=== PATIENT | female | born 1990 | race Caucasian/White ===

== ENCOUNTER 2016-09-08 14:02 | Emergency (ER) | payer MEDICAID, OTHER ==
[~2016-09-08] VITALS: Ht 165.1 cm; Wt 63.5 kg
[~2016-09-08 14:02] MED LIST: AC325T PO; AGM875T PO; AZIT-21 PO; BREA1EAC5 MC; CYCL10TA9 PO; DCS100C PO; DICY20TA57 PO; HYDR-3720 PO; IBP800T PO; NAPR550T PO; PREN1TAB19 PO
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
[2016-09-08 15:15] LABS: MEAN PLATELET VOLUME 9.5 FL (7.4-10.4); RED BLOOD COUNT 4.88 10^6/uL (4.35-5.85); RED CELL DISTRIBUTION WIDTH 13.3 % (10.0-14.5)
[2016-09-08 15:17] LABS: BILIRUBIN,URINE NEGATIVE (NEGATIVE); KETONES,URINE NEGATIVE (NEGATIVE); LEUKOCYTE ESTERASE ,URINE 1+ (NEGATIVE); NITRITE,URINE NEGATIVE (NEGATIVE); PH,URINE 6 (5-9); PROTEIN,URINE 2+ (NEGATIVE); UROBILINOGEN,URINE NORMAL (NORMAL)
[2016-09-08 15:24] LABS: SQUAMOUS EPITHELIAL CELL,UR >50 /HPF; WBC,URINE 0-2 /HPF
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
[2016-09-08 15:35] LABS: ALANINE AMINOTRANSFERASE 23 U/L (0-55); ALBUMIN 4.2 G/DL (3.2-4.5); ANION GAP 9 MMOL/L (5-14); ASPARTATE AMINO TRANSFERASE 20 U/L (5-34); BILIRUBIN,DIRECT 0.2 MG/DL (0.0-0.3); BILIRUBIN,INDIRECT 0.2 MG/DL; BILIRUBIN,TOTAL 0.4 MG/DL (0.1-1.0); BLOOD UREA NITROGEN 16 MG/DL (7-18); BUN/CREATININE RATIO 21; CALCIUM 9.6 MG/DL (8.5-10.1); CARBON DIOXIDE 22 MMOL/L (21-32); CHLORIDE 108 MMOL/L (98-107); CREATININE SERUM 0.75 MG/DL (0.60-1.30); GFR ESTIMATED > 60; GLUCOSE 89 MG/DL (70-105); POTASSIUM 4.3 MMOL/L (3.6-5.0); SODIUM 139 MMOL/L (135-145); TOTAL PROTEIN 7.3 G/DL (6.4-8.2)
[2016-09-08 15:37] LABS: ALCOHOL < 10 MG/DL (<10)
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
[2016-09-08] MEDS ORDERED: ACETAMINOPHEN 500 MG TAB (TYLENOL) PO ONE (15:45)
[2016-09-08 15:55] VITALS: BP 120/84
--- OUTSIDE RECORDS SUMMARY | 2016-10-10 17:20 | XMS REPORT | Continuity of Care Document ---
Author Author Count Includes [facility] Address Unknown Phone Unavailable Allergies Active Description Code Type Severity Reaction Onset Reported/Identified Relationship to Patient Clinical Status Yes Penicillins Drug Allergy 11/25/2008 Yes Penicillins Drug Allergy N/A N/A 11/25/2008 Yes Amoxicillin Drug Allergy N/A N/A 10/04/2012 Yes Penicillins [id number] Drug Allergy Unknown N/A 10/26/2013 Medications Problems Date Dx Coded Attending Type Code Diagnosis Diagnosed By 11/25/2008 JOHN GOMEZ DO 958.3 WOUND INFECTION 11/25/2008 958.3 WOUND INFECTION 11/25/2008 958.3 WOUND INFECTION 11/25/2008 MONY SYED APRNCY N 958.3 WOUND INFECTION 11/25/2008 TANA JUAREZ APRN R 958.3 WOUND INFECTION 11/25/2008 JOANN SEWING MACHINE BOBBIN WINDER, CYRIL A 958.3 WOUND INFECTION 11/25/2008 JOANN SEWING MACHINE BOBBIN WINDER, CYRIL A 958.3 WOUND INFECTION 11/25/2008 JOANN SEWING MACHINE BOBBIN WINDER, CYRIL A 958.3 WOUND INFECTION 11/25/2008 LEONARD JUAREZ APRNIA R 958.3 WOUND INFECTION 11/25/2008 JOANN SEWING MACHINE BOBBIN WINDER, CYRIL A 958.3 WOUND INFECTION 11/25/2008 LISA CANDELARIA MD N 958.3 WOUND INFECTION 11/25/2008 JOANN SEWING MACHINE BOBBIN WINDER, CYRIL A 958.3 WOUND INFECTION 11/25/2008 JOANN PARKER, CYRIL A 958.3 WOUND INFECTION 11/25/2008 LISA CANDELARIA MD N 958.3 WOUND INFECTION 11/25/2008 LISA CANDELARIA MD 958.3 WOUND INFECTION 11/25/2008 LISA CANDELARIA MD 958.3 WOUND INFECTION 11/25/2008 LISA CANDELARIA MD 958.3 WOUND INFECTION 11/25/2008 LISA CANDELARIA MD 958.3 WOUND INFECTION 11/26/2008 JOHN GOMEZ DO K 616.10 VAGINITIS 11/26/2008 JOHN GOMEZ DO 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 11/26/2008 616.10 VAGINITIS 11/26/2008 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 11/26/2008 616.10 VAGINITIS 11/26/2008 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 11/26/2008 MONY SYED APRNCY N 616.10 VAGINITIS 11/26/2008 MONY SYED APRNCY N V74.5 visit for: screening exam bact/ spirochetal venereal disease 11/26/2008 LEONARD JUAREZ APRNIA R 616.10 VAGINITIS 11/26/2008 XU JUAREZ APRNRICIA R V74.5 visit for: screening exam bact/ spirochetal venereal disease 11/26/2008 JOANN PARKER CYRIL A 616.10 VAGINITIS 11/26/2008 JOANNCB PARKER CYRIL A V74.5 visit for: screening exam bact/ spirochetal venereal disease 11/26/2008 JOANN PARKER CYRIL A 616.10 VAGINITIS 11/26/2008 JOANN PARKER CYRIL A V74.5 visit for: screening exam bact/ spirochetal venereal disease 11/26/2008 JOANN PARKER CYRIL A 616.10 VAGINITIS 11/26/2008 JOANN PARKER CYRIL A V74.5 visit for: screening exam bact/ spirochetal venereal disease 11/26/2008 ANN PARKER TANA R 616.10 VAGINITIS 11/26/2008 XU JUAREZ APRNRICIA R V74.5 visit for: screening exam bact/ spirochetal venereal disease 11/26/2008 JOANN PARKER CYRIL A 616.10 VAGINITIS 11/26/2008 JOANN PARKER CYRIL A V74.5 visit for: screening exam bact/ spirochetal venereal disease 11/26/2008 LISA CANDELARIA MD N 616.10 VAGINITIS 11/26/2008 LISA CANDELARIA MD N 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 11/26/2008 JOANN SEWING MACHINE BOBBIN WINDER, CYRIL A 616.10 VAGINITIS 11/26/2008 JOANN SEWING MACHINE BOBBIN WINDER, CYRIL A V74.5 visit for: screening exam bact/ spirochetal venereal disease 11/26/2008 JOANN APRN, CYRIL A 616.10 VAGINITIS 11/26/2008 JOANN APRN, CYRIL A V74.5 visit for: screening exam bact/ spirochetal venereal disease 11/26/2008 LISA CANDELARIA MD N 616.10 VAGINITIS 11/26/2008 LISA CANDELARIA MD N 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 11/26/2008 LISA CANDELARIA MD N 616.10 VAGINITIS 11/26/2008 LISA CANDELARIA MD N 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 11/26/2008 LISA CANDELARIA MD N 616.10 VAGINITIS 11/26/2008 LISA CANDELARIA MD N 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 11/26/2008 LISA CANDELARIA MD N 616.10 VAGINITIS 11/26/2008 LISA CANDELARIA MD N 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 11/26/2008 LISA CANDELARIA MD N 616.10 VAGINITIS 11/26/2008 LISA CANDELARIA MD N 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 12/06/2009 GOMEZ DOJAYNEA K 599.70 HEMATURIA, UNSPECIFIED 12/06/2009 GOMEZ DOJAYNEA K 788.1 DYSURIA 12/06/2009 599.70 HEMATURIA, UNSPECIFIED 12/06/2009 788.1 DYSURIA 12/06/2009 599.70 HEMATURIA, UNSPECIFIED 12/06/2009 788.1 DYSURIA 12/06/2009 CONTRERAS CASHERO SEWING MACHINE BOBBIN WINDER, MO N 599.70 HEMATURIA, UNSPECIFIED 12/06/2009 CONTRERASBRUNO DORANTESERO SEWING MACHINE BOBBIN WINDER, [place] N 788.1 DYSURIA 12/06/2009 JUAREZ SEWING MACHINE BOBBIN WINDER, TANA R 599.70 HEMATURIA, UNSPECIFIED 12/06/2009 JUAREZ SEWING MACHINE BOBBIN WINDER, TANA R 788.1 DYSURIA 12/06/2009 JOANN SEWING MACHINE BOBBIN WINDER, CYRIL A 599.70 HEMATURIA, UNSPECIFIED 12/06/2009 JOANN SEWING MACHINE BOBBIN WINDER, CYRIL A 788.1 DYSURIA 12/06/2009 JOANN SEWING MACHINE BOBBIN WINDER, CYRIL A 599.70 HEMATURIA, UNSPECIFIED 12/06/2009 JOANN SEWING MACHINE BOBBIN WINDER, CYRIL A 788.1 DYSURIA 12/06/2009 JOANN SEWING MACHINE BOBBIN WINDER, CYRIL A 599.70 HEMATURIA, UNSPECIFIED 12/06/2009 JOANN SEWING MACHINE BOBBIN WINDER, CYRIL A 788.1 DYSURIA 12/06/2009 JUAREZ SEWING MACHINE BOBBIN WINDER, TANA R 599.70 HEMATURIA, UNSPECIFIED 12/06/2009 JUAREZ SEWING MACHINE BOBBIN WINDER, TANA R 788.1 DYSURIA 12/06/2009 JOANN SEWING MACHINE BOBBIN WINDER, CYRIL A 599.70 HEMATURIA, UNSPECIFIED 12/06/2009 JOANN SEWING MACHINE BOBBIN WINDER, CYRIL A 788.1 DYSURIA 12/06/2009 LISA CANDELARIA MD N 599.70 HEMATURIA, UNSPECIFIED 12/06/2009 LISA CANDELARIA MD N 788.1 DYSURIA 12/06/2009 JOANN SEWING MACHINE BOBBIN WINDER, CYRIL A 599.70 HEMATURIA, UNSPECIFIED 12/06/2009 JOANN SEWING MACHINE BOBBIN WINDER, CYRIL A 788.1 DYSURIA 12/06/2009 JOANN SEWING MACHINE BOBBIN WINDER, CYRIL A 599.70 HEMATURIA, UNSPECIFIED 12/06/2009 JOANN SEWING MACHINE BOBBIN WINDER, CYRIL A 788.1 DYSURIA 12/06/2009 LISA CANDELARIA MD N 599.70 HEMATURIA, UNSPECIFIED 12/06/2009 LISA CANDELARIA MD N 788.1 DYSURIA 12/06/2009 LISA CANDELARIA MD N 599.70 HEMATURIA, UNSPECIFIED 12/06/2009 LISA CANDELARIA MD N 788.1 DYSURIA 12/06/2009 LISA CANDELARIA MD N 599.70 HEMATURIA, UNSPECIFIED 12/06/2009 LISA CANDELARIA MD N 788.1 DYSURIA 12/06/2009 LISA CANDELARIA MD N 599.70 HEMATURIA, UNSPECIFIED 12/06/2009 LISA CANDELARIA MD N 788.1 DYSURIA 12/06/2009 LISA CANDELARIA MD N 599.70 HEMATURIA, UNSPECIFIED 12/06/2009 LISA CANDELARIA MD N 788.1 DYSURIA 02/10/2010 JOHN GOMEZ DO K 461.9 SINUSITIS ACUTE 02/10/2010 461.9 SINUSITIS ACUTE 02/10/2010 461.9 SINUSITIS ACUTE 02/10/2010 DIANE LEWIS SEWING MACHINE BOBBIN WINDER, MO N 461.9 SINUSITIS ACUTE 02/10/2010 TANA JUAREZ APRN R 461.9 SINUSITIS ACUTE 02/10/2010 JOANN SEWING MACHINE BOBBIN WINDER, CYRIL A 461.9 SINUSITIS ACUTE 02/10/2010 JOANN SEWING MACHINE BOBBIN WINDER, CYRIL A 461.9 SINUSITIS ACUTE 02/10/2010 JOANN SEWING MACHINE BOBBIN WINDER, CYRIL A 461.9 SINUSITIS ACUTE 02/10/2010 ANN SEWING MACHINE BOBBIN WINDERTANA Ma R 461.9 SINUSITIS ACUTE 02/10/2010 JOANN SEWING MACHINE BOBBIN WINDER, CYRIL A 461.9 SINUSITIS ACUTE 02/10/2010 LISA CANDELARIA MD N 461.9 SINUSITIS ACUTE 02/10/2010 JOANN SEWING MACHINE BOBBIN WINDER, CYRIL A 461.9 SINUSITIS ACUTE 02/10/2010 JOANN PARKER, CYRIL A 461.9 SINUSITIS ACUTE 02/10/2010 LISA CANDELARIA MD N 461.9 SINUSITIS ACUTE 02/10/2010 LISA CANDELARIA MD 461.9 SINUSITIS ACUTE 02/10/2010 LISA CANDELARIA MD N 461.9 SINUSITIS ACUTE 02/10/2010 LISA CANDELARIA MD N 461.9 SINUSITIS ACUTE 02/10/2010 LISA CANDELARIA MD N 461.9 SINUSITIS ACUTE 02/18/2010 JOHN GOMEZ DO K 112.1 CANDIDIASIS VAGINAL 02/18/2010 JOHN GOMEZ DO K 465.9 UPPER RESPIRATORY INFECTION 02/18/2010 112.1 CANDIDIASIS VAGINAL 02/18/2010 465.9 UPPER RESPIRATORY INFECTION 02/18/2010 112.1 CANDIDIASIS VAGINAL 02/18/2010 465.9 UPPER RESPIRATORY INFECTION 02/18/2010 CONTRERAS CASHERO SEWING MACHINE BOBBIN WINDER, MO N 112.1 CANDIDIASIS VAGINAL 02/18/2010 CONTRERAS CASHERO SEWING MACHINE BOBBIN WINDER, MO N 465.9 UPPER RESPIRATORY INFECTION 02/18/2010 JUAREZ SEWING MACHINE BOBBIN WINDER, TANA R 112.1 CANDIDIASIS VAGINAL 02/18/2010 JUAREZ SEWING MACHINE BOBBIN WINDER, TANA R 465.9 UPPER RESPIRATORY INFECTION 02/18/2010 JOANN SEWING MACHINE BOBBIN WINDER, CYRIL A 112.1 CANDIDIASIS VAGINAL 02/18/2010 JOANN SEWING MACHINE BOBBIN WINDER, CYRIL A 465.9 UPPER RESPIRATORY INFECTION 02/18/2010 JOANN SEWING MACHINE BOBBIN WINDER, CYRIL A 112.1 CANDIDIASIS VAGINAL 02/18/2010 JOANN SEWING MACHINE BOBBIN WINDER, CYRIL A 465.9 UPPER RESPIRATORY INFECTION 02/18/2010 JOANN SEWING MACHINE BOBBIN WINDER, CYRIL A 112.1 CANDIDIASIS VAGINAL 02/18/2010 JOANN SEWING MACHINE BOBBIN WINDER, CYRIL A 465.9 UPPER RESPIRATORY INFECTION 02/18/2010 ANN SEWING MACHINE BOBBIN WINDER, TANA R 112.1 CANDIDIASIS VAGINAL 02/18/2010 JUAREZ SEWING MACHINE BOBBIN WINDER, TANA R 465.9 UPPER RESPIRATORY INFECTION 02/18/2010 JOANN SEWING MACHINE BOBBIN WINDER, CYRIL A 112.1 CANDIDIASIS VAGINAL 02/18/2010 JOANN SEWING MACHINE BOBBIN WINDER, CYRIL A 465.9 UPPER RESPIRATORY INFECTION 02/18/2010 LISA CANDELARIA MD N 112.1 CANDIDIASIS VAGINAL 02/18/2010 LISA CANDELARIA MD N 465.9 UPPER RESPIRATORY INFECTION 02/18/2010 JOANN SEWING MACHINE BOBBIN WINDER, CYRIL A 112.1 CANDIDIASIS VAGINAL 02/18/2010 JOANN SEWING MACHINE BOBBIN WINDER, CYRIL A 465.9 UPPER RESPIRATORY INFECTION 02/18/2010 JOANN SEWING MACHINE BOBBIN WINDER, CYRIL A 112.1 CANDIDIASIS VAGINAL 02/18/2010 JOANN SEWING MACHINE BOBBIN WINDER, CYRIL A 465.9 UPPER RESPIRATORY INFECTION 02/18/2010 LISA CANDELARIA MD N 112.1 CANDIDIASIS VAGINAL 02/18/2010 LISA CANDELARIA MD N 465.9 UPPER RESPIRATORY INFECTION 02/18/2010 LISA CANDELARIA MD N 112.1 CANDIDIASIS VAGINAL 02/18/2010 LISA CANDELARIA MD N 465.9 UPPER RESPIRATORY INFECTION 02/18/2010 LISA CANDELARIA MD N 112.1 CANDIDIASIS VAGINAL 02/18/2010 LISA CANDELARIA MD N 465.9 UPPER RESPIRATORY INFECTION 02/18/2010 LISA CANDELARIA MD N 112.1 CANDIDIASIS VAGINAL 02/18/2010 LISA CANDELARIA MD N 465.9 UPPER RESPIRATORY INFECTION 02/18/2010 LISA CANDELARIA MD N 112.1 CANDIDIASIS VAGINAL 02/18/2010 LISA CANDELARIA MD N 465.9 UPPER RESPIRATORY INFECTION 03/19/2010 JOHN GOMEZ DO K 684 IMPETIGO 03/19/2010 684 IMPETIGO 03/19/2010 684 IMPETIGO 03/19/2010 MO SYED APRN N 684 IMPETIGO 03/19/2010 TANA JUAREZ APRN R 684 IMPETIGO 03/19/2010 JOANN SEWING MACHINE BOBBIN WINDER, CYRIL A 684 IMPETIGO 03/19/2010 JOANN SEWING MACHINE BOBBIN WINDER, CYRIL A 684 IMPETIGO 03/19/2010 JOANN APRN, CYRIL A 684 IMPETIGO 03/19/2010 TANA JUAREZ APRN R 684 IMPETIGO 03/19/2010 JOANN APRN, CYRIL A 684 IMPETIGO 03/19/2010 LISA CANDELARIA MD N 684 IMPETIGO 03/19/2010 JOANN SEWING MACHINE BOBBIN WINDER, CYRIL A 684 IMPETIGO 03/19/2010 JOANN APRN, CYRIL A 684 IMPETIGO 03/19/2010 LISA CANDELARIA MD N 684 IMPETIGO 03/19/2010 LISA CANDELARIA MD N 684 IMPETIGO 03/19/2010 LISA CANDELARIA MD N 684 IMPETIGO 03/19/2010 LISA CANDELARIA MD N 684 IMPETIGO 03/19/2010 LISA CANDELARIA MD N 684 IMPETIGO 05/12/2010 JOHN GOMEZ DO 787.02 NAUSEA ALONE 05/12/2010 787.02 NAUSEA ALONE 05/12/2010 787.02 NAUSEA ALONE 05/12/2010 MO SYED APRN N 787.02 NAUSEA ALONE 05/12/2010 TANA JUAREZ APRN 787.02 NAUSEA ALONE 05/12/2010 JOANN SEWING MACHINE BOBBIN WINDER, CYRIL A 787.02 NAUSEA ALONE 05/12/2010 JOANN SEWING MACHINE BOBBIN WINDER, CYRIL A 787.02 NAUSEA ALONE 05/12/2010 JOANN SEWING MACHINE BOBBIN WINDER, CYRIL A 787.02 NAUSEA ALONE 05/12/2010 TANA JUAREZ APRN R 787.02 NAUSEA ALONE 05/12/2010 JOANN SEWING MACHINE BOBBIN WINDER, CYRIL A 787.02 NAUSEA ALONE 05/12/2010 LISA CANDELARIA MD N 787.02 NAUSEA ALONE 05/12/2010 JOANN SEWING MACHINE BOBBIN WINDER, CYRIL A 787.02 NAUSEA ALONE 05/12/2010 JOANN SEWING MACHINE BOBBIN WINDER, CYRIL A 787.02 NAUSEA ALONE 05/12/2010 LISA CANDELARIA MD N 787.02 NAUSEA ALONE 05/12/2010 LISA CANDELARIA MD N 787.02 NAUSEA ALONE 05/12/2010 LISA CANDELARIA MD N 787.02 NAUSEA ALONE 05/12/2010 LISA CANDELARIA MD N 787.02 NAUSEA ALONE 05/12/2010 LISA CANDELARIA MD N 787.02 NAUSEA ALONE 08/11/2010 GOMEZ DO, JOHN K 466.0 BRONCHITIS, ACUTE 08/11/2010 466.0 BRONCHITIS, ACUTE 08/11/2010 466.0 BRONCHITIS, ACUTE 08/11/2010 MO SYED APRN N 466.0 BRONCHITIS, ACUTE 08/11/2010 TANA JUAREZ APRN R 466.0 BRONCHITIS, ACUTE 08/11/2010 JOANN SEWING MACHINE BOBBIN WINDER, CYRIL A 466.0 BRONCHITIS, ACUTE 08/11/2010 JOANN SEWING MACHINE BOBBIN WINDER, CYRIL A 466.0 BRONCHITIS, ACUTE 08/11/2010 JOANN SEWING MACHINE BOBBIN WINDER, CYRIL A 466.0 BRONCHITIS, ACUTE 08/11/2010 TANA JUAREZ APRN R 466.0 BRONCHITIS, ACUTE 08/11/2010 JOANN ELENA, CYRIL A 466.0 BRONCHITIS, ACUTE 08/11/2010 LISA CANDELARIA MD 466.0 BRONCHITIS, ACUTE 08/11/2010 JOANN SEWING MACHINE BOBBIN WINDER, CYRIL A 466.0 BRONCHITIS, ACUTE 08/11/2010 JOANN PARKER, CYRIL A 466.0 BRONCHITIS, ACUTE 08/11/2010 BARI MD, LISA N 466.0 BRONCHITIS, ACUTE 08/11/2010 BARI NARVAEZ, LISA N 466.0 BRONCHITIS, ACUTE 08/11/2010 BARI NARVAEZ, LISA N 466.0 BRONCHITIS, ACUTE 08/11/2010 BARI NARVAEZ, LISA N 466.0 BRONCHITIS, ACUTE 08/11/2010 BARI NARVAEZ, LISA N 466.0 BRONCHITIS, ACUTE 08/13/2010 GOMEZ DO, JOHN K 305.1 TOBACCO ABUSE 08/13/2010 GOMEZ DO, JOHN K 786.2 COUGH 08/13/2010 GOMEZ DO, JOHN K 787.01 NAUSEA WITH VOMITING 08/13/2010 305.1 TOBACCO ABUSE 08/13/2010 786.2 COUGH 08/13/2010 787.01 NAUSEA WITH VOMITING 08/13/2010 305.1 TOBACCO ABUSE 08/13/2010 786.2 COUGH 08/13/2010 787.01 NAUSEA WITH VOMITING 08/13/2010 CONTRERAS CASHSIMEON SEWING MACHINE BOBBIN WINDER, MO N 305.1 TOBACCO ABUSE 08/13/2010 CONTRERAS CASHSIMEON SEWING MACHINE BOBBIN WINDER, MO N 786.2 COUGH 08/13/2010 CONTRERAS CASHERO SEWING MACHINE BOBBIN WINDER, MO N 787.01 NAUSEA WITH VOMITING 08/13/2010 ANN PARKER TANA R 305.1 TOBACCO ABUSE 08/13/2010 XU JUAREZ APRNRICIA R 786.2 COUGH 08/13/2010 UX JUAREZ APRNRICIA R 787.01 NAUSEA WITH VOMITING 08/13/2010 JOANN SEWING MACHINE BOBBIN WINDER, CYRIL A 305.1 TOBACCO ABUSE 08/13/2010 JOANN SEWING MACHINE BOBBIN WINDER, CYRIL A 786.2 COUGH 08/13/2010 JOANN SEWING MACHINE BOBBIN WINDER, CYRIL A 787.01 NAUSEA WITH VOMITING 08/13/2010 JOANN SEWING MACHINE BOBBIN WINDER, CYRIL A 305.1 TOBACCO ABUSE 08/13/2010 JOANN SEWING MACHINE BOBBIN WINDER, CYRIL A 786.2 COUGH 08/13/2010 JOANN SEWING MACHINE BOBBIN WINDER, CYRIL A 787.01 NAUSEA WITH VOMITING 08/13/2010 JOANN SEWING MACHINE BOBBIN WINDER, CYRIL A 305.1 TOBACCO ABUSE 08/13/2010 JOANN SEWING MACHINE BOBBIN WINDER, CYRIL A 786.2 COUGH 08/13/2010 JOANN SEWING MACHINE BOBBIN WINDER, CYRIL A 787.01 NAUSEA WITH VOMITING 08/13/2010 ANN PARKER TANA R 305.1 TOBACCO ABUSE 08/13/2010 JUAREZ SEWING MACHINE BOBBIN WINDER, TANA R 786.2 COUGH 08/13/2010 JUAREZ SEWING MACHINE BOBBIN WINDER, TANA R 787.01 NAUSEA WITH VOMITING 08/13/2010 JOANN SEWING MACHINE BOBBIN WINDER, CYRIL A 305.1 TOBACCO ABUSE 08/13/2010 JOANN SEWING MACHINE BOBBIN WINDER, CYRIL A 786.2 COUGH 08/13/2010 [facility] SEWING MACHINE BOBBIN WINDER, CYRIL A 787.01 NAUSEA WITH VOMITING 08/13/2010 LISA CANDELARIA MD N 305.1 TOBACCO ABUSE 08/13/2010 LISA CANDELARIA MD N 786.2 COUGH 08/13/2010 LISA CANDELARIA MD N 787.01 NAUSEA WITH VOMITING 08/13/2010 [facility] SEWING MACHINE BOBBIN WINDER, CYRIL A 305.1 TOBACCO ABUSE 08/13/2010 [facility] SEWING MACHINE BOBBIN WINDER, CYRIL A 786.2 COUGH 08/13/2010 [facility] SEWING MACHINE BOBBIN WINDER, CYRIL A 787.01 NAUSEA WITH VOMITING 08/13/2010 [facility] SEWING MACHINE BOBBIN WINDER, CYRIL A 305.1 TOBACCO ABUSE 08/13/2010 [facility] SEWING MACHINE BOBBIN WINDER, CYRIL A 786.2 COUGH 08/13/2010 [facility] SEWING MACHINE BOBBIN WINDER, CYRIL A 787.01 NAUSEA WITH VOMITING 08/13/2010 LISA CANDELARIA MD N 305.1 TOBACCO ABUSE 08/13/2010 LISA CANDELARIA MD N 786.2 COUGH 08/13/2010 LISA CANDELARIA MD N 787.01 NAUSEA WITH VOMITING 08/13/2010 LISA CANDELARIA MD N 305.1 TOBACCO ABUSE 08/13/2010 LISA CANDELARIA MD N 786.2 COUGH 08/13/2010 BRIAN CANDELARIA MDY N 787.01 NAUSEA WITH VOMITING 08/13/2010 LISA CANDELARIA MD N 305.1 TOBACCO ABUSE 08/13/2010 LISA CANDELARIA MD N 786.2 COUGH 08/13/2010 LISA CANDELARIA MD N 787.01 NAUSEA WITH VOMITING 08/13/2010 LISA CANDELARIA MD N 305.1 TOBACCO ABUSE 08/13/2010 LISA CANDELARIA MD N 786.2 COUGH 08/13/2010 LISA CANDELARIA MD N 787.01 NAUSEA WITH VOMITING 08/13/2010 LISA CANDELARIA MD N 305.1 TOBACCO ABUSE 08/13/2010 LISA CANDELARIA MD 786.2 COUGH 08/13/2010 LISA CANDELARIA MD 787.01 NAUSEA WITH VOMITING 10/06/2010 JOHN GOMEZ DO V72.31 WEATHERIZATION OPERATIONS MANAGER EXAM, ROUTINE 10/06/2010 V72.31 WEATHERIZATION OPERATIONS MANAGER EXAM, ROUTINE 10/06/2010 V72.31 WEATHERIZATION OPERATIONS MANAGER EXAM, ROUTINE 10/06/2010 DIANE LEWIS SEWING MACHINE BOBBIN WINDERMONY MaCY N V72.31 WEATHERIZATION OPERATIONS MANAGER EXAM, ROUTINE 10/06/2010 ANN SEWING MACHINE BOBBIN WINDER TANA R V72.31 WEATHERIZATION OPERATIONS MANAGER EXAM, ROUTINE 10/06/2010 JOANN SEWING MACHINE BOBBIN WINDER, CYRIL A V72.31 WEATHERIZATION OPERATIONS MANAGER EXAM, ROUTINE 10/06/2010 JOANN SEWING MACHINE BOBBIN WINDER, CYRIL A V72.31 WEATHERIZATION OPERATIONS MANAGER EXAM, ROUTINE 10/06/2010 JOANN SEWING MACHINE BOBBIN WINDER, CYRIL A V72.31 WEATHERIZATION OPERATIONS MANAGER EXAM, ROUTINE 10/06/2010 ANN SEWING MACHINE BOBBIN WINDER TANA R V72.31 WEATHERIZATION OPERATIONS MANAGER EXAM, ROUTINE 10/06/2010 JOANN SEWING MACHINE BOBBIN WINDER, CYRIL A V72.31 WEATHERIZATION OPERATIONS MANAGER EXAM, ROUTINE 10/06/2010 LISA CANDELARIA MD V72.31 WEATHERIZATION OPERATIONS MANAGER EXAM, ROUTINE 10/06/2010 JOANN SEWING MACHINE BOBBIN WINDER, CYRIL A V72.31 WEATHERIZATION OPERATIONS MANAGER EXAM, ROUTINE 10/06/2010 JOANN APRN, CYRIL A V72.31 WEATHERIZATION OPERATIONS MANAGER EXAM, ROUTINE 10/06/2010 LISA CANDELARIA MD V72.31 WEATHERIZATION OPERATIONS MANAGER EXAM, ROUTINE 10/06/2010 LISA CANDELARIA MD V72.31 WEATHERIZATION OPERATIONS MANAGER EXAM, ROUTINE 10/06/2010 LISA CANDELARIA MD N V72.31 WEATHERIZATION OPERATIONS MANAGER EXAM, ROUTINE 10/06/2010 LISA CANDELARIA MD V72.31 WEATHERIZATION OPERATIONS MANAGER EXAM, ROUTINE 10/06/2010 LISA CANDELARIA MD V72.31 WEATHERIZATION OPERATIONS MANAGER EXAM, ROUTINE 10/14/2010 JOHN GOMEZ DO 462 sore throat 10/14/2010 JOHN GOMEZ DO 785.6 LYMPH NODES ENLARGEMENT 10/14/2010 462 sore throat 10/14/2010 785.6 LYMPH NODES ENLARGEMENT 10/14/2010 462 sore throat 10/14/2010 785.6 LYMPH NODES ENLARGEMENT 10/14/2010 CONTRERAS CASHERO SEWING MACHINE BOB[employer] WINDER, [place] N 462 sore throat 10/14/2010 CONTRERAS CASHERO SEWING MACHINE BOBBIN WINDER, MO N 785.6 LYMPH NODES ENLARGEMENT 10/14/2010 JUAREZ SEWING MACHINE BOBBIN WINDER, TANA R 462 sore throat 10/14/2010 JUAREZ SEWING MACHINE BOBBIN WINDER, TANA R 785.6 LYMPH NODES ENLARGEMENT 10/14/2010 JOANN SEWING MACHINE BOBBIN WINDER, CYRIL A 462 sore throat 10/14/2010 JOANN SEWING MACHINE BOBBIN WINDER, CYRIL A 785.6 LYMPH NODES ENLARGEMENT 10/14/2010 JOANN SEWING MACHINE BOBBIN WINDER, CYRIL A 462 sore throat 10/14/2010 JOANN SEWING MACHINE BOBBIN WINDER, CYRIL A 785.6 LYMPH NODES ENLARGEMENT 10/14/2010 JOANN SEWING MACHINE BOBBIN WINDER, CYRIL A 462 sore throat 10/14/2010 JOANN SEWING MACHINE BOBBIN WINDER, CYRIL A 785.6 LYMPH NODES ENLARGEMENT 10/14/2010 JUAREZ SEWING MACHINE BOBBIN WINDER, TANA R 462 sore throat 10/14/2010 JUAREZ SEWING MACHINE BOBBIN WINDER, TANA R 785.6 LYMPH NODES ENLARGEMENT 10/14/2010 JOANN SEWING MACHINE BOBBIN WINDER, CYRIL A 462 sore throat 10/14/2010 JOANN SEWING MACHINE BOBBIN WINDER, CYRIL A 785.6 LYMPH NODES ENLARGEMENT 10/14/2010 LISA CANDELARIA MD N 462 sore throat 10/14/2010 LISA CANDELARIA MD N 785.6 LYMPH NODES ENLARGEMENT 10/14/2010 JOANN SEWING MACHINE BOBBIN WINDER, CYRIL A 462 sore throat 10/14/2010 JOANN SEWING MACHINE BOBBIN WINDER, CYRIL A 785.6 LYMPH NODES ENLARGEMENT 10/14/2010 JOANN SEWING MACHINE BOBBIN WINDER, CYRIL A 462 sore throat 10/14/2010 JOANN SEWING MACHINE BOBBIN WINDER, CYRIL A 785.6 LYMPH NODES ENLARGEMENT 10/14/2010 LISA CANDELARIA MD N 462 sore throat 10/14/2010 LISA CANDELARIA MD N 785.6 LYMPH NODES ENLARGEMENT 10/14/2010 LISA CANDELARIA MD N 462 sore throat 10/14/2010 LISA CANDELARIA MD N 785.6 LYMPH NODES ENLARGEMENT 10/14/2010 LISA CANDELARIA MD N 462 sore throat 10/14/2010 LISA CANDELARIA MD N 785.6 LYMPH NODES ENLARGEMENT 10/14/2010 LISA CANDELARIA MD N 462 sore throat 10/14/2010 LISA CANDELARIA MD 785.6 LYMPH NODES ENLARGEMENT 10/14/2010 LISA CANDELARIA MD N 462 sore throat 10/14/2010 LISA CANDELARIA MD 785.6 LYMPH NODES ENLARGEMENT 11/17/2010 JOHN GOMEZ DO K 780.4 DIZZINESS AND GIDDINESS 11/17/2010 780.4 DIZZINESS AND GIDDINESS 11/17/2010 780.4 DIZZINESS AND GIDDINESS 11/17/2010 MO SYED APRN N 780.4 DIZZINESS AND GIDDINESS 11/17/2010 TANA JUAREZ APRN R 780.4 DIZZINESS AND GIDDINESS 11/17/2010 JOANN ELENA CYRIL A 780.4 DIZZINESS AND GIDDINESS 11/17/2010 JOANN APRN, CYRIL A 780.4 DIZZINESS AND GIDDINESS 11/17/2010 JOANN ELENA CYRIL A 780.4 DIZZINESS AND GIDDINESS 11/17/2010 TANA JUAREZ APRN R 780.4 DIZZINESS AND GIDDINESS 11/17/2010 JOANN APRN, CYRIL A 780.4 DIZZINESS AND GIDDINESS 11/17/2010 LISA CANDELARIA MD N 780.4 DIZZINESS AND GIDDINESS 11/17/2010 JOANN APRN, CYRIL A 780.4 DIZZINESS AND GIDDINESS 11/17/2010 JOANN APRN, CYRIL A 780.4 DIZZINESS AND GIDDINESS 11/17/2010 LISA CANDELARIA MD 780.4 DIZZINESS AND GIDDINESS 11/17/2010 LISA CANDELARIA MD 780.4 DIZZINESS AND GIDDINESS 11/17/2010 LISA CANDELARIA MD 780.4 DIZZINESS AND GIDDINESS 11/17/2010 LISA CANDELARIA MD 780.4 DIZZINESS AND GIDDINESS 11/17/2010 LISA CANDELARIA MD 780.4 DIZZINESS AND GIDDINESS 01/11/2011 JOHN GOMEZ DO 034.0 STREP THROAT 01/11/2011 034.0 STREP THROAT 01/11/2011 034.0 STREP THROAT 01/11/2011 MO SYED APRN N 034.0 STREP THROAT 01/11/2011 JUAREZ SEWING MACHINE BOBBIN WINDER, TANA R 034.0 STREP THROAT 01/11/2011 JOANN SEWING MACHINE BOBBIN WINDER, CYRIL A 034.0 STREP THROAT 01/11/2011 JOANN SEWING MACHINE BOBBIN WINDER, CYRIL A 034.0 STREP THROAT 01/11/2011 JOANN SEWING MACHINE BOBBIN WINDER, CYRIL A 034.0 STREP THROAT 01/11/2011 JUAREZ SEWING MACHINE BOBBIN WINDER, TANA R 034.0 STREP THROAT 01/11/2011 JOANN SEWING MACHINE BOBBIN WINDER, CYRIL A 034.0 STREP THROAT 01/11/2011 BARI NARVAEZ, LISA N 034.0 STREP THROAT 01/11/2011 JOANN SEWING MACHINE BOBBIN WINDER, CYRIL A 034.0 STREP THROAT 01/11/2011 JOANN SEWING MACHINE BOBBIN WINDER, CYRIL A 034.0 STREP THROAT 01/11/2011 BARI NARVAEZ, LISA N 034.0 STREP THROAT 01/11/2011 BARI NARVAEZ, LISA N 034.0 STREP THROAT 01/11/2011 BARI NARVAEZ, LISA N 034.0 STREP THROAT 01/11/2011 LISA CANDELARIA MD N 034.0 STREP THROAT 01/11/2011 BARI NARVAEZ, LISA N 034.0 STREP THROAT 05/05/2011 GOMEZ DOJOHN K 626.4 IRREGULAR MENSTRUAL CYCLE 05/05/2011 GOMEZ JOHN TORRES K V65.45 COUNSELING - STD 05/05/2011 626.4 IRREGULAR MENSTRUAL CYCLE 05/05/2011 V65.45 COUNSELING - STD 05/05/2011 626.4 IRREGULAR MENSTRUAL CYCLE 05/05/2011 V65.45 COUNSELING - STD 05/05/2011 DIANE LEWIS APRN, MO N 626.4 IRREGULAR MENSTRUAL CYCLE 05/05/2011 CONTRERAS CASHERO SEWING MACHINE BOBBIN WINDER, MO N V65.45 COUNSELING - STD 05/05/2011 JUAREZ SEWING MACHINE BOBBIN WINDER, TANA R 626.4 IRREGULAR MENSTRUAL CYCLE 05/05/2011 JUAREZ SEWING MACHINE BOBBIN WINDER, TANA R V65.45 COUNSELING - STD 05/05/2011 JOANN SEWING MACHINE BOBBIN WINDER, CYRIL A 626.4 IRREGULAR MENSTRUAL CYCLE 05/05/2011 JOANN SEWING MACHINE BOBBIN WINDER, CYRIL A V65.45 COUNSELING - STD 05/05/2011 JOANN SEWING MACHINE BOBBIN WINDER, CYRIL A 626.4 IRREGULAR MENSTRUAL CYCLE 05/05/2011 JOANN SEWING MACHINE BOBBIN WINDER, CYRIL A V65.45 COUNSELING - STD 05/05/2011 JOANN SEWING MACHINE BOBBIN WINDER, CYRIL A 626.4 IRREGULAR MENSTRUAL CYCLE 05/05/2011 JOANN SEWING MACHINE BOBBIN WINDER, CYRIL A V65.45 COUNSELING - STD 05/05/2011 JUAREZ SEWING MACHINE BOBBIN WINDER, TANA R 626.4 IRREGULAR MENSTRUAL CYCLE 05/05/2011 JUAREZ SEWING MACHINE BOBBIN WINDER, TANA R V65.45 COUNSELING - STD 05/05/2011 JOANN SEWING MACHINE BOBBIN WINDER, CYRIL A 626.4 IRREGULAR MENSTRUAL CYCLE 05/05/2011 JOANN SEWING MACHINE BOBBIN WINDER, CYRIL A V65.45 COUNSELING - STD 05/05/2011 LISA CANDELARIA MD N 626.4 IRREGULAR MENSTRUAL CYCLE 05/05/2011 LISA CANDELARIA MD N V65.45 COUNSELING - STD 05/05/2011 JOANN SEWING MACHINE BOBBIN WINDER, CYRIL A 626.4 IRREGULAR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 test strip NEGATIVE NEGATIVE Urine urobilinogen measurement by automated test strip (mass/volume) 1 mg/dL NORMAL Urine leukocyte esterase detection by dipstick 1+ NEGATIVE Automated urine sediment erythrocyte count by microscopy (number/high power field) NONE NRG Automated urine sediment leukocyte count by microscopy (number/high power field ) [HPF] NRG Bacteria detection in urine sediment by light microscopy TRACE NRG Squamous epithelial cells detection in urine sediment by light microscopy 5-10 NRG Crystals detection in urine sediment by light microscopy NONE NRG Casts detection in urine sediment by light microscopy NONE NRG Mucus detection in urine sediment by light microscopy NEGATIVE NRG Complete urinalysis with reflex to culture NO NRG Comprehensive metabolic panel - 09/19/16 16:15 Serum or plasma sodium measurement (moles/volume) 139 mmol/ L 135-145 Serum or plasma potassium measurement (moles/volume) 3.5 mmol/L 3.6-5.0 Serum or plasma chloride measurement (moles/volume) 106 mmol /L 98-107 Carbon dioxide 22 mmol/L 21-32 Serum or plasma anion gap determination (moles/volume) 11 mmol/L 5-14 Serum or plasma urea nitrogen measurement (mass/volume) 8 mg /dL 7-18 Serum or plasma creatinine measurement (mass/volume) 0.69 mg /dL 0.60-1.30 Serum or plasma urea nitrogen/creatinine mass ratio 12 NRG Serum or plasma creatinine measurement with calculation of estimated glomerular filtration rate > NRG Serum or plasma glucose measurement (mass/volume) 102 mg/dL 70-105 Serum or plasma calcium measurement (mass/volume) 9.2 mg/dL 8.5-10.1 Serum or plasma total bilirubin measurement (mass/volume) 0.6 mg/dL 0.1-1.0 Serum or plasma alkaline phosphatase measurement (enzymatic activity/volume) 82 U/L 40-136 Serum or plasma aspartate aminotransferase measurement (enzymatic activity/ volume) 16 U/L 5-34 Serum or plasma alanine aminotransferase measurement (enzymatic activity/volume ) 18 U/L 0-55 Serum or plasma protein measurement (mass/volume) 7.1 g/dL 6.4-8.2 Serum or plasma albumin measurement (mass/volume) 4.3 g/dL 3.2-4.5 Blood manual differential performed detection - 09/19/16 16:15 Blood monocytes/100 leukocytes 7 % NRG Manual blood segmented neutrophils/100 leukocytes 64 % NRG Manual blood lymphocytes/100 leukocytes 24 % NRG Manual eosinophils/100 leukocytes in nose 5 % NRG Blood erythrocyte morphology finding identification NORMAL NRG Serum or plasma choriogonadotropin measurement (units/volume) - 09/19/16 16:15 Serum or plasma choriogonadotropin measurement (units/volume) 77540 m[iU]/mL <5 Encounters ACCT No. Visit Date/Time Discharge Status Pt. Type Provider Facility Loc./Unit Complaint [id number] 08/14/2013 09:55:00 08/14/2013 23: 59:59 CLS Outpatient LISA CANDELARIA MD [id number] 08/14/2013 09:55:00 08/14/2013 23: 59:59 CLS Outpatient LISA CANDELARIA MD [id number] 07/31/2013 09:36:00 07/31/2013 23: 59:59 CLS Outpatient LISA CANDELARIA MD [id number] 07/17/2013 08:50:00 07/17/2013 23: 59:59 CLS Outpatient LISA CANDELARIA MD [id number] 05/22/2013 11:07:00 05/22/2013 23: 59:59 CLS Outpatient LISA CANDELARIA MD N [id number] 05/22/2013 11:07:00 05/22/2013 23: 59:59 CLS Outpatient LISA CANDELARIA MD N [id number] 05/17/2013 10:10:00 05/17/2013 23: 59:59 CLS Outpatient CYRIL DAVID APRN A [id number] 05/17/2013 10:10:00 05/17/2013 23: 59:59 CLS Outpatient CYRIL DAVID APRN A [id number] 04/30/2013 12:09:00 04/30/2013 23: 59:59 CLS Outpatient ANN XU PARKERMERLYN Sidhu [id number] 04/23/2013 10:51:00 04/23/2013 23: 59:59 CLS Outpatient CYRIL DAVID APRN A [id number] 04/23/2013 10:51:00 04/23/2013 23: 59:59 CLS Outpatient CYRIL DAVID APRN A [id number] 03/26/2013 11:04:00 03/26/2013 23: 59:59 CLS Outpatient CYRIL DAVID APRN A [id number] 03/26/2013 11:04:00 03/26/2013 23: 59:59 CLS Outpatient CYRIL DAVID APRN A [id number] 03/21/2013 12:26:00 03/21/2013 23: 59:59 CLS Outpatient LEONARD JUAREZ APRNJOSEFA Sidhu [id number] 03/01/2013 10:29:00 03/01/2013 23: 59:59 CLS Outpatient DIANE LEWIS APRMONY MaDINORA Ma [id number] 08/25/2012 11:45:00 08/25/2012 23: 59:59 CLS Outpatient JOHN GOMEZ DO [id number] 02/01/2013 10:13:00 Document Registration [id number] 10/04/2012 12:44:00 Document Registration
== END 2016-09-08 15:58 | disposition home or self-care (01) ==
LOC: EDUNIT# 14:02 → ER 14:04
DX: S00.03XA Contusion of scalp, initial encounter (principal); S40.272A Other superficial bite of left shoulder, initial encounter; S40.012A Contusion of left shoulder, initial encounter; D72.829 Elevated white blood cell count, unspecified; O99.331 Smoking (tobacco) complicating pregnancy, first trimester; Z3A.13 13 weeks gestation of pregnancy; Y04.0XXA Assault by unarmed brawl or fight, initial encounter; Y04.1XXA Assault by human bite, initial encounter; Y92.410 Unspecified street and highway as the place of occurrence of the external cause; Y99.8 Other external cause status
CPT/HCPCS: 36415; 76705; 76801; 80048; 80076; 80306; 80320; 81000; 84702; 84703; 85027

== ENCOUNTER 2016-09-19 15:45 | Emergency (ER) | payer MEDICAID, OTHER ==
[~2016-09-19] VITALS: Ht 165.1 cm; Wt 63.5 kg
[2016-09-19] MEDS ORDERED: PREN-98 PO (15:57)
--- NOTE | 2016-09-19 16:10 | ED Abdominal Pain ---
General Chief Complaint: -Female Stated Complaint: 14 WKS PREG/PELVIC PAIN Nursing Triage Note: c/o bilateral lower abdomen cramping and spotting x 3 days, patient reports cramping was so severe yesterday she had to call into work Sepsis Screen: No Definite Risk History of Present Illness Time Seen By Provider: 15:55 Initial Comments evaluation for generalized abdominal pain. Patient reports approximately 10-14 weeks , LMP 06/07/16. However, unsure of dates because at visit on 09/08/16 could not obtain FHT on ultrasound. She denies any abdominal trauma and no vaginal d/c or bleeding today, she had trace "pink on toilet paper, when wiping " on 09/16/16 but no blood or pink tinge on toilet paper or in toilet since. Tylenol 650 mg at 1200. Will be seeing Dr. Segundo this week for first OB appt. Taking vitamin daily. Timing/Duration: 2-3 Days Severity/Quality: Moderate Location: Generalized Abdomen Radiation: No Radiation Activities at Onset: None Modifying Factors: Improves With Analgesics, Improves With Resting Associated Symptoms: Denies Symptoms, No Back Pain, No Fever/Chills, No Fatigue , No Headache, No Heartburn, No Nausea/Vomiting, No Syncope Allergies and Home Medications Allergies Coded Allergies: Penicillins (Unverified Allergy, Unknown, 10/26/13) Home Medications Acetaminophen 325 Mg Tab, 500-1,000 MG PO C5Whpyw, (Reported) Vit37/Iron/Folic Acid 1 Each Tab.chew, 1 EACH PO, (Reported) Review of Systems Constitutional: no symptoms reported, see HPI EENTM: No Symptoms Reported, See HPI Respiratory: No Symptoms Reported, See HPI Cardiovascular: No Symptoms Reported, See HPI Gastrointestinal: See HPI, Abdominal Pain, Denies Constipated, Denies Diarrhea , Denies Difficulty Swallowing, Denies Nausea, Denies Poor Appetite, Denies Poor Fluid Intake, Denies Vomiting Genitourinary: No Symptoms Reported, See HPI Musculoskeletal: no symptoms reported, see HPI Skin: no symptoms reported, see HPI Psychiatric/Neurological: No Symptoms Reported, See HPI Endocrine: No Symptoms Reported, See HPI Hematologic/Lymphatic: No Symptoms Reported, See HPI All Other Systems Reviewed Negative Unless Noted: Yes Past Hujczms-Yveaca-Aemmev Hx Patient Social History Alcohol Use: Denies Use Recreational Drug Use: No Smoking Status: Current Everyday Smoker Type Used: Cigarettes 2nd Hand Smoke Exposure: No Recent Foreign Travel: No Contact w/Someone Who Travel: No Recent Infectious Disease Expo: No Recent Hopitalizations: No Immunizations Up To Date Tetanus Booster (TDap): Less than 5yrs Seasonal Allergies Seasonal Allergies: No Surgeries HX Surgeries: Yes Surgeries: Section Respiratory Hx Respiratory Disorders: Yes Respiratory Disorders: Asthma Cardiovascular Hx Cardiac Disorders: No Neurological Hx Neurological Disorders: No Reproductive System : Yes (LMP 06/07/16) Hx : 2 Hx Para: 1 Hx Reproductive Disorders: Yes Sexually Transmitted Disease: Yes (HPV, Chlamydia at 18-Treated) HIV/AIDS: No Female Reproductive Disorders: Menstrual Problems Genitourinary Hx Genitourinary Disorders: Yes Genitourinary Disorders: UTI-Chronic Gastrointestinal Hx Gastrointestinal Disorders: No Musculoskeletal Hx Musculoskeletal Disorders: Yes (Fractured lower Lumbar vertebrae) Musculoskeletal Disorders: Fractures Endocrine Hx Endocrine Disorders: No HEENT HX ENT Disorders: No Loss of Vision: Denies Hearing Impairment: Denies Cancer Hx Cancer: No Psychosocial Hx Psychiatric Problems: No Integumentary HX Skin/Integumentary Disorder: No Blood Transfusions Hx Blood Disorders: No Adverse Reaction to a Blood Tr: No Reviewed Nursing Assessment Reviewed/Agree w Nursing PMH: Yes Family Medical History Family Medial History: Cancer Grandparents (Maternal Grandfather-Throat Cancer Maternal Grandmother- Cervical Cancer? Vaginal Cancer?) Chest pain Grandparents (Maternal Grandfather) Family history: Arthritis Grandparents (Paternal Grandfather) Family history: Asthma Grandparents (Maternal Grandmother) Family history: Cardiovascular disease Grandparents (Maternal Grandfather) Family history: Diabetes mellitus 19 FATHER 19 MOTHER Grandparents (Paternal Grandmother) Family history: Hypertension 19 FATHER 19 MOTHER Grandparents (All Grandparents) Headache G8 SISTER (Chronic Headaches/Migraines) Hypercholesterolemia Grandparents (Maternal Grandfather) Myocardial infarction 19 FATHER Grandparents (Maternal Grandfather) Psychotic disorder 19 FATHER (Suicide attempt) Seizure disorder G8 SISTER (Had 1 seizure, never diagnosed with disorder) Stroke Grandparents (Maternal Grandfather and Grandmother) No Family History of: Abdominal aortic aneurysm [place]'s disease Alcoholism Aphasia Cancer of colon Cataract Congenital heart disease Congestive heart failure Cystic fibrosis Dementia Dysphagia Family history: Allergy Family history: Alzheimer's disease Family history: Breast disease Family history: Coronary thrombosis Family history: Gastrointestinal disease Family history: Glaucoma Family history: Osteoporosis Family history: Thyroid disorder Hearing loss Heart disease Hereditary disease History of - anemia History of - respiratory disease History of drug abuse Human immunodeficiency virus (HIV) seropositivity Infertile Kidney disease Malignant neoplasm of lung Parkinson's disease Prostate cancer Tuberculosis Visual impairment Physical Exam Vital Signs VS - Last 72 Hours, by Label 09/19/16 09/19/16 15:54 17:19 Temp 98.7 98.7 Pulse 122 115 Resp 18 18 B/P (MAP) 124/75 Pulse Ox 99 99 O2 Delivery Room Air Capillary Refill : Less Than 3 Seconds General Appearance: WD/WN, no apparent distress HEENT: PERRL/EOMI, normal ENT inspection, TMs normal Neck: non-tender, full range of motion, supple, normal inspection Respiratory: chest non-tender, lungs clear, normal breath sounds Cardiovascular: normal peripheral pulses, regular rate, rhythm, no murmur Peripheral Pulses: 2+ Carotid (R), 2+ Carotid (L), 2+ Dorsalis Pedis (R), 2+ Left Dors-Pedis (L) Gastrointestinal: normal bowel sounds, soft, No distended, No guarding, No rebound, tenderness (generalized during light palpation), No hepatomegaly, No spleenomegaly Extremities: normal range of motion, non-tender, no calf tenderness, normal capillary refill Back: normal inspection, no CVA tenderness, no vertebral tenderness Neurologic/Psychiatric: no motor/sensory deficits, alert, normal mood/affect, oriented x 3 Skin: normal color, warm/dry Progress/Results/Core Measures Results/Orders Lab Results Laboratory Tests Test 09/19/16 16:15 Range/Units White Blood Count 14.6 H 4.3-11.0 10^3/uL Red Blood Count 4.48 4.35-5.85 10^6/uL Hemoglobin 14.0 11.5-16.0 G/DL Hematocrit 40 35-52 % Mean Corpuscular Volume 90 80-99 FL Mean Corpuscular Hemoglobin 31 25-34 PG Mean Corpuscular Hemoglobin Concent 35 32-36 G/DL Red Cell Distribution Width 13.0 10.0-14.5 % Platelet Count 286 130-400 10^3/uL Mean Platelet Volume 9.4 7.4-10.4 FL Neutrophils (%) (Auto) 67 42-75 % Lymphocytes (%) (Auto) 22 12-44 % Monocytes (%) (Auto) 8 0-12 % Eosinophils (%) (Auto) 2 0-10 % Basophils (%) (Auto) 0 0-10 % Neutrophils # (Auto) 9.8 H 1.8-7.8 X 10^3 Lymphocytes # (Auto) 3.3 1.0-4.0 X 10^3 Monocytes # (Auto) 1.2 H 0.0-1.0 X 10^3 Eosinophils # (Auto) 0.3 0.0-0.3 10^3/uL Basophils # (Auto) 0.0 0.0-0.1 10^3/uL Neutrophils % (Manual) 64 % Lymphocytes % (Manual) 24 % Monocytes % (Manual) 7 % Eosinophils % (Manual) 5 % Blood Morphology Comment NORMAL Urine Color YELLOW Urine Clarity SLIGHTLY CLOUDY Urine pH 6.5 5-9 Urine Specific Morris 1.015 L 1.016-1.022 Urine Protein 2+ H NEGATIVE Urine Glucose (UA) NEGATIVE NEGATIVE Urine Ketones NEGATIVE NEGATIVE Urine Nitrite NEGATIVE NEGATIVE Urine Bilirubin NEGATIVE NEGATIVE Urine Urobilinogen 1 NORMAL MG/DL Urine Leukocyte Esterase 1+ H NEGATIVE Urine RBC (Auto) 1+ H NEGATIVE Urine RBC NONE /HPF Urine WBC 2-5 /HPF Urine Squamous Epithelial Cells 5-10 /HPF Urine Crystals NONE /LPF Urine Bacteria TRACE /HPF Urine Casts NONE /LPF Urine Mucus NEGATIVE /LPF Urine Culture Indicated NO Sodium Level 139 135-145 MMOL/L Potassium Level 3.5 L 3.6-5.0 MMOL/L Chloride Level 106 98-107 MMOL/L Carbon Dioxide Level 22 21-32 MMOL/L Anion Gap 11 5-14 MMOL/L Blood Urea Nitrogen 8 7-18 MG/DL Creatinine 0.69 0.60-1.30 MG/DL Estimat Glomerular Filtration Rate > 60 BUN/Creatinine Ratio 12 Glucose Level 102 70-105 MG/DL Calcium Level 9.2 8.5-10.1 MG/DL Total Bilirubin 0.6 0.1-1.0 MG/DL Aspartate Amino Transf (AST/SGOT) 16 5-34 U/L Alanine Aminotransferase (ALT/SGPT) 18 0-55 U/L Alkaline Phosphatase 82 40-136 U/L Total Protein 7.1 6.4-8.2 G/DL Albumin 4.3 3.2-4.5 G/DL Human Chorionic Gonadotropin, Quant 60408 H <5 MIU/ML My Orders Orders - JUVENALINÉS Ua Culture If Indicated (09/19/16 15:53) Urine Bedside (09/19/16 15:53) Cbc With Automated Diff (09/19/16 16:06) Comprehensive Metabolic Panel (09/19/16 16:06) Hcg,Quantitative (09/19/16 16:06) Manual Differential (09/19/16 16:15) Vital Signs/I&O Vital Sign - Last 12Hours 09/19/16 09/19/16 15:54 17:19 Temp 98.7 98.7 Pulse 122 115 Resp 18 18 B/P (MAP) 124/75 Pulse Ox 99 99 O2 Delivery Room Air Blood Pressure Mean: 91 Progress Note : Time: 15:55 Progress Note initial evaluation completed. Recommended labs, CBC, CMP, UA and quantitative hCG. 1650 No FHTs detected by doppler. Discussed with patient, she prefers to wait and see Dr. Segundo this week for ultrasound. 1700 discussed with patient her quantitative hCG on 09/08/16 was 1143, today it is 44,486. Discussed warning signs of when she should return to the emergency department, she agreed with the treatment plan for discharge. Departure Impression Impression: Primary Impression: Abdominal pain during in first trimester Disposition: 01 HOME, SELF-CARE Condition: Stable Departure-Patient Inst. Decision time for Depature: 17:00 Referrals: NO,LOCAL PHYSICIAN (PCP/Family) Primary Care Physician Patient Instructions: Acute Abdomen (Belly Pain), Adult (DC), - The Third Month Add. Discharge Instructions: Make appt with Dr. Segundo for early this week. Continue Daily vitamin. Continue to decrease tobacco smoking. Drink 1 glass of cranberry juice daily and eat fresh blueberries. Return to emergency department for increased abdominal pain, any vaginal discharge or bleeding, fevers, difficulty breathing or any concerns. Tylenol 650 mg every 6 hours, as needed for pain. All discharge instructions reviewed with patient and/or family. Voiced understanding. Work/School Note: Work Release Form Date Seen in the Emergency Department: Sep 19, 2016 Return to Work: Sep 21, 2016 Restrictions: Need Release from Doctor Other Restrictions Listed Below: See Dr. Segundo for full release. Copy Copies To 1: DONI SEGUNDO MD, AMY ARNP Sep 19, 2016 16:10
[2016-09-19 16:28] LABS: BILIRUBIN,URINE NEGATIVE (NEGATIVE); KETONES,URINE NEGATIVE (NEGATIVE); LEUKOCYTE ESTERASE ,URINE 1+ (NEGATIVE); NITRITE,URINE NEGATIVE (NEGATIVE); PH,URINE 6.5 (5-9); PROTEIN,URINE 2+ (NEGATIVE); UROBILINOGEN,URINE 1 MG/DL (NORMAL)
[2016-09-19 16:30] LABS: BASOPHILS % (AUTO) 0 % (0-10); EOSINOPHILS # (AUTO) 0.3 10^3/uL (0.0-0.3); EOSINOPHILS % (AUTO) 2 % (0-10); LYMPHOCYTES # (AUTO) 3.3 X 10^3 (1.0-4.0); LYMPHOCYTES % (AUTO) 22 % (12-44); MEAN CORPUSCULAR HEMOGLOBIN 31 PG (25-34); MEAN CORPUSCULAR HGB CONC 35 G/DL (32-36); MEAN CORPUSCULAR VOLUME 90 FL (80-99); MEAN PLATELET VOLUME 9.4 FL (7.4-10.4); MONOCYTES # (AUTO) 1.2 X 10^3 (0.0-1.0); MONOCYTES % (AUTO) 8 % (0-12); NEUTROPHILS # (AUTO) 9.8 X 10^3 (1.8-7.8); NEUTROPHILS % (AUTO) 67 % (42-75); PLATELET COUNT 286 10^3/uL (130-400); RED BLOOD COUNT 4.48 10^6/uL (4.35-5.85); WHITE BLOOD COUNT 14.6 10^3/uL (4.3-11.0)
[2016-09-19 16:46] LABS: ALANINE AMINOTRANSFERASE 18 U/L (0-55); ALBUMIN 4.3 G/DL (3.2-4.5); ANION GAP 11 MMOL/L (5-14); ASPARTATE AMINO TRANSFERASE 16 U/L (5-34); BILIRUBIN,TOTAL 0.6 MG/DL (0.1-1.0); BLOOD UREA NITROGEN 8 MG/DL (7-18); BUN/CREATININE RATIO 12; CALCIUM 9.2 MG/DL (8.5-10.1); CARBON DIOXIDE 22 MMOL/L (21-32); CHLORIDE 106 MMOL/L (98-107); CREATININE SERUM 0.69 MG/DL (0.60-1.30); GFR ESTIMATED > 60; GLUCOSE 102 MG/DL (70-105); POTASSIUM 3.5 MMOL/L (3.6-5.0); SODIUM 139 MMOL/L (135-145); TOTAL PROTEIN 7.1 G/DL (6.4-8.2)
[2016-09-19 17:09] LABS: EOSINOPHILS % (MANUAL) 5 %; LYMPHOCYTES % (MANUAL) 24 %; NEUTROPHILS % (MANUAL) 64 %
[2016-09-19 17:19] VITALS: BP 124/75
== END 2016-09-19 17:19 | disposition home or self-care (01) ==
LOC: EDUNIT# 15:45 → ER 15:48
DX: O26.891 Other specified pregnancy related conditions, first trimester (principal); R10.2 Pelvic and perineal pain; O99.331 Smoking (tobacco) complicating pregnancy, first trimester; F17.210 Nicotine dependence, cigarettes, uncomplicated; Z3A.14 14 weeks gestation of pregnancy
CPT/HCPCS: 36415; 80053; 81000; 84702; 84703; 85007; 85027; 99283

== ENCOUNTER 2017-01-05 20:05 | Inpatient (IN) | payer MEDICAID ==
[~2017-01-05] VITALS: Ht 152.4 cm; Wt 63.5 kg
[~2017-01-05 20:05] MED LIST changes: +PREN-98 PO
[2017-01-05] MEDS ORDERED: ONDANSETRON 4 MG/2 ML (SDV) Z0FRAN ONE (20:10)
[2017-01-05 20:11] VITALS: BP 113/75
[2017-01-05] MEDS ORDERED: fentaNYL INJECTION 100 MCG/2 ML AMP ONE ×2 (20:11→20:17)
[2017-01-05 20:18] VITALS: BP 127/95
[2017-01-05] MEDS ORDERED: BUTORPHANOL INJ 2 MG/ML (STADOL) VIAL ONE (20:18)
[2017-01-05 20:22] VITALS: BP 120/90
[2017-01-05 20:31] VITALS: BP 128/71
[2017-01-05] MEDS ORDERED: CLINDAMYCIN 900 MG/6ML (CLEOCIN) VIAL ONE (20:31)
--- NOTE | 2017-01-05 20:42 | ED Abdominal Pain ---
General Chief Complaint: -Female Stated Complaint: CSECTION DELIVERY Source of Information: Patient, EMS Exam Limitations: No Limitations History of Present Illness Time Seen By Provider: 20:14 Initial Comments Patient presents to ER by EMS with chief complaint of getting up to the bathroom this evening and started feeling pain and pressure in her vagina with the feeling of something protruding. EMS said that they scooped her up and brought her here. She states she does not use any alcohol tobacco or drugs. She is a with no prior problems with this . Her last menstrual period is July 07 or . This puts her at 25 weeks. She is having a tremendous amount of pain in her lower pelvis and vagina area. She is feeling the need to urinate and cannot. She denies any nausea fevers or chills. She states she saw Dr. Segundo for her OB in October. Allergies and Home Medications Allergies Coded Allergies: Penicillins (Unverified Allergy, Unknown, 10/26/13) Home Medications Acetaminophen 325 Mg Tab, 500-1,000 MG PO [id number], (Reported) Vit37/Iron/Folic Acid 1 Each Tab.chew, 1 EACH PO, (Reported) Review of Systems Constitutional: No chills, No diaphoresis, No fever, No weakness Respiratory: Denies Cough, Denies Shortness of Air Cardiovascular: Denies Chest Pain, Denies Edema Gastrointestinal: See HPI, Abdomen Distended, Abdominal Pain, Denies Nausea, Denies Vomiting Genitourinary: Denies Burning, Denies Discharge Musculoskeletal: No back pain, No joint pain Skin: No pruritus, No rash Psychiatric/Neurological: Denies Headache, Denies Numbness, Denies Paresthesia Past [id number] Hx Patient Social History Alcohol Use: Denies Use Recreational Drug Use: No Smoking Status: Never a Smoker Type Used: Cigarettes 2nd Hand Smoke Exposure: No Recent Hopitalizations: No Immunizations Up To Date Tetanus Booster (TDap): Less than 5yrs Seasonal Allergies Seasonal Allergies: No Surgeries HX Surgeries: Yes Surgeries: Section Respiratory Hx Respiratory Disorders: Yes Respiratory Disorders: Asthma Cardiovascular Hx Cardiac Disorders: No Neurological Hx Neurological Disorders: No Reproductive System Hx Reproductive Disorders: Yes Sexually Transmitted Disease: Yes (HPV, Chlamydia at 18-Treated) HIV/AIDS: No Female Reproductive Disorders: Menstrual Problems Genitourinary Hx Genitourinary Disorders: Yes Genitourinary Disorders: UTI-Chronic Gastrointestinal Hx Gastrointestinal Disorders: No Musculoskeletal Hx Musculoskeletal Disorders: Yes (Fractured lower Lumbar vertebrae) Musculoskeletal Disorders: Fractures Endocrine Hx Endocrine Disorders: No HEENT HX ENT Disorders: No Loss of Vision: Denies Hearing Impairment: Denies Cancer Hx Cancer: No Psychosocial Hx Psychiatric Problems: No Integumentary HX Skin/Integumentary Disorder: No Blood Transfusions Hx Blood Disorders: No Adverse Reaction to a Blood Tr: No Family Medical History Family Medial History: Cancer Grandparents (Maternal Grandfather-Throat Cancer Maternal Grandmother- Cervical Cancer? Vaginal Cancer?) Chest pain Grandparents (Maternal Grandfather) Family history: Arthritis Grandparents (Paternal Grandfather) Family history: Asthma Grandparents (Maternal Grandmother) Family history: Cardiovascular disease Grandparents (Maternal Grandfather) Family history: Diabetes mellitus 19 FATHER 19 MOTHER Grandparents (Paternal Grandmother) Family history: Hypertension 19 FATHER 19 MOTHER Grandparents (All Grandparents) Headache G8 SISTER (Chronic Headaches/Migraines) Hypercholesterolemia Grandparents (Maternal Grandfather) Myocardial infarction 19 FATHER Grandparents (Maternal Grandfather) Psychotic disorder 19 FATHER (Suicide attempt) Seizure disorder G8 SISTER (Had 1 seizure, never diagnosed with disorder) Stroke Grandparents (Maternal Grandfather and Grandmother) No Family History of: Abdominal aortic aneurysm Mckean's disease Alcoholism Aphasia Cancer of colon Cataract Congenital heart disease Congestive heart failure Cystic fibrosis Dementia Dysphagia Family history: Allergy Family history: Alzheimer's disease Family history: Breast disease Family history: Coronary thrombosis Family history: Gastrointestinal disease Family history: Glaucoma Family history: Osteoporosis Family history: Thyroid disorder Hearing loss Heart disease Hereditary disease History of - anemia History of - respiratory disease History of drug abuse Human immunodeficiency virus (HIV) seropositivity Infertile Kidney disease Malignant neoplasm of lung Parkinson's disease Prostate cancer Tuberculosis Visual impairment Physical Exam Vital Signs VS - Last 72 Hours, by Label 01/05/17 20:31 Temp 98.1 Pulse 95 Resp 24 B/P (MAP) 129/88 Pulse Ox 99 O2 Delivery Room Air Capillary Refill : General Appearance: moderate distress, thin HEENT: PERRL/EOMI, pharynx normal Respiratory: chest non-tender, lungs clear Cardiovascular: normal peripheral pulses, regular rate, rhythm, no edema Peripheral Pulses: 3+ Dorsalis Pedis (R), 3+ Left Dors-Pedis (L) Gastrointestinal: soft, tenderness (all over), other (gravid) Genital/Rectal: other (clear amniotic fluid approximately 5-6 cm diameter bulging from the vaginal os without any obvious hemorrhage.) Extremities: normal range of motion, no pedal edema, normal capillary refill Neurologic/Psychiatric: alert, oriented x 3, other (severe anxiety) Skin: normal color, warm/dry Progress/Results/Core Measures Results/Orders Lab Results Laboratory Tests Test 01/05/17 20:15 01/05/17 20:30 Range/Units White Blood Count 21.7 H 4.3-11.0 10^3/uL Red Blood Count 3.45 L 4.35-5.85 10^6/uL Hemoglobin 11.0 L 11.5-16.0 G/DL Hematocrit 31 L 35-52 % Mean Corpuscular Volume 90 80-99 FL Mean Corpuscular Hemoglobin 32 25-34 PG Mean Corpuscular Hemoglobin Concent 35 32-36 G/DL Red Cell Distribution Width 12.6 10.0-14.5 % Platelet Count 203 130-400 10^3/uL Mean Platelet Volume 9.5 7.4-10.4 FL Neutrophils (%) (Auto) 93 H 42-75 % Lymphocytes (%) (Auto) 4 L 12-44 % Monocytes (%) (Auto) 4 0-12 % Eosinophils (%) (Auto) 0 0-10 % Basophils (%) (Auto) 0 0-10 % Neutrophils # (Auto) 20.2 H 1.8-7.8 X 10^3 Lymphocytes # (Auto) 0.8 L 1.0-4.0 X 10^3 Monocytes # (Auto) 0.8 0.0-1.0 X 10^3 Eosinophils # (Auto) 0.0 0.0-0.3 10^3/uL Basophils # (Auto) 0.0 0.0-0.1 10^3/uL My Orders Orders - MARTELL GRECO Ondansetron Injection (Zofran Injectio (01/05/17 20:10) Fentanyl Injection (Sublimaze Injection (01/05/17 20:11) Fentanyl Injection (Sublimaze Injection (01/05/17 20:17) Butorphanol Injection (Stadol Injection) (01/05/17 20:18) Vital Signs/I&O Vital Sign - Last 12Hours 01/05/17 20:31 Temp 98.1 Pulse 95 Resp 24 B/P (MAP) 129/88 Pulse Ox 99 O2 Delivery Room Air Progress Note : Time: 21:02 Progress Note Patient presenting with a proximally 25 week with lower abdominal pain and bulging amniotic membrane. Were unable to Doppler ultrasound the heart tones and an ultrasound bedside was performed which showed a poorly formed breech position fetus without any overt heart motion or heart tones. The patient was not having any contractions and was not in hemodynamic distress. We explained the outcome of an intrauterine demise to the patient and then elected to take the patient upstairs as she has had a previous for vaginal delivery or at Dr. Segundo's discretion. She received 100 g of fentanyl total control her pain and anxiety given the history of IUFD. Patient was hemodynamically stable at the time of transfer the third floor. Departure Impression Impression: Primary Impression: IUFD at 20 weeks or more of gestation Disposition: ADMITTED INPATIENT Condition: Stable Decision to Admit Reason: Admit from ER (General) Decision to Admit/Date: Jan 05, 2017 Time/Decision to Admit Time: 21:05 Departure-Patient Inst. Referrals: NO,LOCAL PHYSICIAN (PCP/Family) Primary Care Physician MARTELL GRECO Jan 05, 2017 20:42
[2017-01-05] MEDS: LACTATED RINGERS 1,000 ML IV PRN ×2 (20:45→21:30)
[2017-01-05] MEDS ORDERED: CLINDAMYCIN INJECTION 900 MG in NS (IVPB) 50 ML IV ONE (20:45)
[2017-01-05 20:55] LABS: BASOPHILS % (AUTO) 0 % (0-10); EOSINOPHILS % (AUTO) 0 % (0-10); LYMPHOCYTES # (AUTO) 0.8 X 10^3 (1.0-4.0); LYMPHOCYTES % (AUTO) 4 % (12-44); MEAN CORPUSCULAR HEMOGLOBIN 32 PG (25-34); MEAN CORPUSCULAR HGB CONC 35 G/DL (32-36); MEAN CORPUSCULAR VOLUME 90 FL (80-99); MEAN PLATELET VOLUME 9.5 FL (7.4-10.4); MONOCYTES # (AUTO) 0.8 X 10^3 (0.0-1.0); MONOCYTES % (AUTO) 4 % (0-12); NEUTROPHILS # (AUTO) 20.2 X 10^3 (1.8-7.8); NEUTROPHILS % (AUTO) 93 % (42-75); PLATELET COUNT 203 10^3/uL (130-400); RED BLOOD COUNT 3.45 10^6/uL (4.35-5.85); RED CELL DISTRIBUTION WIDTH 12.6 % (10.0-14.5); WHITE BLOOD COUNT 21.7 10^3/uL (4.3-11.0)
[2017-01-05] MEDS ORDERED: FAMOTIDINE 20MG/2ML IV (PEPCID) IV ONE (21:00)
[2017-01-05] MEDS ORDERED: METOCLOPRAMIDE INJ 10 MG/2 ML (REGLAN) IV ONE (21:00)
[2017-01-05] MEDS ORDERED: CATHETER FLUSH 10 ML SYR IV PRN (21:00)
[2017-01-05] MEDS ORDERED: CITRIC ACID/SOB CIT (BICITRA) 30 ML UDC PO ONE (21:00)
[2017-01-05] MEDS ORDERED: fentaNYL INJECTION 100 MCG/2 ML AMP IVP ONE ×2 (21:15)
[2017-01-05] MEDS ORDERED: ONDANSETRON 4 MG/2 ML (SDV) Z0FRAN IVP ONE (21:15)
[2017-01-05] MEDS ORDERED: BUTORPHANOL INJ 2 MG/ML (STADOL) VIAL IV ONE (21:15)
[2017-01-05] MEDS ORDERED: OXYTOCIN/NORMAL SALINE 500 ML IV ONE (21:16)
[2017-01-05] MEDS ORDERED: LEVOFLOXACIN 500 MG/100 ML IV 100 ML ONE (21:22)
[2017-01-05 21:33] LABS: BAND NEUTROPHILS 12 %; NEUTROPHILS % (MANUAL) 80 %
[2017-01-05 21:34] LABS: BASOPHILS % (MANUAL) 0 %; EOSINOPHILS % (MANUAL) 0 %; LYMPHOCYTES % (MANUAL) 3 %
--- NOTE | 2017-01-05 21:59 | History & Physical ---
History and Physical Date Seen by Provider: Jan 05, 2017 Time Seen by Provider: 20:15 this is a 26-year-old gravid female who presented via ambulance to the emergency department in advanced labor with a bulging bag and from the vagina. EDC was uncertain. Patient was in fairly extreme pain. History was difficult to obtain secondary to the patient's incoherence. Bedside ultrasound by the emergency provider could not find heart tones. I was called emergently as I had seen this patient in the past. When I arrived she was on the ED guarding frog-leg with a bulging bag approximately 12-16 cm. There are no parts in the bag. She was writhing complaining of pain and pressure and burning in the vagina she had an IV running. The ED physician had apparently just completed the bedside ultrasound. Indicated that he was 100 percent certain that there was a demise. There was no obvious vaginal bleeding. I requested that the patient may transported to labor and delivery for management which was accomplished promptly. At labor and delivery area. The bedside ultrasound determining that the fetus was transverse head right back up the when the cervix. Vaginal exam showed a cervix 3 for similar dilated with both feet in the cervix. It wasn't fixed draining bulging bag treating from the vagina. There was somewhat of a foul odor present. Fluid appeared normal in color through the membranes. Patient continued to complain of pain. She has was given 50 g of fentanyl in the ED. By this time on the floor her pain had recurred she was given 2 mg of Stadol to good effect. Decision made to proceed with as patient's white blood cell count was elevated to 21,000 cervix was dilated only 3-4 cm. The presenting part was the feet with the fetus being transverse. It was not likely that delivery was going to be forthcoming. Patient was requesting prompt treatment of her condition with delivery. She was taken emergently to the operating room for repeat . Verbal consent was obtained prior to the operating room however patient had received narcotics prior to that being done. Her family agreed with the plan and the patient had been requesting immediate delivery. Patient was taken to the operating room and see delivery note for further information Allergies are at least to penicillin Medications are unknown History was not obtainable however I do have records on this patient my clinic and I will forward those to labor and delivery. Those records will contain past medical history, past surgical history, obstetric history, family history, and social history. Patient's exam on my arrival today relatively thin white female in no acute distress with pelvic pain and pressure with a bag bulging from the vagina. Patient was alert and oriented. By the time of my interaction with patient she had been given the micrograms of fentanyl. this patient did recognize normally from her past professional relationship. he was requesting immediate delivery and did discuss her situation. She understood that the baby was no longer alive. She agreed with proceeding with delivery under general anesthesia. Lab work is as followsLaboratory Tests 01/05/17 20:15 Laboratory Tests Test 01/05/17 20:15 01/05/17 20:30 Range/Units White Blood Count 21.7 H 4.3-11.0 10^3/uL Red Blood Count 3.45 L 4.35-5.85 10^6/uL Hemoglobin 11.0 L 11.5-16.0 G/DL Hematocrit 31 L 35-52 % Mean Corpuscular Volume 90 80-99 FL Mean Corpuscular Hemoglobin 32 25-34 PG Mean Corpuscular Hemoglobin Concent 35 32-36 G/DL Red Cell Distribution Width 12.6 10.0-14.5 % Platelet Count 203 130-400 10^3/uL Mean Platelet Volume 9.5 7.4-10.4 FL Neutrophils (%) (Auto) 93 H 42-75 % Lymphocytes (%) (Auto) 4 L 12-44 % Monocytes (%) (Auto) 4 0-12 % Eosinophils (%) (Auto) 0 0-10 % Basophils (%) (Auto) 0 0-10 % Neutrophils # (Auto) 20.2 H 1.8-7.8 X 10^3 Lymphocytes # (Auto) 0.8 L 1.0-4.0 X 10^3 Monocytes # (Auto) 0.8 0.0-1.0 X 10^3 Eosinophils # (Auto) 0.0 0.0-0.3 10^3/uL Basophils # (Auto) 0.0 0.0-0.1 10^3/uL Neutrophils % (Manual) 80 % Lymphocytes % (Manual) 3 % Monocytes % (Manual) 5 % Eosinophils % (Manual) 0 % Basophils % (Manual) 0 % Band Neutrophils 12 % Blood Morphology Comment NORMAL Urine Opiates Screen NEGATIVE NEGATIVE Urine Oxycodone Screen NEGATIVE NEGATIVE Urine Methadone Screen NEGATIVE NEGATIVE Urine Propoxyphene Screen NEGATIVE NEGATIVE Urine Barbiturates Screen NEGATIVE NEGATIVE Ur Tricyclic Antidepressants Screen NEGATIVE NEGATIVE Urine Phencyclidine Screen NEGATIVE NEGATIVE Urine Amphetamines Screen POSITIVE H NEGATIVE Urine Methamphetamines Screen NEGATIVE NEGATIVE Urine Benzodiazepines Screen NEGATIVE NEGATIVE Urine Cocaine Screen NEGATIVE NEGATIVE Urine Cannabinoids Screen NEGATIVE NEGATIVE Vital Signs Date Time Temp Pulse Resp B/P (MAP) Pulse Ox O2 Delivery O2 Flow Rate FiO2 01/05/17 20:31 75 20 128/71 Room Air 01/05/17 20:31 98.1 95 24 129/88 99 Room Air 01/05/17 20:22 77 24 120/90 99 Room Air 01/05/17 20:18 88 20 127/95 98 Room Air 01/05/17 20:11 73 24 113/75 98 Room Air assessment and plan advance of uncertain gestational age. Lipase somewhat every 26 and 30 weeks. demise on presentation. advanced labor based on bulging bag protruding outside the vagina. Footling presentation with a transverse lie. Previous . Individual lab work shows substance abuse with amphetamines in the urine. Patient was taken to the operating room for delivery. Allergies and Home Medications Allergies Coded Allergies: Penicillins (Verified Allergy, Unknown, 01/05/17) Home Medications Acetaminophen 325 Mg Tab, 500-1,000 MG PO [id number], (Reported) Vit37/Iron/Folic Acid 1 Each Tab.chew, 1 EACH PO, (Reported) DONI MERRITT MD Jan 05, 2017 9:59 pm
[2017-01-05] MEDS ORDERED: CATHETER FLUSH 10 ML SYR IV SCH (22:00)
[2017-01-05] MEDS ORDERED: OXYTOCIN/NORMAL SALINE 500 ML IV SCH (22:01)
[2017-01-05] MEDS ORDERED: D5 LR IV SOLUTION 1,000 ML IV ONE (22:09)
[2017-01-05] MEDS ORDERED: TETANUS,DIPTH,PERTUSS P/F (BOOSTRIX) 0.5 ML VIAL IM ONE (22:15)
[2017-01-05] MEDS ORDERED: MEASLES,MUMPS,RUBELLA 1 EA INJ SC ONE (22:15)
[2017-01-05] MEDS ORDERED: PROMETHAZINE INJ 25 MG/ML (PHENERGAN) AMP IM PRN (22:15)
[2017-01-05] MEDS ORDERED: BUTORPHANOL INJ 2 MG/ML (STADOL) VIAL IV PRN (22:15)
[2017-01-05] MEDS ORDERED: MEPERIDINE (DEMEROL) INJ 50 MG/ML IVP PRN (22:30)
[2017-01-05] MEDS ORDERED: ONDANSETRON 4 MG/2 ML (SDV) Z0FRAN IVP PRN (22:30)
[2017-01-05] MEDS ORDERED: morphine INJ 10 MG/ML 1ML (SYR OR VIAL) IVP PRN (22:30)
[2017-01-05] MEDS ORDERED: LEVOFLOXACIN 500 MG/100 ML IV 100 ML IV SCH (22:36)
[2017-01-05] MEDS: KETOROLAC 30 MG/ML VIAL IVP SCH (23:10)
[2017-01-06 00:15] VITALS: BP 104/68
[2017-01-06] MEDS: oxyCODONE/APAP 10/325MG (PERCOCET 10) TABLET PO PRN ×4 (01:54→23:50)
[2017-01-06 04:49] VITALS: BP 81/46
[2017-01-06] MEDS: CLINDAMYCIN INJECTION 900 MG in NS (IVPB) 50 ML IV SCH ×3 (04:51→22:26)
[2017-01-06] MEDS: KETOROLAC 30 MG/ML VIAL IVP SCH ×2 (05:56→11:12)
[2017-01-06 07:08] LABS: BASOPHILS % (AUTO) 0 % (0-10); EOSINOPHILS # (AUTO) 0.1 10^3/uL (0.0-0.3); EOSINOPHILS % (AUTO) 0 % (0-10); LYMPHOCYTES # (AUTO) 1.8 X 10^3 (1.0-4.0); LYMPHOCYTES % (AUTO) 9 % (12-44); MEAN CORPUSCULAR HEMOGLOBIN 32 PG (25-34); MEAN CORPUSCULAR HGB CONC 35 G/DL (32-36); MEAN CORPUSCULAR VOLUME 91 FL (80-99); MEAN PLATELET VOLUME 9.1 FL (7.4-10.4); MONOCYTES # (AUTO) 0.8 X 10^3 (0.0-1.0); MONOCYTES % (AUTO) 4 % (0-12); NEUTROPHILS # (AUTO) 18.2 X 10^3 (1.8-7.8); NEUTROPHILS % (AUTO) 87 % (42-75); PLATELET COUNT 193 10^3/uL (130-400); RED BLOOD COUNT 2.89 10^6/uL (4.35-5.85); RED CELL DISTRIBUTION WIDTH 12.6 % (10.0-14.5); WHITE BLOOD COUNT 20.8 10^3/uL (4.3-11.0)
--- NOTE | 2017-01-06 07:35 | Progress Note-Standard ---
Standard Progress Note Progress Notes/Assess & Plan Date Seen by Provider: Jan 06, 2017 Time Seen by Provider: 07:33 Progress/Assessment & Plan patient is without complaint. Her pain control is adequate. She denies headache, denies nausea vomiting, denies. Patient is ambulating and tolerating by mouth. Vital Signs Date Time Temp Pulse Resp B/P (MAP) Pulse Ox O2 Delivery O2 Flow Rate FiO2 01/06/17 04:49 97.4 82 14 81/46 96 Room Air 01/06/17 00:15 98.0 81 19 104/68 100 Room Air 01/05/17 20:31 75 20 128/71 Room Air 01/05/17 20:31 98.1 95 24 129/88 99 Room Air 01/05/17 20:22 77 24 120/90 99 Room Air 01/05/17 20:18 88 20 127/95 98 Room Air 01/05/17 20:11 73 24 113/75 98 Room Air I & O 01/06/17 07:00 Intake Total 2000 ml Output Total 600 ml Balance 1400 ml Vital signs are stable. Patient is afebrile. Pulse is normal. Laboratory Tests 01/05/17 20:15 01/06/17 07:00 Patient white blood cell count remains elevated. The abdomen is benign. The incision is clean dry and intact. There are bowel sounds present. Extremities show no clubbing or cyanosis. There is no Homans sign.there is minimal pretibial pitting edema. Assessment and plan postoperative day number 1 status post repeat delivery for stillbirth due to a placental abruption and transverse lie patient with previous . Patient is doing well today. She is afebrile however her white blood cell count is elevated we will continue the antibiotics. Cultures pending DONI MERRITT MD Jan 06, 2017 7:35 am
[2017-01-06] MEDS: DOCUSATE SODIUM 100 MG (COLACE) CAP PO SCH ×2 (07:39→19:18)
[2017-01-06 07:40] VITALS: BP 87/51
[2017-01-06] MEDS ORDERED: NICOTINE 21 MG (NICODERM) PATCH TD SCH (09:00)
--- NOTE | 2017-01-06 10:41 | OPERATIVE REPORT ---
PROCEDURE PHYSICIAN: DONI MERRITT DATE OF PROCEDURE: 01/05/2017 The patient was taken to the operating room urgently for demise in advanced labor with a transverse lie at unsure gestational age but well past the point of 24 weeks. The patient had had a previous . The patient was subjected to general anesthesia and under satisfactory general anesthesia, she was frog legged to allow access to the vagina due to the large bulging bag on the perineum. The patient was prepped and draped usual fashion for abdominal surgery. A repeat Pfannenstiel incision was made through the skin with a scalpel. The patient's abdomen entered in the usual manner. Bladder retractor was placed into position and a clean scalpel used to make a 4 cm hysterotomy incision transversely across the anterior low uterus. Then incision was extended bluntly and then a nonviable male was delivered via the uterine incision, weight was 415 g. The had been confirmed no heart motion prior to coming to the OR. The was mottled and cyanotic. there was no respiratory effort. There was no pulse in the umbilical cord.There was essentially no blood in the umbilical cord. was obvious and apparent that the baby had in utero. The cord was clamped and cut and infant passed to the pediatric nurse in attendance to handle the fetus on delivery. The placenta delivered intact and was floating free in the uterus with a large adherent clot, consistent with a complete placental abruption. The entire mass including the attached umbilical cord was sent to pathology for permanent section. The uterus was exteriorized, the interior wiped clean with a wet laparotomy sponge. There was a foul odor from the uterus on performing hysterotomy. Cultures were taken of the placental mass from the surfaces. The uterine incision was closed with a running suture of 2-0 Vicryl in 2 layers. The incision was essentially across the mid anterior surface of the uterus due to the size and position of the uterus. The uterus was returned to the abdominal cavity. All blood clot and debris was removed from the abdominal cavity. With sponge and needle counts correct and hemostasis assured, the anterior parietal peritoneum was closed running suture of 2-0 Vicryl. The rectus muscles were closed with that suture. The rectus fascia was closed with 2-0 Vicryl. Subcutaneous tissue with 2-0 Vicryl and the skin was stapled. Sponge and needle counts were correct on completion of the procedure. Estimated blood loss was around 600 to 800 mL. The patient tolerated the procedure well under general anesthesia and was eventually awakened uneventfully and transferred to the recovery room. The stillborn had been taken to the nursery. Apgars of course were 0 and 0. No cord bloods were obtained. Weight is pending. Job ID: [id number] Dictated Date: 01/05/2017 22:47:48 Puller Over Date: 01/06/2017 10:33:05 / nicola COOK
[2017-01-06 11:09] VITALS: BP 84/46
--- NOTE | 2017-01-06 12:41 | Anesthesia-General Post-Op ---
General Patient Condition Mental Status/LOC: Same as Preop Cardiovascular: Satisfactory Nausea/Vomiting: Absent Respiratory: Satisfactory Pain: Controlled Complications: Absent Post Op Complications Complications None Follow Up Care/Instructions Patient Instructions None needed. Anesthesia/Patient Condition Patient Condition Patient is doing well, no complaints, stable vital signs, no apparent adverse anesthesia problems. No complications reported per nursing. BRAYAN LEYVA CRNA Jan 06, 2017 12:41
[2017-01-06] MEDS: D5 LR IV SOLUTION 1,000 ML IV SCH (13:20)
--- NOTE | 2017-01-06 16:58 | Progress Note-Standard ---
Standard Progress Note Progress Notes/Assess & Plan Date Seen by Provider: Jan 06, 2017 Time Seen by Provider: 16:55 Progress/Assessment & Plan patient is without complaint. Her pain control is adequate. She denies headache, denies nausea vomiting, denies. Patient is ambulating and tolerating by mouth. Vital Signs Date Time Temp Pulse Resp B/P (MAP) Pulse Ox O2 Delivery O2 Flow Rate FiO2 01/06/17 04:49 97.4 82 14 81/46 96 Room Air 01/06/17 00:15 98.0 81 19 104/68 100 Room Air 01/05/17 20:31 75 20 128/71 Room Air 01/05/17 20:31 98.1 95 24 129/88 99 Room Air 01/05/17 20:22 77 24 120/90 99 Room Air 01/05/17 20:18 88 20 127/95 98 Room Air 01/05/17 20:11 73 24 113/75 98 Room Air I & O 01/06/17 07:00 Intake Total 2000 ml Output Total 600 ml Balance 1400 ml Vital signs are stable. Patient is afebrile. Pulse is normal. Laboratory Tests 01/05/17 20:15 01/06/17 07:00 Patient white blood cell count remains elevated. The abdomen is benign. The incision is clean dry and intact. There are bowel sounds present. Extremities show no clubbing or cyanosis. There is no Homans sign.there is minimal pretibial pitting edema. Assessment and plan postoperative day number 1 status post repeat delivery for stillbirth due to a placental abruption and transverse lie patient with previous . Patient is doing well today. She is afebrile however her white blood cell count is elevated we will continue the antibiotics. Cultures pending January 06, 2017 at 1655 p.m. Patient is sleeping comfortably and was not awakened. her family reports that she has been stable through the day. Nurse report confirms that. Vital Signs Date Time Temp Pulse Resp B/P (MAP) Pulse Ox O2 Delivery O2 Flow Rate FiO2 01/06/17 11:09 96.9 71 14 84/46 100 Room Air 01/06/17 07:40 97.6 69 14 87/51 99 Room Air 01/06/17 04:49 97.4 82 14 81/46 96 Room Air 01/06/17 00:15 98.0 81 19 104/68 100 Room Air 01/05/17 20:31 75 20 128/71 Room Air 01/05/17 20:31 98.1 95 24 129/88 99 Room Air 01/05/17 20:22 77 24 120/90 99 Room Air 01/05/17 20:18 88 20 127/95 98 Room Air 01/05/17 20:11 73 24 113/75 98 Room Air I & O 01/06/17 07:00 Intake Total 2000 ml Output Total 600 ml Balance 1400 ml Patient had remained afebrile. Her vital signs are stable and normal. Laboratory Tests Test 01/05/17 20:15 01/05/17 20:30 01/06/17 07:00 Range/Units White Blood Count 21.7 H 20.8 H 4.3-11.0 10^3/uL Red Blood Count 3.45 L 2.89 L 4.35-5.85 10^6/uL Hemoglobin 11.0 L 9.1 L 11.5-16.0 G/DL Hematocrit 31 L 26 L 35-52 % Mean Corpuscular Volume 90 91 80-99 FL Mean Corpuscular Hemoglobin 32 32 25-34 PG Mean Corpuscular Hemoglobin Concent 35 35 32-36 G/DL Red Cell Distribution Width 12.6 12.6 10.0-14.5 % Platelet Count 203 193 130-400 10^3/uL Mean Platelet Volume 9.5 9.1 7.4-10.4 FL Neutrophils (%) (Auto) 93 H 87 H 42-75 % Lymphocytes (%) (Auto) 4 L 9 L 12-44 % Monocytes (%) (Auto) 4 4 0-12 % Eosinophils (%) (Auto) 0 0 0-10 % Basophils (%) (Auto) 0 0 0-10 % Neutrophils # (Auto) 20.2 H 18.2 H 1.8-7.8 X 10^3 Lymphocytes # (Auto) 0.8 L 1.8 1.0-4.0 X 10^3 Monocytes # (Auto) 0.8 0.8 0.0-1.0 X 10^3 Eosinophils # (Auto) 0.0 0.1 0.0-0.3 10^3/uL Basophils # (Auto) 0.0 0.0 0.0-0.1 10^3/uL Neutrophils % (Manual) 80 % Lymphocytes % (Manual) 3 % Monocytes % (Manual) 5 % Eosinophils % (Manual) 0 % Basophils % (Manual) 0 % Band Neutrophils 12 % Blood Morphology Comment NORMAL Urine Opiates Screen NEGATIVE NEGATIVE Urine Oxycodone Screen NEGATIVE NEGATIVE Urine Methadone Screen NEGATIVE NEGATIVE Urine Propoxyphene Screen NEGATIVE NEGATIVE Urine Barbiturates Screen NEGATIVE NEGATIVE Ur Tricyclic Antidepressants Screen NEGATIVE NEGATIVE Urine Phencyclidine Screen NEGATIVE NEGATIVE Urine Amphetamines Screen POSITIVE H NEGATIVE Urine Methamphetamines Screen NEGATIVE NEGATIVE Urine Benzodiazepines Screen NEGATIVE NEGATIVE Urine Cocaine Screen NEGATIVE NEGATIVE Urine Cannabinoids Screen NEGATIVE NEGATIVE The culture from the placenta/ membranes has had a preliminary report of bacterial growth consistent with a strep species. Identification and antibiotics sensitivities are pending Physical exam is deferred Assessment and plan as above. Patient remains stable and afebrile. Her white count did not decrease from admission through the lab check this morning hours repeat that in the morning. We'll continue her antibiotics her white count, than as she remains afebrile we will convert her to oral antibiotics and entertain discharge home tomorrow. If she does have febrile morbidity and/or elevating white blood cell count and we will await cultures and continue her IV antibiotics before considering discharge DONI MERRITT MD Jan 06, 2017 16:58
[2017-01-06] MEDS ORDERED: IBUPROFEN 800 MG (MOTRIN) TAB PO ONE (17:26)
[2017-01-06 20:00] VITALS: BP 96/58
[2017-01-06] MEDS: IBUPROFEN 800 MG (MOTRIN) TAB PO SCH (23:50)
[2017-01-07 02:02] VITALS: BP 96/58
[2017-01-07] MEDS: D5 LR IV SOLUTION 1,000 ML IV SCH (02:06)
[2017-01-07] MEDS: CLINDAMYCIN INJECTION 900 MG in NS (IVPB) 50 ML IV SCH (05:33)
[2017-01-07] MEDS: oxyCODONE/APAP 10/325MG (PERCOCET 10) TABLET PO PRN (05:34)
[2017-01-07] MEDS: IBUPROFEN 800 MG (MOTRIN) TAB PO SCH ×2 (05:34→12:04)
--- NOTE | 2017-01-07 06:30 | Progress Note-Standard ---
Standard Progress Note Progress Notes/Assess & Plan Date Seen by Provider: Jan 07, 2017 Time Seen by Provider: 06:29 Progress/Assessment & Plan patient is without complaint. Her pain control is adequate. She denies headache, denies nausea vomiting, denies. Patient is ambulating and tolerating by mouth. Vital Signs Date Time Temp Pulse Resp B/P (MAP) Pulse Ox O2 Delivery O2 Flow Rate FiO2 01/06/17 04:49 97.4 82 14 81/46 96 Room Air 01/06/17 00:15 98.0 81 19 104/68 100 Room Air 01/05/17 20:31 75 20 128/71 Room Air 01/05/17 20:31 98.1 95 24 129/88 99 Room Air 01/05/17 20:22 77 24 120/90 99 Room Air 01/05/17 20:18 88 20 127/95 98 Room Air 01/05/17 20:11 73 24 113/75 98 Room Air I & O 01/06/17 07:00 Intake Total 2000 ml Output Total 600 ml Balance 1400 ml Vital signs are stable. Patient is afebrile. Pulse is normal. Laboratory Tests 01/05/17 20:15 01/06/17 07:00 Patient white blood cell count remains elevated. The abdomen is benign. The incision is clean dry and intact. There are bowel sounds present. Extremities show no clubbing or cyanosis. There is no Homans sign.there is minimal pretibial pitting edema. Assessment and plan postoperative day number 1 status post repeat delivery for stillbirth due to a placental abruption and transverse lie patient with previous . Patient is doing well today. She is afebrile however her white blood cell count is elevated we will continue the antibiotics. Cultures pending January 06, 2017 at 1655 p.m. Patient is sleeping comfortably and was not awakened. her family reports that she has been stable through the day. Nurse report confirms that. Vital Signs Date Time Temp Pulse Resp B/P (MAP) Pulse Ox O2 Delivery O2 Flow Rate FiO2 01/06/17 11:09 96.9 71 14 84/46 100 Room Air 01/06/17 07:40 97.6 69 14 87/51 99 Room Air 01/06/17 04:49 97.4 82 14 81/46 96 Room Air 01/06/17 00:15 98.0 81 19 104/68 100 Room Air 01/05/17 20:31 75 20 128/71 Room Air 01/05/17 20:31 98.1 95 24 129/88 99 Room Air 01/05/17 20:22 77 24 120/90 99 Room Air 01/05/17 20:18 88 20 127/95 98 Room Air 01/05/17 20:11 73 24 113/75 98 Room Air I & O 01/06/17 07:00 Intake Total 2000 ml Output Total 600 ml Balance 1400 ml Patient had remained afebrile. Her vital signs are stable and normal. Laboratory Tests Test 01/05/17 20:15 01/05/17 20:30 01/06/17 07:00 Range/Units White Blood Count 21.7 H 20.8 H 4.3-11.0 10^3/uL Red Blood Count 3.45 L 2.89 L 4.35-5.85 10^6/uL Hemoglobin 11.0 L 9.1 L 11.5-16.0 G/DL Hematocrit 31 L 26 L 35-52 % Mean Corpuscular Volume 90 91 80-99 FL Mean Corpuscular Hemoglobin 32 32 25-34 PG Mean Corpuscular Hemoglobin Concent 35 35 32-36 G/DL Red Cell Distribution Width 12.6 12.6 10.0-14.5 % Platelet Count 203 193 130-400 10^3/uL Mean Platelet Volume 9.5 9.1 7.4-10.4 FL Neutrophils (%) (Auto) 93 H 87 H 42-75 % Lymphocytes (%) (Auto) 4 L 9 L 12-44 % Monocytes (%) (Auto) 4 4 0-12 % Eosinophils (%) (Auto) 0 0 0-10 % Basophils (%) (Auto) 0 0 0-10 % Neutrophils # (Auto) 20.2 H 18.2 H 1.8-7.8 X 10^3 Lymphocytes # (Auto) 0.8 L 1.8 1.0-4.0 X 10^3 Monocytes # (Auto) 0.8 0.8 0.0-1.0 X 10^3 Eosinophils # (Auto) 0.0 0.1 0.0-0.3 10^3/uL Basophils # (Auto) 0.0 0.0 0.0-0.1 10^3/uL Neutrophils % (Manual) 80 % Lymphocytes % (Manual) 3 % Monocytes % (Manual) 5 % Eosinophils % (Manual) 0 % Basophils % (Manual) 0 % Band Neutrophils 12 % Blood Morphology Comment NORMAL Urine Opiates Screen NEGATIVE NEGATIVE Urine Oxycodone Screen NEGATIVE NEGATIVE Urine Methadone Screen NEGATIVE NEGATIVE Urine Propoxyphene Screen NEGATIVE NEGATIVE Urine Barbiturates Screen NEGATIVE NEGATIVE Ur Tricyclic Antidepressants Screen NEGATIVE NEGATIVE Urine Phencyclidine Screen NEGATIVE NEGATIVE Urine Amphetamines Screen POSITIVE H NEGATIVE Urine Methamphetamines Screen NEGATIVE NEGATIVE Urine Benzodiazepines Screen NEGATIVE NEGATIVE Urine Cocaine Screen NEGATIVE NEGATIVE Urine Cannabinoids Screen NEGATIVE NEGATIVE The culture from the placenta/ membranes has had a preliminary report of bacterial growth consistent with a strep species. Identification and antibiotics sensitivities are pending Physical exam is deferred Assessment and plan as above. Patient remains stable and afebrile. Her white count did not decrease from admission through the lab check this morning hours repeat that in the morning. We'll continue her antibiotics her white count, than as she remains afebrile we will convert her to oral antibiotics and entertain discharge home tomorrow. If she does have febrile morbidity and/or elevating white blood cell count and we will await cultures and continue her IV antibiotics before considering discharge January 07, 2017 Patient is without complaint. She is requesting discharge home. She denies chest pain, denies shortness of breath, denies nausea vomiting, denies headache. She has good pain control was tolerating by mouth well ambulating voiding well. Vital Signs Date Time Temp Pulse Resp B/P (MAP) Pulse Ox O2 Delivery O2 Flow Rate FiO2 01/07/17 02:02 98.0 62 18 96/58 100 Room Air 01/06/17 20:00 98.6 80 18 96/58 100 Room Air 01/06/17 11:09 96.9 71 14 84/46 100 Room Air 01/06/17 07:40 97.6 69 14 87/51 99 Room Air I & O 01/07/17 07:00 Intake Total 3296 ml Output Total 2100 ml Balance 1196 ml patient is afebrile. Her vital signs are stable. Fundus is firm below the umbilicus and nontender.the incision is clean dry and intact. Extremities show no clubbing cyanosis. There is no Homans sign. There is very minimal pretibial pitting edema. assessment and plan postoperative day number 2 status post repeat due to transverse Y active labor demise previous placental abruption. Plan is for discharge home with follow-up Final Diagnosis 22 week stillbirth due to placental abruption DONI MERRITT MD Jan 07, 2017 06:30
[2017-01-07] MEDS ORDERED: METR500T PO (06:35)
[2017-01-07] MEDS ORDERED: OXYC-465 PO (06:35)
[2017-01-07] MEDS ORDERED: DOCU100C37 PO (06:35)
[2017-01-07] MEDS ORDERED: IBUP-1780 PO (06:35)
[2017-01-07] MEDS ORDERED: CIPR500S3 PO (06:35)
--- NOTE | 2017-01-07 06:36 | Discharge Instructions ---
Discharge Instructions Discharge Medications New, Converted or Re-Newed RX: RX on Chart Patient Instructions Patient Instructions: as directed Return to The Hospital For: as directed Activity & Diet Discharge Diet: No Restrictions Activity as Tolerated: No Orders-Post D/C & Referrals Follow Up Appt: RTC 1 week for incision check. Call to make follow up appt. for patient in 4 weeks. Wound Care: Remove danna, apply benzoin and steri strips. Activity Per routine post instructions. Diet as tolerated Patient may shower or tub bathe as desired. Continue home meds DONI MERRITT MD Jan 07, 2017 06:36
--- NOTE | 2017-01-07 07:05 | Progress Note-Standard ---
Standard Progress Note Progress Notes/Assess & Plan Date Seen by Provider: Jan 07, 2017 Time Seen by Provider: 07:03 Progress/Assessment & Plan patient is without complaint. Her pain control is adequate. She denies headache, denies nausea vomiting, denies. Patient is ambulating and tolerating by mouth. Vital Signs Date Time Temp Pulse Resp B/P (MAP) Pulse Ox O2 Delivery O2 Flow Rate FiO2 01/06/17 04:49 97.4 82 14 81/46 96 Room Air 01/06/17 00:15 98.0 81 19 104/68 100 Room Air 01/05/17 20:31 75 20 128/71 Room Air 01/05/17 20:31 98.1 95 24 129/88 99 Room Air 01/05/17 20:22 77 24 120/90 99 Room Air 01/05/17 20:18 88 20 127/95 98 Room Air 01/05/17 20:11 73 24 113/75 98 Room Air I & O 01/06/17 07:00 Intake Total 2000 ml Output Total 600 ml Balance 1400 ml Vital signs are stable. Patient is afebrile. Pulse is normal. Laboratory Tests 01/05/17 20:15 01/06/17 07:00 Patient white blood cell count remains elevated. The abdomen is benign. The incision is clean dry and intact. There are bowel sounds present. Extremities show no clubbing or cyanosis. There is no Homans sign.there is minimal pretibial pitting edema. Assessment and plan postoperative day number 1 status post repeat delivery for stillbirth due to a placental abruption and transverse lie patient with previous . Patient is doing well today. She is afebrile however her white blood cell count is elevated we will continue the antibiotics. Cultures pending January 06, 2017 at 1655 p.m. Patient is sleeping comfortably and was not awakened. her family reports that she has been stable through the day. Nurse report confirms that. Vital Signs Date Time Temp Pulse Resp B/P (MAP) Pulse Ox O2 Delivery O2 Flow Rate FiO2 01/06/17 11:09 96.9 71 14 84/46 100 Room Air 01/06/17 07:40 97.6 69 14 87/51 99 Room Air 01/06/17 04:49 97.4 82 14 81/46 96 Room Air 01/06/17 00:15 98.0 81 19 104/68 100 Room Air 01/05/17 20:31 75 20 128/71 Room Air 01/05/17 20:31 98.1 95 24 129/88 99 Room Air 01/05/17 20:22 77 24 120/90 99 Room Air 01/05/17 20:18 88 20 127/95 98 Room Air 01/05/17 20:11 73 24 113/75 98 Room Air I & O 01/06/17 07:00 Intake Total 2000 ml Output Total 600 ml Balance 1400 ml Patient had remained afebrile. Her vital signs are stable and normal. Laboratory Tests Test 01/05/17 20:15 01/05/17 20:30 01/06/17 07:00 Range/Units White Blood Count 21.7 H 20.8 H 4.3-11.0 10^3/uL Red Blood Count 3.45 L 2.89 L 4.35-5.85 10^6/uL Hemoglobin 11.0 L 9.1 L 11.5-16.0 G/DL Hematocrit 31 L 26 L 35-52 % Mean Corpuscular Volume 90 91 80-99 FL Mean Corpuscular Hemoglobin 32 32 25-34 PG Mean Corpuscular Hemoglobin Concent 35 35 32-36 G/DL Red Cell Distribution Width 12.6 12.6 10.0-14.5 % Platelet Count 203 193 130-400 10^3/uL Mean Platelet Volume 9.5 9.1 7.4-10.4 FL Neutrophils (%) (Auto) 93 H 87 H 42-75 % Lymphocytes (%) (Auto) 4 L 9 L 12-44 % Monocytes (%) (Auto) 4 4 0-12 % Eosinophils (%) (Auto) 0 0 0-10 % Basophils (%) (Auto) 0 0 0-10 % Neutrophils # (Auto) 20.2 H 18.2 H 1.8-7.8 X 10^3 Lymphocytes # (Auto) 0.8 L 1.8 1.0-4.0 X 10^3 Monocytes # (Auto) 0.8 0.8 0.0-1.0 X 10^3 Eosinophils # (Auto) 0.0 0.1 0.0-0.3 10^3/uL Basophils # (Auto) 0.0 0.0 0.0-0.1 10^3/uL Neutrophils % (Manual) 80 % Lymphocytes % (Manual) 3 % Monocytes % (Manual) 5 % Eosinophils % (Manual) 0 % Basophils % (Manual) 0 % Band Neutrophils 12 % Blood Morphology Comment NORMAL Urine Opiates Screen NEGATIVE NEGATIVE Urine Oxycodone Screen NEGATIVE NEGATIVE Urine Methadone Screen NEGATIVE NEGATIVE Urine Propoxyphene Screen NEGATIVE NEGATIVE Urine Barbiturates Screen NEGATIVE NEGATIVE Ur Tricyclic Antidepressants Screen NEGATIVE NEGATIVE Urine Phencyclidine Screen NEGATIVE NEGATIVE Urine Amphetamines Screen POSITIVE H NEGATIVE Urine Methamphetamines Screen NEGATIVE NEGATIVE Urine Benzodiazepines Screen NEGATIVE NEGATIVE Urine Cocaine Screen NEGATIVE NEGATIVE Urine Cannabinoids Screen NEGATIVE NEGATIVE The culture from the placenta/ membranes has had a preliminary report of bacterial growth consistent with a strep species. Identification and antibiotics sensitivities are pending Physical exam is deferred Assessment and plan as above. Patient remains stable and afebrile. Her white count did not decrease from admission through the lab check this morning hours repeat that in the morning. We'll continue her antibiotics her white count, than as she remains afebrile we will convert her to oral antibiotics and entertain discharge home tomorrow. If she does have febrile morbidity and/or elevating white blood cell count and we will await cultures and continue her IV antibiotics before considering discharge January 07, 2017 Patient is without complaint. She is requesting discharge home. She denies chest pain, denies shortness of breath, denies nausea vomiting, denies headache. She has good pain control was tolerating by mouth well ambulating voiding well. Vital Signs Date Time Temp Pulse Resp B/P (MAP) Pulse Ox O2 Delivery O2 Flow Rate FiO2 01/07/17 02:02 98.0 62 18 96/58 100 Room Air 01/06/17 20:00 98.6 80 18 96/58 100 Room Air 01/06/17 11:09 96.9 71 14 84/46 100 Room Air 01/06/17 07:40 97.6 69 14 87/51 99 Room Air I & O 01/07/17 07:00 Intake Total 3296 ml Output Total 2100 ml Balance 1196 ml patient is afebrile. Her vital signs are stable. Fundus is firm below the umbilicus and nontender.the incision is clean dry and intact. Extremities show no clubbing cyanosis. There is no Homans sign. There is very minimal pretibial pitting edema. assessment and plan postoperative day number 2 status post repeat due to transverse Y active labor demise previous placental abruption. Plan is for discharge home with follow-up January 07, 2017 at 703 a.m. Patient was moved to labor and delivery for Pitocin induction. That stimulation blood pressures were 170 over the 110+ range - she did experience some visual changes. She also complained of new onset headache. Decision made to hold the Pitocin in favor of treating her blood pressure daily with hydralazine and proceeding with delivery.. And understands and agrees with that plan. There is a moving to the operating room now this delivery well followed by . Continue to monitor blood pressure treatment to maintain a safe level Assessment and plan 37 weeks gestation with severe preeclampsia. Pressure will be controlled medically and then the . DONI MERRITT MD Jan 07, 2017 7:05 am
--- NOTE | 2017-01-07 07:07 | Progress Note-Post Operative ---
Post-Operative Progess Note Surgeon (s)/Limnologist (s) Surgeon na Limnologist: na Pre-Operative Diagnosis na Post-Operative Diagnosis na Procedure & Operative Findings Date of Procedure na Procedure Performed/Findings na Anesthesia Type na Estimated Blood Loss Estimated blood loss (mL): na Specimens/Packing Specimens Removed na Packing: DONI Guerrero MD Jan 07, 2017 07:07
[2017-01-07 07:31] LABS: BASOPHILS % (AUTO) 0 % (0-10); EOSINOPHILS # (AUTO) 0.3 10^3/uL (0.0-0.3); EOSINOPHILS % (AUTO) 2 % (0-10); LYMPHOCYTES % (AUTO) 13 % (12-44); MEAN CORPUSCULAR HEMOGLOBIN 32 PG (25-34); MEAN CORPUSCULAR HGB CONC 33 G/DL (32-36); MEAN CORPUSCULAR VOLUME 95 FL (80-99); MONOCYTES # (AUTO) 0.7 X 10^3 (0.0-1.0); MONOCYTES % (AUTO) 4 % (0-12); NEUTROPHILS % (AUTO) 80 % (42-75); PLATELET COUNT 178 10^3/uL (130-400); RED BLOOD COUNT 2.89 10^6/uL (4.35-5.85); RED CELL DISTRIBUTION WIDTH 13.5 % (10.0-14.5)
[2017-01-07 08:45] VITALS: BP 85/55
[2017-01-07] MEDS: DOCUSATE SODIUM 100 MG (COLACE) CAP PO SCH (08:48)
[2017-01-07] MEDS ORDERED: metroNIDAZOLE 500 MG (FLAGYL) TAB PO SCH (09:00)
[2017-01-07 12:00] VITALS: BP 97/58
[2017-01-07] MEDS ORDERED: CIPROFLOXACIN 500 MG (CIPRO) TABLET PO SCH (12:00)
== END 2017-01-07 12:30 | disposition home or self-care (01) | DRG 766 ==
LOC: EDUNIT# 20:12 → ER 20:13 → 3RD 20:35 → LDRP 23:00
PROVIDERS: ADMIT Obstetrics & Gynecology; ATTEND Obstetrics & Gynecology
PROC: 10D00Z1 Extraction of Products of Conception, Low, Open Approach (ICD-10-PCS; principal; 2017-01-05 20:52)
DX: O45.92 Premature separation of placenta, unspecified, second trimester (principal); O34.211 Maternal care for low transverse scar from previous cesarean delivery; O64.8XX0 Obstructed labor due to other malposition and malpresentation, not applicable or unspecified; Z37.1 Single stillbirth; Z3A.22 22 weeks gestation of pregnancy
CPT/HCPCS: 36415; 80306; 85007; 85025; 85027; 86850; 86900; 86901; 87070; 87075; 87205; 90707; 90715; 96374; 96375; 99283

== ENCOUNTER 2017-11-09 00:34 | Emergency (ER) | payer SELFPAY ==
[~2017-11-09] VITALS: Ht 165.1 cm; Wt 59.0 kg
[~2017-11-09 00:34] MED LIST changes: +CIPR500S3 PO; +DOCU100C37 PO; +IBUP-1780 PO; +METR500T PO; +OXYC-465 PO
[2017-11-09] MEDS ORDERED: LIDOCAINE/EPI 2% 1:100,00 (XYLOCAINE) 20 ML VIAL ONE (00:58)
[2017-11-09] MEDS ORDERED: TRANEXAMIC ACID 100 MG/ML 10 ML INJECTION IV ONE ×2 (00:59→01:15)
[2017-11-09] MEDS ORDERED: fentaNYL INJECTION 100 MCG/2 ML AMP ONE (01:09)
[2017-11-09] MEDS ORDERED: LORazepam INJ 2 MG/ML (ATIVAN) VIAL ONE (01:10)
[2017-11-09] MEDS ORDERED: fentaNYL INJECTION 100 MCG/2 ML AMP IM ONE (01:15)
[2017-11-09] MEDS ORDERED: LORazepam INJ 2 MG/ML (ATIVAN) VIAL IM ONE (01:15)
[2017-11-09] MEDS ORDERED: LIDOCAINE/EPI 2% 1:100,00 (XYLOCAINE) 20 ML VIAL INJ ONE (01:15)
--- NOTE | 2017-11-09 01:22 | ED Integumentary General ---
General Chief Complaint: Trauma-Non Activation Stated Complaint: LACERATION ON RT BREAST Source: patient, other (friends) Exam Limitations: no limitations History of Present Illness Date Seen by Provider: Nov 09, 2017 Time Seen by Provider: 00:50 Initial Comments Patient presents to the ER with 2 of her friends by private conveyance with a chief complaint that sometime yesterday afternoon about 2 in the afternoon she was hanging a antique picture of her father's on her wall and the glass slid out and the jagged broken edge caught her above her right nipple about 1 cm cutting a large gallop Keila to her skin. She had a lot of bleeding but she applied pressure and held there for the past 6 or 7 hours for deciding it was not going to stop bleeding on its own and she had to come to the ER. She does not remember the last time she had a tetanus shot but she sure it was probably more than 5 years ago. She is having pain 10 out of 10 and she has taken 2 Tylenol and this did not help. She does not drink alcohol anymore but she still smokes. She denies any recreational drug use. She has no history of trauma and says she was not assaulted or trying to harm herself. Allergies and Home Medications Allergies Coded Allergies: Penicillins (Verified Allergy, Unknown, 01/05/17) Home Medications Ciprofloxacin 500 Mg/5 Ml Alisa.mc.rec, 500 MG PO BID Prescribed by: DONI MILES on 01/07/17634 Docusate Sodium 100 Mg Capsule, 100 MG PO BID Prescribed by: DONI MILES on 01/07/17634 Ibuprofen 800 Mg Tablet, 800 MG PO Q6H Prescribed by: DONI MILES on 01/07/17634 Metronidazole 500 Mg Tablet, 500 MG PO BID Prescribed by: DONI MILES on 01/07/17634 Oxycodone HCl/Acetaminophen 1 Each Tablet, 1-2 TAB PO Q4HR PRN for PAIN- MODERATE TO SEVERE Prescribed by: ODNI MILES on 01/07/17634 Patient Home Medication List Home Medication List Reviewed: Yes Constitutional: No chills, No diaphoresis EENTM: No hearing loss, No ear pain Respiratory: No cough, No short of breath Cardiovascular: No edema, No palpitations Gastrointestinal: No abdominal pain, No constipation, No nausea Genitourinary: No discharge, No dysuria : No LMP: Nov 05, 2017 Musculoskeletal: No back pain, No joint pain Skin: see HPI Past Vybditw-Ogegzd-Tswjla Hx Patient Social History Alcohol Use: Past History Recreational Drug Use: No Smoking Status: Current Everyday Smoker Type Used: Cigarettes 2nd Hand Smoke Exposure: No Recent Foreign Travel: No Contact w/Someone Who Travel: No Recent Hopitalizations: No Immunizations Up To Date Tetanus Booster (TDap): Less than 5yrs Seasonal Allergies Seasonal Allergies: No Past Medical History Surgeries: Yes Section Respiratory: Yes Asthma Cardiac: No Neurological: No Reproductive Disorders: Yes Female Reproductive Disorders: Menstrual Problems Sexually Transmitted Disease: Yes (HPV, Chlamydia at 18-Treated) HIV/AIDS: No UTI-Chronic Gastrointestinal: No Musculoskeletal: Yes (Fractured lower Lumbar vertebrae) Fractures Endocrine: No Loss of Vision: Denies Hearing Impairment: Denies Cancer: No Psychosocial: No Integumentary: No Blood Disorders: No Adverse Reaction/Blood Tranf: No Family Medical History Cancer Grandparents (Maternal Grandfather-Throat Cancer Maternal Grandmother- Cervical Cancer? Vaginal Cancer?) Chest pain Grandparents (Maternal Grandfather) Family history: Arthritis Grandparents (Paternal Grandfather) Family history: Asthma Grandparents (Maternal Grandmother) Family history: Cardiovascular disease Grandparents (Maternal Grandfather) Family history: Diabetes mellitus 19 FATHER 19 MOTHER Grandparents (Paternal Grandmother) Family history: Hypertension 19 FATHER 19 MOTHER Grandparents (All Grandparents) Headache G8 SISTER (Chronic Headaches/Migraines) Hypercholesterolemia Grandparents (Maternal Grandfather) Myocardial infarction 19 FATHER Grandparents (Maternal Grandfather) Psychotic disorder 19 FATHER (Suicide attempt) Seizure disorder G8 SISTER (Had 1 seizure, never diagnosed with disorder) Stroke Grandparents (Maternal Grandfather and Grandmother) No Family History of: Abdominal aortic aneurysm Columbia's disease Alcoholism Aphasia Cancer of colon Cataract Congenital heart disease Congestive heart failure Cystic fibrosis Dementia Dysphagia Family history: Allergy Family history: Alzheimer's disease Family history: Breast disease Family history: Coronary thrombosis Family history: Gastrointestinal disease Family history: Glaucoma Family history: Osteoporosis Family history: Thyroid disorder Hearing loss Heart disease Hereditary disease History of - anemia History of - respiratory disease History of drug abuse Human immunodeficiency virus (HIV) seropositivity Infertile Kidney disease Malignant neoplasm of lung Parkinson's disease Prostate cancer Tuberculosis Visual impairment Physical Exam Vital Signs Capillary Refill : General Appearance: moderate distress, thin HEENT: PERRL/EOMI, pharynx normal Neck: non-tender, full range of motion, normal inspection Cardiovascular: normal peripheral pulses, regular rate, rhythm, no edema Respiratory: no respiratory distress, no accessory muscle use Gastrointestinal: normal bowel sounds, non tender, soft Extremities: normal range of motion, non-tender, normal inspection Neurologic/Psychiatric: alert, normal mood/affect, oriented x 3 Skin: other (skin tear, rectangular laceration 1 cm above the right nipple measuring approximately 2 x 4 cm. Slow active bleeding.) Procedures/Interventions Wound Location: Trunk Other Wound Location 1 cm above the right nipple. Wound Length (cm): 6 Wound's Depth, Shape: irregular, flap, sub Q Wound Explored: no foreign body removed Irrigated w/ Saline (ccs): 200 Betadine Prep?: Yes (and chlorhexidine soap water) Anesthesia: Lidocaine w/ Epi Volume Anesthetic (ccs): 8 Wound Debrided: minimal Suture: Prolene Suture Size: 4-0 Number of Sutures: 12 Layer Closure?: 1 Sterile Dressing Applied?: Yes Progress After the patient was made comfortable with pain and anxiety medicines she was reclined into a supine position. The wound was thoroughly rinsed with chlorhexidine soap water and abraded using gauze gently. 8 cc of 2% lidocaine with epinephrine were then carefully applied just into the dermal layer of the skin surrounding the wound and avoiding the breast tissue and deeper subcutaneous tissues. There are a few lateral superficial veins there were still bleeding that stopped bleeding after a careful application of lidocaine with epinephrine was applied following aspiration that failed to withdraw any blood. 23-gauge 1 inch needle was used. When the patient was ascertained to be numb in the skin surrounding her wound the wound was then carefully explored and palpated and no foreign body, glass fragments or otherwise debris was found. Minimal debridement was necessary. The patient's wound was mostly hemostatic at this point. A light application of tranexamic acid topically was given 5 or 10 minutes to set up. The wound was now fully hemostatic. The wound was flushed with over 200 cc of chlorhexidine soap water and then Betadine was applied and allowed to sit for 5 minutes. Skin edges were then reapproximated there was a large C-shaped laceration about 5 cm long with a horizontal laceration heading back towards the axilla about 1 cm long and a triangular flap between the edge of the C-shaped laceration and the linear horizontal laceration. The tip of the flap was approximated to the open corner using a horizontal corner stitch. The curvilinear edge was then reapproximated starting from each end and working towards the middle using 4-0 Prolene doing simple interrupted sutures. Once the wound was approximated and closed the wound was cleaned thoroughly with chlorhexidine soap water and a triple antibiotic ointment was applied under a Telfa pad in the usual sterile fashion. Sterile drapes were used and sterile technique was used. The patient tolerated the procedure well and was talking throughout the entire procedure well distracted. Progress/Results/Core Measures Results/Orders My Orders Orders - MARTELL GRECO Lidocaine/Epi 2% 1:100,000 (Xylocaine/Ep (11/09/17 00:58) Tranexamic Acid Injection (Cyklokapron I (11/09/17 00:59) Fentanyl Injection (Sublimaze Injection (11/09/17 01:09) Lorazepam Injection (Ativan Injection) (11/09/17 01:10) Fentanyl Injection (Sublimaze Injection (11/09/17 01:15) Lorazepam Injection (Ativan Injection) (11/09/17 01:15) Tranexamic Acid Injection (Cyklokapron I (11/09/17 01:15) Lidocaine/Epi 2% 1:100,000 (Xylocaine/Ep (11/09/17 01:15) Dipht,Pertuss(Acell),Tet Adult (Boostrix (11/09/17 02:45) Rx-Hydrocodone/Apap 5-325 Mg (Rx-Vicodin (11/09/17 02:45) Medications Given in ED Current Medications Medications Dose Ordered Sig/Mindy Route Start Time Stop Time Status Last Admin Dose Admin Fentanyl Citrate 75 mcg ONCE ONCE IM 11/09/17 01:15 11/09/17 01:17 DC 11/09/17 01:13 75 MCG Lorazepam 1 mg ONCE ONCE IM 11/09/17 01:15 11/09/17 01:17 DC 11/09/17 01:13 1 MG Tranexamic Acid 1,000 mg ONCE ONCE IV 11/09/17 01:15 11/09/17 01:17 DC 11/09/17 01:10 1,000 MG Progress Progress Note : Time: 01:21 Progress Note The patient has refused any lab work or IVs adamantly. We have given her some Ativan and fentanyl to help with her pain and anxiety and then applied some TX say topically over the wound and direct pressure to help slow the bleeding. We have cleaned the wound with chlorhexidine soap water and when she is more under control with her pain we will start to apply some 2% lidocaine with epinephrine to the wound. Were then explored the wound clean it thoroughly soak it with Betadine and then attempted to close the wound if it does not appear that any of the ductal tissue or large arteries or veins are involved. Tetanus shot will be given before she leaves. Departure Impression Primary Impression: Laceration of right breast without foreign body Qualified Codes: S21.011A - Laceration without foreign body of right breast, initial encounter Disposition: HOME, SELF-CARE Condition: Improved Departure-Patient Inst. Decision time for Depature: 02:54 Referrals: NO,LOCAL PHYSICIAN (PCP/Family) Primary Care Physician Patient Instructions: Laceration Repair With Stitches (DC) Add. Discharge Instructions: Keep the wound clean with regular soap and water only. You can apply a thin layer of Vaseline after every cleaning and dressing of loose gauze and tape. Use ibuprofen 800 mg every 8 hours and/or the hydrocodone one tablet every 6 hours for pain control. application support intern the antibiotics and take one capsule 4 times a day for the next 3 days. If you begin to have increased redness, swelling or pain in the breast or other worrisome symptoms you should return to the doctor sooner. Otherwise plan to return to the ER in 10-14 days or to the doctor of your choice to have the sutures removed. All discharge instructions reviewed with patient and/or family. Voiced understanding. Work/School Note: Work Release Form Date Seen in the Emergency Department: Nov 09, 2017 Return to Work: Nov 10, 2017 Restrictions: No Restrictions MARTELL GRECO Nov 09, 2017 01:22
[2017-11-09] MEDS ORDERED: TETANUS,DIPTH,PERTUSS P/F (BOOSTRIX) 0.5 ML VIAL IM ONE (02:45)
[2017-11-09] MEDS ORDERED: RX-HYDROCODONE/APAP 5/325 MG #4 TAB PK PO PRN (02:45)
[2017-11-09] MEDS ORDERED: CEPHALEXIN 250 MG (KEFLEX) CAP PO ONE ×2 (02:45→02:46)
[2017-11-09] MEDS ORDERED: RX-HYDROCODONE/APAP 5/325 MG #4 TAB PK PO ONE (02:46)
[2017-11-09 02:54] VITALS: BP 130/87
[2017-11-09] MEDS ORDERED: CEPH500T PO (03:02)
[2017-11-09] MEDS ORDERED: ACHD5005 PO (03:02)
== END 2017-11-09 02:54 | disposition home or self-care (01) ==
LOC: EDUNIT# 00:34 → ER 00:38
DX: S21.011A Laceration without foreign body of right breast, initial encounter (principal); J45.909 Unspecified asthma, uncomplicated; F17.210 Nicotine dependence, cigarettes, uncomplicated; Z80.0 Family history of malignant neoplasm of digestive organs; Z80.49 Family history of malignant neoplasm of other genital organs; Z82.49 Family history of ischemic heart disease and other diseases of the circulatory system; Z23 Encounter for immunization; Z87.440 Personal history of urinary (tract) infections; Z87.59 Personal history of other complications of pregnancy, childbirth and the puerperium; Z88.0 Allergy status to penicillin; W25.XXXA Contact with sharp glass, initial encounter
CPT/HCPCS: 12002; 90471; 90715; 96372

== ENCOUNTER 2018-04-10 23:20 | Emergency (ER) | payer SELFPAY ==
[~2018-04-10] VITALS: Ht 167.6 cm; Wt 54.4 kg
[~2018-04-10 23:20] MED LIST changes: +ACHD5005 PO; +CEPH500T PO
[2018-04-10] MEDS ORDERED: AZITHROMYCIN 250 MG TAB (ZITHROMAX) PO ONE (23:45)
[2018-04-10] MEDS ORDERED: LIDOCAINE 1% INJ 20 ML 20 ML VIAL INJ ONE (23:45)
[2018-04-10] MEDS ORDERED: cefTRIAXone 1 GM/10 ML for IV (ROCEPHIN) IM ONE (23:45)
[2018-04-10 23:50] LABS: BILIRUBIN,URINE NEGATIVE (NEGATIVE); CLARITY,URINE SLIGHTLY CLOUDY; COLOR,URINE YELLOW; GLUCOSE, URINE (UA) NEGATIVE (NEGATIVE); KETONES,URINE NEGATIVE (NEGATIVE); LEUKOCYTE ESTERASE ,URINE 3+ (NEGATIVE); NITRITE,URINE NEGATIVE (NEGATIVE); PH,URINE 7 (5-9); PROTEIN,URINE NEGATIVE (NEGATIVE); UROBILINOGEN,URINE NORMAL (NORMAL)
[2018-04-10] MEDS ORDERED: DOXY100C42 PO (23:55)
[2018-04-10] MEDS ORDERED: METR500T PO (23:55)
--- NOTE | 2018-04-10 23:59 | ED GU-Female ---
General Stated Complaint: POSSIBLE EXPOSURE TO STD Source: patient History of Present Illness Date Seen by Provider: Apr 10, 2018 Time Seen by Provider: 23:34 Initial Comments PT ARRIVES VIA POV STATES SHE NEEDS TREATED FOR CHLAMYDIA STATES BOYFRIEND WAS SEEN HERE LAST NIGHT AND DX WITH CHLAMYDIA PT STATES SHE DOES NOT HAVE ANY SYMPTOMS, BUT HAS HAD BLEEDING WITH INTERCOURSE X 2 TODAY. DENIES ANY VAGINAL DISCHARGE DENIES ANY PELVIC PAIN OR PAIN WITH INTERCOURSE NO FEVER NO NAUSEA/VOMITING LMP 04/02/18. 3 DAYS EARLY. NO CONTROL PCP: CAMELIA Allergies and Home Medications Allergies Coded Allergies: Penicillins (Verified Allergy, Unknown, 01/05/17) Home Medications Cephalexin 500 Mg Tablet, 500 MG PO QID Prescribed by: MARTELL GRECO on 11/09/17 030 Ciprofloxacin 500 Mg/5 Ml Alisa.mc.rec, 500 MG PO BID Prescribed by: DONI MILES on 01/07/17634 Docusate Sodium 100 Mg Capsule, 100 MG PO BID Prescribed by: DONI MILES on 01/07/17634 Doxycycline Monohydrate 100 Mg Capsule, 100 MG PO BID Prescribed by: CLINTON SPIVEY on 04/10/18 2355 Hydrocodone Bit/Acetaminophen 1 Tab Tab, 1 EACH PO Q6H PRN for BREAKTHROUGH PAIN Prescribed by: MARTELL GRECO on 11/09/17 030 Ibuprofen 800 Mg Tablet, 800 MG PO Q6H Prescribed by: DONI MILES on 01/07/17634 Metronidazole 500 Mg Tablet, 500 MG PO BID Prescribed by: DONI MILES on 01/07/17634 Metronidazole 500 Mg Tablet, 500 MG PO QID Prescribed by: CLINTON SPIVEY on 04/10/18 2355 Oxycodone HCl/Acetaminophen 1 Each Tablet, 1-2 TAB PO Q4HR PRN for PAIN- MODERATE TO SEVERE Prescribed by: DONI MILES on 01/07/17634 Patient Home Medication List Home Medication List Reviewed: Yes Review of Systems Review of Systems Constitutional: no symptoms reported Cardiovascular: no symptoms reported Gastrointestinal: no symptoms reported Genitourinary: see HPI : No LMP: Apr 02, 2018 Musculoskeletal: no symptoms reported Skin: no symptoms reported Psychiatric/Neurological: No Symptoms Reported Endocrine: No Symptoms Reported Hematologic/Lymphatic: No Symptoms Reported Past Jgftbtt-Tfkfqk-Twxbrb Hx Patient Social History Alcohol Use: Denies Use Recreational Drug Use: No Smoking Status: Current Everyday Smoker (1 PPD) Type Used: Cigarettes 2nd Hand Smoke Exposure: No Recent Foreign Travel: No Contact w/Someone Who Travel: No Recent Hopitalizations: No Immunizations Up To Date Tetanus Booster (TDap): More than 5yrs Seasonal Allergies Seasonal Allergies: No Past Medical History Surgeries: Yes (C/S x 2) Section Respiratory: Yes (Exercise induced asthma/doesn't use inhaler) Asthma Cardiac: No Neurological: No : No Reproductive Disorders: Yes Female Reproductive Disorders: Menstrual Problems Sexually Transmitted Disease: Yes (HPV, Chlamydia at 18-Treated) HIV/AIDS: No Genitourinary: Yes UTI-Chronic Gastrointestinal: No Musculoskeletal: Yes (Fractured lower Lumbar vertebrae) Fractures Endocrine: No HEENT: No Loss of Vision: Denies Hearing Impairment: Denies Cancer: No Psychosocial: Yes ADD/ADHD Integumentary: No Blood Disorders: No Adverse Reaction/Blood Tranf: No Family Medical History Cancer Grandparents (Maternal Grandfather-Throat Cancer Maternal Grandmother- Cervical Cancer? Vaginal Cancer?) Chest pain Grandparents (Maternal Grandfather) Family history: Arthritis Grandparents (Paternal Grandfather) Family history: Asthma Grandparents (Maternal Grandmother) Family history: Cardiovascular disease Grandparents (Maternal Grandfather) Family history: Diabetes mellitus 19 FATHER 19 MOTHER Grandparents (Paternal Grandmother) Family history: Hypertension 19 FATHER 19 MOTHER Grandparents (All Grandparents) Headache G8 SISTER (Chronic Headaches/Migraines) Hypercholesterolemia Grandparents (Maternal Grandfather) Myocardial infarction 19 FATHER Grandparents (Maternal Grandfather) Psychotic disorder 19 FATHER (Suicide attempt) Seizure disorder G8 SISTER (Had 1 seizure, never diagnosed with disorder) Stroke Grandparents (Maternal Grandfather and Grandmother) No Family History of: Abdominal aortic aneurysm Douglas's disease Alcoholism Aphasia Cancer of colon Cataract Congenital heart disease Congestive heart failure Cystic fibrosis Dementia Dysphagia Family history: Allergy Family history: Alzheimer's disease Family history: Breast disease Family history: Coronary thrombosis Family history: Gastrointestinal disease Family history: Glaucoma Family history: Osteoporosis Family history: Thyroid disorder Hearing loss Heart disease Hereditary disease History of - anemia History of - respiratory disease History of drug abuse Human immunodeficiency virus (HIV) seropositivity Infertile Kidney disease Malignant neoplasm of lung Parkinson's disease Prostate cancer Tuberculosis Visual impairment Physical Exam Vital Signs Vital Signs - First Documented 04/10/18 23:32 Temp 97.4 Pulse 90 Resp 16 B/P (MAP) 124/96 (105) Pulse Ox 99 O2 Delivery Room Air Capillary Refill : Height, Weight, BMI Height: 5'5" Weight: 130lbs. oz. 58.285857wa; 28.29 BMI Method:Stated General Appearance: no apparent distress Gastrointestinal: non tender, soft Pelvic: normal external exam, no masses, discharge (PROFUSE PURULENT, VERY FOUL SMELLING DISCHARGE. ), tender w/ cervical motion; No tender adnexa; tender uterus, other (CERVIX INFLAMED AND VERY FRIABLE. ) Back: no CVA tenderness Extremities: normal inspection Neurologic/Psychiatric: canvas baster II-XII nml as tested, no motor/sensory deficits, alert, normal mood/affect, oriented x 3 Skin: normal color, warm/dry Procedures/Interventions Suture Size: 4-0 Progress/Results/Core Measures Suspected Sepsis SIRS Temperature: Pulse: Respiratory Rate: Blood Pressure / Mean: Results/Orders Lab Results Laboratory Tests Test 04/10/18 23:40 04/10/18 23:50 Range/Units Urine Color YELLOW Urine Clarity SLIGHTLY CLOUDY Urine pH 7 5-9 Urine Specific [place] 1.010 L 1.016-1.022 Urine Protein NEGATIVE NEGATIVE Urine Glucose (UA) NEGATIVE NEGATIVE Urine Ketones NEGATIVE NEGATIVE Urine Nitrite NEGATIVE NEGATIVE Urine Bilirubin NEGATIVE NEGATIVE Urine Urobilinogen NORMAL NORMAL MG/DL Urine Leukocyte Esterase 3+ H NEGATIVE Urine RBC (Auto) 1+ H NEGATIVE Urine RBC NONE /HPF Urine WBC 10-25 H /HPF Urine Squamous Epithelial Cells 10-25 H /HPF Urine Crystals NONE /LPF Urine Bacteria MODERATE H /HPF Urine Casts NONE /LPF Urine Mucus MODERATE H /LPF Urine Trichomonas MODERATE H /HPF Urine Culture Indicated YES Urine Test NEGATIVE NEGATIVE My Orders Orders - CLINTON SPIVEY DO Neisseria Gonorrhea Swab (04/10/18 23:38) Chlam Dna Probe (04/10/18 23:38) Genital Culture (04/10/18 23:38) Wet Prep (04/10/18 23:38) Leonel Prep (04/10/18 23:38) Ua Culture If Indicated (04/10/18 23:38) Azithromycin Tablet (Zithromax Tablet) (04/10/18 23:45) Ceftriaxone For Iv Use (Rocephin For I (04/10/18 23:45) Lidocaine 1% Inj 20 Ml (Xylocaine 1% Inj (04/10/18 23:45) Hcg,Qualitative Urine (04/10/18 23:56) Urine Culture (04/10/18 23:40) Medications Given in ED Current Medications Medications Dose Ordered Sig/Mindy Route Start Time Stop Time Status Last Admin Dose Admin Azithromycin 1,000 mg ONCE ONCE PO 04/10/18 23:45 04/10/18 23:46 DC 04/11/18 00:07 1,000 MG Ceftriaxone Sodium 1,000 mg ONCE ONCE IM 04/10/18 23:45 04/10/18 23:46 DC 04/11/18 00:06 1,000 MG Lidocaine HCl 2.1 ml ONCE ONCE INJ 04/10/18 23:45 04/10/18 23:46 DC 04/11/18 00:06 2.1 ML Vital Signs/I&O 04/10/18 23:32 Temp 97.4 Pulse 90 Resp 16 B/P (MAP) 124/96 (105) Pulse Ox 99 O2 Delivery Room Air Capillary Refill : Departure Impression Primary Impression: Exposure to chlamydia Additional Impressions: PID (acute pelvic inflammatory disease) Cervicitis MUCOPURULENT CERVICITIS AND VAGINITIS Urinary tract infection Trichomonal infection Disposition: HOME, SELF-CARE Condition: Stable Departure-Patient Inst. Referrals: [facility] Patient Instructions: Chlamydia (DC), STD Prevention, Screening for Sexually Transmitted Infections, Sexually-Transmitted Diseases (DC), Trichomoniasis (DC) Add. Discharge Instructions: INTERCOURSE UNTIL YOU ARE RECHECKED AND CLEARED IF YOU HAVE HAD INTERCOURSE TODAY, THEN BOYFRIEND WILL LIKELY NEED RE-TREATED, AND HE NEEDS RECHECKED IN 1 WEEK AFTER TREATMENT AND CLEARED BEFORE INTERCOURSE WELL FOLLOW UP WITH [facility] [place] [facility] IN 1 WEEK FOR RECHECK Scripts Doxycycline Monohydrate (Doxycycline Monohydrate) 100 Mg Capsule 100 MG PO BID, #20 CAP Prov: CLINTON SPIVEY DO 04/10/18 Metronidazole (Flagyl) 500 Mg Tablet 500 MG PO QID for FOR INFECTION, #40 TAB Prov: CLINTON SPIVEY DO 04/10/18 CLINTON SPIVEY DO Apr 10, 2018 23:59
[2018-04-11 00:10] LABS: BACTERIA,URINE MODERATE /HPF; TRICHOMONAS,URINE MODERATE /HPF
[2018-04-11 00:22] VITALS: BP 124/96
== END 2018-04-11 00:22 | disposition home or self-care (01) ==
LOC: EDUNIT# 23:20 → ER 23:22
DX: N73.9 Female pelvic inflammatory disease, unspecified (principal); A59.09 Other urogenital trichomoniasis; A59.01 Trichomonal vulvovaginitis; N39.0 Urinary tract infection, site not specified; F17.210 Nicotine dependence, cigarettes, uncomplicated; J45.998 Other asthma; F90.9 Attention-deficit hyperactivity disorder, unspecified type; Z98.890 Other specified postprocedural states; Z20.2 Contact with and (suspected) exposure to infections with a predominantly sexual mode of transmission
CPT/HCPCS: 36415; 81000; 84703; 87070; 87077; 87088; 87185; 87205; 87210; 87220; 87491; 87591; 96372; 99284

== ENCOUNTER 2019-04-13 13:50 | Emergency (ER) | payer SELFPAY ==
[~2019-04-13] VITALS: Ht 165 cm; Wt 63.6 kg
[~2019-04-13 13:50] MED LIST changes: +DOXY100C42 PO
[2019-04-13] MEDS ORDERED: cefTRIAXone 1,000 MG/2.86 ml vial (IM ONLY) IM SCH (14:00)
[2019-04-13] MEDS ORDERED: AZITHROMYCIN 250 MG TAB (ZITHROMAX) PO SCH (14:00)
[2019-04-13] MEDS ORDERED: LIDOCAINE 1% INJ 20 ML 20 ML VIAL INJ ONE (14:00)
--- NOTE | 2019-04-13 14:10 | ED GU-Female ---
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 [facility] STATES THAT HER SEXUAL PARTNER HAS INFORMED HER THAT HE HAS POSITIVE FOR SEVERAL THINGS. SHE IS ASYMPTOMATIC AT THIS TIME. Nursing Sepsis Screen: No Definite Risk Source: patient Exam Limitations: no limitations History of Present Illness Date Seen by Provider: Apr 13, 2019 Time Seen by Provider: 14:08 Initial Comments To ER by private vehicle with concerns about a sexual transmitted infection. Her sexual partner recently informed her that he had Trichomonas and either Chlamydia or gonorrhea, unsure which one. She states that she has no discharge no sores and no symptoms but she has had Trichomonas plus gonorrhea or chlamydia before (she cannot recall which one) and she had no symptoms at that time either. Timing/Duration: just prior to arrival Location: unknown Radiation: none Activities at Onset: none Prior Genitourinary Problems: none Sexual [employer] History: single partner Allergies and Home Medications Allergies Coded Allergies: Penicillins (Verified Allergy, Unknown, 01/05/17) Home Medications Cephalexin 500 Mg Tablet, 500 MG PO QID Prescribed by: MARTELL GRECO on 11/09/17 030 Ciprofloxacin 500 Mg/5 Ml [facility]..rec, 500 MG PO BID Prescribed by: DONI MILES on 01/07/17634 Docusate Sodium 100 Mg Capsule, 100 MG PO BID Prescribed by: DONI MILES on 01/07/17634 Doxycycline Monohydrate 100 Mg Capsule, 100 MG PO BID Prescribed by: CLINTON SPIVEY on 04/10/182354 Hydrocodone Bit/Acetaminophen 1 Tab Tab, 1 EACH PO Q6H PRN for BREAKTHROUGH PAIN Prescribed by: MARTELL GRECO on 11/09/17 0302 Ibuprofen 800 Mg Tablet, 800 MG PO Q6H Prescribed by: DONI MILES on 01/07/17634 Metronidazole 500 Mg Tablet, 500 MG PO BID Prescribed by: DONI MILES on 01/07/17634 Metronidazole 500 Mg Tablet, 500 MG PO QID Prescribed by: CLINTON SPIVEY on 04/10/182354 Oxycodone HCl/Acetaminophen 1 Each Tablet, 1-2 TAB PO Q4HR PRN for PAIN-MODERATE TO SEVERE Prescribed by: DONI MILES on 01/07/17634 Patient Home Medication List Home Medication List Reviewed: Yes (k) Review of Systems Review of Systems Constitutional: see HPI; No chills, No fever EENTM: see HPI Respiratory: no symptoms reported Cardiovascular: no symptoms reported Genitourinary: see HPI; denies burning, denies discharge, denies dysuria, denies frequency Musculoskeletal: no symptoms reported Skin: no symptoms reported Psychiatric/Neurological: No Symptoms Reported Endocrine: No Symptoms Reported Hematologic/Lymphatic: No Symptoms Reported Past Vsviicq-Dbqcnl-Tzeeti Hx Patient Social History Alcohol Use: Denies Use Recreational Drug Use: No Smoking Status: Current Everyday Smoker Type Used: Cigarettes 2nd Hand Smoke Exposure: No Recent Foreign Travel: No Contact w/Someone Who Travel: No Recent Infectious Disease Expo: No Recent Hopitalizations: No Physical Abuse: No Sexual Abuse: No Immunizations Up To Date Tetanus Booster (TDap): More than 5yrs Seasonal Allergies Seasonal Allergies: No Past Medical History Surgeries: Yes (C/S x 2) Section Respiratory: Yes (Exercise induced asthma/doesn't use inhaler) Asthma Cardiac: No Neurological: No Reproductive Disorders: Yes Female Reproductive Disorders: Menstrual Problems Sexually Transmitted Disease: Yes (HPV, Chlamydia at 18-Treated) HIV/AIDS: No Genitourinary: Yes UTI-Chronic Gastrointestinal: No Musculoskeletal: Yes (Fractured lower Lumbar vertebrae) Fractures Endocrine: No HEENT: No Loss of Vision: Denies Hearing Impairment: Denies Cancer: No Psychosocial: Yes ADD/ADHD Integumentary: No Blood Disorders: No Adverse Reaction/Blood Tranf: No Family Medical History Cancer Grandparents (Maternal Grandfather-Throat Cancer Maternal Grandmother- Cervical Cancer? Vaginal Cancer?) Chest pain Grandparents (Maternal Grandfather) Family history: Arthritis Grandparents (Paternal Grandfather) Family history: Asthma Grandparents (Maternal Grandmother) Family history: Cardiovascular disease Grandparents (Maternal Grandfather) Family history: Diabetes mellitus 19 FATHER 19 MOTHER Grandparents (Paternal Grandmother) Family history: Hypertension 19 FATHER 19 MOTHER Grandparents (All Grandparents) Headache G8 SISTER (Chronic Headaches/Migraines) Hypercholesterolemia Grandparents (Maternal Grandfather) Myocardial infarction 19 FATHER Grandparents (Maternal Grandfather) Psychotic disorder 19 FATHER (Suicide attempt) Seizure disorder G8 SISTER (Had 1 seizure, never diagnosed with disorder) Stroke Grandparents (Maternal Grandfather and Grandmother) No Family History of: Abdominal aortic aneurysm Cidra's disease Alcoholism Aphasia Cancer of colon Cataract Congenital heart disease Congestive heart failure Cystic fibrosis Dementia Dysphagia Family history: Allergy Family history: Alzheimer's disease Family history: Breast disease Family history: Coronary thrombosis Family history: Gastrointestinal disease Family history: Glaucoma Family history: Osteoporosis Family history: Thyroid disorder Hearing loss Heart disease Hereditary disease History of - anemia History of - respiratory disease History of drug abuse Human immunodeficiency virus (HIV) seropositivity Infertile Kidney disease Malignant neoplasm of lung Parkinson's disease Prostate cancer Tuberculosis Visual impairment Physical Exam Vital Signs Vital Signs - First Documented 04/13/19 13:53 Temp 36.8 Pulse 93 Resp 22 B/P (MAP) 139/100 (113) Pulse Ox 100 Capillary Refill : Less Than 3 Seconds Height, Weight, BMI Height: 5'6.00" Weight: 120lbs. oz. 54.303062oa; 23.00 BMI Method:Stated General Appearance: WD/WN, no apparent distress HEENT: PERRL/EOMI, normal ENT inspection Neck: non-tender (for what her name), full range of motion Respiratory: no respiratory distress, no accessory muscle use Gastrointestinal: normal bowel sounds, non tender, soft Pelvic: normal external exam; No discharge, No mass, No tender w/ cervical motion; other (minimal whitish discharge in the vaginal vault) Neurologic/Psychiatric: alert, normal mood/affect, oriented x 3 Skin: normal color, warm/dry Procedures/Interventions Suture Size: 4-0 Progress/Results/Core Measures Suspected Sepsis Recent Fever Within 48 Hours: No Infection Criteria Present: None New/Unexplained Altered Menta: No Sepsis Screen: No Definite Risk SIRS Temperature: Pulse: 93 Respiratory Rate: 22 Blood Pressure 139 /100 Mean: 113 Results/Orders Lab Results Laboratory Tests Test 04/13/19 14:34 Range/Units Micro Results Microbiology 04/13/19 Genital Culture, Resulted Pending 04/13/19 Wet Prep - Final, Resulted My Orders Orders - LEESA HANCOCK APRN Wet Prep (04/13/19 13:59) Neisseria Gonorrhea Swab (04/13/19 13:59) Genital Culture (04/13/19 13:59) Chlamydia Trachomatis Swab (04/13/19 13:59) Urine Bedside (04/13/19 13:59) Azithromycin Tablet (Zithromax Tablet) (04/13/19 14:00) Ceftriaxone For Im Use (Rocephin For Im (04/13/19 14:00) Lidocaine 1% Inj 20 Ml (Xylocaine 1% Inj (04/13/19 14:00) Medications Given in ED Current Medications Medications Dose Ordered Sig/Mindy Route Start Time Stop Time Status Last Admin Dose Admin Lidocaine HCl 2.1 ml ONCE ONCE INJ 04/13/19 14:00 04/13/19 14:01 DC 04/13/19 14:35 2.1 ML Vital Signs/I&O 04/13/19 13:53 Temp 36.8 Pulse 93 Resp 22 B/P (MAP) 139/100 (113) Pulse Ox 100 Capillary Refill : Less Than 3 Seconds Blood Pressure Mean: 113 POS Departure Impression Primary Impression: Exposure to STD Additional Impression: Bacterial vaginosis Disposition: HOME, SELF-CARE Condition: Stable Departure-Patient Inst. Decision time for Depature: 14:43 Referrals: NO,LOCAL PHYSICIAN (PCP/Family) Primary Care Physician Patient Instructions: Sexually-Transmitted Diseases (DC) Add. Discharge Instructions: 1. Return to ER for any concerns 2. Follow-up with your doctor next week 3. All discharge instructions reviewed with patient and/or family. Voiced unders tanding. Scripts Metronidazole (Metronidazole) 500 Mg Tablet 500 MG PO BID, #21 TAB 0 Refills Prov: LEESA HANCOCK APRN 04/13/19 LEESA HANCOCK APRN Apr 13, 2019 14:10 POS
[2019-04-13] MEDS ORDERED: METR-145 PO (15:10)
[2019-04-13 15:15] VITALS: BP 139/100
== END 2019-04-13 15:15 | disposition home or self-care (01) ==
LOC: EDUNIT# 13:50 → ER 13:51
DX: N76.0 Acute vaginitis (principal); B96.89 Other specified bacterial agents as the cause of diseases classified elsewhere; J45.909 Unspecified asthma, uncomplicated; F90.9 Attention-deficit hyperactivity disorder, unspecified type; F17.210 Nicotine dependence, cigarettes, uncomplicated; Z87.440 Personal history of urinary (tract) infections; Z20.2 Contact with and (suspected) exposure to infections with a predominantly sexual mode of transmission; Z88.0 Allergy status to penicillin; Z82.49 Family history of ischemic heart disease and other diseases of the circulatory system; Z80.8 Family history of malignant neoplasm of other organs or systems
CPT/HCPCS: 36415; 84703; 87070; 87077; 87186; 87205; 87210; 87491; 87591; 99284

== ENCOUNTER 2019-11-18 22:15 | Emergency (ER) | payer SELFPAY ==
[~2019-11-18] VITALS: Ht 165 cm; Wt 62.6 kg
[~2019-11-18 22:15] MED LIST changes: +METR-145 PO
[2019-11-18] MEDS ORDERED: NS IV 1000 ML 1,000 ML IV ONE (22:20)
--- OUTSIDE RECORDS SUMMARY | 2019-11-18 22:21 | XMS REPORT ---
Author Author Carolina Mosher Doctor Organization [facility] Address Unknown Phone Unavailable Care Team Providers Care Database Administrator Name Role Phone Migration, Doctor Unavailable Unavailable PROBLEMS Type Condition ICD9-CM Code ZOT39-HM Code Onset Dates Condition S tatus SNOMED Code Problem DTAP TEST V06.1 Active Problem Screening for malignant neoplasm of the cervix V76.2 Active 934834917 Problem Papanicolaou smear of anus w ith low grade squamous intraepithelial lesion (LGSIL) 796.73 Active [id number] 06 Problem Vomiting alone 787.03 Active 39451 0008 Problem Other malaise and fatigue 780.79 Acti ve 468014417 Problem Hordeolum externum 373.11 Active 1 313699 Problem Supervision of normal first V22.0 Active 963198908 Problem Streptococcus infection in c onditions classified elsewhere and of unspecified site, group B 041.02 Active 42 5854691 Problem Need for prophylactic vaccination and inoculation, Influen za V04.81 Active 550181243 Problem Fever, unspecified 780.60 Active 3 92808285 Problem Other disorder of menstruati on and other abnormal bleeding from female genital tract 626.8 Active 277371977 Problem Absence of menstruation 626.0 Active 13183051 Problem Maternal drug dependence, 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 184042933 ALLERGIES No Information ENCOUNTERS Encounter Location Date Diagnosis [facility] [address] [facility] [id number] [address] [place] [address] October, Cellulitis of right lower ex tremity L03.115 and Cellulitis of right external ear H60.11 [facility] [place] [address] [id number] [address] [place] [address] October, Visit for TB skin test Z11.1 [facility] [place] [address] [facility] [id number] [address] [place] [address] Sep, test positive Z32. 01 [facility] [place] [address] [id number] [address] [place] [address] Sep, Acute suppurative otitis med ia of left ear with spontaneous rupture of tympanic membrane, recurrence not specified H66.012 [facility] [address] [id number] [address] [place] [address], [place] [address] 18 Nov, 2014 [facility] [address] [id number] [address] [place] [address], [place] [address] 14 Sep, 2014 [facility] [address] [id number] [address] [place] [address] Sep, [facility] [address] [id number] [address] [place] [address] Jul, [facility] [address] [id number] [address] [place] [address] Jul, [facility] [address] [id number] [address] [place] [address] Aug, [facility] [address] [id number] [address] [place] [address] Aug, [facility] [address] [id number] [address] [place] [address] Aug, [facility] [address] [id number] [address] [place] [address] Aug, [facility] [address] [id number] [address] [place] [address] Aug, [facility] [address] [id number] [address] [place] [address] Aug, [facility] [address] [id number] [address] [place] [address] Aug, [facility] [address] [id number] [address] [place] [address] Aug, [facility] [address] [id number] [address] [place] [address] Jul, [facility] [address] [id number] [address] [place] [address], [place] [address] Jul, [facility] [address] [id number] [address] [place] [address], [place] [address] Jul, [facility] [address] [id number] [address] [place] [address], [place] [address] Jul, [facility] [address] [id number] [address] [place] [address], [place] [address] Jul, [facility] [address] [id number] [address] [place] [address], [place] [address] Jul, [facility] [address] [id number] [address] [place] [address], [place] [address] Jul, [facility] [address] [id number] [address] [place] [address], [place] [address] Jul, [facility] [address] [id number] [address] [place] [address], [place] [address] Jun, [facility] [address] [id number] [address] [place] [address], [place] [address] Jun, [facility] [address] [id number] [address] [place] [address], [place] [address] Jun, [facility] [address] [id number] [address] [place] [address], [place] [address] Jun, [facility] [address] [id number] [address] [place] [address], [place] [address] Jun, [facility] [address] [id number] [address] [place] [address], [place] [address] Jun, [facility] [address] [id number] [address] [place] [address], [place] [address] May, [facility] [address] [id number] [address] [place] [address], [place] [address] May, [facility] [address] [id number] [address] [place] [address], [place] [address] 20 May, 2013 [facility] [address] [id number] [address] [place] [address], [place] [address] 17 May, 2013 [facility] [address] [id number] [address] [place] [address], [place] [address] May, [facility] [address] [id number] [address] [place] [address], [place] [address] May, [facility] [address] [id number] [address] [place] [address], [place] [address] May, [facility] [address] [id number] [address] [place] [address], [place] [address] May, [facility] [address] [id number] [address] [place] [address], [place] [address] May, [facility] [address] [id number] [address] [place] [address], [place] [address] Apr, [facility] [address] [id number] [address] [place] [address], [place] [address] Apr, [facility] [address] [id number] [address] [place] [address], [place] [address] Apr, [facility] [address] [id number] [address] [place] [address], [place] [address] Apr, [facility] [address] [id number] [address] [place] [address], [place] [address] Apr, [facility] [address] [id number] [address] [place] [address], [place] [address] Apr, [facility] [address] [id number] [address] [place] [address], [place] [address] Apr, [facility] [address] [id number] [address] [place] [address], [place] [address] Apr, [facility] [address] [id number] [address] [place] [address], [place] [address] 18 Apr, 2013 [facility] [address] [id number] [address] [place] [address], [place] [address] Apr, [facility] [address] [id number] [address] [place] [address], [place] [address] Apr, [facility] [address] [id number] [address] [place] [address], [place] [address] Apr, [facility] [address] [id number] [address] [place] [address], [place] [address] Mar, [facility] [address] [id number] [address] [place] [address], [place] [address] 30 Mar, 2013 [facility] [address] [id number] [address] [place] [address], [place] [address] Mar, [facility] [address] [id number] [address] [place] [address], [place] [address] Mar, [facility] [address] [id number] [address] [place] [address], [place] [address] Mar, [facility] [address] [id number] [address] [place] [address], [place] [address] Mar, [facility] [address] [id number] [address] [place] [address], [place] [address] Mar, [facility] [address] [id number] [address] [place] [address], [place] [address] Mar, [facility] [address] [id number] [address] [place] [address], [place] [address] Mar, [facility] [address] [id number] [address] [place] [address], [place] [address] Mar, [facility] [address] [id number] [address] [place] [address], [place] [address] Mar, [facility] [address] [id number] [address] [place] [address], [place] [address] Mar, [facility] [address] [id number] [address] [place] [address] Feb, [facility] [address] [id number] [address] [place] [address], [place] [address] Jan, [facility] [address] [id number] [address] [place] [address], [place] [address] Jan, [facility] [address] [id number] [address] [place] [address], [place] [address] Jan, [facility] [address] [id number] [address] [place] [address], [place] [address] October, [facility] [address] [id number] [address] [place] [address], [place] [address] Aug, [facility] [address] [id number] [address] [place] [address], [place] [address] Aug, [facility] [address] [id number] [address] [place] [address], [place] [address] October, [facility] [address] [id number] [address] [place] [address], [place] [address] Jul, [facility] [address] [id number] [address] [place] [address], [place] [address] Jun, [facility] [address] [id number] [address] [place] [address], [place] [address] Jun, [facility] [address] [id number] [address] [place] [address], [place] [address] May, [facility] [address] [id number] [address] [place] [address], [place] [address] Apr, [facility] [address] [id number] [address] [place] [address], [place] [address] Dec, [facility] [address] [id number] [address] [place] [address], [place] [address] 15 Nov, 2010 [facility] [address] [id number] [address] [place] [address], [place] [address] 14 Nov, 2010 [facility] [address] [id number] [address] [place] [address] October, [facility] [place] [address] [facility] [id number] [address] [place] [address] Aug, [facility] [place] [address] [facility] [id number] [address] [place] [address] May, [facility] [place] [address] [id number] [address] [place] [address] 14 Mar, 2010 [facility] [place] [address] [id number] [address] [place] [address] 14 Mar, 2010 [facility] [place] [address] [facility] [id number] [address] [place] [address] 15 Feb, 2010 IMMUNIZATIONS No Known Immunizations SOCIAL HISTORY Never Assessed REASON FOR VISIT PLAN OF CARE VITAL SIGNS MEDICATIONS No Known Medications RESULTS No Results PROCEDURES No Known procedures INSTRUCTIONS MEDICATIONS ADMINISTERED No Known Medications MEDICAL (GENERAL) HISTORY Type Description Date Surgical History x 2 Hospitalization History childbirth
--- OUTSIDE RECORDS SUMMARY | 2019-11-18 22:21 | XMS REPORT ---
Author Author Carolina CANDELARIA [facility] Address [address] [place] [address] Care Team Providers Care [employer] Salesperson Name Role Phone BARI LISA Unavailable PROBLEMS Type Condition ICD9-CM Code TZU10-IH Code Onset Dates Condition S tatus SNOMED Code Problem DTAP TEST V06.1 Active Problem Screening for malignant neoplasm of the cervix V76.2 Active 679958411 Problem Papanicolaou smear of anus w ith low grade squamous intraepithelial lesion (LGSIL) 796.73 Active 7887928980825 06 Problem Vomiting alone 787.03 Active 65328 0008 Problem Other malaise and fatigue 780.79 Acti ve 070162182 Problem Hordeolum externum 373.11 Active 1 432659 Problem Supervision of normal first V22.0 Active 671535770 Problem Streptococcus infection in c onditions classified elsewhere and of unspecified site, group B 041.02 Active 42 3170982 Problem Need for prophylactic vaccination and inoculation, Influen za V04.81 Active 108712988 Problem Fever, unspecified 780.60 Active 3 26324209 Problem Other disorder of menstruati on and other abnormal bleeding from female genital tract 626.8 Active 012337629 Problem Absence of menstruation 626.0 Active 72894422 Problem Maternal drug dependence, 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 [id number] ALLERGIES No Information ENCOUNTERS Encounter Location Date Diagnosis [facility] [place] [id number] [place] [address] October, Visit for TB skin test Z11.1 [facility] [place] [id number] [place] [address] Sep, test positive Z32.01 [facility] [place] [address] [id number] [place] [address] Sep, Acute suppurative otitis media of left e ar with spontaneous rupture of tympanic membrane, recurrence not specified H66.012 [facility] [address] [id number] [place] [address] Nov, [facility] [address] [id number] [place] [address] Sep, [facility] [id number] [place] [address] Sep, [facility] [id number] [place] [address] Jul, [facility] [id number] [place] [address] Jul, [facility] [id number] [place] [address] Aug, [facility] [id number] [place] [address] Aug, [facility] [id number] [place] [address] Aug, [facility] [id number] [place] [address] Aug, [facility] [id number] [place] [address] Aug, [facility] [id number] [place] [address] Aug, [facility] [id number] [place] [address] Aug, [facility] [address] [id number] [place] [address] Aug, [facility] [id number] [place] [address] Jul, [facility] [id number] [place] [address] Jul, [facility] [id number] [place] [address] Jul, [facility] [address] [facility] [id number] [place] [address] Jul, [facility] [address] [id number] [place] [address] Jul, [facility] [address] [id number] [place] [address] Jul, [facility] [address] [id number] [place] [address] Jul, [facility] [address] [facility] [id number] [place] [address] Jul, [facility] [address] [id number] [place] [address] Jun, [facility] [address] [id number] [place] [address] Jun, [facility] [address] [id number] [place] [address] Jun, [facility] [address] [id number] [place] [address] 14 Jun, 2013 [facility] [address] [id number] [place] [address] Jun, [facility] [address] [id number] [place] [address] Jun, [facility] [address] [id number] [place] [address] May, [facility] [address] [id number] [place] [address] May, [facility] [address] [id number] [place] [address] May, [facility] [address] [id number] [place] [address] May, [facility] [address] [id number] [place] [address] May, [facility] [address] [id number] [place] [address] 17 May, 2013 [facility] [address] [id number] [place] [address] May, [facility] [address] [id number] [place] [address] May, [facility] [address] [id number] [place] [address] May, [facility] [address] [id number] [place] [address] Apr, [facility] [address] [id number] [place] [address] Apr, [facility] [address] [id number] [place] [address] Apr, [facility] [address] [id number] [place] [address] Apr, [facility] [id number] [place] [address] Apr, [facility] [address] [id number] [place] [address] Apr, [facility] [id number] [place] [address] Apr, [facility] [address] [id number] [place] [address] Apr, [facility] [id number] [place] [address] Apr, [facility] [address] [id number] [place] [address] Apr, [facility] [id number] [place] [address] Apr, [facility] [address] [id number] [place] [address] Apr, [facility] [address] [id number] [place] [address] Mar, [facility] [address] [facility] [id number] [place] [address] Mar, [facility] [address] [id number] [place] [address] Mar, [facility] [address] [id number] [place] [address] Mar, [facility] [address] [id number] [place] [address] Mar, [facility] [address] [id number] [place] [address] Mar, [facility] [address] [id number] [place] [address] Mar, [facility] [address] [id number] [place] [address] Mar, [facility] [address] [id number] [place] [address] Mar, [facility] [address] [id number] [place] [address] Mar, [facility] [address] [id number] [place] [address] Mar, [facility] [address] [id number] [place] [address] Mar, [facility] [address] [id number] [place] [address] Feb, [facility] [address] [id number] [place] [address] Jan, [facility] [address] [facility] [id number] [place] [address] Jan, [facility] [address] [id number] [place] [address] Jan, [facility] [address] [id number] [place] [address] October, [facility] [address] [id number] [place] [address] Aug, [facility] [place] [address] [id number] [place] [address] Aug, [facility] [place] [id number] [place] [address] October, [facility] [place] [address] [id number] [place] [address] Jul, [facility] [place] [id number] [place] [address] Jun, [facility] [place] [address] [id number] [place] [address] Jun, [facility] [place] [id number] [place] [address] May, [facility] [place] [id number] [place] [address] 30 Apr, 2011 [facility] [place] [id number] [place] [address] 16 Dec, 2010 [facility] [place] [id number] [place] [address] 15 Nov, 2010 [facility] [place] [id number] [place] [address] 14 Nov, 2010 [facility] [place] [id number] [place] [address] October, [facility] [place] [id number] [place] [address] 10 Aug, 2010 [facility] [place] [id number] [place] [address] 07 May, 2010 [facility] [place] [id number] [place] [address] 14 Mar, 2010 [facility] [place] [id number] [place] [address] 14 Mar, 2010 [facility] [place] [id number] [place] [address] 15 Feb, 2010 IMMUNIZATIONS No Known Immunizations SOCIAL HISTORY Never Assessed REASON FOR VISIT PLAN OF CARE VITAL SIGNS Height 66 in 2013-06-19 Weight 166.1 lbs 2013-06-19 Temperature 97.1 degrees Fahrenheit 2013-06-19 Heart Rate 80 bpm 2013-06-19 Respiratory Rate 18 2013-06-19 Blood pressure systolic 118 mmHg 2013-06-19 Blood pressure diastolic 64 mmHg 2013-06-19 MEDICATIONS Unknown Medications RESULTS No Results PROCEDURES Procedure Date Ordered Result Body Site URINE-NO MICRO Jun 19, 2013 INSTRUCTIONS MEDICATIONS ADMINISTERED No Known Medications
--- OUTSIDE RECORDS SUMMARY | 2019-11-18 22:21 | XMS REPORT ---
Author Author Carolina CANDELARIA [facility] Address [address] [place] [address] Care Team Providers Care Surgical Services Tech Name Role Phone BARI LISA Unavailable PROBLEMS Type Condition ICD9-CM Code FKI01-KV Code Onset Dates Condition S tatus SNOMED Code Problem DTAP TEST V06.1 Active Problem Screening for malignant neoplasm of the cervix V76.2 Active 649289319 Problem Papanicolaou smear of anus w ith low grade squamous intraepithelial lesion (LGSIL) 796.73 Active 0812886820799 06 Problem Vomiting alone 787.03 Active 55063 0008 Problem Other malaise and fatigue 780.79 Acti ve 674743867 Problem Hordeolum externum 373.11 Active 1 080665 Problem Supervision of normal first V22.0 Active 282554941 Problem Streptococcus infection in c onditions classified elsewhere and of unspecified site, group B 041.02 Active 42 5136956 Problem Need for prophylactic vaccination and inoculation, Influen za V04.81 Active 640844018 Problem Fever, unspecified 780.60 Active 3 97535537 Problem Other disorder of menstruati on and other abnormal bleeding from female genital tract 626.8 Active 554644652 Problem Absence of menstruation 626.0 Active 43200955 Problem Maternal drug dependence, 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 [id number] ALLERGIES No Information ENCOUNTERS Encounter Location Date Diagnosis [facility] [id number] [place] [address] October, Visit for TB skin test Z11.1 [facility] [id number] [place] [address] Sep, test positive Z32.01 [facility] [address] [id number] [place] [address] Sep, Acute suppurative otitis media of left e ar with spontaneous rupture of tympanic membrane, recurrence not specified H66.012 [facility] [address] [id number] [place] [address] Nov, [facility] [address] [id number] [place] [address] Sep, [facility] [id number] [place] [address] Sep, [facility] [id number] [place] [address] Jul, [facility] [id number] [place] [address] Jul, [facility] [id number] [place] [address] Aug, [facility] [id number] [place] [address] Aug, [facility] [id number] [place] [address] Aug, [facility] [id number] [place] [address] Aug, [facility] [id number] [place] [address] Aug, [facility] [id number] [place] [address] Aug, [facility] [id number] [place] [address] Aug, [facility] [address] [id number] [place] [address] Aug, [facility] [id number] [place] [address] Jul, [facility] [id number] [place] [address] Jul, [facility] [id number] [place] [address] Jul, [facility] [address] [facility] [id number] [place] [address] Jul, [facility] [address] [id number] [place] [address] Jul, [facility] [address] [id number] [place] [address] Jul, [facility] [address] [id number] [place] [address] Jul, [facility] [address] [facility] [id number] [place] [address] Jul, [facility] [address] [id number] [place] [address] Jun, [facility] [address] [id number] [place] [address] Jun, [facility] [address] [id number] [place] [address] Jun, [facility] [address] [id number] [place] [address] 14 Jun, 2013 [facility] [address] [id number] [place] [address] Jun, [facility] [address] [id number] [place] [address] Jun, [facility] [address] [id number] [place] [address] May, [facility] [address] [id number] [place] [address] May, [facility] [address] [id number] [place] [address] May, [facility] [address] [id number] [place] [address] May, [facility] [address] [id number] [place] [address] May, [facility] [address] [id number] [place] [address] 17 May, 2013 [facility] [address] [id number] [place] [address] May, [facility] [address] [id number] [place] [address] May, [facility] [address] [id number] [place] [address] May, [facility] [address] [id number] [place] [address] Apr, [facility] [address] [id number] [place] [address] Apr, [facility] [address] [id number] [place] [address] Apr, [facility] [address] [id number] [place] [address] Apr, [facility] [id number] [place] [address] Apr, [facility] [address] [id number] [place] [address] Apr, [facility] [id number] [place] [address] Apr, [facility] [address] [id number] [place] [address] Apr, [facility] [id number] [place] [address] Apr, [facility] [address] [id number] [place] [address] Apr, [facility] [id number] [place] [address] Apr, [facility] [address] [id number] [place] [address] Apr, [facility] [address] [id number] [place] [address] Mar, [facility] [address] [facility] [id number] [place] [address] Mar, [facility] [address] [id number] [place] [address] Mar, [facility] [address] [id number] [place] [address] Mar, [facility] [address] [id number] [place] [address] Mar, [facility] [address] [id number] [place] [address] Mar, [facility] [address] [id number] [place] [address] Mar, [facility] [address] [id number] [place] [address] Mar, [facility] [address] [id number] [place] [address] Mar, [facility] [address] [id number] [place] [address] Mar, [facility] [address] [id number] [place] [address] Mar, [facility] [address] [id number] [place] [address] Mar, [facility] [address] [id number] [place] [address] Feb, [facility] [address] [id number] [place] [address] Jan, [facility] [address] [facility] [id number] [place] [address] Jan, [facility] [address] [id number] [place] [address] Jan, [facility] [address] [id number] [place] [address] October, [facility] [address] [id number] [place] [address] Aug, [facility] [address] [id number] [place] [address] Aug, [facility] [id number] [place] [address] October, [facility] [address] [id number] [place] [address] Jul, [facility] [id number] [place] [address] Jun, [facility] [address] [id number] [place] [address] Jun, [facility] [id number] [place] [address] May, [facility] [id number] [place] [address] 30 Apr, 2011 [facility] [id number] [place] [address] 16 Dec, 2010 [facility] [id number] [place] [address] 15 Nov, 2010 [facility] [id number] [place] [address] 14 Nov, 2010 [facility] [id number] [place] [address] October, [facility] [id number] [place] [address] 10 Aug, 2010 [facility] [id number] [place] [address] 07 May, 2010 [facility] [id number] [place] [address] 14 Mar, 2010 [facility] [id number] [place] [address] 14 Mar, 2010 [facility] [id number] [place] [address] 15 Feb, 2010 IMMUNIZATIONS No Known Immunizations SOCIAL HISTORY Never Assessed REASON FOR VISIT PLAN OF CARE VITAL SIGNS Height 66 in 2013-07-31 Weight 183.4 lbs 2013-07-31 Temperature 97.7 degrees Fahrenheit 2013-07-31 Heart Rate 92 bpm 2013-07-31 Respiratory Rate 20 2013-07-31 Blood pressure systolic 120 mmHg 2013-07-31 Blood pressure diastolic 66 mmHg 2013-07-31 MEDICATIONS Unknown Medications RESULTS No Results PROCEDURES Procedure Date Ordered Result Body Site COMPLETE CBC W/AUTO DIFF WBC Jul 31, 2013 GLUCOSE TEST Jul 31, 2013 VENIPUNCT, ROUTINE* Jul 31, 2013 URINE-NO MICRO Jul 31, 2013 INSTRUCTIONS MEDICATIONS ADMINISTERED No Known Medications
--- OUTSIDE RECORDS SUMMARY | 2019-11-18 22:21 | XMS REPORT ---
Author Author Carolina Garcia Organization [facility] Address [address] [place] [address] Care Team Providers Care Grey Goods Tester Name Role Phone CYRIL Garcai Unavailable PROBLEMS Type Condition ICD9-CM Code DKD54-MM Code Onset Dates Condition S tatus SNOMED Code Problem DTAP TEST V06.1 Active Problem Screening for malignant neoplasm of the cervix V76.2 Active 720924897 Problem Papanicolaou smear of anus w ith low grade squamous intraepithelial lesion (LGSIL) 796.73 Active [id number] 06 Problem Vomiting alone 787.03 Active 38897 0008 Problem Other malaise and fatigue 780.79 Acti ve 796663463 Problem Hordeolum externum 373.11 Active 1 327069 Problem Supervision of normal first V22.0 Active 628514256 Problem Streptococcus infection in c onditions classified elsewhere and of unspecified site, group B 041.02 Active 42 1953835 Problem Need for prophylactic vaccination and inoculation, Influen za V04.81 Active 260352891 Problem Fever, unspecified 780.60 Active 3 74869211 Problem Other disorder of menstruati on and other abnormal bleeding from female genital tract 626.8 Active 447517053 Problem Absence of menstruation 626.0 Active 40162111 Problem Maternal drug dependence, 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 01 [facility] [address] [id number] [address] [place] [address] Sep, Acute suppurative otitis med ia of left ear with spontaneous rupture of tympanic membrane, recurrence not specified H66.012 [facility] [address] [id number] [address] [place] [address] Nov, [facility] [address] [id number] [address] [place] [address] Sep, [facility] [address] [id number] [address] [place] [address] Sep, [facility] [address] [id number] [address] [place] [phone] Jul, [facility] [address] [id number] [address] [place] [address] Jul, [facility] [address] [id number] [address] [place] [address] Aug, [facility] [address] [id number] [address] [place] [address] Aug, [facility] [address] [id number] [address] [place] [address] Aug, [facility] [address] [id number] [address] [place] [address] Aug, [facility] [address] [id number] [address] [place] [address] Aug, [facility] [address] [id number] [address] [place] [address] Aug, [facility] [address] [id number] [address] [place] [address] Aug, [facility] [address] [id number] [address] [place] [address] Aug, [facility] [address] [id number] [address] [place] [address], [place] [address] Jul, [facility] [address] [id number] [address] [place] [address], [place] [address] Jul, [facility] [address] [id number] [address] [place] [address], [place] [address] Jul, [facility] [address] [id number] [address] [place] [address], [place] [address] Jul, [facility] [address] [id number] [address] [place] [address], [place] [address] Jul, [facility] [address] [id number] [address] [place] [address], [place] [address] Jul, [facility] [address] [id number] [address] [place] [address], [place] [address] Jul, [facility] [address] [id number] [address] [place] [address], [place] [address] Jul, [facility] [address] [id number] [address] [place] [address], [place] [address] Jun, [facility] [address] [id number] [address] [place] [address], [place] [address] Jun, [facility] [address] [id number] [address] [place] [address], [place] [address] Jun, [facility] [address] [id number] [address] [place] [address], [place] [address] Jun, [facility] [address] [id number] [address] [place] [address], [place] [address] Jun, [facility] [address] [id number] [address] [place] [address], [place] [address] Jun, [facility] [address] [id number] [address] [place] [address], [place] [address] May, [facility] [address] [id number] [address] [place] [address] [place] [address] May, [facility] [address] [id number] [address] [place] [address], [place] [address] May, [facility] [address] [id number] [address] [place] [address], [place] [address] May, [facility] [address] [id number] [address] [place] [address], [place] [address] May, [facility] [address] [id number] [address] [place] [address], [place] [address] May, [facility] [address] [id number] [address] [place] [address], [place] [address] May, [facility] [address] [id number] [address] [place] [address], [place] [address] May, [facility] [address] [id number] [address] [place] [address], [place] [address] May, [facility] [address] [id number] [address] [place] [address], [place] [address] Apr, [facility] [address] [id number] [address] [place] [address], [place] [address] Apr, [facility] [address] [id number] [address] [place] [address], [place] [address] Apr, [facility] [address] [id number] [address] [place] [address], [place] [address] Apr, [facility] [address] [id number] [address] [place] [address], [place] [address] Apr, [facility] [address] [id number] [address] [place] [address], [place] [address] Apr, [facility] [address] [id number] [address] [place] [address], [place] [address] Apr, [facility] [address] [id number] [address] [place] [address], [place] [address] Apr, [facility] [address] [id number] [address] [place] [address], [place] [address] Apr, [facility] [address] [id number] [address] [place] [address], [place] [address] Apr, [facility] [address] [id number] [address] [place] [address], [place] [address] Apr, [facility] [address] [id number] [address] [place] [address], [place] [address] Apr, [facility] [address] [id number] [address] [place] [address], [place] [address] Mar, [facility] [address] [id number] [address] [place] [address], [place] [address] Mar, [facility] [address] [id number] [address] [place] [address], [place] [address] Mar, [facility] [address] [id number] [address] [place] [address], [place] [address] Mar, [facility] [address] [id number] [address] [place] [address], [place] [address] Mar, [facility] [address] [id number] [address] [place] [address], [place] [address] Mar, [facility] [address] [id number] [address] [place] [address], [place] [address] Mar, [facility] [address] [id number] [address] [place] [address], [place] [address] Mar, [facility] [address] [id number] [address] [place] [address], [place] [address] Mar, [facility] [address] [id number] [address] [place] [address], [place] [address] Mar, [facility] [address] [id number] [address] [place] [address], [place] [address] Mar, [facility] [address] [id number] [address] [place] [address], [place] [address] Mar, [facility] [address] [id number] [address] [place] [address], [place] [address] Feb, [facility] [address] [id number] [address] [place] [address], [place] [address] Jan, [facility] [address] [id number] [address] [place] [address], [place] [address] Jan, [facility] [address] [id number] [address] [place] [address], [place] [address] Jan, [facility] [address] [id number] [address] [place] [address], [place] [address] October, [facility] [address] [id number] [address] [place] [address], [place] [address] Aug, [facility] [address] [id number] [address] [place] [address], [place] [address] Aug, [facility] [address] [id number] [address] [place] [address], [place] [address] October, [facility] [address] [id number] [address] [place] [address], [place] [address] Jul, [facility] [address] [id number] [address] [place] [address], [place] [address] Jun, [facility] [address] [id number] [address] [place] [address], [place] [address] Jun, [facility] [address] [id number] [address] [place] [address], [place] [address] May, [facility] [address] [id number] [address] [place] [address], [place] [address] Apr, [facility] [address] [id number] [address] [place] [address], [place] [address] Dec, [facility] [address] [id number] [address] [place] [address], [place] [address] Nov, [facility] [address] [id number] [address] [place] [address] 14 Nov, 2010 [facility] [address] [id number] [address] [place] [address] 11 Oct, 2010 [facility] [address] [facility] [id number] [address] [place] [address] 10 Aug, 2010 [facility] [address] [facility] [id number] [address] [place] [address] 07 May, 2010 [facility] [address] [facility] [id number] [address] [place] [address] 14 Mar, 2010 [facility] [address] [facility] [id number] [address] [place] [address] 14 Mar, 2010 [facility] [address] [facility] [id number] [address] [place] [id number] 15 Feb, 2010 IMMUNIZATIONS No Known Immunizations SOCIAL HISTORY Never Assessed REASON FOR VISIT PLAN OF CARE VITAL SIGNS MEDICATIONS No Known Medications RESULTS No Results PROCEDURES No Known procedures INSTRUCTIONS MEDICATIONS ADMINISTERED No Known Medications MEDICAL (GENERAL) HISTORY Type Description Date Surgical History x 2 Hospitalization History childbirth
--- OUTSIDE RECORDS SUMMARY | 2019-11-18 22:21 | XMS REPORT ---
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 department no information no name no organization name patient visit 09-01-2012 Emergency department no information no name no organization name - patient visit 09-01-2012 10-26-2013 Evaluation and no information no name no organ ization name - management of 10-28-2013 inpatient 04-11-2018 Patient encounter no information no name no or ganization name 08-21-2013 Patient encounter no information no name no or ganization name 07-16-2013 Patient encounter no information no name no or ganization name 06-11-2013 Patient encounter no information no name no or ganization name 05-08-2019 Patient encounter no information no name no or ganization name - procedure 05-08-2019 04-13-2019 Patient encounter no information no name no or ganization name procedure 01-05-2017 Patient encounter no information no name no or ganization name - procedure 01-07-2017 09-19-2016 Patient encounter no information no name no or ganization name procedure 09-08-2016 Patient encounter no information no name no or ganization name procedure Medical Equipment The data below is from unstructured sourcesNo Medical Equipment Information available Payers Normalized Payer Value Self-pay [id number] Evaluation note Note Type Note Facility Evaluation No Assessments Information Available A scension note [facility] ([id number]) History general Narrative - Reported Note Type Note Facility History general Narrative - Reported Type Surgical x 2 History Hospitaliz childbirth ation History [facility] ([id number]) Advance Directives Directive Response Recor ded Date/Time Advance Directives No 3:54pm Organ Donor No 09/19/16 3:54pm Resuscitation Status Full Code 09/19/16 3:54pm Directive Response Recor ded Date/Time Advance Directives No 4:48pm Organ Donor No 07/07/14 4:48pm Resuscitation Status Full Code 07/07/14 4:48pm Directive Response Recor ded Date/Time Advance Directives No 11:07pm Health Care Power of Auto Bench Mechanic Yes 01/05/17 11:07pm Organ Donor No 01/05/17 11:07pm Resuscitation Status Full Code 01/05/17 11:07pm Directive Response Recor ded Date/Time Advance Directives No 12:45am Health Care Power of Auto Bench Mechanic No 11/09/17 12:45am Organ Donor No 11/09/17 12:45am Resuscitation Status Full Code 11/09/17 12:45am Directive Response Recor ded Date/Time Advance Directives No 11:32pm Health Care Power of Auto Bench Mechanic No 04/10/18 11:32pm Organ Donor No 04/10/18 11:32pm Resuscitation Status Full Code 04/10/18 11:32pm Advance Directive Response Recorded Date/Time Advance Directives No No 2018 2:05pm Health Care Power of Auto Bench Mechanic No April 13, 2019 2:05pm Organ Donor No April 13, 2019 2:05pm Resuscitation Status Full Code April 13, 2019 2:05pm Discharge Instructions No hospital discharge instruction information available.No hospital discharge instructions. Patient Instructions Physician Instructions New, Converted or Re-Newed RX: RX on Chart Patient Instructions: as directed Return to The Hospital For: as directed Discharge Diet: No Restrictions Activity as Tolerated: No Follow Up Appt: RTC 1 week for incision check. Call to make follow up appt. for patient in 4 weeks. Wound Care: Remove danna, apply benzoin and steri strips. Activity Per routine post instructions. Diet as tolerated Patient may shower or tub bathe as desired. Continue home meds Care Plan Patient Instructions:: as directed No hospital discharge instruction information available.No hospital discharge i nstruction information available. Chief Complaint and Reason for Visit Chief Complaint -Female Reason for Visit Urinary tract infec tion [id number] Cervicitis [id number] MUCOPURULENT CERVICITIS AND VAGINITIS Chief Complaint CENTER RECEPTIONIST Reason for Visit [id number] Additional Source Comments This clinical document has been generated using [employer] software that has been certified by the Office of the National Coordinator for Health Information Technology (ONC 15.99.04.3023.Diam.31.00.0.364126) and the National Committee for Emissions Technician (NCQA, as an eMeasure certified technology). FOR RECORDS PERTAINING TO PATIENTS WHO ARE OR HAVE BEEN ENROLLED IN A CHEMICAL D EPENDENCY/SUBSTANCE ABUSE PROGRAM, SOME INFORMATION MAY BE OMITTED. This clinica l summary was aggregated from multiple sources. Caution should be exercised in using it in the provision of clinical care. This summary normalizes information from multiple sources, and as a consequence, information in this document may ma terially change the coding, format and clinical context of patient data. In micheal tion, data may be omitted in some cases. CLINICAL DECISIONS SHOULD BE BASED ON T HE PRIMARY CLINICAL RECORDS. [employer] provides no warranty or guara ntee of the accuracy or completeness of information in this document.The followi ng information is based on time limited clinical information UNRECOGNIZED CONTENT PROVIDED BELOW FOR UNRECOGNIZED SECTION REASON FOR VISIT [id number]-[id number]-MigEMR-Rolando
--- OUTSIDE RECORDS SUMMARY | 2019-11-18 22:21 | XMS REPORT ---
Author Author Carolina CANDELARIA [facility] Address [address] [place] [address] Care Team Providers Care Store Sales Manager Name Role Phone BARICRISTINOLISA Unavailable PROBLEMS Type Condition ICD9-CM Code [id number] Code Onset Dates Condition S tatus SNOMED Code Problem DTAP TEST V06.1 Active Problem Screening for malignant neoplasm of the cervix V76.2 Active 685268827 Problem Papanicolaou smear of anus w ith low grade squamous intraepithelial lesion (LGSIL) 796.73 Active [id number] 06 Problem Vomiting alone 787.03 Active 24104 0008 Problem Other malaise and fatigue 780.79 Acti ve 136562805 Problem Hordeolum externum 373.11 Active 1 137656 Problem Supervision of normal first V22.0 Active 703834840 Problem Streptococcus infection in c onditions classified elsewhere and of unspecified site, group B 041.02 Active 42 1491620 Problem Need for prophylactic vaccination and inoculation, Influen za V04.81 Active 640371667 Problem Fever, unspecified 780.60 Active 3 75936657 Problem Other disorder of menstruati on and other abnormal bleeding from female genital tract 626.8 Active 292449181 Problem Absence of menstruation 626.0 Active 76300032 Problem Maternal drug dependence, 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 01 [facility] [address] [facility] [id number] [address] [place] [phone] 03 Apr, 2017 Acute suppurative otitis med ia of left ear with spontaneous rupture of tympanic membrane, recurrence not specified H66.012 [facility] [address] [id number] [address] [place] [address], [place] [address] Nov, [facility] [address] [id number] [address] [place] [address], [place] [address] 14 Sep, 2014 [facility] [address] [id number] [address] [place] [address] Sep, [facility] [address] [id number] [address] [place] [phone] Jul, [facility] [address] [id number] [address] [place] [address] Jul, [facility] [address] [id number] [address] [place] [phone] Aug, [facility] [address] [id number] [address] [place] [address] Aug, [facility] [address] [id number] [address] [place] [phone] Aug, [facility] [address] [id number] [address] [place] [phone] Aug, [facility] [address] [id number] [address] [place] [phone] Aug, [facility] [address] [id number] [address] [place] [address] Aug, [facility] [address] [id number] [address] [place] [address] Aug, [facility] [address] [id number] [address] [place] [address] Aug, [facility] [address] [id number] [address] [place] [phone] Jul, [facility] [address] [id number] [address] [place] [phone] Jul, [facility] [address] [id number] [facility] [place] [address] Jul, [facility] [address] [id number] [address] [place] [address], [place] [address] Jul, [facility] [address] [id number] [address] [place] [address], [place] [address] Jul, [facility] [address] [id number] [address] [place] [address], [place] [address] Jul, [facility] [address] [id number] [address] [place] [address], [place] [address] Jul, [facility] [address] [id number] [address] [place] [address], [place] [address] Jul, [facility] [address] [id number] [address] [place] [address], [place] [address] Jun, [facility] [address] [id number] [address] [place] [address], [place] [address] Jun, [facility] [address] [id number] [address] [place] [address], [place] [address] Jun, [facility] [address] [id number] [address] [place] [address], [place] [address] Jun, [facility] [address] [id number] [address] [place] [address], [place] [address] Jun, [facility] [address] [id number] [address] [place] [address], [place] [address] Jun, [facility] [address] [id number] [address] [place] [address], [place] [address] May, [facility] [address] [id number] [address] [place] [address], [place] [address] May, [facility] [address] [id number] [address] [place] [address], [place] [address] May, [facility] [address] [id number] [address] [place] [address], [place] [address] 17 May, 2013 [facility] [address] [id number] [address] [place] [address], [place] [address] May, [facility] [address] [id number] [address] [place] [address], [place] [address] May, [facility] [address] [id number] [address] [place] [address], [place] [address] May, [facility] [address] [id number] [address] [place] [address], [place] [address] May, [facility] [address] [id number] [address] [place] [address], [place] [address] May, [facility] [address] [id number] [address] [place] [address], [place] [address] Apr, [facility] [address] [id number] [address] [place] [address], [place] [address] Apr, [facility] [address] [id number] [address] [place] [address], [place] [address] Apr, [facility] [address] [id number] [address] [place] [address], [place] [address] Apr, [facility] [address] [id number] [address] [place] [address], [place] [address] Apr, [facility] [address] [id number] [address] [place] [address], [place] [address] Apr, [facility] [address] [id number] [address] [place] [address], [place] [address] Apr, [facility] [address] [id number] [address] [place] [address], [place] [address] Apr, [facility] [address] [id number] [address] [place] [address], [place] [address] Apr, [facility] [address] [id number] [address] [place] [address], [place] [address] Apr, [facility] [address] [id number] [address] [place] [address], [place] [address] Apr, [facility] [address] [id number] [address] [place] [address], [place] [address] Apr, [facility] [address] [id number] [address] [place] [address], [place] [address] Mar, [facility] [address] [id number] [address] [place] [address], [place] [address] Mar, [facility] [address] [id number] [address] [place] [address], [place] [address] Mar, [facility] [address] [id number] [address] [place] [address], [place] [address] Mar, [facility] [address] [id number] [address] [place] [address], [place] [address] Mar, [facility] [address] [id number] [address] [place] [address] Mar, [facility] [address] [id number] [address] [place] [address], [place] [address] Mar, [facility] [address] [id number] [address] [place] [phone] Mar, [facility] [address] [id number] [address] [place] [address] Mar, [facility] [address] [id number] [address] [place] [address] Mar, [facility] [address] [id number] [address] [place] [address] Mar, [facility] [address] [id number] [address] [place] [address] Mar, [facility] [address] [id number] [address] [place] [address] Feb, [facility] [address] [id number] [address] [place] [address] Jan, [facility] [address] [id number] [address] [place] [address], [place] [address] Jan, [facility] [address] [id number] [address] [place] [address], [place] [address] Jan, [facility] [address] [id number] [address] [place] [address], [place] [address] October, [facility] [address] [id number] [address] [place] [address], [place] [address] Aug, [facility] [address] [id number] [address] [place] [address], [place] [address] Aug, [facility] [address] [id number] [address] [place] [address], [place] [address] October, [facility] [address] [id number] [address] [place] [address], [place] [address] Jul, [facility] [address] [id number] [address] [place] [address], [place] [address] Jun, [facility] [address] [id number] [address] [place] [address], [place] [address] Jun, [facility] [address] [id number] [address] [place] [address], [place] [address] May, [facility] [address] [id number] [address] [place] [address], [place] [address] Apr, [facility] [address] [id number] [address] [place] [address], [place] [address] Dec, [facility] [address] [id number] [address] [place] [address], [place] [address] Nov, [facility] [address] [id number] [address] [place] [address], [place] [address] Nov, [facility] [address] [id number] [address] [place] [address], [place] [address] October, [facility] [address] [facility] [id number] [address] [place] [address] Aug, [facility] [address] [facility] [id number] [address] [place] [address] 07 May, 2010 [facility] [address] [facility] [id number] [address] [place] [address] 14 Mar, 2010 [facility] [address] [facility] [id number] [address] [place] [address] 14 Mar, 2010 [facility] [address] [facility] [id number] [address] [place] [phone] 15 Feb, 2010 IMMUNIZATIONS No Known Immunizations SOCIAL HISTORY Never Assessed REASON FOR VISIT PLAN OF CARE VITAL SIGNS MEDICATIONS Unknown Medications RESULTS No Results PROCEDURES No Known procedures INSTRUCTIONS MEDICATIONS ADMINISTERED No Known Medications
--- OUTSIDE RECORDS SUMMARY | 2019-11-18 22:21 | XMS REPORT ---
Author Author Carolina Garcia Organization [facility] Address [address] [place] [address] Care Team Providers Care Magnetic Prospector Name Role Phone CYRIL Garcia Unavailable PROBLEMS Type Condition ICD9-CM Code QUQ10-RQ Code Onset Dates Condition S tatus SNOMED Code Problem DTAP TEST V06.1 Active Problem Screening for malignant neoplasm of the cervix V76.2 Active 233478828 Problem Papanicolaou smear of anus w ith low grade squamous intraepithelial lesion (LGSIL) 796.73 Active 8213761735632 06 Problem Vomiting alone 787.03 Active 66013 0008 Problem Other malaise and fatigue 780.79 Acti ve 044676777 Problem Hordeolum externum 373.11 Active 1 599216 Problem Supervision of normal first V22.0 Active 761902711 Problem Streptococcus infection in c onditions classified elsewhere and of unspecified site, group B 041.02 Active 42 9039244 Problem Need for prophylactic vaccination and inoculation, Influen za V04.81 Active 683977215 Problem Fever, unspecified 780.60 Active 3 84951685 Problem Other disorder of menstruati on and other abnormal bleeding from female genital tract 626.8 Active 139234791 Problem Absence of menstruation 626.0 Active 85726233 Problem Maternal drug dependence, 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 01 [facility] [address] [id number] [address] [place] [address] Sep, Acute suppurative otitis med ia of left ear with spontaneous rupture of tympanic membrane, recurrence not specified H66.012 [facility] [address] [id number] [address] [place] [address] Nov, [facility] [address] [id number] [address] [place] [address] Sep, [facility] [address] [id number] [address] [place] [address] Sep, [facility] [address] [id number] [address] [place] [address] Jul, [facility] [address] [id number] [address] [place] [address] Jul, [facility] [address] [id number] [address] [place] [address] Aug, [facility] [address] [id number] [address] [place] [address] Aug, [facility] [address] [id number] [address] [place] [address] Aug, [facility] [address] [id number] [address] [place] [address] Aug, [facility] [address] [id number] [address] [place] [address] Aug, [facility] [address] [id number] [address] [place] [address] Aug, [facility] [address] [id number] [address] [place] [address] Aug, [facility] [address] [id number] [address] [place] [address] Aug, [facility] [place] [address] [id number] [address] [place] [address], [place] [address] Jul, [facility] [address] [id number] [address] [place] [address], [place] [address] Jul, [facility] [address] [id number] [address] [place] [address], [place] [address] Jul, [facility] [address] [id number] [address] [place] [address], [place] [address] Jul, [facility] [address] [id number] [address] [place] [address], [place] [address] Jul, [facility] [address] [id number] [address] [place] [address], [place] [address] Jul, [facility] [address] [id number] [address] [place] [address], [place] [address] Jul, [facility] [address] [id number] [address] [place] [address], [place] [address] Jul, [facility] [address] [id number] [address] [place] [address], [place] [address] Jun, [facility] [address] [id number] [address] [place] [address], [place] [address] Jun, [facility] [address] [id number] [address] [place] [address], [place] [address] Jun, [facility] [address] [id number] [address] [place] [address], [place] [address] Jun, [facility] [address] [id number] [address] [place] [address], [place] [address] Jun, [facility] [address] [id number] [address] [place] [address], [place] [address] Jun, [facility] [address] [id number] [address] [place] [address], [place] [address] May, [facility] [address] [id number] [address] [place] [address] [place] [address] May, [facility] [address] [id number] [address] [place] [address], [place] [address] May, [facility] [address] [id number] [address] [place] [address], [place] [address] May, [facility] [address] [id number] [address] [place] [address], [place] [address] May, [facility] [address] [id number] [address] [place] [address], [place] [address] May, [facility] [address] [id number] [address] [place] [address], [place] [address] May, [facility] [address] [id number] [address] [place] [address], [place] [address] May, [facility] [address] [id number] [address] [place] [address], [place] [address] May, [facility] [address] [id number] [address] [place] [address], [place] [address] Apr, [facility] [address] [id number] [address] [place] [address], [place] [address] Apr, [facility] [address] [id number] [address] [place] [address], [place] [address] Apr, [facility] [address] [id number] [address] [place] [address], [place] [address] Apr, [facility] [address] [id number] [address] [place] [address], [place] [address] Apr, [facility] [address] [id number] [address] [place] [address], [place] [address] Apr, [facility] [address] [id number] [address] [place] [address], [place] [address] Apr, [facility] [address] [id number] [address] [place] [address], [place] [address] Apr, [facility] [address] [id number] [address] [place] [address], [place] [address] Apr, [facility] [address] [id number] [address] [place] [address], [place] [address] Apr, [facility] [address] [id number] [address] [place] [address], [place] [address] Apr, [facility] [address] [id number] [address] [place] [address], [place] [address] Apr, [facility] [address] [id number] [address] [place] [address], [place] [address] Mar, [facility] [address] [id number] [address] [place] [address], [place] [address] Mar, [facility] [address] [id number] [address] [place] [address], [place] [address] Mar, [facility] [address] [id number] [address] [place] [address], [place] [address] Mar, [facility] [address] [id number] [address] [place] [address], [place] [address] Mar, [facility] [address] [id number] [address] [place] [address], [place] [address] Mar, [facility] [address] [id number] [address] [place] [address], [place] [address] Mar, [facility] [address] [id number] [address] [place] [address], [place] [address] Mar, [facility] [address] [id number] [address] [place] [address], [place] [address] Mar, [facility] [address] [id number] [address] [place] [address], [place] [address] Mar, [facility] [address] [id number] [address] [place] [address], [place] [address] Mar, [facility] [address] [id number] [address] [place] [address], [place] [address] Mar, [facility] [address] [id number] [address] [place] [address], [place] [address] Feb, [facility] [address] [id number] [address] [place] [address], [place] [address] Jan, [facility] [address] [id number] [address] [place] [address], [place] [address] Jan, [facility] [address] [id number] [address] [place] [address], [place] [address] Jan, [facility] [address] [id number] [address] [place] [address], [place] [address] October, [facility] [address] [id number] [address] [place] [address], [place] [address] Aug, [facility] [address] [id number] [address] [place] [address], [place] [address] Aug, [facility] [address] [id number] [address] [place] [address], [place] [address] October, [facility] [address] [id number] [address] [place] [address], [place] [address] Jul, [facility] [address] [id number] [address] [place] [address], [place] [address] Jun, [facility] [address] [id number] [address] [place] [address], [place] [address] Jun, [facility] [address] [id number] [address] [place] [address], [place] [address] May, [facility] [address] [id number] [address] [place] [address], [place] [address] Apr, [facility] [address] [id number] [address] [place] [address], [place] [address] Dec, [facility] [address] [id number] [address] [place] [address], [place] [address] Nov, [facility] [address] [id number] [address] [place] [address] 14 Nov, 2010 [facility] [address] [id number] [address] [place] [address] 11 Oct, 2010 [facility] [address] [facility] [id number] [address] [place] [address] 10 Aug, 2010 [facility] [address] [facility] [id number] [address] [place] [address] 07 May, 2010 [facility] [address] [facility] [id number] [address] [place] [address] 14 Mar, 2010 [facility] [address] [facility] [id number] [address] [place] [address] 14 Mar, 2010 [facility] [address] [facility] [id number] [address] [place] [address] 15 Feb, 2010 IMMUNIZATIONS No Known Immunizations SOCIAL HISTORY Never Assessed REASON FOR VISIT PLAN OF CARE VITAL SIGNS MEDICATIONS No Known Medications RESULTS No Results PROCEDURES No Known procedures INSTRUCTIONS MEDICATIONS ADMINISTERED No Known Medications MEDICAL (GENERAL) HISTORY Type Description Date Surgical History x 2 Hospitalization History childbirth
--- OUTSIDE RECORDS SUMMARY | 2019-11-18 22:22 | XMS REPORT ---
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 Active 1506417631903 06 Problem Vomiting alone 787.03 Active 31243 0008 Problem Other malaise and fatigue 780.79 Acti ve 282417843 Problem Hordeolum externum 373.11 Active 1 390118 Problem Supervision of normal first V22.0 Active 721287142 Problem Streptococcus infection in c onditions classified elsewhere and of unspecified site, group B 041.02 Active 42 6582665 Problem Need for prophylactic vaccination and inoculation, Influen za V04.81 Active 417628439 Problem Fever, unspecified 780.60 Active 3 86212670 Problem Other disorder of menstruati on and other abnormal bleeding from female genital tract 626.8 Active 273228202 Problem Absence of menstruation 626.0 Active 24180900 Problem Maternal drug dependence, 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 085511402 ALLERGIES No Information ENCOUNTERS Encounter Location Date Diagnosis [facility] [id number] [place] [address] October, Visit for TB skin test Z11.1 [facility] [id number] [place] [address] Sep, test positive Z32.01 [facility] [address] [id number] [place] [address] Sep, Acute suppurative otitis media of left e ar with spontaneous rupture of tympanic membrane, recurrence not specified H66.012 [facility] [address] [id number] [place] [address] Nov, [facility] [address] [id number] [place] [address] Sep, [facility] [id number] [place] [address] Sep, [facility] [id number] [place] [address] Jul, [facility] [id number] [place] [address] Jul, [facility] [id number] [place] [address] Aug, [facility] [id number] [place] [address] Aug, [facility] [id number] [place] [address] Aug, [facility] [id number] [place] [address] Aug, [facility] [id number] [place] [address] Aug, [facility] [id number] [place] [address] Aug, [facility] [id number] [place] [address] Aug, [facility] [address] [id number] [place] [address] Aug, [facility] [id number] [place] [address] Jul, [facility] [id number] [place] [address] Jul, [facility] [id number] [place] [address] Jul, [facility] [address] [facility] [id number] [place] [address] Jul, [facility] [address] [id number] [place] [address] Jul, [facility] [address] [id number] [place] [address] Jul, [facility] [address] [id number] [place] [address] Jul, [facility] [address] [facility] [id number] [place] [address] Jul, [facility] [address] [id number] [place] [address] Jun, [facility] [address] [id number] [place] [address] Jun, [facility] [address] [id number] [place] [address] Jun, [facility] [address] [id number] [place] [address] 14 Jun, 2013 [facility] [address] [id number] [place] [address] Jun, [facility] [address] [id number] [place] [address] Jun, [facility] [address] [id number] [place] [address] May, [facility] [address] [id number] [place] [address] May, [facility] [address] [id number] [place] [address] May, [facility] [address] [id number] [place] [address] May, [facility] [address] [id number] [place] [address] May, [facility] [address] [id number] [place] [address] 17 May, 2013 [facility] [address] [id number] [place] [address] May, [facility] [address] [id number] [place] [address] May, [facility] [address] [id number] [place] [address] May, [facility] [address] [id number] [place] [address] Apr, [facility] [address] [id number] [place] [address] Apr, [facility] [address] [id number] [place] [address] Apr, [facility] [address] [id number] [place] [address] Apr, [facility] [id number] [place] [address] Apr, [facility] [address] [id number] [place] [address] Apr, [facility] [id number] [place] [address] Apr, [facility] [address] [id number] [place] [address] Apr, [facility] [id number] [place] [address] Apr, [facility] [address] [id number] [place] [address] Apr, [facility] [id number] [place] [address] Apr, [facility] [address] [id number] [place] [address] Apr, [facility] [address] [id number] [place] [address] Mar, [facility] [address] [facility] [id number] [place] [address] Mar, [facility] [address] [id number] [place] [address] Mar, [facility] [address] [id number] [place] [address] Mar, [facility] [address] [id number] [place] [address] Mar, [facility] [address] [id number] [place] [address] Mar, [facility] [address] [id number] [place] [address] Mar, [facility] [address] [id number] [place] [address] Mar, [facility] [address] [id number] [place] [address] Mar, [facility] [address] [id number] [place] [address] Mar, [facility] [address] [id number] [place] [address] Mar, [facility] [address] [id number] [place] [address] Mar, [facility] [address] [id number] [place] [address] Feb, [facility] [address] [id number] [place] [address] Jan, [facility] [address] [facility] [id number] [place] [address] Jan, [facility] [address] [id number] [place] [address] Jan, [facility] [address] [id number] [place] [address] October, [facility] [address] [id number] [place] [address] Aug, [facility] [address] [id number] [place] [address] Aug, [facility] [id number] [place] [address] October, [facility] [address] [id number] [place] [address] Jul, [facility] [id number] [place] [address] Jun, [facility] [address] [id number] [place] [address] Jun, [facility] [id number] [place] [address] May, [facility] [id number] [place] [address] 30 Apr, 2011 [facility] [id number] [place] [address] 16 Dec, 2010 [facility] [id number] [place] [address] 15 Nov, 2010 [facility] [id number] [place] [address] 14 Nov, 2010 [facility] [id number] [place] [address] October, [facility] [id number] [place] [address] 10 Aug, 2010 [facility] [id number] [place] [address] 07 May, 2010 [facility] [id number] [place] [address] 14 Mar, 2010 [facility] [id number] [place] [address] 14 Mar, 2010 [facility] [id number] [place] [address] 15 Feb, 2010 IMMUNIZATIONS No Known Immunizations SOCIAL HISTORY Never Assessed REASON FOR VISIT PLAN OF CARE VITAL SIGNS MEDICATIONS Unknown Medications RESULTS No Results PROCEDURES No Known procedures INSTRUCTIONS MEDICATIONS ADMINISTERED No Known Medications
--- OUTSIDE RECORDS SUMMARY | 2019-11-18 22:22 | XMS REPORT ---
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) 796.73 Active [id number] 06 Problem Vomiting alone 787.03 Active 42059 0008 Problem Other malaise and fatigue 780.79 Acti ve 541246773 Problem Hordeolum externum 373.11 Active 1 913713 Problem Supervision of normal first V22.0 Active 799530704 Problem Streptococcus infection in c onditions classified elsewhere and of unspecified site, group B 041.02 Active 42 2293587 Problem Need for prophylactic vaccination and inoculation, Influen za V04.81 Active 895864043 Problem Fever, unspecified 780.60 Active 3 40123016 Problem Other disorder of menstruati on and other abnormal bleeding from female genital tract 626.8 Active 696114162 Problem Absence of menstruation 626.0 Active 62936079 Problem Maternal drug dependence, 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 830846936 ALLERGIES No Information ENCOUNTERS Encounter Location Date Diagnosis [facility] [id number] [place] [address] October, Visit for TB skin test Z11.1 [facility] [id number] [place] [address] Sep, test positive Z32.01 [facility] [address] [facility] [id number] [place] [address] Sep, Acute suppurative otitis media of left e ar with spontaneous rupture of tympanic membrane, recurrence not specified H66.012 [facility] [address] [facility] [id number] [place] [address] Nov, [facility] [address] [facility] [id number] [place] [address] Sep, [facility] [id number] [place] [address] Sep, [facility] [id number] [place] [address] Jul, [facility] [id number] [place] [address] Jul, [facility] [id number] [place] [address] Aug, [facility] [id number] [place] [address] Aug, [facility] [id number] [place] [address] Aug, [facility] [id number] [place] [address] Aug, [facility] [id number] [place] [address] Aug, [facility] [id number] [place] [address] Aug, [facility] [id number] [place] [address] Aug, [facility] [address] [facility] [id number] [place] [address] Aug, [facility] [id number] [place] [address] Jul, [facility] [id number] [place] [address] Jul, [facility] [id number] [place] [address] Jul, [facility] [address] [facility] [id number] [place] [address] Jul, [facility] [address] [facility] [id number] [place] [address] Jul, [facility] [address] [facility] [id number] [place] [address] Jul, [facility] [address] [facility] [id number] [place] [address] Jul, [facility] [address] [facility] [id number] [place] [address] Jul, [facility] [address] [facility] [id number] [place] [address] Jun, [facility] [address] [facility] [id number] [place] [address] Jun, [facility] [address] [facility] [id number] [place] [address] Jun, [facility] [address] [facility] [id number] [place] [address] 14 Jun, 2013 [facility] [address] [facility] [id number] [place] [address] Jun, [facility] [address] [facility] [id number] [place] [address] Jun, [facility] [address] [facility] [id number] [place] [address] May, [facility] [address] [facility] [id number] [place] [address] May, [facility] [address] [facility] [id number] [place] [address] May, [facility] [address] [facility] [id number] [place] [address] May, [facility] [address] [facility] [id number] [place] [address] May, [facility] [address] [facility] [id number] [place] [address] 17 May, 2013 [facility] [address] [facility] [id number] [place] [address] May, [facility] [address] [facility] [id number] [place] [address] May, [facility] [address] [facility] [id number] [place] [address] May, [facility] [address] [facility] [id number] [place] [address] Apr, [facility] [address] [facility] [id number] [place] [address] Apr, [facility] [address] [facility] [id number] [place] [address] Apr, [facility] [address] [facility] [id number] [place] [address] Apr, [facility] [id number] [place] [address] Apr, [facility] [address] [id number] [place] [address] Apr, [facility] [id number] [place] [address] Apr, [facility] [address] [facility] [id number] [place] [address] Apr, [facility] [id number] [place] [address] Apr, [facility] [address] [facility] [id number] [place] [address] Apr, [facility] [id number] [place] [address] Apr, [facility] [address] [id number] [place] [address] Apr, [facility] [address] [facility] [id number] [place] [address] Mar, [facility] [address] [facility] [id number] [place] [address] Mar, [facility] [address] [facility] [id number] [place] [address] Mar, [facility] [address] [facility] [id number] [place] [address] Mar, [facility] [address] [id number] [place] [address] Mar, [facility] [address] [id number] [place] [address] Mar, [facility] [address] [id number] [place] [address] Mar, [facility] [address] [facility] [id number] [place] [address] Mar, [facility] [address] [id number] [place] [address] Mar, [facility] [address] [facility] [id number] [place] [address] Mar, [facility] [address] [id number] [place] [address] Mar, [facility] [address] [id number] [place] [address] Mar, [facility] [address] [id number] [place] [address] Feb, [facility] [address] [id number] [place] [address] Jan, [facility] [address] [facility] [id number] [place] [address] Jan, [facility] [address] [facility] [id number] [place] [address] Jan, [facility] [address] [id number] [place] [address] October, [facility] [address] [facility] [id number] [place] [address] Aug, [facility] [address] [facility] [id number] [place] [address] Aug, [facility] [id number] [place] [address] October, [facility] [address] [facility] [id number] [place] [address] Jul, [facility] [id number] [place] [address] Jun, [facility] [address] [facility] [id number] [place] [address] Jun, [facility] [id number] [place] [address] May, [facility] [id number] [place] [address] 30 Apr, 2011 [facility] [id number] [place] [address] 16 Dec, 2010 [facility] [id number] [place] [address] 15 Nov, 2010 [facility] [id number] [place] [address] 14 Nov, 2010 [facility] [id number] [place] [address] October, [facility] [id number] [place] [address] 10 Aug, 2010 [facility] [id number] [place] [address] 07 May, 2010 [facility] [id number] [place] [address] 14 Mar, 2010 [facility] [id number] [place] [address] 14 Mar, 2010 [facility] [id number] [place] [address] 15 Feb, 2010 IMMUNIZATIONS No Known Immunizations SOCIAL HISTORY Never Assessed REASON FOR VISIT PLAN OF CARE VITAL SIGNS Height 66 in 2013-07-17 Weight 179.01 lbs 2013-07-17 Temperature 97.3 degrees Fahrenheit 2013-07-17 Heart Rate 84 bpm 2013-07-17 Respiratory Rate 24 2013-07-17 Blood pressure systolic 106 mmHg 2013-07-17 Blood pressure diastolic 74 mmHg 2013-07-17 MEDICATIONS Unknown Medications RESULTS No Results PROCEDURES Procedure Date Ordered Result Body Site URINE-NO MICRO Jul 17, 2013 INSTRUCTIONS MEDICATIONS ADMINISTERED No Known Medications
--- OUTSIDE RECORDS SUMMARY | 2019-11-18 22:22 | XMS REPORT ---
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.73 Active 5208425252515 06 Problem Vomiting alone 787.03 Active 49244 0008 Problem Other malaise and fatigue 780.79 Acti ve 181164048 Problem Hordeolum externum 373.11 Active 1 138646 Problem Supervision of normal first V22.0 Active 062114319 Problem Streptococcus infection in c onditions classified elsewhere and of unspecified site, group B 041.02 Active 42 8219545 Problem Need for prophylactic vaccination and inoculation, Influen za V04.81 Active 991251557 Problem Fever, unspecified 780.60 Active 3 48760226 Problem Other disorder of menstruati on and other abnormal bleeding from female genital tract 626.8 Active 029988108 Problem Absence of menstruation 626.0 Active 01885898 Problem Maternal drug dependence, 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 01 [address] [place] [facility] [id number] [address] [place] [address] Sep, Acute suppurative otitis med ia of left ear with spontaneous rupture of tympanic membrane, recurrence not specified H66.012 [facility] [address] [id number] [address] [place] [address], [place] [address] 18 Nov, 2014 [facility] [address] [id number] [address] [place] [address], [place] [address] 14 Sep, 2014 [facility] [address] [id number] [address] [place] [address], [place] [address] Sep, [facility] [address] [id number] [address] [place] [address], [place] [address] Jul, [facility] [address] [id number] [address] [place] [address], [place] [address] Jul, [facility] [address] [id number] [address] [place] [address], [place] [address] Aug, [facility] [address] [id number] [address] [place] [address], [place] [address] Aug, [facility] [address] [id number] [address] [place] [address], [place] [address] Aug, [facility] [address] [id number] [address] [place] [address], [place] [address] Aug, [facility] [address] [id number] [address] [place] [address], [place] [address] Aug, [facility] [address] [id number] [address] [place] [address], [place] [address] Aug, [facility] [address] [id number] [address] [place] [address], [place] [address] Aug, [facility] [address] [id number] [address] [place] [address], [place] [address] Aug, [facility] [address] [id number] [address] [place] [address], [place] [address] Jul, [facility] [address] [id number] [address] [place] [address], [place] [address] Jul, [facility] [address] [id number] [address] [place] [address], [place] [address] Jul, [facility] [address] [id number] [address] [place] [address], [place] [address] Jul, [facility] [address] [id number] [address] [place] [address], [place] [address] Jul, [facility] [address] [id number] [address] [place] [address], [place] [address] Jul, [facility] [address] [id number] [address] [place] [address], [place] [address] Jul, [facility] [address] [id number] [address] [place] [address], [place] [address] Jul, [facility] [address] [id number] [address] [place] [address], [place] [address] Jun, [facility] [address] [id number] [address] [place] [address], [place] [address] Jun, [facility] [address] [id number] [address] [place] [address], [place] [address] Jun, [facility] [address] [id number] [address] [place] [address], [place] [address] Jun, [facility] [address] [id number] [address] [place] [address], [place] [address] Jun, [facility] [address] [id number] [address] [place] [address], [place] [address] Jun, [facility] [address] [id number] [address] [place] [address], [place] [address] May, [facility] [address] [id number] [address] [place] [address], [place] [address] May, [facility] [address] [id number] [address] [place] [address], [place] [address] May, [facility] [address] [id number] [address] [place] [address], [place] [address] 17 May, 2013 [facility] [address] [id number] [address] [place] [address], [place] [address] 17 May, 2013 [facility] [address] [id number] [address] [place] [address], [place] [address] May, [facility] [address] [id number] [address] [place] [address], [place] [address] May, [facility] [address] [id number] [address] [place] [address], [place] [address] May, [facility] [address] [id number] [address] [place] [address], [place] [address] May, [facility] [address] [id number] [address] [place] [address], [place] [address] Apr, [facility] [address] [id number] [address] [place] [address], [place] [address] Apr, [facility] [address] [id number] [address] [place] [address], [place] [address] Apr, [facility] [address] [id number] [address] [place] [address], [place] [address] Apr, [facility] [address] [id number] [address] [place] [address], [place] [address] Apr, [facility] [address] [id number] [address] [place] [address], [place] [address] Apr, [facility] [address] [id number] [address] [place] [address], [place] [address] Apr, [facility] [address] [id number] [address] [place] [address], [place] [address] Apr, [facility] [address] [id number] [address] [place] [address], [place] [address] Apr, [facility] [address] [id number] [address] [place] [address], [place] [address] Apr, [facility] [address] [id number] [address] [place] [address] [address] Apr, [facility] [address] [id number] [address] [place] [address], [place] [address] Apr, [facility] [address] [id number] [address] [place] [address], [place] [address] Mar, [facility] [address] [id number] [address] [place] [address], [place] [address] Mar, [facility] [address] [id number] [address] [place] [address], [place] [address] Mar, [facility] [address] [id number] [address] [place] [address], [place] [address] Mar, [facility] [address] [id number] [address] [place] [address], [place] [address] Mar, [facility] [address] [id number] [address] [place] [address], [place] [address] Mar, [facility] [address] [id number] [address] [place] [address], [place] [address] Mar, [facility] [address] [id number] [address] [place] [address], [place] [address] Mar, [facility] [address] [id number] [address] [place] [address], [place] [address] Mar, [facility] [address] [id number] [address] [place] [address] Mar, [facility] [address] [id number] [address] [place] [address] Mar, [facility] [address] [id number] [address] [place] [address], [place] [address] Mar, [facility] [address] [id number] [address] [place] [address] Feb, [facility] [address] [id number] [address] [place] [address], [place] [address] Jan, [facility] [address] [id number] [address] [place] [address], [place] [address] Jan, [facility] [address] [id number] [address] [place] [address], [place] [address] Jan, [facility] [address] [id number] [address] [place] [address], [place] [address] October, [facility] [address] [id number] [address] [place] [address], [place] [address] Aug, [facility] [address] [id number] [address] [place] [address], [place] [address] Aug, [facility] [address] [id number] [address] [place] [address], [place] [address] October, [facility] [address] [id number] [address] [place] [address], [place] [address] Jul, [facility] [address] [id number] [address] [place] [address], [place] [address] Jun, [facility] [address] [id number] [address] [place] [address], [place] [address] Jun, [facility] [address] [id number] [address] [place] [address], [place] [address] May, [facility] [address] [id number] [address] [place] [address], [place] [address] Apr, [facility] [address] [id number] [address] [place] [address], [place] [address] Dec, [facility] [address] [id number] [address] [place] [address], [place] [address] 15 Nov, 2010 [facility] [address] [id number] [address] [place] [address], [place] [id number] 14 Nov, 2010 [facility] [address] [id number] [address] [place] [address], [place] [id number] October, [facility] [address] [id number] [address] [place] [address], [place] [phone] Aug, [facility] [address] [facility] [id number] [address] [place] [id number] May, [facility] [address] [facility] [id number] [address] [place] [id number] 14 Mar, 2010 [facility] [address] [facility] [id number] [address] [place] [id number] 14 Mar, 2010 [facility] [address] [facility] [id number] [address] [place] [id number] 15 Feb, 2010 IMMUNIZATIONS No Known Immunizations SOCIAL HISTORY Never Assessed REASON FOR VISIT PLAN OF CARE VITAL SIGNS MEDICATIONS Unknown Medications RESULTS No Results PROCEDURES No Known procedures INSTRUCTIONS MEDICATIONS ADMINISTERED No Known Medications
--- OUTSIDE RECORDS SUMMARY | 2019-11-18 22:22 | XMS REPORT ---
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) 796.73 Active 1440726504630 06 Problem Vomiting alone 787.03 Active 97030 0008 Problem Other malaise and fatigue 780.79 Acti ve 481087629 Problem Hordeolum externum 373.11 Active 1 164797 Problem Supervision of normal first V22.0 Active 125941172 Problem Streptococcus infection in c onditions classified elsewhere and of unspecified site, group B 041.02 Active 42 0354627 Problem Need for prophylactic vaccination and inoculation, Influen za V04.81 Active 823169556 Problem Fever, unspecified 780.60 Active 3 84753967 Problem Other disorder of menstruati on and other abnormal bleeding from female genital tract 626.8 Active 825225689 Problem Absence of menstruation 626.0 Active 79573615 Problem Maternal drug dependence, 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 [id number] ALLERGIES No Information ENCOUNTERS Encounter Location Date Diagnosis [facility] [id number] [place] [address] October, Visit for TB skin test Z11.1 [facility] [id number] [place] [address] Sep, test positive Z32.01 [facility] [address] [id number] [place] [address] Sep, Acute suppurative otitis media of left e ar with spontaneous rupture of tympanic membrane, recurrence not specified H66.012 [facility] [address] [id number] [place] [address] Nov, [facility] [address] [id number] [place] [address] Sep, [facility] [id number] [place] [address] Sep, [facility] [id number] [place] [address] Jul, [facility] [id number] [place] [address] Jul, [facility] [id number] [place] [address] Aug, [facility] [id number] [place] [address] Aug, [facility] [id number] [place] [address] Aug, [facility] [id number] [place] [address] Aug, [facility] [id number] [place] [address] Aug, [facility] [id number] [place] [address] Aug, [facility] [id number] [place] [address] Aug, [facility] [address] [id number] [place] [address] Aug, [facility] [id number] [place] [address] Jul, [facility] [id number] [place] [address] Jul, [facility] [id number] [place] [address] Jul, [facility] [address] [facility] [id number] [place] [address] Jul, [facility] [address] [id number] [place] [address] Jul, [facility] [address] [id number] [place] [address] Jul, [facility] [address] [id number] [place] [address] Jul, [facility] [address] [facility] [id number] [place] [address] Jul, [facility] [address] [id number] [place] [address] Jun, [facility] [address] [id number] [place] [address] Jun, [facility] [address] [id number] [place] [address] Jun, [facility] [address] [id number] [place] [address] 14 Jun, 2013 [facility] [address] [id number] [place] [address] Jun, [facility] [address] [id number] [place] [address] Jun, [facility] [address] [id number] [place] [address] May, [facility] [address] [id number] [place] [address] May, [facility] [address] [id number] [place] [address] May, [facility] [address] [id number] [place] [address] May, [facility] [address] [id number] [place] [address] May, [facility] [address] [id number] [place] [address] 17 May, 2013 [facility] [address] [id number] [place] [address] May, [facility] [address] [id number] [place] [address] May, [facility] [address] [id number] [place] [address] May, [facility] [address] [id number] [place] [address] Apr, [facility] [address] [id number] [place] [address] Apr, [facility] [address] [id number] [place] [address] Apr, [facility] [address] [id number] [place] [address] Apr, [facility] [id number] [place] [address] Apr, [facility] [address] [id number] [place] [address] Apr, [facility] [id number] [place] [address] Apr, [facility] [address] [id number] [place] [address] Apr, [facility] [id number] [place] [address] Apr, [facility] [address] [id number] [place] [address] Apr, [facility] [id number] [place] [address] Apr, [facility] [address] [id number] [place] [address] Apr, [facility] [address] [id number] [place] [address] Mar, [facility] [address] [facility] [id number] [place] [address] Mar, [facility] [address] [id number] [place] [address] Mar, [facility] [address] [id number] [place] [address] Mar, [facility] [address] [id number] [place] [address] Mar, [facility] [address] [id number] [place] [address] Mar, [facility] [address] [id number] [place] [address] Mar, [facility] [address] [id number] [place] [address] Mar, [facility] [address] [id number] [place] [address] Mar, [facility] [address] [id number] [place] [address] Mar, [facility] [address] [id number] [place] [address] Mar, [facility] [address] [id number] [place] [address] Mar, [facility] [address] [id number] [place] [address] Feb, [facility] [address] [id number] [place] [address] Jan, [facility] [address] [facility] [id number] [place] [address] Jan, [facility] [address] [id number] [place] [address] Jan, [facility] [address] [id number] [place] [address] October, [facility] [address] [id number] [place] [address] Aug, [facility] [address] [id number] [place] [address] Aug, [facility] [id number] [place] [address] October, [facility] [address] [id number] [place] [address] Jul, [facility] [id number] [place] [address] Jun, [facility] [address] [id number] [place] [address] Jun, [facility] [id number] [place] [address] May, [facility] [id number] [place] [address] 30 Apr, 2011 [facility] [id number] [place] [address] 16 Dec, 2010 [facility] [id number] [place] [address] 15 Nov, 2010 [facility] [id number] [place] [address] 14 Nov, 2010 [facility] [id number] [place] [address] October, [facility] [id number] [place] [address] 10 Aug, 2010 [facility] [id number] [place] [address] 07 May, 2010 [facility] [id number] [place] [address] 14 Mar, 2010 [facility] [id number] [place] [address] 14 Mar, 2010 [facility] [id number] [place] [address] 15 Feb, 2010 IMMUNIZATIONS No Known Immunizations SOCIAL HISTORY Never Assessed REASON FOR VISIT PLAN OF CARE VITAL SIGNS MEDICATIONS Unknown Medications RESULTS No Results PROCEDURES Procedure Date Ordered Result Body Site OB US, FOLLOW-UP, PER FETUS Jul 06, 2013 INSTRUCTIONS MEDICATIONS ADMINISTERED No Known Medications
--- OUTSIDE RECORDS SUMMARY | 2019-11-18 22:22 | XMS REPORT ---
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) 796.73 Active 9199033444607 06 Problem Vomiting alone 787.03 Active 65510 0008 Problem Other malaise and fatigue 780.79 Acti ve 074651032 Problem Hordeolum externum 373.11 Active 1 314414 Problem Supervision of normal first V22.0 Active 397111787 Problem Streptococcus infection in c onditions classified elsewhere and of unspecified site, group B 041.02 Active 42 6461744 Problem Need for prophylactic vaccination and inoculation, Influen za V04.81 Active 173828480 Problem Fever, unspecified 780.60 Active 3 93839841 Problem Other disorder of menstruati on and other abnormal bleeding from female genital tract 626.8 Active 742413610 Problem Absence of menstruation 626.0 Active 96888619 Problem Maternal drug dependence, 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 [id number] [place] [address] October, Visit for TB skin test Z11.1 [facility] [id number] [place] [address] Sep, test positive Z32.01 [facility] [address] [id number] [place] [address] Sep, Acute suppurative otitis media of left e ar with spontaneous rupture of tympanic membrane, recurrence not specified H66.012 [facility] [address] [id number] [place] [address] Nov, [facility] [address] [id number] [place] [address] Sep, [facility] [id number] [place] [address] Sep, [facility] [id number] [place] [address] Jul, [facility] [id number] [place] [address] Jul, [facility] [id number] [place] [address] Aug, [facility] [id number] [place] [address] Aug, [facility] [id number] [place] [address] Aug, [facility] [id number] [place] [address] Aug, [facility] [id number] [place] [address] Aug, [facility] [id number] [place] [address] Aug, [facility] [id number] [place] [address] Aug, [facility] [address] [id number] [place] [address] Aug, [facility] [id number] [place] [address] Jul, [facility] [id number] [place] [address] Jul, [facility] [id number] [place] [address] Jul, [facility] [address] [facility] [id number] [place] [address] Jul, [facility] [address] [id number] [place] [address] Jul, [facility] [address] [id number] [place] [address] Jul, [facility] [address] [id number] [place] [address] Jul, [facility] [address] [facility] [id number] [place] [address] Jul, [facility] [address] [id number] [place] [address] Jun, [facility] [address] [id number] [place] [address] Jun, [facility] [address] [id number] [place] [address] Jun, [facility] [address] [id number] [place] [address] 14 Jun, 2013 [facility] [address] [id number] [place] [address] Jun, [facility] [address] [id number] [place] [address] Jun, [facility] [address] [id number] [place] [address] May, [facility] [address] [id number] [place] [address] May, [facility] [address] [id number] [place] [address] May, [facility] [address] [id number] [place] [address] May, [facility] [address] [id number] [place] [address] May, [facility] [address] [id number] [place] [address] 17 May, 2013 [facility] [address] [id number] [place] [address] May, [facility] [address] [id number] [place] [address] May, [facility] [address] [id number] [place] [address] May, [facility] [address] [id number] [place] [address] Apr, [facility] [address] [id number] [place] [address] Apr, [facility] [address] [id number] [place] [address] Apr, [facility] [address] [id number] [place] [address] Apr, [facility] [id number] [place] [address] Apr, [facility] [address] [id number] [place] [address] Apr, [facility] [id number] [place] [address] Apr, [facility] [address] [id number] [place] [address] Apr, [facility] [id number] [place] [address] Apr, [facility] [address] [id number] [place] [address] Apr, [facility] [id number] [place] [address] Apr, [facility] [address] [id number] [place] [address] Apr, [facility] [address] [id number] [place] [address] Mar, [facility] [address] [facility] [id number] [place] [address] Mar, [facility] [address] [id number] [place] [address] Mar, [facility] [address] [id number] [place] [address] Mar, [facility] [address] [id number] [place] [address] Mar, [facility] [address] [id number] [place] [address] Mar, [facility] [address] [id number] [place] [address] Mar, [facility] [address] [id number] [place] [address] Mar, [facility] [address] [id number] [place] [address] Mar, [facility] [address] [id number] [place] [address] Mar, [facility] [address] [id number] [place] [address] Mar, [facility] [address] [id number] [place] [address] Mar, [facility] [address] [id number] [place] [address] Feb, [facility] [address] [id number] [place] [address] Jan, [facility] [address] [facility] [id number] [place] [address] Jan, [facility] [address] [id number] [place] [address] Jan, [facility] [address] [id number] [place] [address] October, [facility] [address] [id number] [place] [address] Aug, [facility] [address] [id number] [place] [address] Aug, [facility] [id number] [place] [address] October, [facility] [address] [id number] [place] [address] Jul, [facility] [id number] [place] [address] Jun, [facility] [address] [id number] [place] [address] Jun, [facility] [id number] [place] [address] May, [facility] [id number] [place] [address] [address], [address] [facility] [id number] [place] [address] 16 Dec, 2010 [facility] [id number] [place] [address] [address] Nov, [address] [facility] [id number] [place] [address] [address] Nov, [address] [facility] [id number] [place] [address] October, [facility] [id number] [place] [address] 10 Aug, [address] [facility] [id number] [place] [address] 07 May, 2010 [facility] [id number] [place] [address] [address] Mar, [address] [facility] [id number] [place] [address] 14 Mar, 2010 [facility] [id number] [place] [address] 15 Feb, 2010 IMMUNIZATIONS No Known Immunizations SOCIAL HISTORY Never Assessed REASON FOR VISIT PLAN OF CARE VITAL SIGNS MEDICATIONS Unknown Medications RESULTS No Results PROCEDURES No Known procedures INSTRUCTIONS MEDICATIONS ADMINISTERED No Known Medications
--- OUTSIDE RECORDS SUMMARY | 2019-11-18 22:22 | XMS REPORT ---
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) 796.73 Active 1680023001237 06 Problem Vomiting alone 787.03 Active 20965 0008 Problem Other malaise and fatigue 780.79 Acti ve 910702511 Problem Hordeolum externum 373.11 Active 1 884816 Problem Supervision of normal first V22.0 Active 284961854 Problem Streptococcus infection in c onditions classified elsewhere and of unspecified site, group B 041.02 Active 42 9255679 Problem Need for prophylactic vaccination and inoculation, Influen za V04.81 Active 241876392 Problem Fever, unspecified 780.60 Active 3 67576471 Problem Other disorder of menstruati on and other abnormal bleeding from female genital tract 626.8 Active 639685129 Problem Absence of menstruation 626.0 Active 41858520 Problem Maternal drug dependence, 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 232851091 ALLERGIES No Information ENCOUNTERS Encounter Location Date Diagnosis [facility] [id number] [place] [address] October, Visit for TB skin test Z11.1 [facility] [id number] [place] [address] Sep, test positive Z32.01 [facility] [address] [id number] [place] [address] Sep, Acute suppurative otitis media of left e ar with spontaneous rupture of tympanic membrane, recurrence not specified H66.012 [facility] [address] [id number] [place] [address] Nov, [facility] [address] [id number] [place] [address] Sep, [facility] [id number] [place] [address] Sep, [facility] [id number] [place] [address] Jul, [facility] [id number] [place] [address] Jul, [facility] [id number] [place] [address] Aug, [facility] [id number] [place] [address] Aug, [facility] [id number] [place] [address] Aug, [facility] [id number] [place] [address] Aug, [facility] [id number] [place] [address] Aug, [facility] [id number] [place] [address] Aug, [facility] [id number] [place] [address] Aug, [facility] [address] [id number] [place] [address] Aug, [facility] [id number] [place] [address] Jul, [facility] [id number] [place] [address] Jul, [facility] [id number] [place] [address] Jul, [facility] [address] [facility] [id number] [place] [address] Jul, [facility] [address] [id number] [place] [address] Jul, [facility] [address] [id number] [place] [address] Jul, [facility] [address] [id number] [place] [address] Jul, [facility] [address] [facility] [id number] [place] [address] Jul, [facility] [address] [id number] [place] [address] Jun, [facility] [address] [id number] [place] [address] Jun, [facility] [address] [id number] [place] [address] Jun, [facility] [address] [id number] [place] [address] 14 Jun, 2013 [facility] [address] [id number] [place] [address] Jun, [facility] [address] [id number] [place] [address] Jun, [facility] [address] [id number] [place] [address] May, [facility] [address] [id number] [place] [address] May, [facility] [address] [id number] [place] [address] May, [facility] [address] [id number] [place] [address] May, [facility] [address] [id number] [place] [address] May, [facility] [address] [id number] [place] [address] 17 May, 2013 [facility] [address] [id number] [place] [address] May, [facility] [address] [id number] [place] [address] May, [facility] [address] [id number] [place] [address] May, [facility] [address] [id number] [place] [address] Apr, [facility] [address] [id number] [place] [address] Apr, [facility] [address] [id number] [place] [address] Apr, [facility] [address] [id number] [place] [address] Apr, [facility] [id number] [place] [address] Apr, [facility] [address] [id number] [place] [address] Apr, [facility] [id number] [place] [address] Apr, [facility] [address] [id number] [place] [address] Apr, [facility] [id number] [place] [address] Apr, [facility] [address] [id number] [place] [address] Apr, [facility] [id number] [place] [address] Apr, [facility] [address] [id number] [place] [address] Apr, [facility] [address] [id number] [place] [address] Mar, [facility] [address] [facility] [id number] [place] [address] Mar, [facility] [address] [id number] [place] [address] Mar, [facility] [address] [id number] [place] [address] Mar, [facility] [address] [id number] [place] [address] Mar, [facility] [address] [id number] [place] [address] Mar, [facility] [address] [id number] [place] [address] Mar, [facility] [address] [id number] [place] [address] Mar, [facility] [address] [id number] [place] [address] Mar, [facility] [address] [id number] [place] [address] Mar, [facility] [address] [id number] [place] [address] Mar, [facility] [address] [id number] [place] [address] Mar, [facility] [address] [id number] [place] [address] Feb, [facility] [address] [id number] [place] [address] Jan, [facility] [address] [facility] [id number] [place] [address] Jan, [facility] [address] [id number] [place] [address] Jan, [facility] [address] [id number] [place] [address] October, [facility] [address] [id number] [place] [address] Aug, [facility] [address] [id number] [place] [address] Aug, [facility] [id number] [place] [address] October, [facility] [address] [id number] [place] [address] Jul, [facility] [id number] [place] [address] Jun, [facility] [address] [id number] [place] [address] Jun, [facility] [id number] [place] [address] May, [facility] [id number] [place] [address] 30 Apr, 2011 [facility] [id number] [place] [address] 16 Dec, 2010 [facility] [id number] [place] [address] 15 Nov, 2010 [facility] [id number] [place] [address] 14 Nov, 2010 [facility] [id number] [place] [address] October, [facility] [id number] [place] [address] 10 Aug, 2010 [facility] [id number] [place] [address] 07 May, 2010 [facility] [id number] [place] [address] 14 Mar, 2010 [facility] [id number] [place] [address] 14 Mar, 2010 [facility] [id number] [place] [address] 15 Feb, 2010 IMMUNIZATIONS No Known Immunizations SOCIAL HISTORY Never Assessed REASON FOR VISIT PLAN OF CARE VITAL SIGNS Height 66 in 2013-08-14 Weight 186.49 lbs 2013-08-14 Temperature 98.4 degrees Fahrenheit 2013-08-14 Heart Rate 92 bpm 2013-08-14 Respiratory Rate 20 2013-08-14 Blood pressure systolic 104 mmHg 2013-08-14 Blood pressure diastolic 68 mmHg 2013-08-14 MEDICATIONS Unknown Medications RESULTS No Results PROCEDURES Procedure Date Ordered Result Body Site OB US, FOLLOW-UP, PER FETUS August 14, 2013 URINE-NO MICRO August 14, 2013 INSTRUCTIONS MEDICATIONS ADMINISTERED No Known Medications
--- OUTSIDE RECORDS SUMMARY | 2019-11-18 22:22 | XMS REPORT ---
Author Author Carolina CANDELARIA 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 Active 3462849137194 06 Problem Vomiting alone 787.03 Active 27666 0008 Problem Other malaise and fatigue 780.79 Acti ve 114687507 Problem Hordeolum externum 373.11 Active 1 101581 Problem Supervision of normal first V22.0 Active 214739571 Problem Streptococcus infection in c onditions classified elsewhere and of unspecified site, group B 041.02 Active 42 2002671 Problem Need for prophylactic vaccination and inoculation, Influen za V04.81 Active 063452894 Problem Fever, unspecified 780.60 Active 3 00756471 Problem Other disorder of menstruati on and other abnormal bleeding from female genital tract 626.8 Active 981868261 Problem Absence of menstruation 626.0 Active 09915319 Problem Maternal drug dependence, 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 333008803 ALLERGIES No Information ENCOUNTERS Encounter Location Date Diagnosis [facility] [id number] [place] [address] October, Visit for TB skin test Z11.1 [facility] [id number] [place] [address] Sep, test positive Z32.01 [facility] [address] [id number] [place] [address] Sep, Acute suppurative otitis media of left e ar with spontaneous rupture of tympanic membrane, recurrence not specified H66.012 [facility] [address] [id number] [place] [address] Nov, [facility] [address] [id number] [place] [address] Sep, [facility] [id number] [place] [address] Sep, [facility] [id number] [place] [address] Jul, [facility] [id number] [place] [address] Jul, [facility] [id number] [place] [address] Aug, [facility] [id number] [place] [address] Aug, [facility] [id number] [place] [address] Aug, [facility] [id number] [place] [address] Aug, [facility] [id number] [place] [address] Aug, [facility] [id number] [place] [address] Aug, [facility] [id number] [place] [address] Aug, [facility] [address] [id number] [place] [address] Aug, [facility] [id number] [place] [address] Jul, [facility] [id number] [place] [address] Jul, [facility] [id number] [place] [address] Jul, [facility] [address] [facility] [id number] [place] [address] Jul, [facility] [address] [id number] [place] [address] Jul, [facility] [address] [id number] [place] [address] Jul, [facility] [address] [id number] [place] [address] Jul, [facility] [address] [facility] [id number] [place] [address] Jul, [facility] [address] [id number] [place] [address] Jun, [facility] [address] [id number] [place] [address] Jun, [facility] [address] [id number] [place] [address] Jun, [facility] [address] [id number] [place] [address] 14 Jun, 2013 [facility] [address] [id number] [place] [address] Jun, [facility] [address] [id number] [place] [address] Jun, [facility] [address] [id number] [place] [address] May, [facility] [address] [id number] [place] [address] May, [facility] [address] [id number] [place] [address] May, [facility] [address] [id number] [place] [address] May, [facility] [address] [id number] [place] [address] May, [facility] [address] [id number] [place] [address] 17 May, 2013 [facility] [address] [id number] [place] [address] May, [facility] [address] [id number] [place] [address] May, [facility] [address] [id number] [place] [address] May, [facility] [address] [id number] [place] [address] Apr, [facility] [address] [id number] [place] [address] Apr, [facility] [address] [id number] [place] [address] Apr, [facility] [address] [id number] [place] [address] Apr, [facility] [id number] [place] [address] Apr, [facility] [address] [id number] [place] [address] Apr, [facility] [id number] [place] [address] Apr, [facility] [address] [id number] [place] [address] Apr, [facility] [id number] [place] [address] Apr, [facility] [address] [id number] [place] [address] Apr, [facility] [id number] [place] [address] Apr, [facility] [address] [id number] [place] [address] Apr, [facility] [address] [id number] [place] [address] Mar, [facility] [address] [facility] [id number] [place] [address] Mar, [facility] [address] [id number] [place] [address] Mar, [facility] [address] [id number] [place] [address] Mar, [facility] [address] [id number] [place] [address] Mar, [facility] [address] [id number] [place] [address] Mar, [facility] [address] [id number] [place] [address] Mar, [facility] [address] [id number] [place] [address] Mar, [facility] [address] [id number] [place] [address] Mar, [facility] [address] [id number] [place] [address] Mar, [facility] [address] [id number] [place] [address] Mar, [facility] [address] [id number] [place] [address] Mar, [facility] [address] [id number] [place] [address] Feb, [facility] [address] [id number] [place] [address] Jan, [facility] [address] [facility] [id number] [place] [address] Jan, [facility] [address] [id number] [place] [address] Jan, [facility] [address] [id number] [place] [address] October, [facility] [address] [id number] [place] [address] Aug, [facility] [address] [id number] [place] [address] Aug, [facility] [id number] [place] [address] October, [facility] [address] [id number] [place] [address] Jul, [facility] [id number] [place] [address] Jun, [facility] [address] [id number] [place] [address] Jun, [facility] [id number] [place] [address] May, [facility] [id number] [place] [address] 30 Apr, 2011 [facility] [id number] [place] [address] 16 Dec, 2010 [facility] [id number] [place] [address] 15 Nov, 2010 [facility] [id number] [place] [address] 14 Nov, 2010 [facility] [id number] [place] [address] October, [facility] [id number] [place] [address] 10 Aug, 2010 [facility] [address] [id number] [place] [address] 07 May, 2010 [facility] [address] [id number] [place] [address] 14 Mar, 2010 [facility] [address] [id number] [place] [address] 14 Mar, 2010 [facility] [address] [id number] [place] [address] 15 Feb, 2010 IMMUNIZATIONS No Known Immunizations SOCIAL HISTORY Never Assessed REASON FOR VISIT PLAN OF CARE VITAL SIGNS MEDICATIONS Unknown Medications RESULTS No Results PROCEDURES No Known procedures INSTRUCTIONS MEDICATIONS ADMINISTERED No Known Medications
--- OUTSIDE RECORDS SUMMARY | 2019-11-18 22:22 | XMS REPORT ---
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 Active 2708387938062 06 Problem Vomiting alone 787.03 Active 20784 0008 Problem Other malaise and fatigue 780.79 Acti ve 975939638 Problem Hordeolum externum 373.11 Active 1 518467 Problem Supervision of normal first V22.0 Active 067161915 Problem Streptococcus infection in c onditions classified elsewhere and of unspecified site, group B 041.02 Active 42 2690254 Problem Need for prophylactic vaccination and inoculation, Influen za V04.81 Active 457094678 Problem Fever, unspecified 780.60 Active 3 13806210 Problem Other disorder of menstruati on and other abnormal bleeding from female genital tract 626.8 Active 267202575 Problem Absence of menstruation 626.0 Active 76157068 Problem Maternal drug dependence, 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 [place] [address] Sep, Acute suppurative otitis media of left e ar with spontaneous rupture of tympanic membrane, recurrence not specified H66.012 [facility] [address] [id number] [place] [address] Nov, [facility] [address] [id number] [place] [address] Sep, [facility] [id number] [place] [address] Sep, [facility] [id number] [place] [address] Jul, [facility] [id number] [place] [address] Jul, [facility] [id number] [place] [address] Aug, [facility] [id number] [place] [address] Aug, [facility] [id number] [place] [address] Aug, [facility] [id number] [place] [address] Aug, [facility] [id number] [place] [address] Aug, [facility] [id number] [place] [address] Aug, [facility] [id number] [place] [address] Aug, [facility] [address] [id number] [place] [address] Aug, [facility] [id number] [place] [address] Jul, [facility] [id number] [place] [address] Jul, [facility] [id number] [place] [address] Jul, [facility] [address] [facility] [id number] [place] [address] Jul, [facility] [address] [id number] [place] [address] Jul, [facility] [address] [id number] [place] [address] Jul, [facility] [address] [id number] [place] [address] Jul, [facility] [address] [facility] [id number] [place] [address] Jul, [facility] [address] [id number] [place] [address] Jun, [facility] [address] [id number] [place] [address] Jun, [facility] [address] [id number] [place] [address] Jun, [facility] [address] [id number] [place] [address] 14 Jun, 2013 [facility] [address] [id number] [place] [address] Jun, [facility] [address] [id number] [place] [address] Jun, [facility] [address] [id number] [place] [address] May, [facility] [address] [id number] [place] [address] May, [facility] [address] [id number] [place] [address] May, [facility] [address] [id number] [place] [address] May, [facility] [address] [id number] [place] [address] May, [facility] [address] [id number] [place] [address] 17 May, 2013 [facility] [address] [id number] [place] [address] May, [facility] [address] [id number] [place] [address] May, [facility] [address] [id number] [place] [address] May, [facility] [address] [id number] [place] [address] Apr, [facility] [address] [id number] [place] [address] Apr, [facility] [address] [id number] [place] [address] Apr, [facility] [address] [id number] [place] [address] Apr, [facility] [id number] [place] [address] Apr, [facility] [address] [id number] [place] [address] Apr, [facility] [id number] [place] [address] Apr, [facility] [address] [id number] [place] [address] Apr, [facility] [id number] [place] [address] Apr, [facility] [address] [id number] [place] [address] Apr, [facility] [id number] [place] [address] Apr, [facility] [address] [id number] [place] [address] Apr, [facility] [address] [id number] [place] [address] Mar, [facility] [address] [facility] [id number] [place] [address] Mar, [facility] [address] [id number] [place] [address] Mar, [facility] [address] [id number] [place] [address] Mar, [facility] [address] [id number] [place] [address] Mar, [facility] [address] [id number] [place] [address] Mar, [facility] [address] [id number] [place] [address] Mar, [facility] [address] [id number] [place] [address] Mar, [facility] [address] [id number] [place] [address] Mar, [facility] [address] [id number] [place] [address] Mar, [facility] [address] [id number] [place] [address] Mar, [facility] [address] [id number] [place] [address] Mar, [facility] [address] [id number] [place] [address] Feb, [facility] [address] [id number] [place] [address] Jan, [facility] [address] [facility] [id number] [place] [address] Jan, [facility] [address] [id number] [place] [address] Jan, [facility] [address] [id number] [place] [address] October, [facility] [address] [id number] [place] [address] Aug, [facility] [address] [id number] [place] [address] Aug, [facility] [id number] [place] [address] October, [facility] [address] [id number] [place] [address] Jul, [facility] [id number] [place] [address] Jun, [facility] [address] [id number] [place] [address] Jun, [facility] [id number] [place] [address] May, [facility] [id number] [place] [address] 30 Apr, 2011 [facility] [id number] [place] [address] 16 Dec, 2010 [facility] [id number] [place] [address] 15 Nov, 2010 [facility] [id number] [place] [address] 14 Nov, 2010 [facility] [id number] [place] [address] October, [facility] [id number] [place] [address] 10 Aug, 2010 [facility] [id number] [place] [address] 07 May, 2010 [facility] [id number] [place] [address] 14 Mar, 2010 [facility] [id number] [place] [address] 14 Mar, 2010 [facility] [id number] [place] [address] 15 Feb, 2010 IMMUNIZATIONS No Known Immunizations SOCIAL HISTORY Never Assessed REASON FOR VISIT PLAN OF CARE VITAL SIGNS MEDICATIONS Unknown Medications RESULTS No Results PROCEDURES No Known procedures INSTRUCTIONS MEDICATIONS ADMINISTERED No Known Medications
--- OUTSIDE RECORDS SUMMARY | 2019-11-18 22:22 | XMS REPORT ---
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.73 Active 4244477315340 06 Problem Vomiting alone 787.03 Active 48634 0008 Problem Other malaise and fatigue 780.79 Acti ve 352721938 Problem Hordeolum externum 373.11 Active 1 268887 Problem Supervision of normal first V22.0 Active 526902393 Problem Streptococcus infection in c onditions classified elsewhere and of unspecified site, group B 041.02 Active 42 8440678 Problem Need for prophylactic vaccination and inoculation, Influen za V04.81 Active 674787192 Problem Fever, unspecified 780.60 Active 3 46187788 Problem Other disorder of menstruati on and other abnormal bleeding from female genital tract 626.8 Active 979443213 Problem Absence of menstruation 626.0 Active 00115233 Problem Maternal drug dependence, 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 994772482 ALLERGIES No Information ENCOUNTERS Encounter Location Date Diagnosis [facility] [id number] [place] [address] October, Visit for TB skin test Z11.1 [facility] [id number] [place] [address] Sep, test positive Z32.01 [facility] [address] [id number] [place] [address] Sep, Acute suppurative otitis media of left e ar with spontaneous rupture of tympanic membrane, recurrence not specified H66.012 [facility] [address] [id number] [place] [address] Nov, [facility] [address] [id number] [place] [address] Sep, [facility] [id number] [place] [address] Sep, [facility] [id number] [place] [address] Jul, [facility] [id number] [place] [address] Jul, [facility] [id number] [place] [address] Aug, [facility] [id number] [place] [address] Aug, [facility] [id number] [place] [address] Aug, [facility] [id number] [place] [address] Aug, [facility] [id number] [place] [address] Aug, [facility] [id number] [place] [address] Aug, [facility] [id number] [place] [address] Aug, [facility] [address] [id number] [place] [address] Aug, [facility] [id number] [place] [address] Jul, [facility] [id number] [place] [address] Jul, [facility] [id number] [place] [address] Jul, [facility] [address] [facility] [id number] [place] [address] Jul, [facility] [address] [id number] [place] [address] Jul, [facility] [address] [id number] [place] [address] Jul, [facility] [address] [id number] [place] [address] Jul, [facility] [address] [facility] [id number] [place] [address] Jul, [facility] [address] [id number] [place] [address] Jun, [facility] [address] [id number] [place] [address] Jun, [facility] [address] [id number] [place] [address] Jun, [facility] [address] [id number] [place] [address] 14 Jun, 2013 [facility] [address] [id number] [place] [address] Jun, [facility] [address] [id number] [place] [address] Jun, [facility] [address] [id number] [place] [address] May, [facility] [address] [id number] [place] [address] May, [facility] [address] [id number] [place] [address] May, [facility] [address] [id number] [place] [address] May, [facility] [address] [id number] [place] [address] May, [facility] [address] [id number] [place] [address] 17 May, 2013 [facility] [address] [id number] [place] [address] May, [facility] [address] [id number] [place] [address] May, [facility] [address] [id number] [place] [address] May, [facility] [address] [id number] [place] [address] Apr, [facility] [address] [id number] [place] [address] Apr, [facility] [address] [id number] [place] [address] Apr, [facility] [address] [id number] [place] [address] Apr, [facility] [id number] [place] [address] Apr, [facility] [address] [id number] [place] [address] Apr, [facility] [id number] [place] [address] Apr, [facility] [address] [id number] [place] [address] Apr, [facility] [id number] [place] [address] Apr, [facility] [address] [id number] [place] [address] Apr, [facility] [id number] [place] [address] Apr, [facility] [address] [id number] [place] [address] Apr, [facility] [address] [id number] [place] [address] Mar, [facility] [address] [facility] [id number] [place] [address] Mar, [facility] [address] [id number] [place] [address] Mar, [facility] [address] [id number] [place] [address] Mar, [facility] [address] [id number] [place] [address] Mar, [facility] [address] [id number] [place] [address] Mar, [facility] [address] [id number] [place] [address] Mar, [facility] [address] [id number] [place] [address] Mar, [facility] [address] [id number] [place] [address] Mar, [facility] [address] [id number] [place] [address] Mar, [facility] [address] [id number] [place] [address] Mar, [facility] [address] [id number] [place] [address] Mar, [facility] [address] [id number] [place] [address] Feb, [facility] [address] [id number] [place] [address] Jan, [facility] [address] [facility] [id number] [place] [address] Jan, [facility] [address] [id number] [place] [address] Jan, [facility] [address] [id number] [place] [address] October, [facility] [address] [id number] [place] [address] Aug, [facility] [address] [id number] [place] [address] Aug, [facility] [id number] [place] [address] October, [facility] [address] [id number] [place] [address] Jul, [facility] [id number] [place] [address] Jun, [facility] [address] [id number] [place] [address] Jun, [facility] [id number] [place] [address] May, [facility] [id number] [place] [address] 30 Apr, 2011 [facility] [id number] [place] [address] 16 Dec, 2010 [facility] [id number] [place] [address] 15 Nov, 2010 [facility] [id number] [place] [address] 14 Nov, 2010 [facility] [id number] [place] [address] October, [facility] [id number] [place] [address] 10 Aug, 2010 [facility] [id number] [place] [address] 07 May, 2010 [facility] [id number] [place] [address] 14 Mar, 2010 [facility] [id number] [place] [address] 14 Mar, 2010 [facility] [id number] [place] [address] 15 Feb, 2010 IMMUNIZATIONS No Known Immunizations SOCIAL HISTORY Never Assessed REASON FOR VISIT PLAN OF CARE VITAL SIGNS MEDICATIONS Unknown Medications RESULTS No Results PROCEDURES No Known procedures INSTRUCTIONS MEDICATIONS ADMINISTERED No Known Medications
--- OUTSIDE RECORDS SUMMARY | 2019-11-18 22:23 | XMS REPORT ---
Author Author Carolina Mosher Doctor Organization [facility] Address Unknown Phone Unavailable Care Team Providers Care Freight Rate Analyst Name Role Phone Migration, Doctor Unavailable Unavailable PROBLEMS Type Condition ICD9-CM Code ILH49-PD Code Onset Dates Condition S tatus SNOMED Code Problem DTAP TEST V06.1 Active Problem Screening for malignant neoplasm of the cervix V76.2 Active 602271606 Problem Papanicolaou smear of anus w ith low grade squamous intraepithelial lesion (LGSIL) 796.73 Active 9412676983131 06 Problem Vomiting alone 787.03 Active 96533 0008 Problem Other malaise and fatigue 780.79 Acti ve 634094327 Problem Hordeolum externum 373.11 Active 1 146732 Problem Supervision of normal first V22.0 Active 942253286 Problem Streptococcus infection in c onditions classified elsewhere and of unspecified site, group B 041.02 Active 42 9909326 Problem Need for prophylactic vaccination and inoculation, Influen za V04.81 Active 699812199 Problem Fever, unspecified 780.60 Active 3 80799172 Problem Other disorder of menstruati on and other abnormal bleeding from female genital tract 626.8 Active 504113457 Problem Absence of menstruation 626.0 Active 14299873 Problem Maternal drug dependence, 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 01 [place] [address] [facility] [id number] [address] [place] [address] Sep, Acute suppurative otitis med ia of left ear with spontaneous rupture of tympanic membrane, recurrence not specified H66.012 [facility] [address] [id number] [address] [place] [address], [place] [address] 18 Nov, 2014 [facility] [address] [id number] [address] [place] [address], [place] [address] 14 Sep, 2014 [facility] [address] [id number] [address] [place] [address], [place] [address] Sep, [facility] [address] [id number] [address] [place] [address], [place] [address] Jul, [facility] [address] [id number] [address] [place] [address], [place] [address] Jul, [facility] [address] [id number] [address] [place] [address], [place] [address] Aug, [facility] [address] [id number] [address] [place] [address], [place] [address] Aug, [facility] [address] [id number] [address] [place] [address], [place] [address] Aug, [facility] [address] [id number] [address] [place] [address], [place] [address] Aug, [facility] [address] [id number] [address] [place] [address], [place] [address] Aug, [facility] [address] [id number] [address] [place] [address], [place] [address] Aug, [facility] [address] [id number] [address] [place] [address], [place] [address] Aug, [facility] [address] [id number] [address] [place] [address], [place] [address] Aug, [facility] [address] [id number] [address] [place] [address], [place] [address] Jul, [facility] [address] [id number] [address] [place] [address], [place] [address] Jul, [facility] [address] [id number] [address] [place] [address], [place] [address] Jul, [facility] [address] [id number] [address] [place] [address], [place] [address] Jul, [facility] [address] [id number] [address] [place] [address], [place] [address] Jul, [facility] [address] [id number] [address] [place] [address], [place] [address] Jul, [facility] [address] [id number] [address] [place] [address], [place] [address] Jul, [facility] [address] [id number] [address] [place] [address], [place] [address] Jul, [facility] [address] [id number] [address] [place] [address], [place] [address] Jun, [facility] [address] [id number] [address] [place] [address], [place] [address] Jun, [facility] [address] [id number] [address] [place] [address], [place] [address] Jun, [facility] [address] [id number] [address] [place] [address], [place] [address] Jun, [facility] [address] [id number] [address] [place] [address], [place] [address] Jun, [facility] [address] [id number] [address] [place] [address], [place] [address] Jun, [facility] [address] [id number] [address] [place] [address], [place] [address] May, [facility] [address] [id number] [address] [place] [address], [place] [address] May, [facility] [address] [id number] [address] [place] [address], [place] [address] May, [facility] [address] [id number] [address] [place] [address], [place] [address] 17 May, 2013 [facility] [address] [id number] [address] [place] [address], [place] [address] 17 May, 2013 [facility] [address] [id number] [address] [place] [address], [place] [address] May, [facility] [address] [id number] [address] [place] [address], [place] [address] May, [facility] [address] [id number] [address] [place] [address], [place] [address] May, [facility] [address] [id number] [address] [place] [address], [place] [address] May, [facility] [address] [id number] [address] [place] [address], [place] [address] Apr, [facility] [address] [id number] [address] [place] [address], [place] [address] Apr, [facility] [address] [id number] [address] [place] [address], [place] [address] Apr, [facility] [address] [id number] [address] [place] [address], [place] [address] Apr, [facility] [address] [id number] [address] [place] [address], [place] [address] Apr, [facility] [address] [id number] [address] [place] [address], [place] [address] Apr, [facility] [address] [id number] [address] [place] [address], [place] [address] Apr, [facility] [address] [id number] [address] [place] [address], [place] [address] Apr, [facility] [address] [id number] [address] [place] [address], [place] [address] Apr, [facility] [address] [id number] [address] [place] [address], [place] [address] Apr, [facility] [address] [id number] [address] [place] [address] [address] Apr, [facility] [address] [id number] [address] [place] [address], [place] [address] Apr, [facility] [address] [id number] [address] [place] [address], [place] [address] Mar, [facility] [address] [id number] [address] [place] [address], [place] [address] Mar, [facility] [address] [id number] [address] [place] [address], [place] [address] Mar, [facility] [address] [id number] [address] [place] [address], [place] [address] Mar, [facility] [address] [id number] [address] [place] [address], [place] [address] Mar, [facility] [address] [id number] [address] [place] [address], [place] [address] Mar, [facility] [address] [id number] [address] [place] [address], [place] [address] Mar, [facility] [address] [id number] [address] [place] [address], [place] [address] Mar, [facility] [address] [id number] [address] [place] [address], [place] [address] Mar, [facility] [address] [id number] [address] [place] [address] Mar, [facility] [address] [id number] [address] [place] [address] Mar, [facility] [address] [id number] [address] [place] [address], [place] [address] Mar, [facility] [address] [id number] [address] [place] [address] Feb, [facility] [address] [id number] [address] [place] [address], [place] [address] Jan, [facility] [address] [id number] [address] [place] [address], [place] [address] Jan, [facility] [address] [id number] [address] [place] [address], [place] [address] Jan, [facility] [address] [id number] [address] [place] [address], [place] [address] October, [facility] [address] [id number] [address] [place] [address], [place] [address] Aug, [facility] [address] [id number] [address] [place] [address], [place] [address] Aug, [facility] [address] [id number] [address] [place] [address], [place] [address] October, [facility] [address] [id number] [address] [place] [address], [place] [address] Jul, [facility] [address] [id number] [address] [place] [address], [place] [address] Jun, [facility] [address] [id number] [address] [place] [address], [place] [address] Jun, [facility] [address] [id number] [address] [place] [address], [place] [address] May, [facility] [address] [id number] [address] [place] [address], [place] [address] Apr, [facility] [address] [id number] [address] [place] [address], [place] [address] Dec, [facility] [address] [id number] [address] [place] [address], [place] [address] 15 Nov, 2010 [facility] [address] [id number] [address] [place] [address], [place] [address] 14 Nov, 2010 [facility] [address] [id number] [address] [place] [address], [place] [address] October, [facility] [address] [id number] [address] [place] [address], [place] [address] Aug, [facility] [address] [facility] [id number] [address] [place] [address] 07 May, 2010 [facility] [address] [facility] [id number] [address] [place] [address] 14 Mar, 2010 [facility] [address] [facility] [id number] [address] [place] [address] 14 Mar, 2010 [facility] [address] [facility] [id number] [address] [place] [address] 15 Feb, 2010 IMMUNIZATIONS No Known Immunizations SOCIAL HISTORY Never Assessed REASON FOR VISIT EMR-[facility] PLAN OF CARE VITAL SIGNS MEDICATIONS Unknown Medications RESULTS No Results PROCEDURES No Known procedures INSTRUCTIONS MEDICATIONS ADMINISTERED No Known Medications
--- OUTSIDE RECORDS SUMMARY | 2019-11-18 22:23 | XMS REPORT ---
Author Author Carolina Mosher Doctor Organization [facility] Address Unknown Phone Unavailable Care Team Providers Care Mailroom Coordinator Name Role Phone Migration, Doctor Unavailable Unavailable PROBLEMS Type Condition ICD9-CM Code [id number] Code Onset Dates Condition S tatus SNOMED Code Problem DTAP TEST V06.1 Active Problem Screening for malignant neoplasm of the cervix V76.2 Active 376408156 Problem Papanicolaou smear of anus w ith low grade squamous intraepithelial lesion (LGSIL) 796.73 Active [id number] 06 Problem Vomiting alone 787.03 Active 78532 0008 Problem Other malaise and fatigue 780.79 Acti ve 036342209 Problem Hordeolum externum 373.11 Active 1 048454 Problem Supervision of normal first V22.0 Active 540559837 Problem Streptococcus infection in c onditions classified elsewhere and of unspecified site, group B 041.02 Active 42 2742035 Problem Need for prophylactic vaccination and inoculation, Influen za V04.81 Active 513148479 Problem Fever, unspecified 780.60 Active 3 51456862 Problem Other disorder of menstruati on and other abnormal bleeding from female genital tract 626.8 Active 769941596 Problem Absence of menstruation 626.0 Active 37722210 Problem Maternal drug dependence, 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 [id number] [address] [place] [address] October, Visit for TB skin test Z11.1 [facility] [address] [facility] [id number] [address] [place] [address] Sep, test positive Z32. 01 [facility] [address] [facility] [id number] [address] [place] [address] Sep, Acute suppurative otitis med ia of left ear with spontaneous rupture of tympanic membrane, recurrence not specified H66.012 [facility] [address] [id number] [address] [place] [address], [place] [address] 18 Nov, 2014 [facility] [address] [id number] [address] [place] [address], [place] [address] 14 Sep, 2014 [facility] [address] [id number] [address] [place] [address], [place] [address] Sep, [facility] [address] [id number] [address] [place] [address], [place] [address] Jul, [facility] [address] [id number] [address] [place] [address], [place] [address] Jul, [facility] [address] [id number] [address] [place] [address], [place] [address] Aug, [facility] [address] [id number] [address] [place] [address], [place] [address] Aug, [facility] [address] [id number] [address] [place] [address] Aug, [facility] [address] [id number] [address] [place] [address], [place] [address] Aug, [facility] [address] [id number] [address] [place] [address] Aug, [facility] [address] [id number] [address] [place] [address] Aug, [facility] [address] [id number] [address] [place] [address] Aug, [facility] [address] [id number] [address] [place] [address], [place] [address] Aug, [facility] [address] [id number] [address] [place] [address] Jul, [facility] [address] [id number] [address] [place] [address] Jul, [facility] [address] [id number] [address] [place] [address], [place] [address] 11 Jul, 2013 [facility] [address] [id number] [address] [place] [address], [place] [address] Jul, [facility] [address] [id number] [address] [place] [address], [place] [address] Jul, [facility] [address] [id number] [address] [place] [address], [place] [address] Jul, [facility] [address] [id number] [address] [place] [address], [place] [address] Jul, [facility] [address] [id number] [address] [place] [address], [place] [address] Jul, [facility] [address] [id number] [address] [place] [address], [place] [address] Jun, [facility] [address] [id number] [address] [place] [address], [place] [address] Jun, [facility] [address] [id number] [address] [place] [address], [place] [address] Jun, [facility] [address] [id number] [address] [place] [address], [place] [address] Jun, [facility] [address] [id number] [address] [place] [address], [place] [address] Jun, [facility] [address] [id number] [address] [place] [address], [place] [address] Jun, [facility] [address] [id number] [address] [place] [address], [place] [address] May, [facility] [address] [id number] [address] [place] [address], [place] [address] May, [facility] [address] [id number] [address] [place] [address], [place] [address] May, [facility] [address] [id number] [address] [place] [address], [place] [address] 17 May, 2013 [facility] [address] [id number] [address] [place] [address], [place] [address] 17 May, 2013 [facility] [address] [id number] [address] [place] [address], [place] [address] May, [facility] [address] [id number] [address] [place] [address], [place] [address] May, [facility] [address] [id number] [address] [place] [address], [place] [address] May, [facility] [address] [id number] [address] [place] [address], [place] [address] May, [facility] [address] [id number] [address] [place] [address], [place] [address] Apr, [facility] [address] [id number] [address] [place] [address], [place] [address] Apr, [facility] [address] [id number] [address] [place] [address], [place] [address] Apr, [facility] [address] [id number] [address] [place] [address], [place] [address] Apr, [facility] [address] [id number] [address] [place] [address], [place] [address] Apr, [facility] [address] [id number] [address] [place] [address] Apr, [facility] [address] [id number] [address] [place] [address] Apr, [facility] [address] [id number] [address] [place] [address], [place] [address] Apr, [facility] [address] [id number] [address] [place] [address] 18 Apr, 2013 [facility] [address] [id number] [address] [place] [address] Apr, [facility] [address] [id number] [address] [place] [address], [place] [address] Apr, [facility] [address] [id number] [address] [place] [address], [place] [address] Apr, [facility] [address] [id number] [address] [place] [address], [place] [address] Mar, [facility] [address] [id number] [address] [place] [address], [place] [address] Mar, [facility] [address] [id number] [address] [place] [address], [place] [address] Mar, [facility] [address] [id number] [address] [place] [address], [place] [address] Mar, [facility] [address] [id number] [address] [place] [address], [place] [address] Mar, [facility] [address] [id number] [address] [place] [address], [place] [address] Mar, [facility] [address] [id number] [address] [place] [address], [place] [address] Mar, [facility] [address] [id number] [address] [place] [address], [place] [address] Mar, [facility] [address] [id number] [address] [place] [address], [place] [address] Mar, [facility] [address] [id number] [address] [place] [address], [place] [address] Mar, [facility] [address] [id number] [address] [place] [address], [place] [address] Mar, [facility] [address] [id number] [address] [place] [address], [place] [address] Mar, [facility] [address] [id number] [address] [place] [address], [place] [address] Feb, [facility] [address] [id number] [address] [place] [address], [place] [address] Jan, [facility] [address] [id number] [address] [place] [address], [place] [address] Jan, [facility] [address] [id number] [address] [place] [address], [place] [address] Jan, [facility] [address] [id number] [address] [place] [address], [place] [address] October, [facility] [address] [id number] [address] [place] [address], [place] [address] Aug, [facility] [address] [id number] [address] [place] [address], [place] [address] Aug, [facility] [address] [id number] [address] [place] [address], [place] [address] October, [facility] [address] [id number] [address] [place] [address], [place] [address] Jul, [facility] [address] [id number] [address] [place] [address], [place] [address] Jun, [facility] [address] [id number] [address] [place] [address], [place] [address] Jun, [facility] [address] [id number] [address] [place] [address], [place] [address] May, [facility] [address] [id number] [address] [place] [address], [place] [address] Apr, [facility] [address] [id number] [address] [place] [address], [place] [address] Dec, [facility] [address] [id number] [address] [place] [address], [place] [address] Nov, [facility] [address] [id number] [address] [place] [address], [place] [address] Nov, [facility] [address] [id number] [address] [place] [address], [place] [address] October, [facility] [address] [id number] [address] [place] [address] 10 Aug, 2010 [facility] [address] [facility] [id number] [address] [place] [address] May, [facility] [address] [id number] [address] [place] [address] 14 Mar, 2010 [facility] [address] [facility] [id number] [address] [place] [address] 14 Mar, 2010 [facility] [address] [facility] [id number] [address] [place] [address] 15 Feb, 2010 IMMUNIZATIONS No Known Immunizations SOCIAL HISTORY Never Assessed REASON FOR VISIT EMR-[facility] PLAN OF CARE VITAL SIGNS MEDICATIONS Medication Instructions Dosage Frequency Start Date End Date Duration S tatus gentamicin 0.3 % 1 drop by Ophthalmic route 4 times pe r day for 7 day(s) Apr, Active Doxycycline Hyclate 100 mg 1 tablet by Oral rout e 2 times per day for 10 days October, Active Plus take 1 tablet by oral route once daily Mar, Active Azithromycin 250 mg 2 Tablet by Oral rou te on day 1 then take 1 daily for 8 days Jan, Active Tessalon Perles 100 mg 1 capsule by Oral route 3 times per day for 7 days PRN Aug, Active Macrobid 100 mg take 1 capsule (100 mg) by oral route 2 times per day with food for 7 days Mar, Active Mucinex D 60-600 mg take 1 tablet by Ora l route 2 times per day for 10 day(s) PRN Aug, Active PredniSONE 10 mg 1 tablet by Oral rou te 2 times per day for 5 days as directed- suggested dosing time 8 am and noon Jan, Active RESULTS No Results PROCEDURES No Known procedures INSTRUCTIONS MEDICATIONS ADMINISTERED No Known Medications
--- OUTSIDE RECORDS SUMMARY | 2019-11-18 22:23 | XMS REPORT ---
Author Author Carolina Mosher Doctor Organization [facility] Address Unknown Phone Unavailable Care Team Providers Care Station Gateman Name Role Phone Migration, Doctor Unavailable Unavailable PROBLEMS Type Condition ICD9-CM Code [id number] Code Onset Dates Condition S tatus SNOMED Code Problem DTAP TEST V06.1 Active Problem Screening for malignant neoplasm of the cervix V76.2 Active 145407118 Problem Papanicolaou smear of anus w ith low grade squamous intraepithelial lesion (LGSIL) 796.73 Active 8660050991369 06 Problem Vomiting alone 787.03 Active 43093 0008 Problem Other malaise and fatigue 780.79 Acti ve 163428228 Problem Hordeolum externum 373.11 Active 1 404013 Problem Supervision of normal first V22.0 Active 395391144 Problem Streptococcus infection in c onditions classified elsewhere and of unspecified site, group B 041.02 Active 42 3617110 Problem Need for prophylactic vaccination and inoculation, Influen za V04.81 Active 117737496 Problem Fever, unspecified 780.60 Active 3 94943602 Problem Other disorder of menstruati on and other abnormal bleeding from female genital tract 626.8 Active 753312577 Problem Absence of menstruation 626.0 Active 05453361 Problem Maternal drug dependence, 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 01 [place] [facility] [id number] [address] [place] [address] Sep, Acute suppurative otitis med ia of left ear with spontaneous rupture of tympanic membrane, recurrence not specified H66.012 [facility] [address] [id number] [address] [place] [address], [place] [address] 18 Nov, 2014 [facility] [address] [id number] [address] [place] [address], [place] [address] 14 Sep, 2014 [facility] [address] [id number] [address] [place] [address], [place] [address] Sep, [facility] [address] [id number] [address] [place] [address], [place] [address] Jul, [facility] [address] [id number] [address] [place] [address], [place] [address] Jul, [facility] [address] [id number] [address] [place] [address], [place] [address] Aug, [facility] [address] [id number] [address] [place] [address], [place] [address] Aug, [facility] [address] [id number] [address] [place] [address], [place] [address] Aug, [facility] [address] [id number] [address] [place] [address], [place] [address] Aug, [facility] [address] [id number] [address] [place] [address], [place] [address] Aug, [facility] [address] [id number] [address] [place] [address], [place] [address] Aug, [facility] [address] [id number] [address] [place] [address], [place] [address] Aug, [facility] [address] [id number] [address] [place] [address], [place] [address] Aug, [facility] [address] [id number] [address] [place] [address], [place] [address] Jul, [facility] [address] [id number] [address] [place] [address], [place] [address] Jul, [facility] [address] [id number] [address] [place] [address], [place] [address] Jul, [facility] [address] [id number] [address] [place] [address], [place] [address] Jul, [facility] [address] [id number] [address] [place] [address], [place] [address] Jul, [facility] [address] [id number] [address] [place] [address], [place] [address] Jul, [facility] [address] [id number] [address] [place] [address], [place] [address] Jul, [facility] [address] [id number] [address] [place] [address], [place] [address] Jul, [facility] [address] [id number] [address] [place] [address], [place] [address] Jun, [facility] [address] [id number] [address] [place] [address], [place] [address] Jun, [facility] [address] [id number] [address] [place] [address], [place] [address] Jun, [facility] [address] [id number] [address] [place] [address], [place] [address] Jun, [facility] [address] [id number] [address] [place] [address], [place] [address] Jun, [facility] [address] [id number] [address] [place] [address], [place] [address] Jun, [facility] [address] [id number] [address] [place] [address], [place] [address] May, [facility] [address] [id number] [address] [place] [address], [place] [address] May, [facility] [address] [id number] [address] [place] [address], [place] [address] May, [facility] [address] [id number] [address] [place] [address], [place] [address] 17 May, 2013 [facility] [address] [id number] [address] [place] [address], [place] [address] 17 May, 2013 [facility] [address] [id number] [address] [place] [address], [place] [address] May, [facility] [address] [id number] [address] [place] [address], [place] [address] May, [facility] [address] [id number] [address] [place] [address], [place] [address] May, [facility] [address] [id number] [address] [place] [address], [place] [address] May, [facility] [address] [id number] [address] [place] [address], [place] [address] Apr, [facility] [address] [id number] [address] [place] [address], [place] [address] Apr, [facility] [address] [id number] [address] [place] [address], [place] [address] Apr, [facility] [address] [id number] [address] [place] [address], [place] [address] Apr, [facility] [address] [id number] [address] [place] [address], [place] [address] Apr, [facility] [address] [id number] [address] [place] [address], [place] [address] Apr, [facility] [address] [id number] [address] [place] [address], [place] [address] Apr, [facility] [address] [id number] [address] [place] [address], [place] [address] Apr, [facility] [address] [id number] [address] [place] [address], [place] [address] Apr, [facility] [address] [id number] [address] [place] [address], [place] [address] Apr, [facility] [address] [id number] [address] [place] [address] [address] Apr, [facility] [address] [id number] [address] [place] [address], [place] [address] Apr, [facility] [address] [id number] [address] [place] [address], [place] [address] Mar, [facility] [address] [id number] [address] [place] [address], [place] [address] Mar, [facility] [address] [id number] [address] [place] [address], [place] [address] Mar, [facility] [address] [id number] [address] [place] [address], [place] [address] Mar, [facility] [address] [id number] [address] [place] [address], [place] [address] Mar, [facility] [address] [id number] [address] [place] [address], [place] [address] Mar, [facility] [address] [id number] [address] [place] [address], [place] [address] Mar, [facility] [address] [id number] [address] [place] [address], [place] [address] Mar, [facility] [address] [id number] [address] [place] [address], [place] [address] Mar, [facility] [address] [id number] [address] [place] [address] Mar, [facility] [address] [id number] [address] [place] [address] Mar, [facility] [address] [id number] [address] [place] [address], [place] [address] Mar, [facility] [address] [id number] [address] [place] [address] Feb, [facility] [address] [id number] [address] [place] [address], [place] [address] Jan, [facility] [address] [id number] [address] [place] [address], [place] [address] Jan, [facility] [address] [id number] [address] [place] [address], [place] [address] Jan, [facility] [address] [id number] [address] [place] [address], [place] [address] October, [facility] [address] [id number] [address] [place] [address], [place] [address] Aug, [facility] [address] [id number] [address] [place] [address], [place] [address] Aug, [facility] [address] [id number] [address] [place] [address], [place] [address] October, [facility] [address] [id number] [address] [place] [address], [place] [address] Jul, [facility] [address] [id number] [address] [place] [address], [place] [address] Jun, [facility] [address] [id number] [address] [place] [address], [place] [address] Jun, [facility] [address] [id number] [address] [place] [address], [place] [address] May, [facility] [address] [id number] [address] [place] [address], [place] [address] Apr, [facility] [address] [id number] [address] [place] [address], [place] [address] Dec, [facility] [address] [id number] [address] [place] [address], [place] [address] 15 Nov, 2010 [facility] [address] [id number] [address] [place] [address], [place] [address] 14 Nov, 2010 [facility] [address] [id number] [address] [place] [address], [place] [address] October, [facility] [address] [id number] [address] [place] [address], [place] [address] Aug, [facility] [address] [facility] [id number] [address] [place] [address] [address], [address] [facility] [address] [facility] [id number] [address] [place] [address] [address], [address] [facility] [address] [facility] [id number] [address] [place] [address] 14 Mar, 2010 [facility] [address] [facility] [id number] [address] [place] [address] 15 Feb, 2010 IMMUNIZATIONS No Known Immunizations SOCIAL HISTORY Never Assessed REASON FOR VISIT EMR[place] [place] CARE VITAL SIGNS MEDICATIONS Unknown Medications RESULTS No Results PROCEDURES No Known procedures INSTRUCTIONS MEDICATIONS ADMINISTERED No Known Medications
--- OUTSIDE RECORDS SUMMARY | 2019-11-18 22:23 | XMS REPORT ---
Author Author Carolina BAKER Organization [facility] [place] Address [address] [place] [address] Care Team Providers Care Plant Superintendent Name Role Phone MO BAKER Unavailable PROBLEMS Type Condition ICD9-CM Code [id number] Code Onset Dates Condition S tatus SNOMED Code Problem DTAP TEST V06.1 Active Problem Screening for malignant neoplasm of the cervix V76.2 Active 483350423 Problem Papanicolaou smear of anus w ith low grade squamous intraepithelial lesion (LGSIL) 796.73 Active 2008020088932 06 Problem Vomiting alone 787.03 Active 75212 0008 Problem Other malaise and fatigue 780.79 Acti ve 121186587 Problem Hordeolum externum 373.11 Active 1 154829 Problem Supervision of normal first V22.0 Active 979400499 Problem Streptococcus infection in c onditions classified elsewhere and of unspecified site, group B 041.02 Active 42 5022308 Problem Need for prophylactic vaccination and inoculation, Influen za V04.81 Active 045300141 Problem Fever, unspecified 780.60 Active 3 00465428 Problem Other disorder of menstruati on and other abnormal bleeding from female genital tract 626.8 Active 750975751 Problem Absence of menstruation 626.0 Active 57448891 Problem Maternal drug dependence, 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 [id number] [address] [place] [address] October, Visit for TB skin test Z11.1 [facility] [place] [address] [facility] [id number] [address] [place] [address] Sep, test positive Z32. 01 [facility] [place] [address] [facility] [id number] [address] [place] [address] Sep, Acute suppurative otitis med ia of left ear with spontaneous rupture of tympanic membrane, recurrence not specified H66.012 [facility] [address] [id number] [address] [place] [address], [place] [address] Nov, [facility] [address] [id number] [address] [place] [address], [place] [address] Sep, [facility] [address] [id number] [address] [place] [address], [place] [address] Sep, [facility] [address] [id number] [address] [place] [address], [place] [address] Jul, [facility] [address] [id number] [address] [place] [address], [place] [address] Jul, [facility] [address] [id number] [address] [place] [address] Aug, [facility] [address] [id number] [address] [place] [address] Aug, [facility] [address] [id number] [address] [place] [address] Aug, [facility] [address] [id number] [address] [place] [address] Aug, [facility] [address] [id number] [address] [place] [address] Aug, [facility] [address] [id number] [address] [place] [address] Aug, [facility] [address] [id number] [address] [place] [address] Aug, [facility] [address] [id number] [address] [place] [address] Aug, [facility] [address] [id number] [address] [place] [address] Jul, [facility] [address] [id number] [address] [place] [address] Jul, [facility] [address] [id number] [address] [place] [address], [place] [address] Jul, [facility] [address] [id number] [address] [place] [address], [place] [address] Jul, [facility] [address] [id number] [address] [place] [address], [place] [address] Jul, [facility] [address] [id number] [address] [place] [address], [place] [address] Jul, [facility] [address] [id number] [address] [place] [address], [place] [address] Jul, [facility] [address] [id number] [address] [place] [address], [place] [address] Jul, [facility] [address] [id number] [address] [place] [address], [place] [address] Jun, [facility] [address] [id number] [address] [place] [address], [place] [address] Jun, [facility] [address] [id number] [address] [place] [address], [place] [address] Jun, [facility] [address] [id number] [address] [place] [address], [place] [address] Jun, [facility] [address] [id number] [address] [place] [address], [place] [address] Jun, [facility] [address] [id number] [address] [place] [address], [place] [address] Jun, [facility] [address] [id number] [address] [place] [address], [place] [address] May, [facility] [address] [id number] [address] [place] [address], [place] [address] May, [facility] [address] [id number] [address] [place] [address], [place] [address] May, [facility] [address] [id number] [address] [place] [address], [place] [address] May, [facility] [address] [id number] [address] [place] [address], [place] [address] May, [facility] [address] [id number] [address] [place] [address], [place] [address] May, [facility] [address] [id number] [address] [place] [address], [place] [address] May, [facility] [address] [id number] [address] [place] [address], [place] [address] May, [facility] [address] [id number] [address] [place] [address], [place] [address] May, [facility] [address] [id number] [address] [place] [address], [place] [address] Apr, [facility] [address] [id number] [address] [place] [address], [place] [address] Apr, [facility] [address] [id number] [address] [place] [address], [place] [address] Apr, [facility] [address] [id number] [address] [place] [address], [place] [address] Apr, [facility] [address] [id number] [address] [place] [address], [place] [address] Apr, [facility] [address] [id number] [address] [place] [address], [place] [address] Apr, [facility] [address] [id number] [address] [place] [address], [place] [address] Apr, [facility] [address] [id number] [address] [place] [address], [place] [address] Apr, [facility] [address] [id number] [address] [place] [address], [place] [address] 18 Apr, 2013 [facility] [address] [id number] [address] [place] [address], [place] [address] Apr, [facility] [address] [id number] [address] [place] [address], [place] [address] Apr, [facility] [address] [id number] [address] [place] [address], [place] [address] Apr, [facility] [address] [id number] [address] [place] [address], [place] [address] Mar, [facility] [address] [id number] [address] [place] [address] 30 Mar, 2013 [facility] [address] [id number] [address] [place] [address], [place] [address] Mar, [facility] [address] [id number] [address] [place] [address] Mar, [facility] [address] [id number] [address] [place] [address], [place] [address] Mar, [facility] [address] [id number] [address] [place] [address] Mar, [facility] [address] [id number] [address] [place] [address], [place] [address] Mar, [facility] [address] [id number] [address] [place] [address], [place] [address] Mar, [facility] [address] [id number] [address] [place] [id number] Mar, [facility] [address] [id number] [address] [place] [id number] Mar, [facility] [address] [id number] [address] [place] [address], [place] [address] Mar, [facility] [address] [id number] [address] [place] [id number] Mar, [facility] [address] [id number] [address] [place] [address], [place] [address] Feb, [facility] [address] [id number] [address] [place] [address], [place] [address] Jan, [facility] [address] [id number] [address] [place] [address], [place] [address] Jan, [facility] [address] [id number] [address] [place] [address], [place] [address] Jan, [facility] [address] [id number] [address] [place] [address], [place] [address] October, [facility] [address] [id number] [address] [place] [address], [place] [address] Aug, [facility] [address] [id number] [address] [place] [address], [place] [address] Aug, [facility] [address] [id number] [address] [place] [address], [place] [address] October, [facility] [address] [id number] [address] [place] [address], [place] [address] Jul, [facility] [address] [id number] [address] [place] [address], [place] [address] Jun, [facility] [address] [id number] [address] [place] [address], [place] [address] Jun, [facility] [address] [id number] [address] [place] [address], [place] [address] May, [facility] [address] [id number] [address] [place] [address], [place] [address] Apr, [facility] [address] [id number] [address] [place] [address], [place] [address] Dec, [facility] [address] [id number] [address] [place] [address], [place] [address] Nov, [facility] [address] [id number] [address] [place] [address], [place] [address] 14 Nov, 2010 [facility] [address] [id number] [address] [place] [address], [place] [address] October, [facility] [place] [address] [facility] [id number] [address] [place] [phone] Aug, [facility] [place] [address] [facility] [id number] [address] [place] [phone] May, [facility] [place] [address] [facility] [id number] [address] [place] [id number] 14 Mar, 2010 [facility] [place] [address] [facility] [id number] [address] [place] [id number] 14 Mar, 2010 [facility] [place] [address] [facility] [id number] [address] [place] [id number] 15 Feb, 2010 IMMUNIZATIONS No Known Immunizations SOCIAL HISTORY Never Assessed REASON FOR VISIT PLAN OF CARE VITAL SIGNS MEDICATIONS Unknown Medications RESULTS No Results PROCEDURES No Known procedures INSTRUCTIONS MEDICATIONS ADMINISTERED No Known Medications
--- OUTSIDE RECORDS SUMMARY | 2019-11-18 22:23 | XMS REPORT ---
Author Author Carolina Mosher Doctor Organization [facility] Address Unknown Phone Unavailable Care Team Providers Care Business Development Analyst Name Role Phone Migration, Doctor Unavailable Unavailable PROBLEMS Type Condition ICD9-CM Code UQN39-TL Code Onset Dates Condition S tatus SNOMED Code Problem DTAP TEST V06.1 Active Problem Screening for malignant neoplasm of the cervix V76.2 Active 056126114 Problem Papanicolaou smear of anus w ith low grade squamous intraepithelial lesion (LGSIL) 796.73 Active 0287550542620 06 Problem Vomiting alone 787.03 Active 82562 0008 Problem Other malaise and fatigue 780.79 Acti ve 623735406 Problem Hordeolum externum 373.11 Active 1 911151 Problem Supervision of normal first V22.0 Active 733456740 Problem Streptococcus infection in c onditions classified elsewhere and of unspecified site, group B 041.02 Active 42 4257690 Problem Need for prophylactic vaccination and inoculation, Influen za V04.81 Active 816916767 Problem Fever, unspecified 780.60 Active 3 32439785 Problem Other disorder of menstruati on and other abnormal bleeding from female genital tract 626.8 Active 580818906 Problem Absence of menstruation 626.0 Active 80982844 Problem Maternal drug dependence, 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 01 [place] [address] [address] [facility] [id number] [address] [place] [address] Sep, Acute suppurative otitis med ia of left ear with spontaneous rupture of tympanic membrane, recurrence not specified H66.012 [facility] [address] [id number] [address] [place] [address], [place] [address] 18 Nov, 2014 [facility] [address] [id number] [address] [place] [address], [place] [address] 14 Sep, 2014 [facility] [address] [id number] [address] [place] [address], [place] [address] Sep, [facility] [address] [id number] [address] [place] [address], [place] [address] Jul, [facility] [address] [id number] [address] [place] [address], [place] [address] Jul, [facility] [address] [id number] [address] [place] [address], [place] [address] Aug, [facility] [address] [id number] [address] [place] [address], [place] [address] Aug, [facility] [address] [id number] [address] [place] [address], [place] [address] Aug, [facility] [address] [id number] [address] [place] [address], [place] [address] Aug, [facility] [address] [id number] [address] [place] [address], [place] [address] Aug, [facility] [address] [id number] [address] [place] [address], [place] [address] Aug, [facility] [address] [id number] [address] [place] [address], [place] [address] Aug, [facility] [address] [id number] [address] [place] [address], [place] [address] Aug, [facility] [address] [id number] [address] [place] [address], [place] [address] Jul, [facility] [address] [id number] [address] [place] [address], [place] [address] Jul, [facility] [address] [id number] [address] [place] [address], [place] [address] Jul, [facility] [address] [id number] [address] [place] [address], [place] [address] Jul, [facility] [address] [id number] [address] [place] [address], [place] [address] Jul, [facility] [address] [id number] [address] [place] [address], [place] [address] Jul, [facility] [address] [id number] [address] [place] [address], [place] [address] Jul, [facility] [address] [id number] [address] [place] [address], [place] [address] Jul, [facility] [address] [id number] [address] [place] [address], [place] [address] Jun, [facility] [address] [id number] [address] [place] [address], [place] [address] Jun, [facility] [address] [id number] [address] [place] [address], [place] [address] Jun, [facility] [address] [id number] [address] [place] [address], [place] [address] Jun, [facility] [address] [id number] [address] [place] [address], [place] [address] Jun, [facility] [address] [id number] [address] [place] [address], [place] [address] Jun, [facility] [address] [id number] [address] [place] [address], [place] [address] May, [facility] [address] [id number] [address] [place] [address], [place] [address] May, [facility] [address] [id number] [address] [place] [address], [place] [address] May, [facility] [address] [id number] [address] [place] [address], [place] [address] 17 May, 2013 [facility] [address] [id number] [address] [place] [address], [place] [address] 17 May, 2013 [facility] [address] [id number] [address] [place] [address], [place] [address] May, [facility] [address] [id number] [address] [place] [address], [place] [address] May, [facility] [address] [id number] [address] [place] [address], [place] [address] May, [facility] [address] [id number] [address] [place] [address], [place] [address] May, [facility] [address] [id number] [address] [place] [address], [place] [address] Apr, [facility] [address] [id number] [address] [place] [address], [place] [address] Apr, [facility] [address] [id number] [address] [place] [address], [place] [address] Apr, [facility] [address] [id number] [address] [place] [address], [place] [address] Apr, [facility] [address] [id number] [address] [place] [address], [place] [address] Apr, [facility] [address] [id number] [address] [place] [address], [place] [address] Apr, [facility] [address] [id number] [address] [place] [address], [place] [address] Apr, [facility] [address] [id number] [address] [place] [address], [place] [address] Apr, [facility] [address] [id number] [address] [place] [address], [place] [address] Apr, [facility] [address] [id number] [address] [place] [address], [place] [address] Apr, [facility] [address] [id number] [address] [place] [address] [address] Apr, [facility] [address] [id number] [address] [place] [address], [place] [address] Apr, [facility] [address] [id number] [address] [place] [address], [place] [address] Mar, [facility] [address] [id number] [address] [place] [address], [place] [address] Mar, [facility] [address] [id number] [address] [place] [address], [place] [address] Mar, [facility] [address] [id number] [address] [place] [address], [place] [address] Mar, [facility] [address] [id number] [address] [place] [address], [place] [address] Mar, [facility] [address] [id number] [address] [place] [address], [place] [address] Mar, [facility] [address] [id number] [address] [place] [address], [place] [address] Mar, [facility] [address] [id number] [address] [place] [address], [place] [address] Mar, [facility] [address] [id number] [address] [place] [address], [place] [address] Mar, [facility] [address] [id number] [address] [place] [address] Mar, [facility] [address] [id number] [address] [place] [address] Mar, [facility] [address] [id number] [address] [place] [address], [place] [address] Mar, [facility] [address] [id number] [address] [place] [address] Feb, [facility] [address] [id number] [address] [place] [address], [place] [address] Jan, [facility] [address] [id number] [address] [place] [address], [place] [address] Jan, [facility] [address] [id number] [address] [place] [address], [place] [address] Jan, [facility] [address] [id number] [address] [place] [address], [place] [address] October, [facility] [address] [id number] [address] [place] [address], [place] [address] Aug, [facility] [address] [id number] [address] [place] [address], [place] [address] Aug, [facility] [address] [id number] [address] [place] [address], [place] [address] October, [facility] [address] [id number] [address] [place] [address], [place] [address] Jul, [facility] [address] [id number] [address] [place] [address], [place] [address] Jun, [facility] [address] [id number] [address] [place] [address], [place] [address] Jun, [facility] [address] [id number] [address] [place] [address], [place] [address] May, [facility] [address] [id number] [address] [place] [address], [place] [address] Apr, [facility] [address] [id number] [address] [place] [address], [place] [address] Dec, [facility] [address] [id number] [address] [place] [address], [place] [address] 15 Nov, 2010 [facility] [address] [id number] [address] [place] [address], [place] [address] 14 Nov, 2010 [facility] [address] [id number] [address] [place] [address], [place] [address] October, [facility] [address] [id number] [address] [place] [address], [place] [address] Aug, [facility] [address] [facility] [id number] [address] [place] [address] 07 May, 2010 [facility] [address] [facility] [id number] [address] [place] [address] [address], [address] [facility] [address] [facility] [id number] [address] [place] [address] 14 Mar, 2010 [facility] [address] [facility] [id number] [address] [place] [address] 15 Feb, 2010 IMMUNIZATIONS No Known Immunizations SOCIAL HISTORY Never Assessed REASON FOR VISIT EMR-[facility] PLAN OF CARE VITAL SIGNS MEDICATIONS Unknown Medications RESULTS No Results PROCEDURES No Known procedures INSTRUCTIONS MEDICATIONS ADMINISTERED No Known Medications
--- OUTSIDE RECORDS SUMMARY | 2019-11-18 22:24 | XMS REPORT | Continuity of Care Document ---
Demographics Preferred Language Unknown Marital Status Unknown Moravian Affiliation Unknown Race Unknown Ethnic Group Unknown Author Organization Unknown Address Unknown Phone Unavailable Allergies Active Description Code Type Severity Reaction Onset Reported/Identified Relationship to Patient Clinical Status Yes Amoxicillin 1519 Drug Allergy Unknown N/A Yes PENICILLINS 476 Drug Allergy Unknown N/A Yes Penicillins Drug Allergy 11/25/2008 Yes Penicillins Drug Allergy N/A N/A 11/25/2008 Yes Amoxicillin Drug Allergy N/A N/A 10/04/2012 Yes Penicillins [id number] Drug Aller gy Unknown N/A 01/05/2017 Medications Medication Packaging Start Date St op Date Route Dosage Sig KETOROLAC 201805/09/2019 IV INTO THE VEIN 30 MG LOPEZ 1086 SODIUM CHLORIDE 0.9 % 05/08/2019 05/09/2019 IV INTO THE VEIN 1000 ML LOPEZ 1086 LEVOFLOXACIN 08/201805/09/2019 ORAL BY MOUTH 500 MG MILA ES 1086 Problems Date Dx Coded Attending Type Code Diagnosis Diagnosed By 11/25/2008 JOHN GOMEZ DO 958.3 WOUND INFECTION 11/25/2008 958.3 WOUN D INFECTION 11/25/2008 958.3 WOUN D INFECTION 11/25/2008 ANGEL SYED APRN 958.3 WOUND INFECTION 11/25/2008 TANA JUAREZ APRN R 958.3 WOUND INFECTION 11/25/2008 JOANN ADULT PROBATION OFFICER, CYRIL A 95 8.3 WOUND INFECTION 11/25/2008 JOANN ADULT PROBATION OFFICER, CYRIL A 95 8.3 WOUND INFECTION 11/25/2008 JOANN ADULT PROBATION OFFICER, CYRIL A 95 8.3 WOUND INFECTION 11/25/2008 TANA JUAREZ APRN R 958.3 WOUND INFECTION 11/25/2008 JOANN ADULT PROBATION OFFICER, CYRIL A 95 8.3 WOUND INFECTION 11/25/2008 LISA CANDELARIA MD 958 .3 WOUND INFECTION 11/25/2008 JOANN ADULT PROBATION OFFICER, CYRIL A 95 8.3 WOUND INFECTION 11/25/2008 JOANNCB PARKER, CYRIL A 95 8.3 WOUND INFECTION 11/25/2008 BARI MD, LISA N 958 .3 WOUND INFECTION 11/25/2008 LISA CANDELARIA MD N 958 .3 WOUND INFECTION 11/25/2008 LISA CANDELARIA MD N 958 .3 WOUND INFECTION 11/25/2008 LISA CANDELARIA MD N 958 .3 WOUND INFECTION 11/25/2008 LISA CANDELARIA MD N 958 .3 WOUND INFECTION 11/26/2008 GOMEZ DOJAYNEA K 616.10 VAGINITIS 11/26/2008 GOMEZ DOJOHN K 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 11/26/2008 616.10 VAG INITIS 11/26/2008 V74.5 visi t for: screening exam bact/spirochetal venereal disease 11/26/2008 616.10 VAG INITIS 11/26/2008 V74.5 visi t for: screening exam bact/spirochetal venereal disease 11/26/2008 ANGEL SYED APRN N 616.10 VAGINITIS 11/26/2008 MONY SYED APRNCY N V74.5 visit for: screening exam bact/spirochetal venereal di sease 11/26/2008 TANA JUAREZ APRN R 616.10 VAGINITIS 11/26/2008 TANA JUAREZ APRN R V74.5 visit for: screening exam bact/spirochetal venereal di sease 11/26/2008 JOANN PARKER CYRIL A 616.10 VAGINITIS 11/26/2008 CYRIL DAVID APRN A V7 4.5 visit for: screening exam bact/spirochetal venereal disease 11/26/2008 JOANN PARKER CYRIL A 616.10 VAGINITIS 11/26/2008 FRANCISCO JAVIER DAVID APRNIDI A V7 4.5 visit for: screening exam bact/spirochetal venereal disease 11/26/2008 JOANN PARKER CYRIL A 616.10 VAGINITIS 11/26/2008 CYRIL DAVID APRN A V7 4.5 visit for: screening exam bact/spirochetal venereal disease 11/26/2008 TANA JUAREZ APRN R 616.10 VAGINITIS 11/26/2008 TANA JUAREZ APRN V74.5 visit for: screening exam bact/spirochetal venereal di sease 11/26/2008 FRANCISCO JAVIER DAVID APRNIDI A 616.10 VAGINITIS 11/26/2008 FRANCISCO JAVIER DAVID APRNIDI A V7 4.5 visit for: screening exam bact/spirochetal venereal disease 11/26/2008 LISA CANDELARIA MD N 616 .10 VAGINITIS 11/26/2008 LISA CANDELARIA MD N V74 .5 visit for: screening exam bact/spirochetal venereal disease 11/26/2008 JOANN PARKER, CYRIL A 616.10 VAGINITIS 11/26/2008 CYRIL DAVID APRN A V7 4.5 visit for: screening exam bact/spirochetal venereal disease 11/26/2008 FRANCISCO JAVIER DAVID APRNIDI A 616.10 VAGINITIS 11/26/2008 CYRIL DAVID APRN A V7 4.5 visit for: screening exam bact/spirochetal venereal disease 11/26/2008 LISA CANDELARIA MD N 616 .10 VAGINITIS 11/26/2008 LISA CANDELARIA MD N V74 .5 visit for: screening exam bact/spirochetal venereal disease 11/26/2008 LISA CANDELARIA MD N 616 .10 VAGINITIS 11/26/2008 LISA CANDELARIA MD N V74 .5 visit for: screening exam bact/spirochetal venereal disease 11/26/2008 LISA CANDELARIA MD N 616 .10 VAGINITIS 11/26/2008 LISA CANDELARIA MD N V74 .5 visit for: screening exam bact/spirochetal venereal disease 11/26/2008 LISA CANDELARIA MD N 616 .10 VAGINITIS 11/26/2008 LISA CANDELARIA MD N V74 .5 visit for: screening exam bact/spirochetal venereal disease 11/26/2008 LISA CANDELARIA MD N 616 .10 VAGINITIS 11/26/2008 LISA CANDELARIA MD N V74 .5 visit for: screening exam bact/spirochetal venereal disease 12/06/2009 GOMEZ DO, JOHN K 599.70 HEMATURIA, UNSPECIFIED 12/06/2009 GOMEZ DO, JOHN K 788.1 DYSURIA 12/06/2009 599.70 HEM ATURIA, UNSPECIFIED 12/06/2009 788.1 DYSURIA 12/06/2009 599.70 HEM ATURIA, UNSPECIFIED 12/06/2009 788.1 DYSURIA 12/06/2009 CONTRERAS CASHSIMEON ADULT PROBATION OFFICER, ANGEL N 599.70 HEMATURIA, UNSPECIFIED 12/06/2009 CONTRERAS CASHERO ADULT PROBATION OFFICER, ANGEL N 788.1 DYSURIA 12/06/2009 ANN PARKER TANA R 599.70 HEMATURIA, UNSPECIFIED 12/06/2009 JUAREZ ADULT PROBATION OFFICER, TANA R 788.1 DYSURIA 12/06/2009 JOANN ADULT PROBATION OFFICER, CYRIL A 599.70 HEMATURIA, UNSPECIFIED 12/06/2009 JOANN ADULT PROBATION OFFICER, CYRIL A 78 8.1 DYSURIA 12/06/2009 JOANN ADULT PROBATION OFFICER, CYRIL A 599.70 HEMATURIA, UNSPECIFIED 12/06/2009 JOANN ADULT PROBATION OFFICER, CYRIL A 78 8.1 DYSURIA 12/06/2009 JOANN ADULT PROBATION OFFICER, CYRIL A 599.70 HEMATURIA, UNSPECIFIED 12/06/2009 JOANN ADULT PROBATION OFFICER, CYRIL A 78 8.1 DYSURIA 12/06/2009 ANN ADULT PROBATION OFFICER, TANA R 599.70 HEMATURIA, UNSPECIFIED 12/06/2009 JUAREZ ADULT PROBATION OFFICER, TANA R 788.1 DYSURIA 12/06/2009 JOANN ADULT PROBATION OFFICER, CYRIL A 599.70 HEMATURIA, UNSPECIFIED 12/06/2009 JOANN ADULT PROBATION OFFICER, CYRIL A 78 8.1 DYSURIA 12/06/2009 LISA CANDELARIA MD N 599 .70 HEMATURIA, UNSPECIFIED 12/06/2009 LISA CANDELARIA MD N 788 .1 DYSURIA 12/06/2009 JOANN ADULT PROBATION OFFICER, CYRIL A 599.70 HEMATURIA, UNSPECIFIED 12/06/2009 JOANN ADULT PROBATION OFFICER, CYRIL A 78 8.1 DYSURIA 12/06/2009 JOANN ADULT PROBATION OFFICER, CYRIL A 599.70 HEMATURIA, UNSPECIFIED 12/06/2009 JOANN ADULT PROBATION OFFICER, CYRIL A 78 8.1 DYSURIA 12/06/2009 LISA CANDELARIA MD N 599 .70 HEMATURIA, UNSPECIFIED 12/06/2009 LISA CANDELARIA MD N 788 .1 DYSURIA 12/06/2009 LISA CANDELARIA MD N 599 .70 HEMATURIA, UNSPECIFIED 12/06/2009 LISA CANDELARIA MD N 788 .1 DYSURIA 12/06/2009 LISA CANDELARIA MD N 599 .70 HEMATURIA, UNSPECIFIED 12/06/2009 LISA CANDELARIA MD N 788 .1 DYSURIA 12/06/2009 LISA CANDELARIA MD N 599 .70 HEMATURIA, UNSPECIFIED 12/06/2009 LISA CANDELARIA MD N 788 .1 DYSURIA 12/06/2009 LISA CANDELARIA MD N 599 .70 HEMATURIA, UNSPECIFIED 12/06/2009 LISA CANDELARIA MD N 788 .1 DYSURIA 02/10/2010 JOHN GOMEZ DO K 461.9 SINUSITIS ACUTE 02/10/2010 461.9 SINU SITIS ACUTE 02/10/2010 461.9 SINU SITIS ACUTE 02/10/2010 DIANE LEWIS ADULT PROBATION OFFICER, ANGEL N 461.9 SINUSITIS ACUTE 02/10/2010 TANA JUAREZ APRN R 461.9 SINUSITIS ACUTE 02/10/2010 JOANN ADULT PROBATION OFFICER, CYRIL A 46 1.9 SINUSITIS ACUTE 02/10/2010 JOANN ADULT PROBATION OFFICER, CYRIL A 46 1.9 SINUSITIS ACUTE 02/10/2010 JOANN ADULT PROBATION OFFICER, CYRIL A 46 1.9 SINUSITIS ACUTE 02/10/2010 TANA JUAREZ APRN R 461.9 SINUSITIS ACUTE 02/10/2010 JOANN ADULT PROBATION OFFICER, CYRIL A 46 1.9 SINUSITIS ACUTE 02/10/2010 LISA CANDELARIA MD N 461 .9 SINUSITIS ACUTE 02/10/2010 JOANN ADULT PROBATION OFFICER, CYRIL A 46 1.9 SINUSITIS ACUTE 02/10/2010 JOANN ADULT PROBATION OFFICER, CYRIL A 46 1.9 SINUSITIS ACUTE 02/10/2010 LISA CANDELARIA MD N 461 .9 SINUSITIS ACUTE 02/10/2010 LISA CANDELARIA MD N 461 .9 SINUSITIS ACUTE 02/10/2010 LISA CANDELARIA MD N 461 .9 SINUSITIS ACUTE 02/10/2010 LISA CANDELARIA MD N 461 .9 SINUSITIS ACUTE 02/10/2010 LISA CANDELARIA MD N 461 .9 SINUSITIS ACUTE 02/18/2010 GOMEZ DO, JOHN K 112.1 CANDIDIASIS VAGINAL 02/18/2010 GOMEZ DO, JOHN K 465.9 UPPER RESPIRATORY INFECTION 02/18/2010 112.1 CAND IDIASIS VAGINAL 02/18/2010 465.9 UPPE R RESPIRATORY INFECTION 02/18/2010 112.1 CAND IDIASIS VAGINAL 02/18/2010 465.9 UPPE R RESPIRATORY INFECTION 02/18/2010 CONTRERAS CASHSIMEON ADULT PROBATION OFFICER, ANGEL N 112.1 CANDIDIASIS VAGINAL 02/18/2010 CONTRERAS CASHERO ADULT PROBATION OFFICER, ANGEL N 465.9 UPPER RESPIRATORY INFECTION 02/18/2010 ANN PARKER TANA R 112.1 CANDIDIASIS VAGINAL 02/18/2010 ANN ADULT PROBATION OFFICER, TANA R 465.9 UPPER RESPIRATORY INFECTION 02/18/2010 JOANN ADULT PROBATION OFFICER, CYRIL A 11 2.1 CANDIDIASIS VAGINAL 02/18/2010 JOANN ADULT PROBATION OFFICER, CYRIL A 46 5.9 UPPER RESPIRATORY INFECTION 02/18/2010 JOANN ADULT PROBATION OFFICER, CYRIL A 11 2.1 CANDIDIASIS VAGINAL 02/18/2010 JOANN ADULT PROBATION OFFICER, CYRIL A 46 5.9 UPPER RESPIRATORY INFECTION 02/18/2010 JOANN ADULT PROBATION OFFICER, CYRIL A 11 2.1 CANDIDIASIS VAGINAL 02/18/2010 JOANN ADULT PROBATION OFFICER, CYRIL A 46 5.9 UPPER RESPIRATORY INFECTION 02/18/2010 ANN ADULT PROBATION OFFICER, TANA R 112.1 CANDIDIASIS VAGINAL 02/18/2010 ANN ADULT PROBATION OFFICER, TANA R 465.9 UPPER RESPIRATORY INFECTION 02/18/2010 JOANN ADULT PROBATION OFFICER, CYRIL A 11 2.1 CANDIDIASIS VAGINAL 02/18/2010 JOANN ADULT PROBATION OFFICER, CYRIL A 46 5.9 UPPER RESPIRATORY INFECTION 02/18/2010 LISA CANDELARIA MD N 112 .1 CANDIDIASIS VAGINAL 02/18/2010 LISA CANDELARIA MD N 465 .9 UPPER RESPIRATORY INFECTION 02/18/2010 JOANN ADULT PROBATION OFFICER, CYRIL A 11 2.1 CANDIDIASIS VAGINAL 02/18/2010 JOANN ADULT PROBATION OFFICER, CYRIL A 46 5.9 UPPER RESPIRATORY INFECTION 02/18/2010 JOANN ADULT PROBATION OFFICER, CYRIL A 11 2.1 CANDIDIASIS VAGINAL 02/18/2010 JOANN ADULT PROBATION OFFICER, CYRIL A 46 5.9 UPPER RESPIRATORY INFECTION 02/18/2010 BARI NARVAEZ, LISA N 112 .1 CANDIDIASIS VAGINAL 02/18/2010 BARI NARVAEZ, LISA N 465 .9 UPPER RESPIRATORY INFECTION 02/18/2010 BARI NARVAEZ, LISA N 112 .1 CANDIDIASIS VAGINAL 02/18/2010 BARI NARVAEZ, LISA N 465 .9 UPPER RESPIRATORY INFECTION 02/18/2010 BARI NARVAEZ, LISA N 112 .1 CANDIDIASIS VAGINAL 02/18/2010 BARI NARVAEZ, LISA N 465 .9 UPPER RESPIRATORY INFECTION 02/18/2010 BARI NARVAEZ, LISA N 112 .1 CANDIDIASIS VAGINAL 02/18/2010 BARI NARVAEZ, LISA N 465 .9 UPPER RESPIRATORY INFECTION 02/18/2010 BARI NARVAEZ, LISA N 112 .1 CANDIDIASIS VAGINAL 02/18/2010 BARI NARVAEZ, LISA N 465 .9 UPPER RESPIRATORY INFECTION 03/19/2010 JOHN GOMEZ DO K 684 IMPETIGO 03/19/2010 684 IMPETIGO 03/19/2010 684 IMPETIGO 03/19/2010 DIANE LEWIS ADULT PROBATION OFFICER, ANGEL N 684 IMPETIGO 03/19/2010 TANA JUAREZ APRN R 684 IMPETIGO 03/19/2010 JOANN ADULT PROBATION OFFICER, CYRIL A 68 4 IMPETIGO 03/19/2010 JOANN ADULT PROBATION OFFICER, CYRIL A 68 4 IMPETIGO 03/19/2010 JOANN ADULT PROBATION OFFICER, CYRIL A 68 4 IMPETIGO 03/19/2010 LEONARD JUAREZ APRNIA R 684 IMPETIGO 03/19/2010 JOANN ADULT PROBATION OFFICER, CYRIL A 68 4 IMPETIGO 03/19/2010 LISA CANDELARIA MD N 684 IMPETIGO 03/19/2010 JOANN ADULT PROBATION OFFICER, CYRIL A 68 4 IMPETIGO 03/19/2010 JOANN ADULT PROBATION OFFICER, CYRIL A 68 4 IMPETIGO 03/19/2010 BARI NARVAEZ, LISA N 684 IMPETIGO 03/19/2010 BARI NARVAEZ, LISA N 684 IMPETIGO 03/19/2010 BARI NARVAEZ, LISA N 684 IMPETIGO 03/19/2010 LISA CANDELARIA MD N 684 IMPETIGO 03/19/2010 LISA CANDELARIA MD N 684 IMPETIGO 05/12/2010 JOHN GOMEZ DO K 787.02 NAUSEA ALONE 05/12/2010 787.02 THOMAS SEA ALONE 05/12/2010 787.02 THOMAS SEA ALONE 05/12/2010 ANGEL SYED APRN N 787.02 NAUSEA ALONE 05/12/2010 TANA JUAREZ APRN R 787.02 NAUSEA ALONE 05/12/2010 JOANN ADULT PROBATION OFFICER, CYRIL A 787.02 NAUSEA ALONE 05/12/2010 JOANN ADULT PROBATION OFFICER, CYRIL A 787.02 NAUSEA ALONE 05/12/2010 JOANNFRANCISCO JAVIER Ma APRNIDI A 787.02 NAUSEA ALONE 05/12/2010 TANA JUAREZ APRN R 787.02 NAUSEA ALONE 05/12/2010 JOANNFRANCISCO JAVIER Ma APRNIDI A 787.02 NAUSEA ALONE 05/12/2010 LISA CANDELARIA MD N 787 .02 NAUSEA ALONE 05/12/2010 JOANNAnil PARKER CYRIL A 787.02 NAUSEA ALONE 05/12/2010 JOANN APRN, CYRIL A 787.02 NAUSEA ALONE 05/12/2010 LISA CANDELARIA MD N 787 .02 NAUSEA ALONE 05/12/2010 LISA CANDELARIA MD N 787 .02 NAUSEA ALONE 05/12/2010 LISA CANDELARIA MD N 787 .02 NAUSEA ALONE 05/12/2010 LISA CANDELARIA MD N 787 .02 NAUSEA ALONE 05/12/2010 LISA CANDELARIA MD N 787 .02 NAUSEA ALONE 08/11/2010 JOHN GOMEZ DO 466.0 BRONCHITIS, ACUTE 08/11/2010 466.0 BRON CHITIS, ACUTE 08/11/2010 466.0 BRON CHITIS, ACUTE 08/11/2010 ANGEL SYED APRN N 466.0 BRONCHITIS, ACUTE 08/11/2010 TANA JUAREZ APRN R 466.0 BRONCHITIS, ACUTE 08/11/2010 JOANN ADULT PROBATION OFFICER, CYRIL A 46 6.0 BRONCHITIS, ACUTE 08/11/2010 JOANNAnil PARKER CYRIL A 46 6.0 BRONCHITIS, ACUTE 08/11/2010 JOANN ADULT PROBATION OFFICER, CYRIL A 46 6.0 BRONCHITIS, ACUTE 08/11/2010 XU JUAREZ APRNRICIA R 466.0 BRONCHITIS, ACUTE 08/11/2010 JOANN ADULT PROBATION OFFICER, CYRIL A 46 6.0 BRONCHITIS, ACUTE 08/11/2010 BARI NARVAEZ, LISA N 466 .0 BRONCHITIS, ACUTE 08/11/2010 JOANN ADULT PROBATION OFFICER, CYRIL A 46 6.0 BRONCHITIS, ACUTE 08/11/2010 JOANN ADULT PROBATION OFFICER, CYRIL A 46 6.0 BRONCHITIS, ACUTE 08/11/2010 BARI NARVAEZ, LISA N 466 .0 BRONCHITIS, ACUTE 08/11/2010 BARI NARVAEZ, LISA N 466 .0 BRONCHITIS, ACUTE 08/11/2010 BARI NARVAEZ, LISA N 466 .0 BRONCHITIS, ACUTE 08/11/2010 BARI NARVAEZ, LISA N 466 .0 BRONCHITIS, ACUTE 08/11/2010 BARI NARVAEZ, LISA N 466 .0 BRONCHITIS, ACUTE 08/13/2010 GOMEZ DO, JOHN K 305.1 TOBACCO ABUSE 08/13/2010 GOMEZ DO JOHN K 786.2 COUGH 08/13/2010 GOMEZ DO, JOHN K 787.01 NAUSEA WITH VOMITING 08/13/2010 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 08/13/2010 786.2 COUGH 08/13/2010 787.01 THOMAS SEA WITH VOMITING 08/13/2010 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 08/13/2010 786.2 COUGH 08/13/2010 787.01 THOMAS SEA WITH VOMITING 08/13/2010 MONY SYED APRNCY N 305.1 TOBACCO ABUSE 08/13/2010 CONTRERAS JOSHUA PARKER ANGEL N 786.2 COUGH 08/13/2010 CONTRERAS CASHSIMEON PARKER, ANGEL N 787.01 NAUSEA WITH VOMITING 08/13/2010 XU JUAREZ APRNRICIA R 305.1 TOBACCO ABUSE 08/13/2010 XU JUAREZ APRNRICIA R 786.2 COUGH 08/13/2010 XU JUAREZ APRNRICIA R 787.01 NAUSEA WITH VOMITING 08/13/2010 JOANN ADULT PROBATION OFFICER, CYRIL A 30 5.1 TOBACCO ABUSE 08/13/2010 JOANN ADULT PROBATION OFFICER, CYRIL A 78 6.2 COUGH 08/13/2010 JOANN ADULT PROBATION OFFICER, CYRIL A 787.01 NAUSEA WITH VOMITING 08/13/2010 JOANN ADULT PROBATION OFFICER, CYRIL A 30 5.1 TOBACCO ABUSE 08/13/2010 JOANN ADULT PROBATION OFFICER, CYRIL A 78 6.2 COUGH 08/13/2010 JOANN ADULT PROBATION OFFICER, CYRIL A 787.01 NAUSEA WITH VOMITING 08/13/2010 JOANN ADULT PROBATION OFFICER, CYRIL A 30 5.1 TOBACCO ABUSE 08/13/2010 JOANN ADULT PROBATION OFFICER, CYRIL A 78 6.2 COUGH 08/13/2010 JOANN ADULT PROBATION OFFICER, CYRIL A 787.01 NAUSEA WITH VOMITING 08/13/2010 ANN ROSSIN, TANA R 305.1 TOBACCO ABUSE 08/13/2010 ANN ROSSIN, TANA R 786.2 COUGH 08/13/2010 ANN ROSSIN, TANA R 787.01 NAUSEA WITH VOMITING 08/13/2010 JOANN ROSSIN, CYRIL A 30 5.1 TOBACCO ABUSE 08/13/2010 JOANN ADULT PROBATION OFFICER, CYRIL A 78 6.2 COUGH 08/13/2010 JOANN ROSSIN, CYRIL A 787.01 NAUSEA WITH VOMITING 08/13/2010 LISA CANDELARIA MD N 305 .1 TOBACCO ABUSE 08/13/2010 LISA CANDELARIA MD N 786 .2 COUGH 08/13/2010 LISA CANDELARIA MD N 787 .01 NAUSEA WITH VOMITING 08/13/2010 JOANN ROSSIN, CYRIL A 30 5.1 TOBACCO ABUSE 08/13/2010 JOANN ADULT PROBATION OFFICER, CYRIL A 78 6.2 COUGH 08/13/2010 JOANN ROSSIN, CYRIL A 787.01 NAUSEA WITH VOMITING 08/13/2010 JOANN ADULT PROBATION OFFICER, CYRIL A 30 5.1 TOBACCO ABUSE 08/13/2010 JOANN ADULT PROBATION OFFICER, CYRIL A 78 6.2 COUGH 08/13/2010 JOANN ADULT PROBATION OFFICER, CYRIL A 787.01 NAUSEA WITH VOMITING 08/13/2010 LISA CANDELARIA MD N 305 .1 TOBACCO ABUSE 08/13/2010 LISA CANDELARIA MD N 786 .2 COUGH 08/13/2010 LISA CANDELARIA MD N 787 .01 NAUSEA WITH VOMITING 08/13/2010 LISA CANDELARIA MD N 305 .1 TOBACCO ABUSE 08/13/2010 LISA CANDELARIA MD N 786 .2 COUGH 08/13/2010 LISA CANDELARIA MD N 787 .01 NAUSEA WITH VOMITING 08/13/2010 LISA CANDELARIA MD N 305 .1 TOBACCO ABUSE 08/13/2010 LISA CANDELARIA MD N 786 .2 COUGH 08/13/2010 LISA CANDELARIA MD N 787 .01 NAUSEA WITH VOMITING 08/13/2010 LISA CANDELARIA MD N 305 .1 TOBACCO ABUSE 08/13/2010 LISA CANDELARIA MD N 786 .2 COUGH 08/13/2010 LISA CANDELARIA MD N 787 .01 NAUSEA WITH VOMITING 08/13/2010 LISA CANDELARIA MD N 305 .1 TOBACCO ABUSE 08/13/2010 LISA CANDELARIA MD N 786 .2 COUGH 08/13/2010 LISA CANDELARIA MD N 787 .01 NAUSEA WITH VOMITING 10/06/2010 JOHN GOMEZ DO V72.31 5TH GRADE TEACHER EXAM, ROUTINE 10/06/2010 V72.31 5TH GRADE TEACHER EXAM, ROUTINE 10/06/2010 V72.31 5TH GRADE TEACHER EXAM, ROUTINE 10/06/2010 DIANE LEWIS ADULT PROBATION OFFICER, ANGEL N V72.31 5TH GRADE TEACHER EXAM, ROUTINE 10/06/2010 ANN ADULT PROBATION OFFICER, TANA R V72.31 5TH GRADE TEACHER EXAM, ROUTINE 10/06/2010 JOANN ADULT PROBATION OFFICER, CYRIL A V72.31 5TH GRADE TEACHER EXAM, ROUTINE 10/06/2010 JOANN ADULT PROBATION OFFICER, CYRIL A V72.31 5TH GRADE TEACHER EXAM, ROUTINE 10/06/2010 JOANN ADULT PROBATION OFFICER, CYRIL A V72.31 5TH GRADE TEACHER EXAM, ROUTINE 10/06/2010 ANN ADULT PROBATION OFFICER, TANA R V72.31 5TH GRADE TEACHER EXAM, ROUTINE 10/06/2010 JOANN ADULT PROBATION OFFICER, CYRIL A V72.31 5TH GRADE TEACHER EXAM, ROUTINE 10/06/2010 LISA CANDELARIA MD N V72 .31 5TH GRADE TEACHER EXAM, ROUTINE 10/06/2010 JOANN ADULT PROBATION OFFICER, CYRIL A V72.31 5TH GRADE TEACHER EXAM, ROUTINE 10/06/2010 JOANN ADULT PROBATION OFFICER, CYRIL A V72.31 5TH GRADE TEACHER EXAM, ROUTINE 10/06/2010 LISA CANDELARIA MD V72 .31 5TH GRADE TEACHER EXAM, ROUTINE 10/06/2010 LISA CANDELARIA MD V72 .31 5TH GRADE TEACHER EXAM, ROUTINE 10/06/2010 LISA CANDELARIA MD V72 .31 5TH GRADE TEACHER EXAM, ROUTINE 10/06/2010 LISA CANDELARIA MD V72 .31 5TH GRADE TEACHER EXAM, ROUTINE 10/06/2010 LISA CANDELARIA MD V72 .31 5TH GRADE TEACHER EXAM, ROUTINE 10/14/2010 GOMEZ DOJOHN K 462 sore throat 10/14/2010 GOMEZ DOJOHN K 785.6 LYMPH NODES ENLARGEMENT 10/14/2010 462 sore t hroat 10/14/2010 785.6 LYMP H NODES ENLARGEMENT 10/14/2010 462 sore t hroat 10/14/2010 785.6 LYMP H NODES ENLARGEMENT 10/14/2010 CONTRERAS CASHERO ADULT PROBATION OFFICER, ANGEL N 462 sore throat 10/14/2010 CONTRERAS CASHERO ADULT PROBATION OFFICER, ANGEL N 785.6 LYMPH NODES ENLARGEMENT 10/14/2010 XU JUAREZ APRNRICIA R 462 sore throat 10/14/2010 XU JUAREZ APRNRICIA R 785.6 LYMPH NODES ENLARGEMENT 10/14/2010 JOANN ADULT PROBATION OFFICER, CYRIL A 46 2 sore throat 10/14/2010 JOANN ADULT PROBATION OFFICER, YCRIL A 78 5.6 LYMPH NODES ENLARGEMENT 10/14/2010 JOANN ADULT PROBATION OFFICER, CYRIL A 46 2 sore throat 10/14/2010 JOANN ADULT PROBATION OFFICER, CYRIL A 78 5.6 LYMPH NODES ENLARGEMENT 10/14/2010 JOANN ADULT PROBATION OFFICER, CYRIL A 46 2 sore throat 10/14/2010 JOANN ADULT PROBATION OFFICER, CYRIL A 78 5.6 LYMPH NODES ENLARGEMENT 10/14/2010 ANN PARKER TANA R 462 sore throat 10/14/2010 ANN ADULT PROBATION OFFICER TANA R 785.6 LYMPH NODES ENLARGEMENT 10/14/2010 JOANN ADULT PROBATION OFFICER, CYRIL A 46 2 sore throat 10/14/2010 JOANN ADULT PROBATION OFFICER, CYRIL A 78 5.6 LYMPH NODES ENLARGEMENT 10/14/2010 LISA CANDELARIA MD N 462 sore throat 10/14/2010 LISA CANDELARIA MD N 785 .6 LYMPH NODES ENLARGEMENT 10/14/2010 JOANN ADULT PROBATION OFFICER, CYRIL A 46 2 sore throat 10/14/2010 JOANN ADULT PROBATION OFFICER, CYRIL A 78 5.6 LYMPH NODES ENLARGEMENT 10/14/2010 JOANN ADULT PROBATION OFFICER, CYRIL A 46 2 sore throat 10/14/2010 JOANN ADULT PROBATION OFFICER, CYRIL A 78 5.6 LYMPH NODES ENLARGEMENT 10/14/2010 LISA CANDELARIA MD N 462 sore throat 10/14/2010 LISA CANDELARIA MD N 785 .6 LYMPH NODES ENLARGEMENT 10/14/2010 BARIHEYDI NARVAEZ LISA N 462 sore throat 10/14/2010 LISA CANDELARIA MD N 785 .6 LYMPH NODES ENLARGEMENT 10/14/2010 LISA CANDELARIA MD N 462 sore throat 10/14/2010 BARILISA SOLIZ MD N 785 .6 LYMPH NODES ENLARGEMENT 10/14/2010 LISA CANDELARIA MD N 462 sore throat 10/14/2010 LISA CANDELARIA MD N 785 .6 LYMPH NODES ENLARGEMENT 10/14/2010 LISA CANDELARIA MD N 462 sore throat 10/14/2010 LISA CANDELARIA MD N 785 .6 LYMPH NODES ENLARGEMENT 11/17/2010 PATRICIA DO, JOHN K 780.4 DIZZINESS AND GIDDINESS 11/17/2010 780.4 DIZZ INESS AND GIDDINESS 11/17/2010 780.4 DIZZ INESS AND GIDDINESS 11/17/2010 ANGEL SYED APRN N 780.4 DIZZINESS AND GIDDINESS 11/17/2010 TANA JUAREZ APRN R 780.4 DIZZINESS AND GIDDINESS 11/17/2010 JOANN ADULT [employer]OBATION OFFICER, CYRIL A 78 0.4 DIZZINESS AND GIDDINESS 11/17/2010 JOANN ADULT PROBATION OFFICER, CYRIL A 78 0.4 DIZZINESS AND GIDDINESS 11/17/2010 JOANN ADULT PROBATION OFFICER, CYRIL A 78 0.4 DIZZINESS AND GIDDINESS 11/17/2010 LEONARD JUAREZ APRNIA R 780.4 DIZZINESS AND GIDDINESS 11/17/2010 JOANN ADULT PROBATION OFFICER, CYRIL A 78 0.4 DIZZINESS AND GIDDINESS 11/17/2010 LISA CANDELARIA MD N 780 .4 DIZZINESS AND GIDDINESS 11/17/2010 JOANN ADULT PROBATION OFFICER, CYRIL A 78 0.4 DIZZINESS AND GIDDINESS 11/17/2010 JOANN ADULT PROBATION OFFICER, CYRIL A 78 0.4 DIZZINESS AND GIDDINESS 11/17/2010 LISA CANDELARIA MD 780 .4 DIZZINESS AND GIDDINESS 11/17/2010 LISA CANDELARIA MD 780 .4 DIZZINESS AND GIDDINESS 11/17/2010 LISA CANDELARIA MD 780 .4 DIZZINESS AND GIDDINESS 11/17/2010 LISA CANDELARIA MD 780 .4 DIZZINESS AND GIDDINESS 11/17/2010 LISA CANDELARIA MD 780 .4 DIZZINESS AND GIDDINESS 01/11/2011 JHON GOMEZ DO 034.0 STREP THROAT 01/11/2011 034.0 STRE P THROAT 01/11/2011 034.0 STRE P THROAT 01/11/2011 ANGEL SYED APRN N 034.0 STREP THROAT 01/11/2011 TANA JUAREZ APRN R 034.0 STREP THROAT 01/11/2011 JOANN ADULT [employer]OBATION OFFICER, CYRIL A 03 4.0 STREP THROAT 01/11/2011 JOANN ADULT PROBATION OFFICER, CYRIL A 03 4.0 STREP THROAT 01/11/2011 JOANN ADULT PROBATION OFFICER, CYRIL A 03 4.0 STREP THROAT 01/11/2011 LEONARD JUAREZ APRNIA R 034.0 STREP THROAT 01/11/2011 JOANN ADULT PROBATION OFFICER, CYRIL A 03 4.0 STREP THROAT 01/11/2011 LISA CANDELARIA MD 034 .0 STREP THROAT 01/11/2011 JOANN ADULT PROBATION OFFICER, CYRIL A 03 4.0 STREP THROAT 01/11/2011 JOANN ADULT PROBATION OFFICER, CYRIL A 03 4.0 STREP THROAT 01/11/2011 LISA CANDELARIA MD 034 .0 STREP THROAT 01/11/2011 LISA CANDELARIA MD 034 .0 STREP THROAT 01/11/2011 LISA CANDELARIA MD 034 .0 STREP THROAT 01/11/2011 LISA CANDELARIA MD 034 .0 STREP THROAT 01/11/2011 LISA CANDELARIA MD 034 .0 STREP THROAT 05/05/2011 JOHN GOMEZ DO 626.4 IRREGULAR MENSTRUAL CYCLE 05/05/2011 JOHN GOMEZ DO V65.45 COUNSELING - STD 05/05/2011 626.4 IRRE GULAR MENSTRUAL CYCLE 05/05/2011 V65.45 COU NSELING - STD 05/05/2011 626.4 IRRE GULAR MENSTRUAL CYCLE 05/05/2011 V65.45 COU NSELING - STD 05/05/2011 MONY SYED APRNCY N 626.4 IRREGULAR MENSTRUAL CYCLE 05/05/2011 DIANE LEWIS APRN, ANGEL N V65.45 COUNSELING - STD 05/05/2011 ANN PARKER, TANA R 626.4 IRREGULAR MENSTRUAL CYCLE 05/05/2011 ANN PARKER, TANA R V65.45 COUNSELING - STD 05/05/2011 JOANN ADULT PROBATION OFFICER, CYRIL A 62 6.4 IRREGULAR MENSTRUAL CYCLE 05/05/2011 JOANN ADULT PROBATION OFFICER, CYRIL A V65.45 COUNSELING - STD 05/05/2011 JOANN ADULT PROBATION OFFICER, CYRIL A 62 6.4 IRREGULAR MENSTRUAL CYCLE 05/05/2011 JOANN ADULT PROBATION OFFICER, CYRIL A V65.45 COUNSELING - STD 05/05/2011 JOANN ADULT PROBATION OFFICER, CYRIL A 62 6.4 IRREGULAR MENSTRUAL CYCLE 05/05/2011 JOANNCB ROSSIN, CYRIL A V65.45 COUNSELING - STD 05/05/2011 ANN PARKER, TANA R 626.4 IRREGULAR MENSTRUAL CYCLE 05/05/2011 ANN PARKER, TANA R V65.45 COUNSELING - STD 05/05/2011 JOANN ADULT PROBATION OFFICER, CYRIL A 62 6.4 IRREGULAR MENSTRUAL CYCLE 05/05/2011 JOANN ADULT PROBATION OFFICER, CYRIL A V65.45 COUNSELING - STD 05/05/2011 LISA CANDELARIA MD N 626 .4 IRREGULAR MENSTRUAL CYCLE 05/05/2011 LISA CANDELARIA MD N V65 .45 COUNSELING - STD 05/05/2011 JOANN ADULT PROBATION OFFICER, CYRIL A 62 6.4 IRREGULAR MENSTRUAL CYCLE 05/05/2011 JOANNCB ROSSIN, CYRIL A V65.45 COUNSELING - STD 05/05/2011 JOANNCB ROSSIN, CYRIL A 62 6.4 IRREGULAR MENSTRUAL CYCLE 05/05/2011 JOANN ADULT PROBATION OFFICER, CYRIL A V65.45 COUNSELING - STD 05/05/2011 LISA CANDELARIA MD N 626 .4 IRREGULAR MENSTRUAL CYCLE 05/05/2011 LISA CANDELARIA MD N V65 .45 COUNSELING - STD 05/05/2011 LISA CANDELARIA MD N 626 .4 IRREGULAR MENSTRUAL CYCLE 05/05/2011 LISA CANDELARIA MD N V65 .45 COUNSELING - STD 05/05/2011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 strip, semi-quantitative 2+ NEGATIVE Urine glucose detection by automated test strip NE GATIVE NEGATIVE Erythrocytes detection in urine sediment by light micr oscopy NEGATIVE NEGATIVE Urine ketones detection by automated test strip NE GATIVE NEGATIVE Urine nitrite detection by test strip NEGATIVE NEGATIVE Urine total bilirubin detection by test strip NEGA TIVE NEGATIVE Urine urobilinogen measurement by automated test strip (mass/volume) NORMAL NORMAL Urine leukocyte esterase detection by dipstick 1+ NEGATIVE Automated urine sediment erythrocyte cou nt by microscopy (number/high power field) NONE NRG Automated urine sediment leukocyte count by microscopy (number/high power field) [HPF] NRG Bacteria detection in urine sediment by light microsco py TRACE NRG Squamous epithelial cells detection in u rine sediment by light microscopy >50 NRG Crystals detection in urine sediment by light microsco py NONE NRG Casts detection in urine sediment by light microscopy NONE NRG Mucus detection in urine sediment by light microscopy NEGATIVE NRG Complete urinalysis with reflex to culture NO NRG Urine drug screening test - 09/08/16 15: 05 Urine phencyclidine detection by screening method NEGATIVE NEGATIVE Urine benzodiazepines detection by screening method NEGATIVE NEGATIVE Urine cocaine detection NEGATIVE NEGATI VE Urine amphetamines detection by screening method N EGATIVE NEGATIVE Urine methamphetamine detection by screening method NEGATIVE NEGATIVE Urine cannabinoids detection by screening method N EGATIVE NEGATIVE Urine opiates detection by screening method NEGATI VE NEGATIVE Urine barbiturates detection NEGATIVE N EGATIVE Screening urine tricyclic antidepressants detection NEGATIVE NEGATIVE Urine methadone detection by screening method NEGA TIVE NEGATIVE Urine oxycodone detection NEGATIVE NEGA TIVE Urine propoxyphene detection NEGATIVE N EGATIVE Serum or plasma choriogonadotropin (preg angel test) detection - 09/08/16 15:05 Serum or plasma choriogonadotropin ( test) de tection POSITIVE NEGATIVE Liver function panel (serum or plasma al k phos, alb, total and direct bili, total protein, ALT, AST) - 09/08/16 15:05 Serum or plasma total bilirubin measurement (mass/volu me) 0.4 mg/dL 0.1-1.0 Serum or plasma alkaline phosphatase janis surement (enzymatic activity/volume) 97 U/L 40-136 Serum or plasma aspartate aminotransfera se measurement (enzymatic activity/volume) 20 U/L 5-34 Serum or plasma alanine aminotransferase measurement (enzymatic activity/volume) 23 U/L 0-55 Serum or plasma protein measurement (mass/volume) 7.3 g/dL 6.4-8.2 Serum or plasma albumin measurement (mass/volume) 4.2 g/dL 3.2-4.5 Bilirubin direct 0.2 mg/dL 0.0-0.3 Serum or plasma indirect bilirubin measurement (mass/v olume) 0.2 mg/dL NRG Whole blood basic metabolic panel - 10/20 15:05 Serum or plasma sodium measurement (moles/volume) 139 mmol/L 135-145 Serum or plasma potassium measurement (moles/volume) 4.3 mmol/L 3.6-5.0 Serum or plasma chloride measurement (moles/volume) 108 mmol/L 98-107 Carbon dioxide 22 mmol/L 21-32 Serum or plasma anion gap determination (moles/volume) 9 mmol/L 5-14 Serum or plasma urea nitrogen measurement (mass/volume ) 16 mg/dL 7-18 Serum or plasma creatinine measurement (mass/volume) 0.75 mg/dL 0.60-1.30 Serum or plasma urea nitrogen/creatinine mass ratio 21 NRG Serum or plasma creatinine measurement w ith calculation of estimated glomerular filtration rate > NRG Serum or plasma glucose measurement (mass/volume) 89 mg/dL 70-105 Serum or plasma calcium measurement (mass/volume) 9.6 mg/dL 8.5-10.1 Serum or plasma ethanol measurement (mas s/volume) - 09/08/16 15:05 Serum or plasma ethanol measurement (mass/volume) < mg/dL <10 Serum or plasma choriogonadotropin measu rement (units/volume) - 09/08/16 15:05 Serum or plasma choriogonadotropin measurement (units/ volume) 1143 m[iU]/mL <5 Complete blood count (CBC) with automate d white blood cell (WBC) differential - 09/19/16 16:15 Blood leukocytes automated count (number/volume) 14.6 10*3/uL 4.3-11.0 Blood erythrocytes automated count (number/volume) 4.48 10*6/uL 4.35-5.85 Venous blood hemoglobin measurement (mass/volume) 14.0 g/dL 11.5-16.0 Blood hematocrit (volume fraction) 40 % 35-52 Automated erythrocyte mean corpuscular volume 90 [ foz_us] 80-99 Automated erythrocyte mean corpuscular h emoglobin (mass per erythrocyte) 31 pg 25-34 Automated erythrocyte mean corpuscular h emoglobin concentration measurement (mass/volume) 35 g/dL 32-36 Automated erythrocyte distribution width ratio 13. 0 % 10.0- 14.5 Automated blood platelet count (count/volume) 286 10*3/uL 130-400 Automated blood platelet mean volume measurement 9.4 [foz_us] 7.4-10.4 Automated blood neutrophils/100 leukocytes 67 % 42-75 Automated blood lymphocytes/100 leukocytes 22 % 12-44 Blood monocytes/100 leukocytes 8 % 0-12 Automated blood eosinophils/100 leukocytes 2 % 0-10 Automated blood basophils/100 leukocytes 0 % 0-10 Blood neutrophils automated count (number/volume) 9.8 10*3 1.8-7.8 Blood lymphocytes automated count (number/volume) 3.3 10*3 1.0-4.0 Blood monocytes automated count (number/volume) 1. 2 10*3 0.0-1.0 Automated eosinophil count 0.3 10*3/uL 0 .0-0.3 Automated blood basophil count (count/volume) 0.0 10*3/uL 0.0-0.1 Complete urinalysis with reflex to cultu re - 09/19/16 16:15 Urine color determination YELLOW NRG Urine clarity determination SLIGHTLY CLOUDY NRG Urine pH measurement by test strip 6.5 5-9 Specific gravity of urine by test strip 1.015 1.016-1.022 Urine protein assay by test strip, semi-quantitative 2+ NEGATIVE Urine glucose detection by automated test strip NE GATIVE NEGATIVE Erythrocytes detection in urine sediment by light micr oscopy 1+ NEGATIVE Urine ketones detection by automated test strip NE GATIVE NEGATIVE Urine nitrite detection by test strip NEGATIVE NEGATIVE Urine total bilirubin detection by test strip NEGA TIVE NEGATIVE Urine urobilinogen measurement by automated test strip (mass/volume) 1 mg/dL NORMAL Urine leukocyte esterase detection by dipstick 1+ NEGATIVE Automated urine sediment erythrocyte cou nt by microscopy (number/high power field) NONE NRG Automated urine sediment leukocyte count by microscopy (number/high power field) [HPF] NRG Bacteria detection in urine sediment by light microsco py TRACE NRG Squamous epithelial cells detection in u rine sediment by light microscopy 5-10 NRG Crystals detection in urine sediment by light microsco py NONE NRG Casts detection in urine sediment by light microscopy NONE NRG Mucus detection in urine sediment by light microscopy NEGATIVE NRG Complete urinalysis with reflex to culture NO NRG Comprehensive metabolic panel - 09/19/16 16:15 Serum or plasma sodium measurement (moles/volume) 139 mmol/L 135-145 Serum or plasma potassium measurement (moles/volume) 3.5 mmol/L 3.6-5.0 Serum or plasma chloride measurement (moles/volume) 106 mmol/L 98-107 Carbon dioxide 22 mmol/L 21-32 Serum or plasma anion gap determination (moles/volume) 11 mmol/L 5-14 Serum or plasma urea nitrogen measurement (mass/volume ) 8 mg/dL 7-18 Serum or plasma creatinine measurement (mass/volume) 0.69 mg/dL 0.60-1.30 Serum or plasma urea nitrogen/creatinine mass ratio 12 NRG Serum or plasma creatinine measurement w ith calculation of estimated glomerular filtration rate > NRG Serum or plasma glucose measurement (mass/volume) 102 mg/dL 70-105 Serum or plasma calcium measurement (mass/volume) 9.2 mg/dL 8.5-10.1 Serum or plasma total bilirubin measurement (mass/volu me) 0.6 mg/dL 0.1-1.0 Serum or plasma alkaline phosphatase janis surement (enzymatic activity/volume) 82 U/L 40-136 Serum or plasma aspartate aminotransfera se measurement (enzymatic activity/volume) 16 U/L 5-34 Serum or plasma alanine aminotransferase measurement (enzymatic activity/volume) 18 U/L 0-55 Serum or plasma protein measurement (mass/volume) 7.1 g/dL 6.4-8.2 Serum or plasma albumin measurement (mass/volume) 4.3 g/dL 3.2-4.5 Blood manual differential performed dete ction - 09/19/16 16:15 Blood monocytes/100 leukocytes 7 % NRG Manual blood segmented neutrophils/100 leukocytes 64 % NRG Manual blood lymphocytes/100 leukocytes 24 % NRG Manual eosinophils/100 leukocytes in nose 5 % NRG Blood erythrocyte morphology finding identification NORMAL NRG Serum or plasma choriogonadotropin measu rement (units/volume) - 09/19/16 16:15 Serum or plasma choriogonadotropin measurement (units/ volume) 34836 m[iU]/mL <5 Bacteria identification in isolate by an aerobe culture - 01/05/17 20:10 QUANTITY OF GROWTH Moderate Growth NRG Bacteria identification in isolate by anaerobe culture [id number] NRG Gram stain microscopy - 01/05/17 20:10 Gram stain microscopy Occasional gram positive brandan ci NRG Bacteria identification in wound by cult ure - 01/05/17 20:10 Bacteria identification in wound by culture [id number] NRG QUANTITY OF GROWTH Moderate Growth NRG Complete blood count (CBC) with automate d white blood cell (WBC) differential - 01/05/17 20:15 Blood leukocytes automated count (number/volume) 21.7 10*3/uL 4.3-11.0 Blood erythrocytes automated count (number/volume) 3.45 10*6/uL 4.35-5.85 Venous blood hemoglobin measurement (mass/volume) 11.0 g/dL 11.5-16.0 Blood hematocrit (volume fraction) 31 % 35-52 Automated erythrocyte mean corpuscular volume 90 [ foz_us] 80-99 Automated erythrocyte mean corpuscular h emoglobin (mass per erythrocyte) 32 pg 25-34 Automated erythrocyte mean corpuscular h emoglobin concentration measurement (mass/volume) 35 g/dL 32-36 Automated erythrocyte distribution width ratio 12. 6 % 10.0- 14.5 Automated blood platelet count (count/volume) 203 10*3/uL 130-400 Automated blood platelet mean volume measurement 9.5 [foz_us] 7.4-10.4 Automated blood neutrophils/100 leukocytes 93 % 42-75 Automated blood lymphocytes/100 leukocytes 4 % 12-44 Blood monocytes/100 leukocytes 4 % 0-12 Automated blood eosinophils/100 leukocytes 0 % 0-10 Automated blood basophils/100 leukocytes 0 % 0-10 Blood neutrophils automated count (number/volume) 20.2 10*3 1.8-7.8 Blood lymphocytes automated count (number/volume) 0.8 10*3 1.0-4.0 Blood monocytes automated count (number/volume) 0. 8 10*3 0.0-1.0 Automated eosinophil count 0.0 10*3/uL 0 .0-0.3 Automated blood basophil count (count/volume) 0.0 10*3/uL 0.0-0.1 Blood type T Indirect antibody screen pa hillary - 01/05/17 20:15 ABO+Rh group OP NRG Transfusion band number [id number] NRG Blood group antibody screen NEGATIVE NR G Blood manual differential performed dete ction - 01/05/17 20:15 Blood monocytes/100 leukocytes 5 % NRG Manual blood segmented neutrophils/100 leukocytes 80 % NRG Blood band neutrophils/100 leukocytes 12 % NRG Manual blood lymphocytes/100 leukocytes 3 % NRG Manual eosinophils/100 leukocytes in nose 0 % NRG Manual blood basophils/100 leukocytes 0 % NRG Blood erythrocyte morphology finding identification NORMAL NRG Urine drug screening test - 01/05/17 20: 30 Urine phencyclidine detection by screening method NEGATIVE NEGATIVE Urine benzodiazepines detection by screening method NEGATIVE NEGATIVE Urine cocaine detection NEGATIVE NEGATI VE Urine amphetamines detection by screening method P OSITIVE NEGATIVE Urine methamphetamine detection by screening method NEGATIVE NEGATIVE Urine cannabinoids detection by screening method N EGATIVE NEGATIVE Urine opiates detection by screening method NEGATI VE NEGATIVE Urine barbiturates detection NEGATIVE N EGATIVE Screening urine tricyclic antidepressants detection NEGATIVE NEGATIVE Urine methadone detection by screening method NEGA TIVE NEGATIVE Urine oxycodone detection NEGATIVE NEGA TIVE Urine propoxyphene detection NEGATIVE N EGATIVE Complete blood count (CBC) with automate d white blood cell (WBC) differential - 01/06/17 07:00 Blood leukocytes automated count (number/volume) 20.8 10*3/uL 4.3-11.0 Blood erythrocytes automated count (number/volume) 2.89 10*6/uL 4.35-5.85 Venous blood hemoglobin measurement (mass/volume) 9.1 g/dL 11.5-16.0 Blood hematocrit (volume fraction) 26 % 35-52 Automated erythrocyte mean corpuscular volume 91 [ foz_us] 80-99 Automated erythrocyte mean corpuscular h emoglobin (mass per erythrocyte) 32 pg 25-34 Automated erythrocyte mean corpuscular h emoglobin concentration measurement (mass/volume) 35 g/dL 32-36 Automated erythrocyte distribution width ratio 12. 6 % 10.0- 14.5 Automated blood platelet count (count/volume) 193 10*3/uL 130-400 Automated blood platelet mean volume measurement 9.1 [foz_us] 7.4-10.4 Automated blood neutrophils/100 leukocytes 87 % 42-75 Automated blood lymphocytes/100 leukocytes 9 % 12-44 Blood monocytes/100 leukocytes 4 % 0-12 Automated blood eosinophils/100 leukocytes 0 % 0-10 Automated blood basophils/100 leukocytes 0 % 0-10 Blood neutrophils automated count (number/volume) 18.2 10*3 1.8-7.8 Blood lymphocytes automated count (number/volume) 1.8 10*3 1.0-4.0 Blood monocytes automated count (number/volume) 0. 8 10*3 0.0-1.0 Automated eosinophil count 0.1 10*3/uL 0 .0-0.3 Automated blood basophil count (count/volume) 0.0 10*3/uL 0.0-0.1 Complete blood count (CBC) with automate d white blood cell (WBC) differential - 01/07/17 07:25 Blood leukocytes automated count (number/volume) 15.0 10*3/uL 4.3-11.0 Blood erythrocytes automated count (number/volume) 2.89 10*6/uL 4.35-5.85 Venous blood hemoglobin measurement (mass/volume) 9.1 g/dL 11.5-16.0 Blood hematocrit (volume fraction) 27 % 35-52 Automated erythrocyte mean corpuscular volume 95 [ foz_us] 80-99 Automated erythrocyte mean corpuscular h emoglobin (mass per erythrocyte) 32 pg 25-34 Automated erythrocyte mean corpuscular h emoglobin concentration measurement (mass/volume) 33 g/dL 32-36 Automated erythrocyte distribution width ratio 13. 5 % 10.0- 14.5 Automated blood platelet count (count/volume) 178 10*3/uL 130-400 Automated blood platelet mean volume measurement 9.0 [foz_us] 7.4-10.4 Automated blood neutrophils/100 leukocytes 80 % 42-75 Automated blood lymphocytes/100 leukocytes 13 % 12-44 Blood monocytes/100 leukocytes 4 % 0-12 Automated blood eosinophils/100 leukocytes 2 % 0-10 Automated blood basophils/100 leukocytes 0 % 0-10 Blood neutrophils automated count (number/volume) 12.0 10*3 1.8-7.8 Blood lymphocytes automated count (number/volume) 2.0 10*3 1.0-4.0 Blood monocytes automated count (number/volume) 0. 7 10*3 0.0-1.0 Automated eosinophil count 0.3 10*3/uL 0 .0-0.3 Automated blood basophil count (count/volume) 0.0 10*3/uL 0.0-0.1 Urine beta human chorionic gonadotropin (hCG) measurement - 04/10/18 23:40 Urine beta human chorionic gonadotropin (hCG) measurem ent NEGATIVE NEGATIVE Complete urinalysis with reflex to cultu re - 04/10/18 23:40 Urine color determination YELLOW NRG Urine clarity determination SLIGHTLY CLOUDY NRG Urine pH measurement by test strip 7 5-9 Specific gravity of urine by test strip 1.010 1.016-1.022 Urine protein assay by test strip, semi-quantitative NEGATIVE NEGATIVE Urine glucose detection by automated test strip NE GATIVE NEGATIVE Erythrocytes detection in urine sediment by light micr oscopy 1+ NEGATIVE Urine ketones detection by automated test strip NE GATIVE NEGATIVE Urine nitrite detection by test strip NEGATIVE NEGATIVE Urine total bilirubin detection by test strip NEGA TIVE NEGATIVE Urine urobilinogen measurement by automated test strip (mass/volume) NORMAL NORMAL Urine leukocyte esterase detection by dipstick 3+ NEGATIVE Automated urine sediment erythrocyte cou nt by microscopy (number/high power field) NONE NRG Automated urine sediment leukocyte count by microscopy (number/high power field) [HPF] NRG Bacteria detection in urine sediment by light microsco py MODERATE NRG Squamous epithelial cells detection in u rine sediment by light microscopy 10-25 NRG Crystals detection in urine sediment by light microsco py NONE NRG Casts detection in urine sediment by light microscopy NONE NRG Mucus detection in urine sediment by light microscopy MODERATE NRG Complete urinalysis with reflex to culture YES NRG Urine Trichomonas species detection by light microscop y MODERATE NRG Bacterial urine culture - 04/10/18 23:40 Bacterial urine culture SEE REPORT NRG COLONY COUNT . NRG Bacteria identification in genital speci men by aerobe culture - 04/10/18 23:50 FREE TEXT EXTERNAL BETA LACTAMASE NEGATIVE NRG QUANTITY OF GROWTH . NRG Bacteria identification in genital specimen by aerobe culture SEE REPORT NRG FREE TEXT EXTERNAL 2 RML SENT REPORT 04/14 13:06 NRG Microscopic examination by wet preparati on - 04/10/18 23:50 WET PREP RESULTS 04/11 00:19 BY Patricia BECKER Chlamydia trachomatis DNA detection by p robe and signal amplification method - 04/10/18 23:50 Chlamydia trachomatis DNA detection by p robe and target amplification method Detected Not Detected Neisseria gonorrhoeae DNA detection by p robe and signal amplification method - 04/10/18 23:50 Gonorrhea amp DNA-urine Dectected Not D etected Bacteria identification in genital speci men by aerobe culture - 04/13/19 14:34 FREE TEXT EXTERNAL SUSCEPTIBILITY REPORTED 04/15 0 9:20 NRG QUANTITY OF GROWTH Moderate NRG Bacteria identification in genital specimen by aerobe culture [id number] NRG Dirithromycin susceptibility test by dis k diffusion - 04/13/19 14:34 Gentamicin susceptibility test by minimum inhibitory c oncentration <= NRG Trimethoprim/sulfamethoxazole susceptibi lity test by minimum inhibitoryconcentration > NRG Levofloxacin susceptibility test by minimum inhibitory concentration <= NRG Ampicillin susceptibility test by minimum inhibitory c oncentration > NRG Cefazolin susceptibility test by minimum inhibitory co ncentration 2 NRG Ceftriaxone susceptibility test by minimum inhibitory concentration <= NRG Piperacillin/tazobactam susceptibility t est by minimum inhibitory concentration = NRG Ciprofloxacin susceptibility test by minimum inhibitor y concentration <= NRG Meropenem susceptibility test by minimum inhibitory co ncentration <= NRG Amoxicillin and clavulanate potassium susc SANTOS = NRG Imipenem susceptibility test by minimum inhibitory con centration <= NRG Microscopic examination by wet preparati on - 04/13/19 14:34 WET PREP RESULTS NO YEAST OBSERVED, NO TRICH OMONAS OBSERVED NRG Chlamydia trachomatis DNA detection by p robe and signal amplification method - 04/13/19 14:34 Chlamydia trachomatis DNA detection by p robe and target amplification method Not Detected Not Detected Neisseria gonorrhoeae DNA detection by p robe and signal amplification method - 04/13/19 14:34 Gonorrhea amp DNA-urine Not Detected No t Detected URINALYSIS REFLEX TO CULTURE - 05/08/19 19:39 COLOR YELLOW YELLOW CLARITY HAZY CLEAR GLUCOSE NEGATIVE mg/dL NEGATIVE BILIRUBIN NEGATIVE NEGATIVE KETONES NEGATIVE mg/dL NEGATIVE SPGRUR 1.015 1.005-1.030 PH 7.0 5.0-8.5 PROTEIN 30 mg/dL NEGATIVE UBILINOGEN 0.2 EU/dL 0.2-1.0 NITRITE NEGATIVE NEGATIVE BLOOD(HGB) LARGE NEGATIVE LEUKOCYTES SMALL NEGATIVE MICRO. WBC 5-10 /HPF 0-2 MICRO.RBC 10-20 /HPF 0-2 EPITHELIAL 0-2 /HPF 0-2 EPITH TYPE SQUAMOUS BACTERIA TRACE /HPF NONE MUCUS /LPF NONE YEAST /HPF NONE CRYSTALS /HPF NONE CRYSTAL TY CASTS /LPF NONE CAST TYPE TRICHS /HPF NONE SPERM /HPF NONE SPECIMEN VOIDED URINE Laboratory URINE CULTURE - 05/08/19 19:39 Culture Observations =<10,000 COL/ML OF MIXED JENNIFFER A Microbiology TEST BLOOD (HCG QUAL BLOOD) - 05/08/19 20:06 Laboratory CBC WITH DIFFERENTIAL - 05/08/19 20:06 WBC COUNT 10.0 Thou/cm3 4.3-11.0 RBC COUNT 4.9 Mill/cm3 4.6-6.2 HGB 14.5 g/dL 12.0-16.0 HCT 44.1 % 35.0-49.0 MCV 90.7 fL 80.0-94.0 MCH 29.8 pg 26.0-33.0 MCHC 32.9 g/dL 31.0-36.0 RDW 13.1 % 11.5-14.5 PLT COUNT 300 Thou/cm3 150-400 MPV 8.8 fL 8.5-11.9 A NEUTRO 72.3 %(77804) 47.0-76.0 A LYMPHS 16.6 %(30384) 12.0-44.0 A MONOS 7.9 %(69842) 3.1-13.6 A EOS 2.7 %(85910) 0.0-5.0 A BASO 0.3 %(65667) 0.0-1.0 IG% 0.2 % 0.0-5.0 M SEGS % (100) 47.0-76.0 M BANDS % (100) 0.0-8.0 M LYMPHS % (100) 12.0-44.0 M MONOS % (100) 3.1-13.6 M EOS % (100) 0.0-5.0 M BASO % (100) 0.0-1.0 NRBC % <= 0 META % (100) <= 0 MYELO % (100) <= 0 PROMYELO % (100) <= 0 RBC MORPH NORMAL Laboratory ABS NEUT 7.24 10^3/uL 1.60-6.10 ABS LYMPH 1.66 10^3/uL 1.20-3.70 ABS MONO 0.79 10^3/uL 0.20-0.80 ABS EO 0.27 10^3/uL 0.00-0.60 ABS BASO 0.03 10^3/uL 0.00-0.10 ABS IG 0.02 10^3/uL 0.00-1.00 COMPREHENSIVE METABOLIC PROFILE - 20:06 CREAT SR 0.72 MG/DL 0.55-1.30 GFR BLK F >60.0 ml/min/1.73m2 GFR BLK M >60.0 ml/min/1.73m2 GFR CAUC F >60.0 ml/min/1.73m2 GFR CAUC M >60.0 ml/min/1.73m2 GFRHDG ESTIMATED GLOMERULAR FILTRAT ION RATE REFERENCE INTERVAL: > 60 mL/min/1.73m2 Accurate estimation of GFR from serum creatinine requires a steady state of creatinine balance. Results greater than or equal to 60 mL/min/1.73m2 will be reported as > 60 mL/min/1.73m2 per NKDEP recommendations. BUN 16 mg/dl 9-23 GLUCOSE 94 MG/DL 70-106 CA 9.2 MG/DL 8.6-10.4 NA SR 138 MMOL/L 137-150 K BLOOD 4.0 MMOL/L 3.5-5.3 CL SER 99 MMOL/L 99-111 ECO2 32.6 MMOL/L 23.0-33.0 BILI TOT 0.46 mg/dl 0.10-1.20 PROT SR 8.5 G/DL 6.3-8.0 ALB 3.8 G/DL 3.9-4.9 ALK PHOS 104 IU/L 39-100 AST 25 IU/L 16-40 ALT 36 IU/L 12-78 Laboratory ANION GAP 6.4 mmol/L 7.0-16.0 LIPASE - 05/08/19 20:06 LIPASE 90 U/L 73-393 Laboratory CRP-QUANT - 05/08/19 20:06 CRP 4.8 MG/DL 0.0-1.0 Laboratory Encounters ACCT No. Visit Date/Time Discharge Status Pt. Type Provider Facility Loc./Unit Complaint [id number] 05/08/2019 19:25:00 Document Registration [id number] 04/13/2019 13:51:00 019 15:15:00 DIS Outpatient LEESA HANCOCK APRN [facility] ER POSSIBLE STI [id number] 04/10/2018 23:22:00 018 00:22:00 DIS Emergency CLINTON SPIVEY DO a [facility] ER POSSIBLE EXPOSURE TO ST D [id number] 11/09/2017 00:38:00 018 02:54:00 DIS Emergency MARTELL GRECO MD [facility] ER LACERATION ON RT BREAST [id number] 01/05/2017 20:35:00 017 12:30:00 DIS Inpatient DONI MERRITT MD [facility] LDRP DELIV AMY [id number] 09/19/2016 15:48:00 017 17:19:00 DIS Emergency INÉS SANFORD [facility] ER 14 WKS PREG/PELVIC PAIN [id number] 09/08/2016 14:04:00 017 15:58:00 DIS Emergency HI MCCORMICK MD [facility] ER INJ FROM ALTER ATION 13 WKS PREG [id number] 07/07/2014 16:14:00 015 18:15:00 DIS Emergency LEESA HANCOCK APRN [facility] ER ARM PAIN [id number] 10/26/2013 06:51:00 014 14:30:00 DIS Inpatient DONI MERRITT MD [facility] WS INDUCTION [id number] 08/21/2013 12:50:00 014 23:59:59 CLS Outpatient LISA CANDELARIA MD [facility] RAD F/U LARGE KIDNEY' S [id number] 07/16/2013 11:10:00 014 23:59:59 CLS Outpatient LISA CANDELARIA MD [facility] RAD F/U LARGE KIDNEYS [id number] 06/11/2013 12:57:00 014 23:59:59 CLS Outpatient LISA CANDELARIA MD [facility] RAD SCREENING ANATOMY [id number] 09/01/2012 14:04:00 Document Registration [id number] 08/14/2013 09:55:00 08/14/2013 23:59: 59 CLS Outpatient LISA CANDELARIA MD [id number] 08/14/2013 09:55:00 08/14/2013 23:59: 59 CLS Outpatient LISA CANDELARIA MD [id number] 07/31/2013 09:36:00 07/31/2013 23:59: 59 CLS Outpatient LISA CANDELARIA MD [id number] 07/17/2013 08:50:00 07/17/2013 23:59: 59 CLS Outpatient LISA CANDELARIA MD [id number] 05/22/2013 11:07:00 05/22/2013 23:59: 59 CLS Outpatient LISA CANDELARIA MD [id number] 05/22/2013 11:07:00 05/22/2013 23:59: 59 CLS Outpatient LISA CANDELARIA MD [id number] 05/17/2013 10:10:00 05/17/2013 23:59: 59 CLS Outpatient CYRIL DAVID APRN [id number] 05/17/2013 10:10:00 05/17/2013 23:59: 59 CLS Outpatient CYRIL DAVID APRN [id number] 04/30/2013 12:09:00 04/30/2013 23:59: 59 CLS Outpatient XU JUAREZ APRNMERLYN Sidhu [id number] 04/23/2013 10:51:00 04/23/2013 23:59: 59 CLS Outpatient CYRIL DAVID APRN [id number] 04/23/2013 10:51:00 04/23/2013 23:59: 59 CLS Outpatient CYRIL DAVID APRN [id number] 03/26/2013 11:04:00 03/26/2013 23:59: 59 CLS Outpatient CYRIL DAVID APRN [id number] 03/26/2013 11:04:00 03/26/2013 23:59: 59 CLS Outpatient CYRIL DAVID APRN [id number] 03/21/2013 12:26:00 03/21/2013 23:59: 59 CLS Outpatient TANA JUAREZ APRN R [id number] 03/01/2013 10:29:00 03/01/2013 23:59: 59 CLS Outpatient ANGEL SYED APRN [id number] 08/25/2012 11:45:00 08/25/2012 23:59: 59 CLS Outpatient JOHN GOMEZ DO [id number] 02/01/2013 10:13:00 Document Registration [id number] 10/04/2012 12:44:00 Document Registration
[2019-11-18 22:29] LABS: BASOPHILS % (AUTO) 0 % (0-10); EOSINOPHILS # (AUTO) 0.1 10^3/uL (0.0-0.3); EOSINOPHILS % (AUTO) 1 % (0-10); HEMATOCRIT 40 % (35-52); HEMOGLOBIN 14.1 G/DL (11.5-16.0); LYMPHOCYTES # (AUTO) 1.8 X 10^3 (1.0-4.0); LYMPHOCYTES % (AUTO) 15 % (12-44); MEAN CORPUSCULAR HEMOGLOBIN 31 PG (25-34); MEAN CORPUSCULAR HGB CONC 35 G/DL (32-36); MEAN CORPUSCULAR VOLUME 88 FL (80-99); MEAN PLATELET VOLUME 9.3 FL (7.4-10.4); MONOCYTES # (AUTO) 0.7 X 10^3 (0.0-1.0); MONOCYTES % (AUTO) 6 % (0-12); NEUTROPHILS # (AUTO) 9.2 X 10^3 (1.8-7.8); NEUTROPHILS % (AUTO) 78 % (42-75); PLATELET COUNT 251 10^3/uL (130-400); RED CELL DISTRIBUTION WIDTH 13.3 % (10.0-14.5); WHITE BLOOD COUNT 11.8 10^3/uL (4.3-11.0)
[2019-11-18] MEDS ORDERED: TETANUS,DIPTH,PERTUSS P/F (BOOSTRIX) 0.5 ML VIAL IM ONE (22:30)
[2019-11-18 22:48] LABS: ALANINE AMINOTRANSFERASE 23 U/L (0-55); ALBUMIN 4.4 GM/DL (3.2-4.5); ALKALINE PHOSPHATASE 81 U/L (40-136); BILIRUBIN,TOTAL 0.7 MG/DL (0.1-1.0); BUN/CREATININE RATIO 19; CALCIUM 9.5 MG/DL (8.5-10.1); CARBON DIOXIDE 21 MMOL/L (21-32); CHLORIDE 108 MMOL/L (98-107); CREATINE KINASE 328 U/L (29-168); CREATININE SERUM 1.02 MG/DL (0.60-1.30); GFR ESTIMATED > 60; GLUCOSE 119 MG/DL (70-105); POTASSIUM 3.6 MMOL/L (3.6-5.0); SODIUM 142 MMOL/L (135-145); TOTAL PROTEIN 7.7 GM/DL (6.4-8.2)
[2019-11-18] MEDS ORDERED: LIDOCAINE 1% INJ 20 ML 20 ML VIAL INJ ONE (23:30)
[2019-11-18 23:36] LABS: AMPHETAMINE SCREEN, URINE POSITIVE (NEGATIVE); BARBITURATE SCREEN URINE NEGATIVE (NEGATIVE); BENZODIAZEPINES SCREEN URINE NEGATIVE (NEGATIVE); CANNABINOID SCREEN, URINE NEGATIVE (NEGATIVE); COCAINE SCREEN URINE NEGATIVE (NEGATIVE); METHADONE STAT NEGATIVE (NEGATIVE); METHAMPHETAMINE SCREEN URINE S NEGATIVE (NEGATIVE); OPIATE SCREEN URINE NEGATIVE (NEGATIVE); OXYCODONE STAT NEGATIVE (NEGATIVE); PROPOXYPHENE STAT NEGATIVE (NEGATIVE); TRICYCLIC ANTIDEPRESSANTS SCRE NEGATIVE (NEGATIVE)
[2019-11-18 23:38] VITALS: BP 125/89
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
== END 2019-11-18 23:47 | disposition home or self-care (01) ==
LOC: EDUNIT# 22:15 → ER 22:17
DX: S81.812A Laceration without foreign body, left lower leg, initial encounter (principal); T74.11XA Adult physical abuse, confirmed, initial encounter; S70.02XA Contusion of left hip, initial encounter; S70.01XA Contusion of right hip, initial encounter; S80.02XA Contusion of left knee, initial encounter; S80.01XA Contusion of right knee, initial encounter; S40.012A Contusion of left shoulder, initial encounter; S40.011A Contusion of right shoulder, initial encounter; S50.02XA Contusion of left elbow, initial encounter; S50.01XA Contusion of right elbow, initial encounter; F17.210 Nicotine dependence, cigarettes, uncomplicated; R40.2142 Coma scale, eyes open, spontaneous, at arrival to emergency department; R40.2252 Coma scale, best verbal response, oriented, at arrival to emergency department; R40.2362 Coma scale, best motor response, obeys commands, at arrival to emergency department; Z80.8 Family history of malignant neoplasm of other organs or systems; Z23 Encounter for immunization; Z82.49 Family history of ischemic heart disease and other diseases of the circulatory system; Y04.0XXA Assault by unarmed brawl or fight, initial encounter; Y07.03 Male partner, perpetrator of maltreatment and neglect
CPT/HCPCS: 36415; 73090; 80053; 80306; 82550; 84703; 85025; 90715

== ENCOUNTER 2020-01-28 16:59 | Emergency (ER) | payer SELFPAY ==
[~2020-01-28] VITALS: Ht 165 cm; Wt 64.0 kg
--- NOTE | 2020-01-28 17:21 | ED GU-Female ---
General Chief Complaint: OB < 20 WEEKS Stated Complaint: 14 WKS PREG/VAG BLEEDING Source: patient Exam Limitations: no limitations History of Present Illness Date Seen by Provider: Jan 28, 2020 Time Seen by Provider: 17:17 Initial Comments To ER by private vehicle with reports of vaginal bleeding. This began just prior to arrival during intercourse she noticed a bit of blood on the sheets. She states it was a small amount. She has no abdominal pain or cramping. ab1. She is on a vitamin but has not yet established care with a physician. She believes she is about 14 weeks gestation. Timing/Duration: just prior to arrival Severity/Quality: mild Location: unknown Radiation: none Activities at Onset: none Prior Genitourinary Problems: none Allergies and Home Medications Allergies Coded Allergies: Penicillins (Verified Allergy, Unknown, 01/05/17) Home Medications Cephalexin 500 Mg Tablet, 500 MG PO QID Prescribed by: MARTELL GRECO on 11/09/17 0302 Ciprofloxacin 500 Mg/5 Ml Alisa..rec, 500 MG PO BID Prescribed by: DONI MILES on 01/07/17 06 Docusate Sodium 100 Mg Capsule, 100 MG PO BID Prescribed by: DONI MILES on 01/07/17 0635 Doxycycline Monohydrate 100 Mg Capsule, 100 MG PO BID Prescribed by: CLINTON SPIVEY on 04/10/18 2355 Hydrocodone Bit/Acetaminophen 1 Tab Tab, 1 EACH PO Q6H PRN for BREAKTHROUGH PAIN Prescribed by: MARTELL GRECO on 11/09/17 0302 Ibuprofen 800 Mg Tablet, 800 MG PO Q6H Prescribed by: DONI MILES on 01/07/17 0635 Metronidazole 500 Mg Tablet, 500 MG PO BID Prescribed by: DONI MILES on 01/07/17 0635 Metronidazole 500 Mg Tablet, 500 MG PO QID Prescribed by: CLINTON SPIVYE on 04/10/18 2355 Metronidazole 500 Mg Tablet, 500 MG PO BID Prescribed by: LEESA HANCOCK on 04/13/19 1510 Oxycodone HCl/Acetaminophen 1 Each Tablet, 1-2 TAB PO Q4HR PRN for PAIN-MODERATE TO SEVERE Prescribed by: DONI MILES on 01/07/17 0635 Patient Home Medication List Home Medication List Reviewed: Yes Review of Systems Review of Systems Constitutional: see HPI EENTM: see HPI Respiratory: no symptoms reported Cardiovascular: no symptoms reported Genitourinary: see HPI Musculoskeletal: no symptoms reported Skin: no symptoms reported Psychiatric/Neurological: No Symptoms Reported Past Hctukxb-Iiizsh-Xrgwes Hx Patient Social History Type Used: Cigarettes 2nd Hand Smoke Exposure: No Recent Foreign Travel: No Contact w/Someone Who Travel: No Recent Hopitalizations: No Immunizations Up To Date Tetanus Booster (TDap): More than 5yrs Seasonal Allergies Seasonal Allergies: No Past Medical History Surgeries: Yes (C/S x 2) Section Respiratory: Yes (Exercise induced asthma/doesn't use inhaler) Asthma Cardiac: No Neurological: No Reproductive Disorders: Yes Female Reproductive Disorders: Menstrual Problems Sexually Transmitted Disease: Yes (HPV, Chlamydia at 18-Treated) HIV/AIDS: No Genitourinary: Yes UTI-Chronic Gastrointestinal: No Musculoskeletal: Yes (Fractured lower Lumbar vertebrae) Fractures Endocrine: No HEENT: No Loss of Vision: Denies Hearing Impairment: Denies Cancer: No Psychosocial: Yes ADD/ADHD Integumentary: No Blood Disorders: No Adverse Reaction/Blood Tranf: No Family Medical History Cancer Grandparents (Maternal Grandfather-Throat Cancer Maternal Grandmother- Cervical Cancer? Vaginal Cancer?) Chest pain Grandparents (Maternal Grandfather) Family history: Arthritis Grandparents (Paternal Grandfather) Family history: Asthma Grandparents (Maternal Grandmother) Family history: Cardiovascular disease Grandparents (Maternal Grandfather) Family history: Diabetes mellitus 19 FATHER 19 MOTHER Grandparents (Paternal Grandmother) Family history: Hypertension 19 FATHER 19 MOTHER Grandparents (All Grandparents) Headache G8 SISTER (Chronic Headaches/Migraines) Hypercholesterolemia Grandparents (Maternal Grandfather) Myocardial infarction 19 FATHER Grandparents (Maternal Grandfather) Psychotic disorder 19 FATHER (Suicide attempt) Seizure disorder G8 SISTER (Had 1 seizure, never diagnosed with disorder) Stroke Grandparents (Maternal Grandfather and Grandmother) No Family History of: Abdominal aortic aneurysm Douglas's disease Alcoholism Aphasia Cancer of colon Cataract Congenital heart disease Congestive heart failure Cystic fibrosis Dementia Dysphagia Family history: Allergy Family history: Alzheimer's disease Family history: Breast disease Family history: Coronary thrombosis Family history: Gastrointestinal disease Family history: Glaucoma Family history: Osteoporosis Family history: Thyroid disorder Hearing loss Heart disease Hereditary disease History of - anemia History of - respiratory disease History of drug abuse Human immunodeficiency virus (HIV) seropositivity Infertile Kidney disease Malignant neoplasm of lung Parkinson's disease Prostate cancer Tuberculosis Visual impairment Physical Exam Vital Signs Capillary Refill : Height, Weight, BMI Height: 5'6.00" Weight: 120lbs. oz. 54.026220ac; 22.00 BMI Method:Stated General Appearance: WD/WN, no apparent distress HEENT: PERRL/EOMI, normal ENT inspection Neck: non-tender, full range of motion Respiratory: no respiratory distress, no accessory muscle use Gastrointestinal: normal bowel sounds, non tender, soft Extremities: normal range of motion, non-tender, other (does have a GPS ankle bracelet on right ankle) Neurologic/Psychiatric: alert, normal mood/affect, oriented x 3 Skin: normal color, warm/dry Bedside ultrasound reveals an intrauterine fetus I'm unable to measure crown- rump length. Positive motion is seen and cardiac activity is measured at 165 bpm. Procedures/Interventions Suture Size: 4-0 Progress/Results/Core Measures Suspected Sepsis SIRS Temperature: Pulse: Respiratory Rate: Laboratory Tests 01/28/20 17:22: White Blood Count 11.4H Blood Pressure / Mean: Laboratory Tests 01/28/20 17:22: Platelet Count 292 Results/Orders Lab Results Laboratory Tests Test 01/28/20 17:22 01/28/20 17:23 Range/Units White Blood Count 11.4 H 4.3-11.0 10^3/uL Red Blood Count 4.13 L 4.35-5.85 10^6/uL Hemoglobin 12.9 11.5-16.0 G/DL Hematocrit 36 35-52 % Mean Corpuscular Volume 87 80-99 FL Mean Corpuscular Hemoglobin 31 25-34 PG Mean Corpuscular Hemoglobin Concent 36 32-36 G/DL Red Cell Distribution Width 12.8 10.0-14.5 % Platelet Count 292 130-400 10^3/uL Mean Platelet Volume 9.0 7.4-10.4 FL Neutrophils (%) (Auto) 72 42-75 % Lymphocytes (%) (Auto) 18 12-44 % Monocytes (%) (Auto) 9 0-12 % Eosinophils (%) (Auto) 1 0-10 % Basophils (%) (Auto) 0 0-10 % Neutrophils # (Auto) 8.2 H 1.8-7.8 X 10^3 Lymphocytes # (Auto) 2.1 1.0-4.0 X 10^3 Monocytes # (Auto) 1.0 0.0-1.0 X 10^3 Eosinophils # (Auto) 0.1 0.0-0.3 10^3/uL Basophils # (Auto) 0.0 0.0-0.1 10^3/uL Urine Color YELLOW Urine Clarity CLEAR Urine pH 5.5 5-9 Urine Specific [place] >=1.030 1.016-1.022 Urine Protein NEGATIVE NEGATIVE Urine Glucose (UA) NEGATIVE NEGATIVE Urine Ketones NEGATIVE NEGATIVE Urine Nitrite NEGATIVE NEGATIVE Urine Bilirubin NEGATIVE NEGATIVE Urine Urobilinogen 0.2 < = 1.0 MG/DL Urine Leukocyte Esterase NEGATIVE NEGATIVE Urine RBC (Auto) TRACE-I NEGATIVE Urine RBC NONE /HPF Urine WBC 10-25 H /HPF Urine Squamous Epithelial Cells RARE /HPF Urine Crystals NONE /LPF Urine Bacteria TRACE /HPF Urine Casts NONE /LPF Urine Mucus NEGATIVE /LPF Urine Culture Indicated YES Urine Opiates Screen NEGATIVE NEGATIVE Urine Oxycodone Screen NEGATIVE NEGATIVE Urine Methadone Screen NEGATIVE NEGATIVE Urine Propoxyphene Screen NEGATIVE NEGATIVE Urine Barbiturates Screen NEGATIVE NEGATIVE Ur Tricyclic Antidepressants Screen NEGATIVE NEGATIVE Urine Phencyclidine Screen NEGATIVE NEGATIVE Urine Amphetamines Screen POSITIVE H NEGATIVE Urine Methamphetamines Screen NEGATIVE NEGATIVE Urine Benzodiazepines Screen NEGATIVE NEGATIVE Urine Cocaine Screen NEGATIVE NEGATIVE Urine Cannabinoids Screen NEGATIVE NEGATIVE My Orders Orders - LEESA HANCOCK APRN Drug Screen Stat (Urine) (01/28/20 17:16) Cbc With Automated Diff (01/28/20 17:16) Hcg,Quantitative (01/28/20 17:16) Ua Culture If Indicated (01/28/20 17:16) Urine Culture (01/28/20 17:23) Vital Signs/I&O Capillary Refill : Departure Impression Primary Impression: Vaginal bleeding affecting early Additional Impressions: Threatened UTI (urinary tract infection) Qualified Codes: N30.00 - Acute cystitis without hematuria Disposition: HOME, SELF-CARE Condition: Stable Departure-Patient Inst. Decision time for Depature: 17:20 Referrals: [facility] (PCP/Family) Primary Care Physician Patient Instructions: Bleeding With (DC), Threatened Miscarriage Add. Discharge Instructions: 1. Return to ER for any concerns. Call Dr. Segundo tomorrow to make an appointment to be seen. All discharge instructions reviewed with patient and/or family. Voiced understanding. Scripts Cefdinir (Cefdinir) 300 Mg Capsule 300 MG PO BID, #10 CAP Prov: LEESA HANCOCK APRN 01/28/20 LEESA HANCOCK APRN Jan 28, 2020 17:21
[2020-01-28 17:33] LABS: BASOPHILS % (AUTO) 0 % (0-10); EOSINOPHILS # (AUTO) 0.1 10^3/uL (0.0-0.3); EOSINOPHILS % (AUTO) 1 % (0-10); HEMATOCRIT 36 % (35-52); HEMOGLOBIN 12.9 G/DL (11.5-16.0); LYMPHOCYTES # (AUTO) 2.1 X 10^3 (1.0-4.0); LYMPHOCYTES % (AUTO) 18 % (12-44); MEAN CORPUSCULAR HEMOGLOBIN 31 PG (25-34); MEAN CORPUSCULAR HGB CONC 36 G/DL (32-36); MEAN CORPUSCULAR VOLUME 87 FL (80-99); MONOCYTES % (AUTO) 9 % (0-12); NEUTROPHILS # (AUTO) 8.2 X 10^3 (1.8-7.8); NEUTROPHILS % (AUTO) 72 % (42-75); PLATELET COUNT 292 10^3/uL (130-400); RED CELL DISTRIBUTION WIDTH 12.8 % (10.0-14.5); WHITE BLOOD COUNT 11.4 10^3/uL (4.3-11.0)
[2020-01-28 17:35] LABS: BILIRUBIN,URINE NEGATIVE (NEGATIVE); CLARITY,URINE CLEAR; COLOR,URINE YELLOW; GLUCOSE, URINE (UA) NEGATIVE (NEGATIVE); KETONES,URINE NEGATIVE (NEGATIVE); LEUKOCYTE ESTERASE ,URINE NEGATIVE (NEGATIVE); NITRITE,URINE NEGATIVE (NEGATIVE); PH,URINE 5.5 (5-9); PROTEIN,URINE NEGATIVE (NEGATIVE)
[2020-01-28 17:44] LABS: BACTERIA,URINE TRACE /HPF; SQUAMOUS EPITHELIAL CELL,UR RARE /HPF
[2020-01-28 17:53] LABS: AMPHETAMINE SCREEN, URINE POSITIVE (NEGATIVE); BARBITURATE SCREEN URINE NEGATIVE (NEGATIVE); BENZODIAZEPINES SCREEN URINE NEGATIVE (NEGATIVE); CANNABINOID SCREEN, URINE NEGATIVE (NEGATIVE); COCAINE SCREEN URINE NEGATIVE (NEGATIVE); METHADONE STAT NEGATIVE (NEGATIVE); METHAMPHETAMINE SCREEN URINE S NEGATIVE (NEGATIVE); OPIATE SCREEN URINE NEGATIVE (NEGATIVE); OXYCODONE STAT NEGATIVE (NEGATIVE); PROPOXYPHENE STAT NEGATIVE (NEGATIVE); TRICYCLIC ANTIDEPRESSANTS SCRE NEGATIVE (NEGATIVE)
[2020-01-28] MEDS ORDERED: CEFD300C3 PO (17:57)
[2020-01-28 18:03] VITALS: BP 122/80
== END 2020-01-28 18:03 | disposition home or self-care (01) ==
LOC: EDUNIT# 16:59 → ER 17:00
DX: O20.0 Threatened abortion (principal); O23.42 Unspecified infection of urinary tract in pregnancy, second trimester; Z3A.14 14 weeks gestation of pregnancy; Z88.0 Allergy status to penicillin; Z80.8 Family history of malignant neoplasm of other organs or systems; Z82.49 Family history of ischemic heart disease and other diseases of the circulatory system
CPT/HCPCS: 36415; 80306; 81000; 84702; 85025; 87088

== ENCOUNTER 2020-07-30 12:40 | Inpatient (IN) | payer MEDICAID ==
[~2020-07-30] VITALS: Ht 166.4 cm; Wt 77.9 kg
[2020-07-30] VITALS (10 sets, daily range): BP systolic 93–132; BP diastolic 47–91
[~2020-07-30 12:40] MED LIST changes: +CEFD300C3 PO; -OXYC-465 PO; +OXYC-556 PO
[2020-07-30 13:27] LABS: BILIRUBIN,URINE NEGATIVE (NEGATIVE); CLARITY,URINE CLEAR; COLOR,URINE YELLOW; GLUCOSE, URINE (UA) NEGATIVE (NEGATIVE); KETONES,URINE NEGATIVE (NEGATIVE); LEUKOCYTE ESTERASE ,URINE NEGATIVE (NEGATIVE); NITRITE,URINE NEGATIVE (NEGATIVE); PROTEIN,URINE NEGATIVE (NEGATIVE)
[2020-07-30 13:33] LABS: BACTERIA,URINE NEGATIVE /HPF; WBC,URINE RARE /HPF
[2020-07-30] MEDS ORDERED: CLINDAMYCIN 900 MG/50 ML IVPB 50 ML IV ONE ×2 (16:21→17:00)
[2020-07-30] MEDS ORDERED: METOCLOPRAMIDE INJ 10 MG/2 ML (REGLAN) ONE (16:21)
[2020-07-30] MEDS ORDERED: FAMOTIDINE 20MG/2ML IV (PEPCID) ONE (16:21)
[2020-07-30] MEDS ORDERED: CITRIC ACID/SOB CIT (BICITRA) 30 ML UDC ONE (16:21)
[2020-07-30] MEDS ORDERED: fentaNYL INJECTION 100 MCG/2 ML AMP ONE (16:53)
[2020-07-30 16:57] LABS: BASOPHILS % (AUTO) 0 % (0-10); EOSINOPHILS # (AUTO) 0.4 10^3/uL (0.0-0.3); EOSINOPHILS % (AUTO) 3 % (0-10); HEMATOCRIT 33 % (35-52); LYMPHOCYTES # (AUTO) 1.6 10^3/uL (1.0-4.0); LYMPHOCYTES % (AUTO) 11 % (12-44); MEAN CORPUSCULAR HEMOGLOBIN 30 pg (25-34); MEAN CORPUSCULAR HGB CONC 33 g/dL (32-36); MEAN CORPUSCULAR VOLUME 89 fL (80-99); MEAN PLATELET VOLUME 10.8 fL (9.0-12.2); MONOCYTES # (AUTO) 0.9 10^3/uL (0.0-1.0); MONOCYTES % (AUTO) 6 % (0-12); NEUTROPHILS # (AUTO) 11.6 10^3/uL (1.8-7.8); NEUTROPHILS % (AUTO) 80 % (42-75); PLATELET COUNT 176 10^3/uL (130-400); WHITE BLOOD COUNT 14.5 10^3/uL (4.3-11.0)
[2020-07-30] MEDS ORDERED: CITRIC ACID/SOB CIT (BICITRA) 30 ML UDC PO ONE (17:00)
[2020-07-30] MEDS ORDERED: LACTATED RINGERS 1,000 ML IV PRN ×2 (17:00)
[2020-07-30] MEDS ORDERED: CATHETER FLUSH 10 ML SYR IV PRN (17:00)
[2020-07-30] MEDS ORDERED: FAMOTIDINE 20MG/2ML IV (PEPCID) IV ONE (17:00)
[2020-07-30] MEDS ORDERED: METOCLOPRAMIDE INJ 10 MG/2 ML (REGLAN) IV ONE (17:00)
--- NOTE | 2020-07-30 17:04 | History & Physical-OB ---
OB - Chief Complaint & HPI Date/Time Date of Admission: Date of Admission: 07/30/2020 Date seen by a Provider: Jul 30, 2020 Time Seen by a Provider: 16:30 Chief Complaint/History OB-Reason for Admission/Chief: Section Hx : 3 Hx Para: 1 Expected Date of Delivery: Aug 27, 2020 Gestational Age in Weeks: 36 Gestational Age in Days: 0 Indication for : desires repeat Other reason for admission: Patient came in for suspected ROM, Nitrazine was positive, and BPP was ordered. RAMAN < 4 cm, BPP 2/10. Admission Nurse Assessment Rev: Yes History of Labs GBS neg Allergies and Home Medications Allergies Coded Allergies: Penicillins (Verified Allergy, Unknown, 01/05/17) Home Medications Cefdinir 300 Mg Capsule, 300 MG PO BID Prescribed by: LEESA HANCOCK on 01/28/20 175 Cephalexin 500 Mg Tablet, 500 MG PO QID Prescribed by: MARTELL GRECO on 11/09/17 030 Ciprofloxacin 500 Mg/5 Ml Alisa..rec, 500 MG PO BID Prescribed by: DONI MILES on 01/07/17634 Docusate Sodium 100 Mg Capsule, 100 MG PO BID Prescribed by: DONI MILES on 01/07/17634 Doxycycline Monohydrate 100 Mg Capsule, 100 MG PO BID Prescribed by: CLINTON SPIVEY on 04/10/18 235 Hydrocodone Bit/Acetaminophen 1 Tab Tab, 1 EACH PO Q6H PRN for BREAKTHROUGH PAIN Prescribed by: MARTELL GRECO on 11/09/17 0302 Ibuprofen 800 Mg Tablet, 800 MG PO Q6H Prescribed by: DONI MILES on 01/07/17 06 Metronidazole 500 Mg Tablet, 500 MG PO BID Prescribed by: DONI MILES on 01/07/17634 Metronidazole 500 Mg Tablet, 500 MG PO QID Prescribed by: CLINTON SPIVEY on 04/10/18 235 Metronidazole 500 Mg Tablet, 500 MG PO BID Prescribed by: LEESA HANCOCK on 04/13/19 1510 Oxycodone HCl/Acetaminophen 1 Each Tablet, 1-2 TAB PO Q4HR PRN for PAIN-MODERATE TO SEVERE Prescribed by: DONI MILES on 01/07/17 0635 Patient Home Medication List Home Medication List Reviewed: Yes OB - History Hx of Present Care: Yes Ultrasounds: Normal mid trimester US Obstetrical Complications: None, Other (history of still ) Medical Complications: None Obstetrical History Hx : 3 Hx Para: 1 Hx Termination: No Hx Total # of Abortions (Spona: 1 Hx Multiple Gestation: No Hx Stillbirth: No Hx Complication: No Hx Induced Hypertens: No Hx Maternal Gestational Diabet: No Delivery History Hx Dystocia: No Hx Large For Gestational Age I: No Hx Small for Gestational Age I: No Hx Section: No Hx Vaginal Delivery Post C-Sec: No Hx Blood Disorders: No Adverse Rxn to Tranfusion: No Patient Past Medical History N/A Social History/Family History Alcohol Use: Denies Use Recreational Drug Use: No 2nd Hand Smoke Exposure: Yes Immunizations Tetanus Booster (TDap): More than 5yrs OB - Admission Exam Physical Exam Vitals: Vital Signs 07/30/20 13:04 Temp 36.9 Pulse 91 Resp 18 Pulse Ox 98 O2 Delivery Room Air HEENT: NCAT Heart: Rhythm Normal Lungs: Clear Abdomen: Gravid Extremities: Normal Reflexes: Normal Cervical Dilatation: Fingertip Effacement: 50% Station: -1 Membranes: Ruptured Amniotic Fluid: Clear Heart Rate: 130's Accelerations: No Accelerations Decelerations: No Decelerations Short Term Variability: Present Fpc Variability: Minimal (3-5) Contractions on Admission: 6-10 Minutes Apart Intensity: Mild Labs Laboratory Tests Test 07/30/20 13:15 07/30/20 16:40 Range/Units Urine Color YELLOW Urine Clarity CLEAR Urine pH 6.0 5-9 Urine Specific [place] 1.015 L 1.016-1.022 Urine Protein NEGATIVE NEGATIVE Urine Glucose (UA) NEGATIVE NEGATIVE Urine Ketones NEGATIVE NEGATIVE Urine Nitrite NEGATIVE NEGATIVE Urine Bilirubin NEGATIVE NEGATIVE Urine Urobilinogen 0.2 < = 1.0 MG/DL Urine Leukocyte Esterase NEGATIVE NEGATIVE Urine RBC (Auto) NEGATIVE NEGATIVE Urine RBC NONE /HPF Urine WBC RARE /HPF Urine Squamous Epithelial Cells 2-5 /HPF Urine Crystals NONE /LPF Urine Bacteria NEGATIVE /HPF Urine Casts NONE /LPF Urine Mucus NEGATIVE /LPF Urine Culture Indicated NO OB - Assessment/Plan/Diagnosis Assessment Assessment: section, rupture of membranes Admission Dx 30 yo @ 36 weeks Previous x 2 History of still Oligohydramnios- suspected SROM BPP 2/10 GBS neg Admission Status: Inpatient Order (span 2 midnights) Reason for Inpatient Admission: Repeat Plan Plan: Section DARLEEN HAMM DO Jul 30, 2020 5:04 pm
--- NOTE | 2020-07-30 17:06 | Discharge Inst-Women's Service ---
Discharge Inst-Women's Serv Depart Medication/Instructions New, Converted or Re-Newed RX: RX on Chart Final Diagnosis POD 2 RLTCS Problems Reviewed?: Yes Consults/Follow Up Additional Follow Up: Yes Orders/Referrals Dr. Torre in 7-[address] Segundo in 6 weeks Activity Activity: Activity as Tolerated Driving Instructions: No Driving for 1 Week NO SMOKING: NO SMOKING Nothing Inside Vagina: No Douching, No [place], No Tampons Diet Discharge Diet: No Restrictions Symptoms to Report to : Bleeding Excessive, Pain Increased, Fever Over 101 Degrees F, Vaginal Bleeding Increase, Questions/Concerns For Any Problems or Questions: Contact Your Physician Skin/Wound Care Infection Signs and Symptoms: Increased Redness, Foul Odor of Wound, Increased Drainage, Skin Itchy or Has a Rash, Increased Swelling, Temperature Above 101 F Operative Area Clean and Dry: Keep Incision Clean/Dry Stitches/[place]/Dermabond: Dermabond, Care of Stitches Bathing Instructions: DARLEEN Arambula DO Jul 30, 2020 5:06 pm
[2020-07-30] MEDS ORDERED: ACHD5005 PO (17:10)
[2020-07-30] MEDS ORDERED: IBUP-844 PO (17:10)
[2020-07-30] MEDS ORDERED: DCS100C PO (17:10)
[2020-07-30] MEDS ORDERED: OXYTOCIN (PITOCIN) 10 UNIT/ML VIAL ONE (17:13)
[2020-07-30] MEDS ORDERED: BUPIVACAINE 0.5% 30 ML (SENSORCAINE) VIAL ONE (17:13)
[2020-07-30] MEDS ORDERED: ONDANSETRON 4 MG/2 ML (SDV) Z0FRAN IVP PRN (17:15)
[2020-07-30] MEDS ORDERED: MEASLES,MUMPS,RUBELLA 1 EA INJ SC SCH (17:15)
[2020-07-30] MEDS ORDERED: TETANUS,DIPTH,PERTUSS P/F (BOOSTRIX) 0.5 ML VIAL IM SCH (17:15)
[2020-07-30 17:28] LABS: EOSINOPHILS % (MANUAL) 3 %; LYMPHOCYTES % (MANUAL) 6 %; MONOCYTES % (MANUAL) 9 %; NEUTROPHILS % (MANUAL) 82 %
[2020-07-30 17:29] LABS: RBC MORPH NORMAL
--- NOTE | 2020-07-30 17:34 | Diagnostic Imaging Report ---
INDICATION: Leaking fluid. Biophysical profile was performed. Fetus is cephalic. heart rate recorded at 152 bpm. Amniotic fluid index is 4.2 cm. Overall biophysical profile score is 2 out of 8 with deduction given for lack of breathing movements, lack of movements as well as lack of posture and tone. IMPRESSION: Biophysical profile scored 2 out of 8, as described. Report was given to the patient's nurse at the time of exam by the technologist. Dictated by: Dictated on workstation # [id number]
[2020-07-30 17:46] LABS: AMPHETAMINE SCREEN, URINE POSITIVE (NEGATIVE); BARBITURATE SCREEN URINE NEGATIVE (NEGATIVE); BENZODIAZEPINES SCREEN URINE NEGATIVE (NEGATIVE); CANNABINOID SCREEN, URINE NEGATIVE (NEGATIVE); COCAINE SCREEN URINE NEGATIVE (NEGATIVE); METHADONE STAT NEGATIVE (NEGATIVE); METHAMPHETAMINE SCREEN URINE S POSITIVE (NEGATIVE); OPIATE SCREEN URINE NEGATIVE (NEGATIVE); OXYCODONE STAT NEGATIVE (NEGATIVE); PROPOXYPHENE STAT NEGATIVE (NEGATIVE); TRICYCLIC ANTIDEPRESSANTS SCRE NEGATIVE (NEGATIVE)
[2020-07-30] MEDS ORDERED: PHENYLEPHRINE 100 MCG/ML 10 ML (ANESTHESIA) SYR ONE (18:10)
[2020-07-30] MEDS: KETOROLAC 30 MG/ML VIAL IV SCH (19:08)
[2020-07-30] MEDS: OXYTOCIN PRE-MIX DRIP 500 ML IV SCH ×2 (19:56→21:15)
[2020-07-30] MEDS: DOCUSATE SODIUM 100 MG (COLACE) CAP PO SCH (20:50)
[2020-07-30] MEDS ORDERED: diphenhydrAMINE 50 MG/ML INJ (BENADRYL) ONE (21:04)
[2020-07-30] MEDS ORDERED: diphenhydrAMINE 50 MG/ML INJ (BENADRYL) IVP ONE (21:15)
--- NOTE | 2020-07-30 22:06 | OPERATIVE REPORT ---
DATE OF SERVICE: PREOPERATIVE DIAGNOSES: 1. A 30-year-old G3, P1 at 36 weeks gestation. 2. Previous section. 3. Suspected rupture of membranes with oligohydramnios. 4. A 2 out of 10 biophysical profile. 5. History of methamphetamine use. POSTOPERATIVE DIAGNOSES: 1. A 30-year-old G3, P1 at 36 weeks gestation. 2. Previous section. 3. Suspected rupture of membranes with oligohydramnios. 4. A 2 out of 10 biophysical profile. 5. History of methamphetamine use. PROCEDURE: Repeat low transverse section. SURGEON: Dontae Hamm DO ANESTHESIA: Spinal. ESTIMATED BLOOD LOSS: 400 mL. URINE OUTPUT: 200 mL clear at the end of the procedure. FLUIDS: 500 mL lactated Ringer's solution. FINDINGS: A live male infant weighing 6 pounds 11 ounces, Apgars of 8 and 9. Grossly normal appearing uterus, bilateral fallopian tubes and ovaries. SPECIMEN SENT: Placenta. INDICATIONS FOR PROCEDURE: This 30-year-old female is a patient who had sought care with my partner, Dr. Segundo. Her was uncomplicated; however, there was a history of methamphetamine and illicit drug use in the past. She was under his surveillance and being followed closely with biophysical and ultrasound. She presented to the hospital today after having leakage of fluid at home, which confirmed a positive Nitrazine at the hospital as well as an amniotic fluid index of less than 4 cm. Her biophysical profile at that time was also found to be 2. Therefore, due to concerns of wellbeing as well as premature rupture of membranes, I discussed with the patient indication for delivery at 36 weeks. Risks of the procedure were discussed with the patient in detail including the risk for prematurity. After all of her questions were answered, consent was obtained in the preoperative area, the patient was taken to the operating room. OPERATIVE REPORT IN DETAIL: Once in the operating room, spinal analgesia was found to be adequate, placed in a supine position with a leftward tilt, prepped and draped in normal sterile fashion. A timeout was performed, and anesthesia was tested. I then make a Pfannenstiel skin incision through the previously existing scar using a knife and carried down to underlying fascia using Bovie cautery. The fascial incision was extended laterally using Bovie cautery. Superior aspect of the fascial incision was then grasped with Mk clamps, tented up and dissected off the underlying rectus muscles. The inferior aspect of the fascial incision was then grasped with Mk clamps, tented up and dissected off of the underlying rectus muscle. Rectus muscle was then dissected down the midline using Tracey scissors, which exposed the peritoneum, which I entered bluntly using blunt traction. Nick ring retractor was placed in the peritoneal incision, which offers excellent lateral sidewall retraction. I then identified the lower uterine segment, which was found to be thinned out and make a low transverse incision to the vesicouterine peritoneum and bluntly dissected off the lower uterine segment, creating a bladder flap. I then proceeded with myotomy until membranes were visualized, at which point I extended the uterine incision laterally and superiorly using bandage scissors. There was evidence of rupture of membranes upon entry into the uterine cavity due to no pressure behind the amniotic sac. The infant was found in vertex presentation. With gentle fundal pressure, the infant's head was elevated up to the incision where the nares and oropharynx were bulb suctioned. Anterior and posterior shoulders were delivered. was then brought to the operative field with cord doubly clamped and cut and infant was handed off to waiting nurses in attendance. Cord blood was collected, 3-vessel cord with intact placenta was delivered spontaneously thereafter. IV Pitocin was initiated to facilitate uterine contraction. Uterine fundus confirmed by manual massage. The uterus was then exteriorized and cleared of all endometrial clots and debris. I then proceeded with closing the uterine incision using 0 Vicryl suture in running locked fashion. Second layer of imbricating 0 Monocryl was placed. Excellent hemostasis was noted after doing this. I then placed the uterus back in the pelvis and copiously irrigated the pelvis using normal saline. There was no active bleeding noted from any of my dissection planes. I placed Interceed antiadhesive over my low transverse incision and then removed the Nick ring retractor. I proceeded with closing the peritoneum using 3-0 Vicryl suture in running fashion. The rectus muscle reapproximated using 3-0 Vicryl suture in interrupted fashion. The fascia was reapproximated using 0 Vicryl suture in a running fashion. Subcutaneous tissue was reapproximated using 3-0 plain interrupted subcutaneous stitch and skin was reapproximated using danna. Sterile dressing was adhesed with white tape. The patient tolerated the procedure well and was taken to recovery area in stable condition. Lap and sponge counts were correct at the end of the procedure. Instrument counts correct as well. A 900 mg of clindamycin used preoperatively for infection prophylaxis due to penicillin allergy. Job ID: [id number] DocumentID: [id number] Dictated Date: 07/30/2020 18:32:49 Laboratory Tech Date: 07/30/2020 22:05:44 Dictated By: DONTAE HAMM DO
[2020-07-30] MEDS: HYDROcodone/APAP 5 MG/325 MG (LORTAB) TAB PO PRN (22:10)
[2020-07-30] MEDS: CATHETER FLUSH 10 ML SYR IV SCH (23:14)
[2020-07-31 01:00] VITALS: BP 117/69
[2020-07-31] MEDS: KETOROLAC 30 MG/ML VIAL IV SCH ×3 (01:10→11:43)
[2020-07-31] MEDS: HYDROcodone/APAP 5 MG/325 MG (LORTAB) TAB PO PRN ×4 (02:26→23:39)
[2020-07-31 04:30] VITALS: BP 127/68
[2020-07-31 06:03] LABS: BASOPHILS % (AUTO) 0 % (0-10); EOSINOPHILS # (AUTO) 0.3 10^3/uL (0.0-0.3); EOSINOPHILS % (AUTO) 2 % (0-10); HEMATOCRIT 30 % (35-52); HEMOGLOBIN 10.4 g/dL (11.5-16.0); LYMPHOCYTES # (AUTO) 1.2 10^3/uL (1.0-4.0); LYMPHOCYTES % (AUTO) 7 % (12-44); MEAN CORPUSCULAR HEMOGLOBIN 31 pg (25-34); MEAN CORPUSCULAR HGB CONC 34 g/dL (32-36); MEAN CORPUSCULAR VOLUME 89 fL (80-99); MEAN PLATELET VOLUME 11.5 fL (9.0-12.2); MONOCYTES # (AUTO) 0.6 10^3/uL (0.0-1.0); MONOCYTES % (AUTO) 4 % (0-12); NEUTROPHILS # (AUTO) 15.3 10^3/uL (1.8-7.8); NEUTROPHILS % (AUTO) 87 % (42-75); PLATELET COUNT 165 10^3/uL (130-400); WHITE BLOOD COUNT 17.5 10^3/uL (4.3-11.0)
[2020-07-31] MEDS: CATHETER FLUSH 10 ML SYR IV SCH ×2 (06:03→11:43)
--- NOTE | 2020-07-31 07:13 | Anesthesia-Regional Post-Op ---
Regional Patient Condition Mental Status: Alert, Oriented x3 Circulation: Same as Pre-Op Headache: Absent Sensation: Full Recovery Motor Block: Absent Post Op Complications Complications None Follow Up Care/Instructions Patient Instructions None needed. Anesthesia/Patient Condition Patient is doing well, no complaints, stable vital signs, no apparent adverse anesthesia problems. No complications reported per nursing. BRAYAN LEYVA CRNA Jul 31, 2020 07:13
--- NOTE | 2020-07-31 08:28 | Postpartum Progress Note ---
Note Note Day # 1 Subjective: Patient is without complaints. Ambulating, voiding. Tolerating a regular diet without nausea or vomiting. Normal lochia. Pain is well controlled with oral pain medications. Objective: Physical Exam: General - Alert and oriented, no apparent distress Abdomen - Soft, appropriately tender to palpation, non-distended, fundus firm at umbilicus Extremities - no edema, negative Nils's bilaterally Incision - c/d/i Assessment: POD 1 RLTCS Acute blood loss anemia Plan: Routine care. Encourage breast feeding. Encourage ambulation. Ferrous sulfate supplementation. Plan for discharge tomorrow Vitals - Labs Vital Signs - I&O Vital Signs Date Time Temp Pulse Resp B/P (MAP) Pulse Ox O2 Delivery O2 Flow Rate FiO2 07/31/20 04:30 37.1 66 18 127/68 (87) Room Air 07/31/20 01:00 37.1 67 18 117/69 (85) 98 Room Air 07/30/20 21:00 36.7 64 18 132/83 (99) 100 Room Air 07/30/20 20:06 Room Air 07/30/20 19:30 Room Air 07/30/20 19:21 10 118/91 (100) 100 Room Air 07/30/20 19:14 36.3 16 100 Room Air 07/30/20 19:04 14 123/89 (100) 99 Room Air 07/30/20 19:00 Room Air 07/30/20 18:54 12 109/75 (86) 99 Room Air 07/30/20 18:44 14 112/79 (90) 100 Room Air 07/30/20 18:34 12 96/62 (73) 100 Room Air 07/30/20 18:26 36.5 18 93/47 (62) 99 Room Air 07/30/20 18:26 Room Air 07/30/20 16:00 36.9 81 18 103/63 (76) 97 Room Air 07/30/20 13:04 36.9 91 18 98 Room Air 07/30/20 13:00 36.9 91 18 98 Room Air I & O 07/31/20 07:00 Intake Total 3050 ml Output Total 1950 ml Balance 1100 ml Labs Laboratory Tests 07/30/20 13:15: Urine Color YELLOW, Urine Clarity CLEAR, Urine pH 6.0, Urine Specific [place] 1. 015L, Urine Protein NEGATIVE, Urine Glucose (UA) NEGATIVE, Urine Ketones NEGATIVE, Urine Nitrite NEGATIVE, Urine Bilirubin NEGATIVE, Urine Urobilinogen 0.2, Urine Leukocyte Esterase NEGATIVE, Urine RBC (Auto) NEGATIVE, Urine RBC NONE, Urine WBC RARE, Urine Squamous Epithelial Cells 2-5, Urine Crystals NONE, Urine Bacteria NEGATIVE, Urine Casts NONE, Urine Mucus NEGATIVE, Urine Culture Indicated NO, Urine Opiates Screen NEGATIVE, Urine Oxycodone Screen NEGATIVE, Urine Methadone Screen NEGATIVE, Urine Propoxyphene Screen NEGATIVE, Urine Barbiturates Screen NEGATIVE, Ur Tricyclic Antidepressants Screen NEGATIVE, Urine Phencyclidine Screen NEGATIVE, Urine Amphetamines Screen POSITIVEH, Urine Methamphetamines Screen POSITIVEH, Urine Benzodiazepines Screen NEGATIVE, Urine Cocaine Screen NEGATIVE, Urine Cannabinoids Screen NEGATIVE 07/30/20 16:40: White Blood Count 14.5H, Red Blood Count 3.71L, Hemoglobin 11.0L, Hematocrit 33L , Mean Corpuscular Volume 89, Mean Corpuscular Hemoglobin 30, Mean Corpuscular Hemoglobin Concent 33, Red Cell Distribution Width 13.0, Platelet Count 176, Mean Platelet Volume 10.8, Immature Granulocyte % (Auto) 1, Neutrophils (%) (Auto) 80H, Lymphocytes (%) (Auto) 11L, Monocytes (%) (Auto) 6, Eosinophils (%) (Auto) 3, Basophils (%) (Auto) 0, Neutrophils # (Auto) 11.6H, Lymphocytes # (Auto) 1.6, Monocytes # (Auto) 0.9, Eosinophils # (Auto) 0.4H, Basophils # (Auto) 0.0, Immature Granulocyte # (Auto) 0.1, Neutrophils % (Manual) 82, Lymphocytes % (Manual) 6, Monocytes % (Manual) 9, Eosinophils % (Manual) 3, Blood Morphology Comment NORMAL 07/30/20 17:00: 07/31/20 05:27: White Blood Count 17.5H, Red Blood Count 3.40L, Hemoglobin 10.4L, Hematocrit 30L , Mean Corpuscular Volume 89, Mean Corpuscular Hemoglobin 31, Mean Corpuscular Hemoglobin Concent 34, Red Cell Distribution Width 13.1, Platelet Count 165, Mean Platelet Volume 11.5, Immature Granulocyte % (Auto) 0, Neutrophils (%) (Auto) 87H, Lymphocytes (%) (Auto) 7L, Monocytes (%) (Auto) 4, Eosinophils (%) (Auto) 2, Basophils (%) (Auto) 0, Neutrophils # (Auto) 15.3H, Lymphocytes # (Auto) 1.2, Monocytes # (Auto) 0.6, Eosinophils # (Auto) 0.3, Basophils # (Auto) 0.0, Immature Granulocyte # (Auto) 0.1 DARLEEN HAMM DO Jul 31, 2020 08:28
[2020-07-31] MEDS: DOCUSATE SODIUM 100 MG (COLACE) CAP PO SCH ×2 (08:38→20:16)
[2020-07-31 08:39] VITALS: BP 121/63
[2020-07-31] MEDS: SIMETHICONE 80 MG (MYLICON) CHEW PO SCH ×4 (11:43→23:46)
[2020-07-31 11:55] VITALS: BP 116/72
[2020-07-31] MEDS ORDERED: NICOTINE 21 MG (NICODERM) PATCH TD NR (12:00)
[2020-07-31 15:20] VITALS: BP_SYST 132; BP_SYST 151; BP_DIAS 73; BP_DIAS 82
[2020-07-31] MEDS: IBUPROFEN 600 MG (MOTRIN) TAB PO SCH ×2 (16:49→22:44)
[2020-07-31] MEDS: METOCLOPRAMIDE 10 MG (REGLAN) TAB PO PRN ×2 (16:49→22:43)
[2020-07-31] MEDS: BISACODYL 5 MG (DULCOLAX) TABLET PO SCH (18:13)
[2020-07-31 20:16] VITALS: BP 132/81
[2020-08-01] MEDS: HYDROcodone/APAP 5 MG/325 MG (LORTAB) TAB PO PRN ×3 (00:25→15:04)
[2020-08-01 01:00] VITALS: BP 128/78
[2020-08-01] MEDS: IBUPROFEN 600 MG (MOTRIN) TAB PO SCH ×2 (06:10→13:19)
[2020-08-01] MEDS: METOCLOPRAMIDE 10 MG (REGLAN) TAB PO PRN ×2 (08:00→13:19)
--- NOTE | 2020-08-01 08:11 | Postpartum Progress Note ---
Note Note Day # 2 Subjective: Patient is without complaints. Ambulating, voiding. Tolerating a regular diet without nausea or vomiting. Normal lochia. Pain is well controlled with oral pain medications Objective: Physical Exam: General - Alert and oriented, no apparent distress Abdomen - Soft, appropriately tender to palpation, non-distended, fundus firm at umbilicus Extremities - no edema, negative Nils's bilaterally Incision- c/d/i danna in place Assessment: POD 2 RLTCS Acute blood loss anemia Methamphetamine confirmation test ordered last night and pending per DCF request. Plan: Routine care. Encourage breast feeding. Encourage ambulation. Ferrous sulfate supplementation. Plan for discharge today Vitals - Labs Vital Signs - I&O Vital Signs Date Time Temp Pulse Resp B/P (MAP) Pulse Ox O2 Delivery O2 Flow Rate FiO2 08/01/20 01:00 36.1 72 16 128/78 (95) 96 Room Air 07/31/20 20:16 36.2 75 16 132/81 (98) 97 Room Air 07/31/20 15:20 36.3 78 16 151/73 (99) 97 Room Air 07/31/20 11:55 36.0 58 18 116/72 (87) 97 Room Air 07/31/20 08:39 36.1 69 18 121/63 (82) 95 Room Air I & O 08/01/20 07:00 Output Total 2750 ml Balance -2750 ml Labs Laboratory Tests 07/31/20 13:15: Microbiology 07/30/20 Urine Culture - Final, Complete See Comments DARLEEN HAMM DO Aug 01, 2020 08:11
[2020-08-01 10:30] VITALS: BP 124/77
[2020-08-01] MEDS: BISACODYL 5 MG (DULCOLAX) TABLET PO SCH (10:30)
[2020-08-01] MEDS: SIMETHICONE 80 MG (MYLICON) CHEW PO SCH ×2 (10:30→15:04)
[2020-08-01] MEDS: DOCUSATE SODIUM 100 MG (COLACE) CAP PO SCH (10:30)
[2020-08-01] MEDS ORDERED: NICOTINE PATCH REMOVAL TP SCH (12:00)
[2020-08-01 15:00] VITALS: BP 119/68
[2020-08-01] MEDS ORDERED: NICOTINE 21 MG (NICODERM) PATCH ONE (17:47)
[2020-08-01] MEDS ORDERED: NICOTINE 21 MG (NICODERM) PATCH TD ONE (18:00)
[2020-08-02] MEDS ORDERED: NICOTINE PATCH REMOVAL TP SCH (18:00)
== END 2020-08-01 18:15 | disposition home or self-care (01) | DRG 787 ==
LOC: LDRP 12:40 → WSo 12:40 → LDRP 17:30
PROVIDERS: ADMIT Obstetrics & Gynecology; ATTEND Obstetrics & Gynecology
PROC: 10D00Z1 Extraction of Products of Conception, Low, Open Approach (ICD-10-PCS; principal; 2020-07-30 17:30)
DX: O34.211 Maternal care for low transverse scar from previous cesarean delivery (principal); D62 Acute posthemorrhagic anemia; Z3A.36 36 weeks gestation of pregnancy; Z37.0 Single live birth; O42.913 Preterm premature rupture of membranes, unspecified as to length of time between rupture and onset of labor, third trimester; O90.81 Anemia of the puerperium; Z20.822 Contact with and (suspected) exposure to COVID-19
CPT/HCPCS: 36415; 76819; 80306; 81000; 85007; 85025; 85027; 86850; 86900; 86901; 87088; 87635; 94664; 99212

== ENCOUNTER 2022-11-02 23:51 | Emergency (ER) | payer SELFPAY ==
[~2022-11-02] VITALS: Ht 165 cm; Wt 63.5 kg
[~2022-11-02 23:51] MED LIST changes: +DOCU-239 PO; +DOXY-444 PO; -DOXY100C42 PO; +IBUP-844 PO
[2022-11-02 23:55] VITALS: BP 157/94
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
[2022-11-03] MEDS ORDERED: TRIM/SULFAMETH 160/800 (SEPTRA DS) TAB PO ONE (00:45)
[2022-11-03] MEDS ORDERED: CEPHALEXIN 250 MG (KEFLEX) CAP PO ONE (00:45)
[2022-11-03] MEDS ORDERED: CEPH500T PO (00:47)
[2022-11-03] MEDS ORDERED: SULF1TAB38 PO (00:47)
--- NOTE | 2022-11-03 07:06 | Diagnostic Imaging Report ---
INDICATION: Right foot injury 2 views the right foot show no fracture, dislocation or radiopaque foreign object. IMPRESSION: Negative right foot. Dictated by: Dictated on workstation # [id number]
== END 2022-11-03 00:54 | disposition home or self-care (01) ==
LOC: EDUNIT# 23:51 → ER 23:54
DX: S91.331A Puncture wound without foreign body, right foot, initial encounter (principal); L02.611 Cutaneous abscess of right foot; F17.210 Nicotine dependence, cigarettes, uncomplicated; Z88.0 Allergy status to penicillin; W45.8XXA Other foreign body or object entering through skin, initial encounter
CPT/HCPCS: 73620; 84703; 87070; 87077; 87205